=== PATIENT | male | born 1940 | race Caucasian/White ===

== ENCOUNTER → 2017-07-24 10:55 | Outpatient (CLI) | payer MEDICARE, OTHER, SELFPAY ==
[2017-07-24 12:55] LABS: Absolute Lymphocyte Count 1.14 X10^3/ul (0.83-4.51); Absolute Neutrophil Count 4.7 X10^3/uL (2.0-7.7); Basophil# 0.03 X10^3/uL; Basophil% 0.4 % (0-1); Eosinophil# 0.27 X10^3/uL; Hematocrit 46.4 % (40-54); Lymphocyte # 1.14 X10^3/ul (4.0); Lymphocyte % 16.9 % (19-41); Mean Corp Hgb Conc 32.3 g/gl (32-36); Mean Corpuscular Hgb 29.2 pg (27.0-32.0); Mean Corpuscular Volume 90.4 fL (80-94); Mean Platelet Vol. 9.3 fl (6.2-12.0); Monocyte# 0.59 X10^3/uL; Monocyte% 8.7 % (0-10); Neutrophil # 4.71 X10^3/uL (2.7-7.7); Neutrophil % 69.9 % (47-70); Platelet Count 203 K/mm3 (150-450); RBC Distribution Width CV 13.7 % (11.6-14.6); RBC Distribution Width SD 44.7 fl (35.1-43.9); Red Blood Count 5.13 M/mm3 (4.6-6.2); White Blood Count 6.8 K/mm3 (4.4-11.0)
[2017-07-24 12:59] LABS: POSITIVE COUNT NO; POSITIVE DIFFERENTIAL NO; POSITIVE MORPHOLOGY NO
[2017-07-24 13:24] LABS: Anion Gap 6 (5-15); BUN 24 mg/dL (7-18); BUN/Creat Ratio 14.1 RATIO (10-20); Calcium,Total 9.3 mg/dL (8.5-10.1); Chloride 103 mmol/L (98-107); Cholesterol 148 mg/dL (200); EST Glomerular Filtration Rate 42 mL/min (>60); Est Glom Filt Rate - Afr Amer 51 mL/min (>60); Glucose 94 mg/dL (74-106); High Density Lipoprotein 30 mg/dL; Potassium 4.6 mmol/L (3.5-5.1); Sodium Level 139 mmol/L (136-145); T4 Total, Thyroxin 6.7 ug/dL (4.5-12.1); Thyroid Stim Hormone (TSH) 1.24 uIU/mL (0.358-3.74); Triglycerides 276 mg/dL; Very Low Density Lipoprotein 55 mg/dL (5-40)
== END ==
PROVIDERS: Family Provider Family Medicine; PCP Family Medicine; Visit Provider Physician Assistant Medical
DX: E78.5 Hyperlipidemia, unspecified (principal); I10 Essential (primary) hypertension; I25.10 Atherosclerotic heart disease of native coronary artery without angina pectoris; R53.83 Other fatigue
CPT/HCPCS: 80048; 80061; 84436; 84443; 85025

== ENCOUNTER → 2017-12-05 13:51 | Outpatient (CLI) | payer MEDICARE, OTHER, SELFPAY ==
[2017-12-05 15:04] LABS: Anion Gap 6 (5-15); BUN 24 mg/dL (7-18); BUN/Creat Ratio 16.6 RATIO (10-20); Calcium,Total 9.1 mg/dL (8.5-10.1); Chloride 102 mmol/L (98-107); Creatinine, Serum 1.45 mg/dL (0.70-1.30); EST Glomerular Filtration Rate 50 mL/min (>60); Est Glom Filt Rate - Afr Amer 61 mL/min (>60); Glucose 89 mg/dL (74-106); Potassium 4.2 mmol/L (3.5-5.1); Sodium Level 139 mmol/L (136-145)
== END ==
PROVIDERS: Family Provider Family Medicine; PCP Family Medicine; Referring Provider Physician Assistant Medical; Visit Provider Physician Assistant Medical
DX: I10 Essential (primary) hypertension (principal); N28.9 Disorder of kidney and ureter, unspecified
CPT/HCPCS: 36415; 80048

== ENCOUNTER → 2017-12-11 06:12 | Outpatient (CLI) | payer MEDICARE, OTHER, SELFPAY ==
--- NOTE | 2017-12-11 06:14 | CDU_ITS ---
Reason For Study: bruit Rt. Velocities/BP Lt. Velocities/BP Prox CCA 87.4/7.62 cm/sec. Prox CCA 77.0/11.4 cm/sec. Mid CCA 63.3/12.3 cm/sec. Mid CCA 53.8/11.4 cm/sec. Dist CCA 66.3/11.1 cm/sec. Dist CCA 61.7/10.2 cm/sec. Prox ICA 56.3/12.9 cm/sec. Prox ICA 80.9/20.5 cm/sec. Mid ICA 73.3/21.1 cm/sec. Mid ICA 86.8/18.2 cm/sec. Dist ICA 48.7/15.2 cm/sec. Dist ICA 59.7/15.7 cm/sec. Rt. ICA/CCA = 1.2. Lt. ICA/CCA = 1.6. Prox ECA 118/7.62 cm/sec. Prox ECA 206/10.8 cm/sec. Rt. Vert. 37.7/15.3 cm/sec. Lt. Vert. 58.9/15.3 cm/sec. Right Extracranial There is intimal thickening but no significant atherosclerotic plaque noted in the right common carotid artery. There is homogeneous, smooth atherosclerotic plaque noted in the right internal carotid artery. There is intimal thickening but no significant atherosclerotic plaque noted in the right external carotid artery. Antegrade flow is noted in the right vertebral artery. Abnormal waveform morphology noted in the right vertebral artery. Left Extracranial There is homogeneous, smooth atherosclerotic plaque noted in the left common carotid artery. There is heterogeneous, irregular atherosclerotic plaque noted in the left internal carotid artery. The left internal carotid artery is very tortuous. There is heterogeneous, irregular atherosclerotic plaque noted in the left external carotid artery. Antegrade flow is noted in the left vertebral artery. Procedure Carotid Duplex [id number]. The exam was diagnostic. Exam performed in department. Interpretation Summary Mild (<50%) stenosis right extracranial internal carotid. Mild (<50%) stenosis left extracranial internal carotid. Flow within the vertebral arteries is antegrade bilaterally. Ordering Physician: Jemima Maldonado Performed By: Isai Baron RVT
--- NOTE | 2017-12-11 09:55 | STRESSREP ---
Stress Test Report Date: 12/11/2017 Procedure: Exercise tolerance test/imaging study Indications: Chest pain; CAD; PCI; CABG AK: Cardiomyopathy Consent: Per the patient Procedure: The patient exercised on a Daniele protocol for 3 minutes and 45 seconds minutes completing Stage I and 45 seconds of Stage II achieving a peak heart rate of 134 bpm (92 % predicted maximal heart rate) with a peak blood pressure 164/80 mmHg and a peak MET capacity of 6 METs. The baseline ECG demonstrated normal sinus rhythm with nonspecific T wave abnormality. The peak exercise ECG demonstrated approximately 2-[address] segment depression in leads II, III, aVF, and 1 to [address] segment depression in leads V5 and V6 with gradual resolution towards baseline in recovery. There were occasional PVCs pretest, during exercise, and recovery. The functional capacity was considered decreased. There was noted chest discomfort/burning and shortness of breath/dyspnea during exercise continuous resolution in recovery. The examination was discontinued secondary to dyspnea. Impression: 1. Technically adequate (percent predicted maximal heart rate greater than 85%) exercise tolerance test 2. Peak exercise ECG demonstrated approximately 2-[address] segment depression in leads II, III, aVF, and I to II [address] segment depression in leads V5 and V6 with gradual resolution towards baseline in recovery 3. There were occasional PVCs pretest, during exercise, and recovery 4. Nuclear images pending Myocardial perfusion imaging study: Technique: The patient was injected with 14.5 mCi of technetium 99m Cardiolite and subsequently rest SPECT Cardiolite nuclear imaging was obtained in the horizontal long, vertical long, and short axis views. The patient exercised on a Daniele protocol for 3 minutes and 45 seconds completing Stage I and 45 seconds of Stage II achieving a peak heart rate of 134 bpm (92 % predicted maximal heart rate) with a peak blood pressure 164/80 mmHg and a peak MET capacity of 6 METs. The patient was injected with 44.2 mCi of technetium 99m Cardiolite and subsequently stress SPECT Cardiolite nuclear imaging was obtained in the horizontal long, vertical long, and short axis views. A gated Cardiolite study at peak stress was obtained. Interpretation: Rest and stress SPECT Cardiolite nuclear imaging status post realignment, normalization, and attenuation correction, demonstrates the appearance status post stress of diminished tracer uptake in portions of the interventricular septum as well as the distal inferolateral/lateral apical segments as well as notation status post stress of myocardial perfusion/tracer uptake in the right ventricle. There is diminished end systolic thickening and brightening. The gated Cardiolite study demonstrates this myocardial thickening and inward wall motion. The reported LVEF is 45 %. Impression: 1. Rest and stress SPECT Cardiolite nuclear imaging demonstrate demonstrate, status post stress, myocardial perfusion changes concerning for areas of stress-induced myocardial ischemia involving portions of the interventricular septum as well as the distal inferolateral/lateral apical segments and myocardial perfusion/tracer uptake in the right ventricle. 2. The gated Cardiolite study reports an LVEF of 45 %. This note was generated with [employer] software. It may contain incorrect words, spelling, and punctuation that were not noted in checking the note before signing.
--- NOTE | 2017-12-11 10:01 | STRESSREP_ITS ---
Stress Test Report Date: 12/11/2017 Procedure: Exercise tolerance test/imaging study Indications: Chest pain; CAD; PCI; CABG TX: Cardiomyopathy Consent: Per the patient Procedure: The patient exercised on a Daniele protocol for 3 minutes and 45 seconds minutes completing Stage I and 45 seconds of Stage II achieving a peak heart rate of 134 bpm (92 % predicted maximal heart rate) with a peak blood pressure 164/80 mmHg and a peak MET capacity of 6 METs. The baseline ECG demonstrated normal sinus rhythm with nonspecific T wave abnormality. The peak exercise ECG demonstrated approximately 2-[address] segment depression in leads II, III, aVF, and 1 to [address] segment depression in leads V5 and V6 with gradual resolution towards baseline in recovery. There were occasional PVCs pretest, during exercise, and recovery. The functional capacity was considered decreased. There was noted chest discomfort/burning and shortness of breath/dyspnea during exercise continuous resolution in recovery. The examination was discontinued secondary to dyspnea. Impression: 1. Technically adequate (percent predicted maximal heart rate greater than 85%) exercise tolerance test 2. Peak exercise ECG demonstrated approximately 2-[address] segment depression in leads II, III, aVF, and I to II millimeters of horizontal ST segment depression in leads V5 and V6 with gradual resolution towards baseline in recovery 3. There were occasional PVCs pretest, during exercise, and recovery 4. Nuclear images pending Myocardial perfusion imaging study: Technique: The patient was injected with 14.5 mCi of technetium 99m Cardiolite and subsequently rest SPECT Cardiolite nuclear imaging was obtained in the horizont al long, vertical long, and short axis views. The patient exercised on a Daniele protocol for 3 minutes and 45 seconds completing Stage I and 45 seconds of Stage II achieving a peak heart rate of 134 bpm (92 % predicted maximal heart rate) with a peak blood pressure 164/80 mmHg and a peak MET capacity of 6 METs. The patient was injected with 44.2 mCi of technetium 99m Cardiolite and subsequently stress SPECT Cardiolite nuclear imaging was obtained in the horizontal long, vertical long, and short axis views. A gated Cardiolite study at peak stress was obtained. Interpretation: Rest and stress SPECT Cardiolite nuclear imaging status post realignment, normalization, and attenuation correction, demonstrates the appearance status post stress of diminished tracer uptake in portions of the interventricular septum as well as the distal inferolateral/lateral apical segments as well as notation status post stress of myocardial perfusion/tracer uptake in the right ventricle. There is diminished end systolic thickening and brightening. The gated Cardiolite study demonstrates this myocardial thickening and inward wall motion. The reported LVEF is 45 %. Impression: 1. Rest and stress SPECT Cardiolite nuclear imaging demonstrate demonstrate, status post stress, myocardial perfusion changes concerning for areas of stress- induced myocardial ischemia involving portions of the interventricular septum as well as the distal inferolateral/lateral apical segments and myocardial perfusion/tracer uptake in the right ventricle. 2. The gated Cardiolite study reports an LVEF of 45 %. This note was generated with [employer] software. It may contain incorrect words, spelling, and punctuation that were not noted in checking the note before signing.
== END ==
PROVIDERS: Family Provider Family Medicine; PCP Family Medicine; Referring Provider Physician Assistant Medical; Visit Provider Physician Assistant Medical
DX: R07.9 Chest pain, unspecified (principal); I10 Essential (primary) hypertension; R09.89 Other specified symptoms and signs involving the circulatory and respiratory systems
CPT/HCPCS: 78452; 93017; 93880; A9500; A4216

== ENCOUNTER 2017-12-30 07:40 | Day surgery (SDC) | payer MEDICARE, OTHER, SELFPAY ==
--- NOTE | 2017-12-18 08:53 | RAD_ITS ---
STUDY: X-RAY CHEST REASON FOR EXAM: Male, 77 years old. Preprocedure for heart catheterization TECHNIQUE: PA and lateral views of the chest. COMPARISON: 05/16/2015 FINDINGS: Coarsened interstitial lung markings with localized fibrotic changes in the left more than right lung base similar to the prior study. No airspace consolidation. There is no demonstrated pleural abnormality. There is mild cardiac enlargement. Sternal wires and mediastinal surgical clips compatible with prior CABG. Normal visualized pulmonary arteries. There is atherosclerotic calcification of the aortic arch with tortuosity. There are diffuse degenerative changes of the visualized thoracic spine. Normal visualized ribs, clavicles, and shoulders. There is no demonstrated abnormality of the visualized soft tissue structures of the upper abdomen. RAD/Chest PA and Lateral IMPRESSION: No acute cardiopulmonary process. Stable exam. Electronically Signed: Milo Mauro MD at 15:45 EDT , Service support ,
[2017-12-18 09:41] LABS: Hematocrit 47.2 % (40-54); Hemoglobin 15.1 g/dl (13.0-16.5); Mean Corpuscular Hgb 29.7 pg (27.0-32.0); Mean Corpuscular Volume 92.7 fL (80-94); Mean Platelet Vol. 9.4 fl (6.2-12.0); Platelet Count 181 K/mm3 (150-450); RBC Distribution Width CV 14.1 % (11.6-14.6); RBC Distribution Width SD 47.7 fl (35.1-43.9); Red Blood Count 5.09 M/mm3 (4.6-6.2)
[2017-12-18 09:43] LABS: Scan Indicated on CBC? Y/N NO
[2017-12-18 14:43] LABS: Partial Thromboplast Time 28.7 Seconds (24.1-36.2); Prothrombin Time (Protime)PT. 13.5 SECONDS (11.7-14.9)
[2017-12-26 12:41] VITALS: BMI 36.5
--- NOTE | 2017-12-30 10:40 | CL.D_ITS ---
Patient Name: GARCIA HAAS Study Date: 12/30/2017 Performing: Chandu Barrow MD Ht: 68.11 inches 173 cm : 1940 Wt: 240.3 lbs 109 kg Age: 77 Gender: male BSA: 2.21 PROCEDURE(S) PERFORMED CE78-RLW/COR/LV CLINICAL PROFILE AND INDICATIONS Indications: Worsening Angina, Suspected CAD Heart Failure: None Stress/Imaging Stress Test w/SPECT MPI: Yes Result: PositiveStress Test with SPECT MPI: Positive Angina Classification Anginal Classification w/in 2 Weeks: CCS III CAD Presentations: Stable angina. 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 The risks and benefits of the procedure as well as a full d escription of our services here and current unavailability of surgical backup were fully explained to the patient and/or their significant other prior to the catheterization. The Timeout was completed, verifying the correct patient and procedure. The patient's procedural site was prepped and draped in the usual fashion. Local anesthetic was given subcutaneously to right groin region with Lidocaine 2%. Using a modified Seldinger technique, arterial access was obtained via the right femoral artery, a 4 Fr sheath was inserted Left Coronary Artery selective angiography was performed in multiple views us ing a 4 Fr. JL5 catheter. Right Coronary Artery selective angiography was then performed in multiple views using a 4 Fr. 3DRC catheter. Left Ventriculography was performed in FALK projection using a 4 Fr . Pigtail catheter. Simultaneous pressures were then recorded.The arterial sheath was pulled and manu al compression applied until hemostasis is achieved. CORONARY ANGIOGRAPHY DOMINANCE: Co- Dominant LEFT HEART ASSESSMENT Left Ventricular Ejection Fraction: by LV Gram 55 % Normal LV wall motion Elevated Left Ventricular End Diastolic Pressure LVEDP: 26 mmHg LEFT MAIN: Moderate calcification, Distal: 50 % Stenosis LEFT ANTERIOR DECENDING ARTERY: PROX LAD: Moderate calcification, 95 % Stenosis, Long: Diffuse: Irregular: 85 % Stenosis MID LAD: S/P SP and DX1: 85 % Stenosis DIAGONAL 1: Ostial - 95 % Stenosis CIRCUMFLEX ARTERY: OSTIAL CIRC: 50-75 % Stenosis PROX CIRC: Moderate calcification, 50 % Stenosis MID CIRC: Diffuse: 25 % Stenosis OM 1: Proximal - 75 % Stenosis, Mid - 75 % Stenosis, Distal - 95 % Stenosis LT PDA: Left PDA: Proximal - Previously placed stent is patent RIGHT CORONARY ARTERY: PROX RCA: 85 % Stenosis DISTAL RCA: 85 % Stenosis GRAFTS: graft to the Mid LAD previously documented as small, atretic, and nonfunctional and not reevalua unique during this procedure VALVE FINDINGS: Normal Aortic Valve function Normal Mitral Valve function AORTIC ROOT: Angiographically normal COMPLICATIONS No Complications PROCEDURE MEDICATIONS Versed 1 mg IV Oxygen: 2 L/min via nasal cannula SUMMARY OF HEMODYNAMIC DATA Time AIR REST ECG 07:58:44 AO 108/79 (92) SA 09:46:01 LV 121/6, 28 09:54:18 LV 125/1, 23 09:54:24 LV 118/21, 35 09:55:22 LV 122/5, 26 09:55:28 LVp 124/3, 24 09:55:34 AOp 123/67 (92) 09:55:39 Signed By Chandu Barrow MD On 12/30/2017 10:40:14 Chandu Barrow MD
== END 2017-12-30 16:20 | disposition short-term general hospital (02) ==
PROVIDERS: Family Provider Family Medicine; PCP Family Medicine; Referring Provider Internal Medicine Cardiovascular Disease; Visit Provider Internal Medicine Cardiovascular Disease
DX: I25.10 Atherosclerotic heart disease of native coronary artery without angina pectoris (principal); R07.9 Chest pain, unspecified; I10 Essential (primary) hypertension; E78.5 Hyperlipidemia, unspecified; R09.89 Other specified symptoms and signs involving the circulatory and respiratory systems; Z79.02 Long term (current) use of antithrombotics/antiplatelets; Z79.82 Long term (current) use of aspirin; Z79.899 Other long term (current) drug therapy; R94.39 Abnormal result of other cardiovascular function study; Z95.1 Presence of aortocoronary bypass graft; Z95.5 Presence of coronary angioplasty implant and graft
CPT/HCPCS: 36415; 71046; 85027; 85610; 85730; 93458; 99152; 99153; J7040; C1769; C1894; Q9967

== ENCOUNTER → 2018-03-06 10:23 | Outpatient (CLI) | payer MEDICARE, OTHER, SELFPAY ==
[2018-02-13 14:28] VITALS: BMI 32.3
--- NOTE | 2018-03-06 14:42 | STRESSREP ---
Stress Test Report Date: 03/06/2018 Procedure: Exercise tolerance test Indications: CAD; status post redo CABG; precardiac rehabilitation Consent: Per the patient Procedure: The patient exercised on a Daniele protocol for 4 minutes and 15 seconds completing Stage I and 1 minute 15 seconds of Stage II achieving a peak heart rate of 130 bpm (89 % predicted maximal heart rate) with a peak blood pressure 164/86 mmHg and a peak MET capacity of approximately 6 MET's. The baseline ECG demonstrated normal sinus rhythm; poor R wave progression; nonspecific ST/T wave abnormality. The peak exercise ECG demonstrated no obvious ECG changes. There were occasional PVCs pretest, during exercise, and recovery. The functional capacity was considered decreased. The patient had no complaint of chest discomfort during exercise or recovery. The examination was discontinued secondary to leg discomfort. Impression: 1. Technically adequate (percent predicted maximal heart rate greater than 85%) exercise tolerance test 2. Peak exercise ECG with continued nonspecific ST/T wave abnormality with no obvious ECG changes 3. There were occasional PVCs pretest, during exercise, and recovery This note was generated with [employer] software. It may contain incorrect words, spelling, and punctuation that were not noted in checking the note before signing.
== END ==
PROVIDERS: Family Provider Family Medicine; PCP Family Medicine; Referring Provider Internal Medicine Cardiovascular Disease; Visit Provider Internal Medicine Cardiovascular Disease
DX: I25.10 Atherosclerotic heart disease of native coronary artery without angina pectoris (principal); R07.9 Chest pain, unspecified; Z95.5 Presence of coronary angioplasty implant and graft; Z95.1 Presence of aortocoronary bypass graft
CPT/HCPCS: 93017

== ENCOUNTER → 2018-03-19 11:13 | Outpatient (CLI) | payer MEDICARE, OTHER, SELFPAY ==
[2018-02-13 14:28] VITALS: BMI 32.3
--- NOTE | 2018-03-19 12:43 | PCM.CR.HP2 ---
CR - History & Physical - General Arrival date:: 03/19/18 Arrival time:: 12:00 Date of Referral:: 02/13/18 Date of CR Evaluation:: 03/19/18 Referring Physician: DR. CHANDU RUIZ Primary Diagnosis: PCI W/STENT PLACEMENT - History of Present Cardiac Event Onset Date: Enter Onset Date of cardiac illnesses in Comment field below Acute Myocardial Infarction within 12 months:: Yes - IL WAS BACK IN 2004. Coronary Artery Bypass Graft:: Yes - REPEAT CABG 01/06/2018 (5 VESSELS) PTCA or coronary stenting:: Yes - 2010 WHICH CORONARY VESSEL WAS BYPASSED THIS TIME Type of Symptoms:: MAINLY SHORTNESS OF BREATH AND SOME CHEST DISCOMFORT. Interventions with present event:: STRESS TEST, WEEK LATER HAD CT SCAN AND ECHO SENT TO [facility] FOR SURGERY. - Medications Home Medications: Ambulatory Orders Medication Instructions Recorded nitroglycerin 0.4 mg sublingual 0.4 mg SUBLINGUAL Q5M PRN #25 tab 07/24/17 tablet allopurinol 300 mg tablet 1 tab PO QODAY 30 Days #30 tab 12/05/17 aspirin 81 mg tablet,delayed 81 mg PO DAILY 02/13/18 release atorvastatin 80 mg tablet 80 mg PO QHS 02/13/18 indomethacin 50 mg capsule 50 mg PO TID PRN cap 02/13/18 metoprolol tartrate 25 mg tablet 25 mg PO BID 02/13/18 - Allergies Allergies/Adverse Reactions: Allergies rosuvastatin calcium [From Crestor] Allergy (Verified 12/05/17 13:08) Unknown - Sleep Disorder Evaluation Hx of Sleep Apnea: No Do you snore loudly (louder than talking or can be heard through closed doors)?: No Do you often feel tired/ fatigued/ sleepy during daytime?: No Has anyone observed you stop breathing during sleep?: No History of Hypertension (for STOP score): Yes STOP Results: Negative Advanced Directives - Advanced Directives Living Will: Yes Advance Directives Information Provided: No Advance Directives on File: No - Patient is unsure if document is on file or not. 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 Left bundle branch block (Chronic) I44.7 Other snf (current) drug therapy (Chronic) Z79.899 Abnormal nuclear stress test (Chronic) R94.39 HLD (hyperlipidemia) (Chronic) E78.5 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 Shortness of breath R06.02 Gout M10.9 History of prostate cancer Z85.46 - Past Surgical History Surgical History: Past Surgical History (Last Reviewed 02/13/18 @ 14:34 by Jemima Muse) 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) Z95.5, Z95.1 Atherectomy with angioplasty proximal LAD ; LHC with PTCA & stenting of proximal left posterior atrioventricular artery 04/20; Hx of CABG (Resolved) Onset Date: ~01/06/18 Z95.1 -LAD ; Redo CABG x5 GATO to LAD, SVG to PDA, OM1, OM2, D 01/06/18 History of left heart catheterization Z98.890 PTCA & stenting of proximal left posterior atrioventricular artery 04/20 Fraction flow reserve 11/19 - Family History Summary Family History: Family History (Last Reviewed 02/13/18 @ 14:34 by Jemima Muse) Father CAD (coronary artery disease) Myocardial infarction Mother Cancer Social History - Smoking History Smoking Status: Never smoker Hx Tobacco Use: No Hx Smoking Exposure: No - Alcohol Use Alcohol Usage: No - Substance Abuse Hx Substance Use: No - Occupation Occupation (List type of work in comments):: Retired - Hobbies, Recreation, Social Activities Hobbies: Other - cars, old cars and monkeying around on cars. Recreational Activities: I am able to engage in most, but not all activities Social Environment - Status Marital Status: - Current Living Arrangements Living Environment:: Spouse - Children How many children do you have?: 2 - 2-girls own, 2-step sons Do any of your children live nearby?: Yes - Safety Do you feel safe in your surroundings?: Yes - Assistance Do you need any assistance at home?: none Review of Systems - Review of Systems Hints: Right click = Denies ([place]ash). Left click = Reports ([place]) Review of Present Symptoms: Reports: Operative Discomfort - mostly in the legs from the vein extraction., Wound Healing, Appetite - Normal, Appetite - Special Diet - minimized amount of red meats, eats more fruits vegetables, etc., Sleep - Normal. Denies: Shortness of Breath at Rest, Shortness of Breath with Exertion - not since had the repeat CABG done, Dizziness/Lightheadedness, Fatigue, Heart Arrhythmia/Irregularities - Pain Is Patient Pain Free?: Yes Pain Location: none Risk Factor Assessment - Chief Complaint Chief Complaint: Patient is a 77 yr old mael patient of Dr. Chandu Ruiz who presents to cardiac rehab today. He has a history of prior cardiac events ([place], CABG and stent) RANGING BACK TO 2004, 2010 AND RECENTLY EXPERIENCING SHORTNESS OF BREATH. UPON EVALUATION AND TESTING BY DR. RUIZ HE WAS SENT BACK UP TO [facility] FOR REPEAT CABG. - Vital Signs Temperature: 97.8 F Respiratory Rate: 14 Pulse Ox: 93 Blood Pressure: 110/60 Nailbeds:: PINK - Pulse Pulse Rate: 92 - Hypertension How long have you been treated?: 1994 Blood Pressure Sitting - Right Arm: 110/60 - Diabetes Nutrition Referral for Diabetes: No - Obesity Height: 5 ft 8 in Weight:: 213 lb Weight in Pounds: 213.0 lbs Weight Source: Estimated by Patient Body Mass Index (BMI): 32.3 Nutritional Referral for Obesity: Yes - Physical Inactivity Physical Inactivity: None - Risk Stratification Risk Guidelines: Lowest Risk: Risk Factor for Smoking, Risk Factor for Dyslipidemia, Risk Factor for Diabetes, Risk Factor for Hypertension, Risk Factor for Sedentary Lifestyle, Risk Factor for Depression, Highest Risk: Risk Factor for Obesity - For Smoking Smoking Risk Guidelines: Smoking Low Risk: None or quit greater than 6 months ago. Smoking Moderate Risk: Smoker or quit 6 months or less ago. Smoking High Risk: Smoker - For Dyslipidemia Dyslipidemia Risk Guidelines: Low Risk: Moderate Risk: High Risk: 15-25% fat 25.1-29% fat >/= 30% fat. <7% sat fat 7-9% sat fat >9% sat fat. <150 mg chol 150-299 mg chol >/= 300 mg chol. LDL <100 LDL 100-129 LDL >/= 130. Chol/HDL ratio <5.0 Chol/HDL ratio 5.0-6.0 Chol/HDL ratio >6.0. Triglycerides <100 Triglycerides 100-149 Triglycerides >/= 150 - For Diabetes Mellitus Diabetes Risk Guidelines: Diabetes Low Risk: HgA1c <6.5% and/or FBG <120. Diabetes Moderate Risk: HgA1c 6.6-7.9% and/or FBG 120-180. Diabetes High Risk: HgA1c >/= 8% and/or FBG >180 - For Obesity/Overweight Obesity/Overweight Risk Guidelines: Obesity Low Risk: BMI <25.0. Obesity Moderate Risk: BMI 25-29.9. Obesity High Risk: BMI >/= 30.0 - For Hypertension Hypertension Risk Guidelines: Hypertension Low Risk: Systolic <120 and Diastolic <80. Hypertension Moderate Risk: Systolic 120-139 and Diastolic 80-89. Hypertension High Risk: Systolic >/= 140 and Diastolic >/= 90 - For Sedentary Lifestyle Sedentary Lifestyle Risk Guidelines: Sedentary Lifestyle Low Risk: >/= 1,500 kcal/week. Sedentary Lifestyle Moderate Risk: 700-1,499 kcal/week. Sedentary Lifestyle High Risk: < 700 kcal/week - For Depression Depression Risk Guidelines: Depression Low Risk: Not clinically depressed. Depression Moderate Risk: Mildly depressed. Depression High Risk: Clinically depressed - Family History Family History: Family History (Last Reviewed 02/13/18 @ 14:34 by Jemima Muse) Father CAD (coronary artery disease) Myocardial infarction Mother Cancer Motivation - Motivation to Participate On a scale of 1 to 10, how prepared are you to commit to attending program?: 8 What do you see as barriers to successfully being able to complete the program?: NONE What do you see as the benefits of succesfully completing the program? In other words, what do you hope to get out of participating in the program?: INCREASING THE STAMINA, STREGNTH AND ENDURANCE. Are there issues you are dealing with that will interfere with completing the program?: NONE Do you have a spouse or signficant other, family or friends who will help support you to complete the program?: YES
--- NOTE | 2018-03-19 12:49 | CR.HP_ITS ---
CR - History & Physical - General Arrival date:: 03/19/18 Arrival time:: 12:00 Date of Referral:: 02/13/18 Date of CR Evaluation:: 03/19/18 Referring Physician: DR. CHANDU RUIZ Primary Diagnosis: PCI W/STENT PLACEMENT - History of Present Cardiac Event Onset Date: Enter Onset Date of cardiac illnesses in Comment field below Acute Myocardial Infarction within 12 months:: Yes - SD WAS BACK IN 2004. Coronary Artery Bypass Graft:: Yes - REPEAT CABG 01/06/2018 (5 VESSELS) PTCA or coronary stenting:: Yes - 2010 WHICH CORONARY VESSEL WAS BYPASSED THIS TIME Type of Symptoms:: MAINLY SHORTNESS OF BREATH AND SOME CHEST DISCOMFORT. Interventions with present event:: STRESS TEST, WEEK LATER HAD CT SCAN AND ECHO SENT TO [facility] FOR SURGERY. - Medications Home Medications: Ambulatory Orders Medication Instructions Recorded nitroglycerin 0.4 mg sublingual 0.4 mg SUBLINGUAL Q5M PRN #25 tab 07/24/17 tablet allopurinol 300 mg tablet 1 tab PO QODAY 30 Days #30 tab 12/05/17 aspirin 81 mg tablet,delayed 81 mg PO DAILY 02/13/18 release atorvastatin 80 mg tablet 80 mg PO QHS 02/13/18 indomethacin 50 mg capsule 50 mg PO TID PRN cap 02/13/18 metoprolol tartrate 25 mg tablet 25 mg PO BID 02/13/18 - Allergies Allergies/Adverse Reactions: Allergies rosuvastatin calcium [From Crestor] Allergy (Verified 12/05/17 13:08) Unknown - Sleep Disorder Evaluation Hx of Sleep Apnea: No Do you snore loudly (louder than talking or can be heard through closed doors)?: No Do you often feel tired/ fatigued/ sleepy during daytime?: No Has anyone observed you stop breathing during sleep?: No History of Hypertension (for STOP score): Yes STOP Results: Negative Advanced Directives - Advanced Directives Living Will: Yes Advance Directives Information Provided: No Advance Directives on File: No - Patient is unsure if document is on file or not. 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 Left bundle branch block (Chronic) I44.7 Other senior care (current) drug therapy (Chronic) Z79.899 Abnormal nuclear stress test (Chronic) R94.39 HLD (hyperlipidemia) (Chronic) E78.5 Atherosclerotic heart disease of [place] coronary artery without angina pectoris (Chronic) I25.10 Shortness of breath R06.02 Gout M10.9 History of prostate cancer Z85.46 - Past Surgical History Surgical History: Past Surgical History (Last Reviewed 02/13/18 @ 14:34 by Jemima Muse) 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) Z95.5, Z95.1 Atherectomy with angioplasty proximal LAD ; LHC with PTCA & stenting of proximal left posterior atrioventricular artery 04/20; Hx of CABG (Resolved) Onset Date: ~01/06/18 Z95.1 -LAD ; Redo CABG x5 GATO to LAD, SVG to PDA, OM1, OM2, D 01/06/18 History of left heart catheterization Z98.890 PTCA & stenting of proximal left posterior atrioventricular artery 04/20 Fraction flow reserve 11/19 - Family History Summary Family History: Family History (Last Reviewed 02/13/18 @ 14:34 by Jemima Muse) Father CAD (coronary artery disease) Myocardial infarction Mother Cancer Social History - Smoking History Smoking Status: Never smoker Hx Tobacco Use: No Hx Smoking Exposure: No - Alcohol Use Alcohol Usage: No - Substance Abuse Hx Substance Use: No - Occupation Occupation (List type of work in comments):: Retired - Hobbies, Recreation, Social Activities Hobbies: Other - cars, old cars and monkeying around on cars. Recreational Activities: I am able to engage in most, but not all activities Social Environment - Status Marital Status: - Current Living Arrangements Living Environment:: Spouse - Children How many children do you have?: 2 - 2-girls own, 2-step sons Do any of your children live nearby?: Yes - Safety Do you feel safe in your surroundings?: Yes - Assistance Do you need any assistance at home?: none Review of Systems - Review of Systems Hints: Right click = Denies (Slash). Left click = Reports ([place]) Review of Present Symptoms: Reports: Operative Discomfort - mostly in the legs from the vein extraction., Wound Healing, Appetite - Normal, Appetite - Special Diet - minimized amount of red meats, eats more fruits vegetables, etc., Sleep - Normal. Denies: Shortness of Breath at Rest, Shortness of Breath with Exertion - not since had the repeat CABG done, Dizziness/Lightheadedness, Fatigue, Heart Arrhythmia/Irregularities - Pain Is Patient Pain Free?: Yes Pain Location: none Risk Factor Assessment - Chief Complaint Chief Complaint: Patient is a 77 yr old mael patient of Dr. Chandu Ruiz who presents to cardiac rehab today. He has a history of prior cardiac events (SD, CABG and stent) RANGING BACK TO 2004, 2010 AND RECENTLY EXPERIENCING SHORTNESS OF BREATH. UPON EVALUATION AND TESTING BY DR. RUIZ HE WAS SENT BACK UP TO [facility] FOR REPEAT CABG. - Vital Signs Temperature: 97.8 F Respiratory Rate: 14 Pulse Ox: 93 Blood Pressure: 110/60 Nailbeds:: PINK - Pulse Pulse Rate: 92 - Hypertension How long have you been treated?: 1994 Blood Pressure Sitting - Right Arm: 110/60 - Diabetes Nutrition Referral for Diabetes: No - Obesity Height: 5 ft 8 in Weight:: 213 lb Weight in Pounds: 213.0 lbs Weight Source: Estimated by Patient Body Mass Index (BMI): 32.3 Nutritional Referral for Obesity: Yes - Physical Inactivity Physical Inactivity: None - Risk Stratification Risk Guidelines: Lowest Risk: Risk Factor for Smoking, Risk Factor for Dyslipidemia, Risk Factor for Diabetes, Risk Factor for Hypertension, Risk Factor for Sedentary Lifestyle, Risk Factor for Depression, Highest Risk: Risk Factor for Obesity - For Smoking Smoking Risk Guidelines: Smoking Low Risk: None or quit greater than 6 months ago. Smoking Moderate Risk: Smoker or quit 6 months or less ago. Smoking High Risk: Smoker - For Dyslipidemia Dyslipidemia Risk Guidelines: Low Risk: Moderate Risk: High Risk: 15-25% fat 25.1-29% fat >/= 30% fat. <7% sat fat 7-9% sat fat >9% sat fat. <150 mg chol 150-299 mg chol >/= 300 mg chol. LDL <100 LDL 100-129 LDL >/= 130. Chol/HDL ratio <5.0 Chol/HDL ratio 5.0-6.0 Chol/HDL ratio >6.0. Triglycerides <100 Triglycerides 100-149 Triglycerides >/= 150 - For Diabetes Mellitus Diabetes Risk Guidelines: Diabetes Low Risk: HgA1c <6.5% and/or FBG <120. Diabetes Moderate Risk: HgA1c 6.6-7.9% and/or FBG 120-180. Diabetes High Risk: HgA1c >/= 8% and/or FBG >180 - For Obesity/Overweight Obesity/Overweight Risk Guidelines: Obesity Low Risk: BMI <25.0. Obesity Moderate Risk: BMI 25-29.9. Obesity High Risk: BMI >/= 30.0 - For Hypertension Hypertension Risk Guidelines: Hypertension Low Risk: Systolic <120 and Diastolic <80. Hypertension Moderate Risk: Systolic 120-139 and Diastolic 80-89. Hypertension High Risk: Systolic >/= 140 and Diastolic >/= 90 - For Sedentary Lifestyle Sedentary Lifestyle Risk Guidelines: Sedentary Lifestyle Low Risk: >/= 1,500 kcal/week. Sedentary Lifestyle Moderate Risk: 700-1,499 kcal/week. Sedentary Lifestyle High Risk: < 700 kcal/week - For Depression Depression Risk Guidelines: Depression Low Risk: Not clinically depressed. Depression Moderate Risk: Mildly depressed. Depression High Risk: Clinically depressed - Family History Family History: Family History (Last Reviewed 02/13/18 @ 14:34 by Jemima Muse) Father CAD (coronary artery disease) Myocardial infarction Mother Cancer Motivation - Motivation to Participate On a scale of 1 to 10, how prepared are you to commit to attending program?: 8 What do you see as barriers to successfully being able to complete the program?: NONE What do you see as the benefits of succesfully completing the program? In other words, what do you hope to get out of participating in the program?: INCREASING THE STAMINA, STREGNTH AND ENDURANCE. Are there issues you are dealing with that will interfere with completing the program?: NONE Do you have a spouse or signficant other, family or friends who will help support you to complete the program?: YES
[2018-03-19 12:59] VITALS: BP 110/60; PULSE 92; RESP 14; TEMP 36.6; O2SAT 93; BMI 32.3
--- NOTE | 2018-03-19 13:08 | CR.ITP_ITS ---
General Information - General Information Admitting Diagnosis: CABG - Education/Goals Barriers to Learning: None Individual Counseling: Initial Assessment: Abnormal Cholesterol Levels, Overweight/Obesity Cardiac Rehabilitation Goals: 1. Maintain the individual as the primary focus of care. 2. To improve the patient's quality of life. 3. Identification of cardiac risk factors and provide cardiac risk factor management. 4. Enhance the psychosocial status of the patient. 5. Reconditioning enough to allow the patient to resume customary activities. 6. Control symptoms of cardiac disease Scale for measuring improvement of personal goals: Enter appropriate number in Comments. 2 = Unchanged. 3 = Slightly Better. 4 = Moderate Improvement. 5 = Met my Goal Personal Goals: Initial Assessment: Improve energy level, Improve muscle strength and endurance, Improve diet and eating habits (eat healthier), Control risk factors (learn risk factor modification) Exercise - Initial Assessment - Visit Date of Eval: 03/19/18 - START 03/23/2018 - Stages of Change Stages of Change:: Action - Exercise Prescription Mode:: Treadmill, Airdyne, NuStep Angina with exercise?: No Target Heart Rate:: 108-116 - Hypertension Do any of the following apply?: Yes, Medication Resting Blood Pressure:: 104/50 - Intervention Home Exercise/Activity Goal:: Sitting Time <3 hrs/day - Education Goals:: Warm-up, RPE THADDEUS Scale, S/S, Safe Exercise, Self-Monitoring - Exercise Program Goals Exercise Program Goals: Aerobic Activity >30 min Nutrition - Initial Assessment - Program Goals Nutrition Program Goals: LDL <70. Total Cholesterol <200. HDL >45. Triglycerides <150. HgbA1C <7%. BMI <25 - Visit Date of Assessment:: 03/19/18 - Stages of Change Stages of Change:: Action - Diabetes Diabetes:: No - Weight Management Height: 5 ft 8 in Weight:: 213 lb Body Fat %:: 32.3 - Intervention Referral to dietitian:: Yes Referral to Diabetic Clinic:: No Will attend diet classes:: Yes - Education Gave educational materials for:: Healthy eating Tobacco - Initial Assessment - Program Goals Tobacco Program Goals: Complete smoking cessation. Attend education classes. Improve Knowledge Test score - Stage of Change Stages of Change:: Action - Learning Barriers Learning Barriers: Ready to Learn - Family Support Do you have family support?: Yes - Tobacco Use Tobacco Use: Non-smoker Do you use smokeless tobacco?: No - Intervention Smoking Cessation Referral:: No Individual Education/Counseling:: No Education Schedule Given:: Yes - Education Gave educational material for:: Coronary artery disease, Risk factors, Sexuality, Medical compliance, Cardiac A&P, Angina signs & symptoms Psychosocial - Initial Assess - Target Goals Target Goals: Assess presence or absence of depression. Using a valid screening tool, maximizes coping skills. Positive support system - Stages of Change Stages of Change:: Action - Psychosocial Test Tool Used:: HANDS Depression Questionnaire - Intervention PS - Interventions: Yes Attend Stress Management Classes, Yes Uses Stress Key gement Skills, No Referral to Mental Health, No Referral to [facility] Case Management, No Referral to Physician - Education Gave educational materials for:: Coping techniques, Signs & symptoms of depression, Stress management, Relaxation techniques - Patient/Program Goal Preventative Medication(s):: Aspirin, Clopidogrel, Beta pradeep, Statin/lipid - Assistive Devices Assistive Devices:: None Fall Risk Assessed:: Yes Patient Health Questionnaire Initial Assessment 1. Little interest or pleasure in doing things: Not at all 2. Feeling down, depressed, or hopeless: Not at all 3. Trouble falling or staying asleep, or sleeping too much: Several days 4. Feeling tired or having little energy: Several days 5. Poor appetite or overeating: Not at all 6. Feeling bad about yourself -- or that you are a failure or have let yourself or your family down: Not at all 7. Trouble concentrating on things, such as reading the newspaper or watching television: Not at all 8. Moving or speaking so slowly that other people could have noticed. Or the opposite - being so fidgety or restless that you have been moving around a lot more than usual: Not at all 9. Thoughts that you would be better off , or of hurting yourself in some way: Not at all How difficult have these problems made it for you to do your work, take care of things at home, or get along with other people?: Not difficult at all Total Score: 2 ADONIS-Q SV Test - Statements CAD is a disease of the arteries in the heart: I Don't Know Examples of risk factors for heart disease: True Angina is chest pain or discomfort: False The benefits of resistance training include: True Eating more meat and dairy products: False Anti-platelet medications such as aspirin are important: True The only effective way to manage stress: False An exercise warm-up slowly increases heart rate: False Prepared, processed foods usually have high sodium: True Depression is common after a heart attack: False The statin medications lower cholesterol: True To control blood pressure, lower the amount of sodium: True If someone gets chest discomfort during walking: False Transfats are partially hydrogenated vegetable oils: I Don't Know Sleep apnea that is not treated increases the risk: False To control cholesterol, one should become a vegetarian: True Someone knows if he/she is exercising at the right level: I Don't Know Diabetes cannot be prevented with exercise & health eating: False Stress is a large risk for heart attack: True A diet that can help lower blood pressure is rich in: True - Total Score Total Correct Responses: 13 Self-Efficacy Initial Assessment We would like to know how confident you are in doing certain activities. Please select your confidence level for:: Select your confidence level for the following using the scale 1-10 where 1 is not at all confident and 10 is totally confident. Your score is the average of all 6 responses. Fatigue: How confident are you that you can keep the fatigue caused by your disease from interfering with the things you want to do? Select Number: 8 Physical Discomfort or Pain: How confident are you that you can keep the physical discomfort or pain of your disease from interfering with the things you want to do? Select Number: 9 Emotional Distress: How confident are you that you can keep the emotional distress caused by your disease from interfering with the things you want to do? Select Number: 8 Other Symptoms or Health Problems: How confident are you that you can keep other symptoms or health problems from interfering with the things you want to do? Select Number: 10 Different Tasks and Activities: How confident are you that you can do the different tasks and activities needed to manage your health condition so as to reduce your need to see a doctor? Select Number: 8 Medication: How confident are you that you can do things other than just taking medication to reduce how much your illness affects your everyday life? Select Number: 9 Total Score:: 8 Nutrition Survey - Nutrition Survey Instructions Scoring Instructions: Scoring is as follows: Yes = 1 points. No = 0 point. Patient score that is >/=12 is considered to be at potential nutritional risk and could benefit from a referral to a registered dietitian. - Nutrition Survey Initial Have you lost >10 lbs over the past 2 months without trying?: Yes Are you following a special diet at home for diabetes, low fat, or low salt?: Yes Are you interested in meeting with a dietitian for help understanding your diet?: Yes Do you eat less than 3 meals a day?: No Do you eat fatty meats ([place], sausage, ribs, etc), fried foods, desserts, large amounts of salad dressings, margarine, butter, or cheese most days?: No Do you have food allergies? [Enter types in comment field]: No Do you eat in restaurants more than 3 times a week?: No Do you season food with salt, seasoning salt, or garlic salt?: No Do you used canned, boxed, frozen meals, or soups, seasoning packets?: No Total Score:: 3
[2018-03-19 13:11] VITALS: BP 104/50
== END ==
PROVIDERS: Family Provider Family Medicine; PCP Family Medicine; Referring Provider Internal Medicine Cardiovascular Disease; Visit Provider Internal Medicine Cardiovascular Disease
DX: I25.10 Atherosclerotic heart disease of native coronary artery without angina pectoris (principal)

== ENCOUNTER 2018-04-08 06:30 | Outpatient (RCR) | payer MEDICARE, OTHER, SELFPAY ==
[2018-03-19 12:59] VITALS: BMI 32.3
== END 2018-04-09 23:59 ==
LOC: CR 06:30
PROVIDERS: Family Provider Family Medicine; PCP Family Medicine; Referring Provider Internal Medicine Cardiovascular Disease; Visit Provider Internal Medicine Cardiovascular Disease
DX: I25.10 Atherosclerotic heart disease of native coronary artery without angina pectoris (principal); Z95.5 Presence of coronary angioplasty implant and graft; Z95.1 Presence of aortocoronary bypass graft
CPT/HCPCS: 93798

== ENCOUNTER 2018-05-06 06:30 | Outpatient (RCR) | payer MEDICARE, OTHER, SELFPAY ==
[2018-03-19 12:59] VITALS: BMI 32.3
== END 2018-05-07 23:59 ==
LOC: CR 06:30
PROVIDERS: Family Provider Family Medicine; PCP Family Medicine; Referring Provider Internal Medicine Cardiovascular Disease; Visit Provider Internal Medicine Cardiovascular Disease
DX: I25.10 Atherosclerotic heart disease of native coronary artery without angina pectoris (principal); Z95.5 Presence of coronary angioplasty implant and graft; Z95.1 Presence of aortocoronary bypass graft
CPT/HCPCS: 93798

== ENCOUNTER → 2018-05-28 08:10 | Outpatient (CLI) | payer MEDICARE, OTHER, SELFPAY ==
[2018-05-21 10:20] VITALS: BMI 34.4
[2018-05-28 08:58] LABS: AST(SGOT) 22 U/L (15-37); Alanine Aminotransfer ALT/SGPT 22 U/L (16-61); Albumin, Serum 3.6 g/dL (3.2-5.0); Alkaline Phosphatase 128 U/L (45-117); Bilirubin, Direct 0.11 mg/dL (0.00-0.30); Cholesterol 146 mg/dL (200); Globulin 3.8 g/dL (2.2-4.2); High Density Lipoprotein 37 mg/dL; Protein, Total 7.4 g/dL (6.4-8.2); Triglycerides 311 mg/dL; Very Low Density Lipoprotein 62 mg/dL (5-40)
== END ==
PROVIDERS: Internal Medicine Cardiovascular Disease; Family Provider Family Medicine; PCP Family Medicine; Referring Provider Nurse Practitioner Family; Visit Provider Nurse Practitioner Family
DX: E78.5 Hyperlipidemia, unspecified (principal)
CPT/HCPCS: 36415; 80061; 80076

== ENCOUNTER 2018-06-05 06:30 | Outpatient (RCR) | payer MEDICARE, OTHER, SELFPAY ==
[2018-03-19 12:59] VITALS: BMI 32.3
== END 2018-06-07 23:59 ==
LOC: CR 06:30
PROVIDERS: Family Provider Family Medicine; PCP Family Medicine; Referring Provider Internal Medicine Cardiovascular Disease; Visit Provider Internal Medicine Cardiovascular Disease
DX: I25.10 Atherosclerotic heart disease of native coronary artery without angina pectoris (principal); Z95.5 Presence of coronary angioplasty implant and graft; Z95.1 Presence of aortocoronary bypass graft
CPT/HCPCS: 93798

== ENCOUNTER 2018-06-12 06:30 | Outpatient (RCR) | payer MEDICARE, OTHER, SELFPAY ==
[2018-06-08 01:05] VITALS: BMI 32.3
== END 2018-07-07 23:59 ==
LOC: CR 06:30
PROVIDERS: Family Provider Family Medicine; PCP Family Medicine; Referring Provider Internal Medicine Cardiovascular Disease; Visit Provider Internal Medicine Cardiovascular Disease
DX: I25.10 Atherosclerotic heart disease of native coronary artery without angina pectoris (principal); Z95.5 Presence of coronary angioplasty implant and graft; Z95.1 Presence of aortocoronary bypass graft
CPT/HCPCS: 93798

== ENCOUNTER → 2018-10-30 08:40 | Outpatient (CLI) | payer MEDICARE, OTHER, SELFPAY ==
[2018-08-10 13:36] VITALS: BMI 34.7
[2018-10-30 10:27] LABS: AST(SGOT) 21 U/L (15-37); Alanine Aminotransfer ALT/SGPT 26 U/L (16-61); Albumin, Serum 3.5 g/dL (3.2-5.0); Alkaline Phosphatase 114 U/L (45-117); Bilirubin, Direct 0.09 mg/dL (0.00-0.30); Cholesterol 178 mg/dL (200); Globulin 3.8 g/dL (2.2-4.2); High Density Lipoprotein 31 mg/dL; Protein, Total 7.3 g/dL (6.4-8.2); Triglycerides 260 mg/dL; Very Low Density Lipoprotein 52 mg/dL (5-40)
== END ==
PROVIDERS: Family Provider Family Medicine; PCP Family Medicine; Referring Provider Internal Medicine Cardiovascular Disease; Visit Provider Internal Medicine Cardiovascular Disease
DX: I25.10 Atherosclerotic heart disease of native coronary artery without angina pectoris (principal); E78.2 Mixed hyperlipidemia
CPT/HCPCS: 36415; 80061; 80076

== ENCOUNTER 2019-02-27 15:35 | Emergency (ER) | payer MEDICARE, OTHER, SELFPAY ==
[2019-02-15 08:48] VITALS: BMI 35.9
[2019-02-27 15:35] VITALS: BP 126/68; PULSE 94; RESP 16; TEMP 36.2; O2SAT 93; BMI 34.9
[2019-02-27] MEDS: Morphine 4 MG/ML Syringe IV (16:25)
[2019-02-27 16:39] LABS: Absolute Lymphocyte Count 0.68 X10^3/uL (0.83-4.51); Basophil# 0.03 X10^3/uL; Basophil% 0.4 % (0-1); Eosinophil# 0.11 X10^3/uL; Eosinophils% 1.4 % (0-5); Hematocrit 47.6 % (40-54); Hemoglobin 15.6 g/dL (13.0-16.5); Lymphocyte # 0.68 X10^3/ul (4.0); Mean Corp Hgb Conc 32.8 g/dL (32-36); Mean Corpuscular Hgb 29.2 pg (27.0-32.0); Mean Corpuscular Volume 89.1 fL (80-94); Mean Platelet Vol. 9.2 fl (6.2-12.0); Monocyte# 0.72 X10^3/uL; Monocyte% 9.5 % (0-10); NRBC Flagged by Analyzer 0 % (0-5); Neutrophil # 6.03 X10^3/uL (2.7-7.7); Neutrophil % 79.4 % (47-70); Platelet Count 195 K/mm3 (150-450); RBC Distribution Width CV 14.1 % (11.6-14.6); RBC Distribution Width SD 45.5 fl (35.1-43.9); Red Blood Count 5.34 M/mm3 (4.6-6.2); White Blood Count 7.6 K/mm3 (4.4-11.0)
--- NOTE | 2019-02-27 16:45 | RAD_ITS ---
STUDY: X-RAY - RIGHT KNEE REASON FOR EXAM: Male, 78 years old. PT COMPLAINS OF RIGHT KNEE PAIN TECHNIQUE: 4 view(s) of the knee. COMPARISON: None. FINDINGS: Normal visualized distal femur. Normal visualized proximal tibia and fibula. Normal proximal tibiofibular articulation. There is no demonstrated fracture. Normal medial femorotibial compartment. Normal lateral femorotibial compartment. Normal patellofemoral articulation. There is a moderate volume joint effusion. The soft tissue structures are unremarkable. RAD/Knee 4 or More Views IMPRESSION: Moderate effusion. No fracture or dislocation. No significant degenerative changes. Electronically Signed: Jose Juan Gipson MD at 16:59 EST , Service support ,
[2019-02-27 16:46] LABS: Erythrocyte Sedimentation Rate 55 mm/hr (0-20)
[2019-02-27 16:58] LABS: Anion Gap 6 (5-15); BUN 28 mg/dL (7-18); BUN/Creat Ratio 18.5 RATIO (10-20); Calcium,Total 9.2 mg/dL (8.5-10.1); Chloride 99 mmol/L (98-107); Creatinine, Serum 1.51 mg/dL (0.70-1.30); EST Glomerular Filtration Rate 48 mL/min (>60); Est Glom Filt Rate - Afr Amer 58 mL/min (>60); Estimated Creatinine Clearance 40.26 ml/min; Glucose 113 mg/dL (74-106); Sodium Level 135 mmol/L (136-145)
[2019-02-27 17:10] LABS: Pathologist Comment May follow
[2019-02-27 17:21] LABS: Synovial Fld Mononuclear WBC % 5.9 %; Synovial Fld Polynuclear WBC # 12.899 10^3/uL; Synovial Fld Polynuclear WBC % 94.1 %
[2019-02-27 17:34] LABS: AUTO B FLUID DILUENT BKGD CT WBC <0.1 RBC <0.01 (W<.1,R<.01); Color / Synovial Fluid Yellow (Pale Yellow); Source / Synovial Fluid RT KNEE; Source- Body Fluid SYNOVIAL; Viscosity / Synovial Fluid Sl. Viscous (HIGH)
[2019-02-27 17:35] LABS: Appearance /Synovial Fluid Turbid (CLEAR)
[2019-02-27 17:48] LABS: CRYSTALS, BODY FLUID MONOSODIUM URATE
[2019-02-27 18:11] LABS: RBC /Synovial Fluid 223 /mm3 (0)
[2019-02-27 18:13] LABS: Body Fluid QC Type(s) BF2Q,BF3Q
[2019-02-27 18:15] LABS: Lymph 3 %; Monocyte /Synovial Fluid 2 %; Neutrophil 95 % (0-25)
[2019-02-27 19:01] VITALS: BP 127/77; PULSE 83; RESP 16; O2SAT 94
--- NOTE | 2019-02-27 19:05 | ED.DCSUM_ITS ---
- ER Visit Summary Date of Service: 02/27/19 Chief Complaint: Right knee pain History of Present Illness: The patient is a [address] Srinivasa Nava. He reports he has right knee pain that began 4 days ago. Is gradually gotten worse. It is a aching pain that is 10 out of 10 with movement or weightbearing. Is 5 out of 10 at rest. There is no change with Tylenol. He denies any paresthesias or weakness. No recent trauma. No fall, MVA, or change in activity. Does report that he has a history of gout. He denies any constitutional symptoms. No fever, chills, nausea, or vomiting. Physical Examination: Vitals: Stable. Afebrile. General: Well-nourished and well-developed. Head: Normocephalic atraumatic. Neck: Supple, no lymphadenopathy. No JVD. Nontender. Cardiovascular: Regular rate and rhythm. No murmurs. Respiratory: No respiratory distress. Clear to auscultation bilaterally. Abdominal: Soft, nontender, nondistended, normal bowel sounds. No guarding, rebound, or peritoneal signs. Back: Nontender. Extremities: Very limited range of motion of his right knee secondary to pain. He has pain with even short arc movements. There is a moderate joint effusion. There is no overlying erythema or warmth to suggest a septic joint. He is neurovascular intact distal to this. Skin: Normal color, no rash. Neurologic: Alert and oriented ?3. Cranial nerves II through XII are intact. Normal strength and sensation. Psych: Normal affect. Test Results: CBC is marked for segmented for 79 lymphocytes 9. Chem-7 is more for sodium 135, BUN 21, creatinine 1.51, glucose 113. Sed rate is 55. CRP is 179. Synovial fluid shows monosodium urate crystals consistent with gout. The white count is 13,714 with 95% neutrophils. Clinical Impression(s) from Imaging Studies Knee X-Ray 02/27/19 16:45 IMPRESSION: Moderate effusion. No fracture or dislocation. No significant degenerative changes. Electronically Signed: Jose Juan Gipson MD at 16:59 EST , Service support , Emergency Department Course and Treatment: Patient was given a dose of morphine IV. He is resting much more comfortably. He has good range of motion of his knee with mild pain. He was given oxycodone and prednisone p.o. Treatment Plan: Patient be discharged with prednisone and Percocet. Instructed to follow-up with his primary care physician in 3 to 5 days if not improving. He is given the name of Dr. Jeff to follow-up in a week if not improving. Return to the emergency department for any worsening symptoms. Disposition: To home in improved and stable condition. Impression: 1. Gouty arthritis right knee. 2. Arthrocentesis right knee. Procedure note: Right knee was prepped and draped in the typical sterile fashion. On the medial superior portion of his patella the knee was accessed on the first attempt with out difficulty. 60 cc of yellow cloudy fluid were removed. Patient tolerated this well. This note was generated with [employer] dictation software. It may contain incorrect words, spelling, and punctuation that were not noted in review of the chart prior to signing ED Disposition - Plan for ED Patient: Instructions: Gouty Arthritis Prescriptions: Oxycodone HCl/Acetaminophen [Percocet 5/325] 1 tab PO Q6H PRN PRN 5 Days #20 tab PRN Reason: Pain Score 4-10/10 Prescription Printed Prednisone 10 mg PO DAILY #63 tab Prescription Printed Referrals: Neil Jeff MD [STAFF PHYSICIAN] - 1 Week if not improving Srinivasa Nava [Primary Care Provider] - 3-5 Days if not improving
[2019-02-27] MEDS: oxyCODONE 5 MG Tablet PO (19:28)
[2019-02-27] MEDS: predniSONE 20 MG Tablet 60 MG PO (19:28)
[2019-03-01 12:05] LABS: Pathologist Review Reviewed
== END 2019-02-27 19:37 | disposition home or self-care (01) ==
LOC: ED 16:00
PROVIDERS: Emergency Provider Emergency Medicine; Family Provider Family Medicine; PCP Family Medicine
DX: M10.9 Gout, unspecified (principal); I25.10 Atherosclerotic heart disease of native coronary artery without angina pectoris; I10 Essential (primary) hypertension; E78.00 Pure hypercholesterolemia, unspecified; Z95.1 Presence of aortocoronary bypass graft; Z79.82 Long term (current) use of aspirin; Z79.899 Other long term (current) drug therapy
CPT/HCPCS: 20610; 73564; 80048; 85025; 85652; 86140; 87070; 87075; 87205; 89050; 89051; 89060; 96374; 99284; J7040; A4216

== ENCOUNTER 2019-05-15 01:53 | Emergency (ER) | payer MEDICARE, OTHER, SELFPAY ==
[2019-05-15 01:54] VITALS: BP 149/80; PULSE 89; RESP 20; TEMP 36.4; O2SAT 94; BMI 36.1
--- NOTE | 2019-05-15 02:18 | EKG12_ITS ---
Test Reason : CP Blood Pressure : / mmHG Vent. Rate : 074 BPM Atrial Rate : 074 BPM P-R Int : 172 ms QRS Dur : 124 ms QT Int : 396 ms P-R-T Axes : 055 -06 075 degrees QTc Int : 439 ms Normal sinus rhythm Non-specific intra-ventricular conduction delay Nonspecific ST abnormality Abnormal ECG Confirmed by BRENTON CAMPOS, KYLE ([id number]), film editor supervisor MEGHA ARREOLA ([id number]) on 05/17/2019 3:33:04 PM Referred By: BB Confirmed By:KYLE FARRIS MD
--- NOTE | 2019-05-15 02:19 | ED.VIS.CHEST ---
History of Present Illness Chief Complaint: Chest Pain Informant: Patient Onset: Yesterday - see below Timing: Intermittent, Lasts - 3 hrs most recently Quality: Aching Location: - - epigastric Current Severity: Mild Maximum Severity: Moderate Worsened By: Nothing. Not Worsened By: Breathing Relieved By: Nothing. 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 Negative for: Vomiting, Diaphoresis, Dyspnea, Cough, Fever, Lightheadedness, Palpitations Narrative: Patient with a significant history of coronary disease, he has had 2 CABGs and the last one was 2 or 3 years ago, he cannot remember when his last cardiac stress was, states that he had chest discomfort around 24 hours ago that was more on the right side, it went away on its own, this discomfort tonight felt burning and aching more in his epigastrium/lower retrosternal area, and was fairly persistent. It was while he was lying down, he sat up and did not notice any significant changes. He took a couple of aspirin, at least 162 mg, in addition to the 81 mg that he takes daily every morning. He took 1 nitroglycerin but it did not seem to help although on the way to the ER the pain seem to gradually resolved and now he states it is barely there if not gone. He states this was different than the discomfort he experienced with his CA in the past. He is on no anticoagulants or other antiplatelet medications now. He states he had a stent placed remotely but that was removed when he had his second CABG. - Past Medical History (1) Atherosclerotic heart disease of [place] coronary artery without angina pectoris Status: Chronic Comment: -LAD ; stenting to Lt PDA; Redo CABG x5 GATO to LAD, SVG to PDA, OM1, OM2, D 01/06/18 @ [facility]; (2) Essential hypertension Status: Chronic (3) Ischemic cardiomyopathy Status: Chronic (4) Left bundle branch block Status: Chronic (5) Mixed hyperlipidemia Status: Chronic (6) Old myocardial infarction Status: Chronic Past Medical History - Allergies and Home Meds Allergies/Adverse Reactions: Allergies rosuvastatin calcium [From Crestor] Allergy (Verified 05/15/19 01:54) Pain in joints Primary Care Physician: Chandu Barrow MD [STAFF PHYSICIAN] - 1 Week Srinivasa Nava [Primary Care Provider] - Doctors: Dr. Barrow cardiology Surgical History: angioplasty - coronary stent x 1, coronary bypass surgery Lives: Spouse/ Significant Other Smoking Status: Never smoker Review of Systems General: Denies: Chills, Fever, Sweats Eyes: Denies: Visual changes - bilaterally, Diplopia ENT: Denies: Rhinorrhea, Sore throat Cardiovascular: Reports: Chest pain. Denies: Palpitations Respiratory: Denies: Dyspnea, Cough, Dyspnea on exertion Gastrointestinal: Reports: Nausea. Denies: Abdominal pain, Vomiting, Diarrhea, Melena, Hematochezia Genitourinary: Denies: Dysuria, Hematuria, Frequency Musculoskeletal: Denies: Back pain, Extremity Pain Skin: Denies: Rash, Wounds Neurological: Denies: Headache, Weakness, Numbness Physical Exam Vital Signs/Narrative: Vital Signs Temp Pulse Resp BP Pulse Ox 05/15/19 01:54 97.5 F L 89 20 H 149/80 H 94 Inital Vital Signs reviewed: Yes General: Well nourished, Well developed, No Acute Distress Head: Normocephalic, Atraumatic Eyes: Perrl, EOMI ENT: Moist mucous membranes, No rhinorrhea Neck: Supple, Nontender, No JVD Cardiovascular: Regular rate, Regular rhythm, No murmurs Respiratory: No distress, CTA bilaterally, Chest nontender Abdomen: Soft, Nondistended, Normal bowel sounds, Tender - mild, epigastric only. Negative for: Guarding, Rebound tenderness, Pulsatile mass Back: Nontender, Normal Inspection Extremities: Nontender, No edema. Negative for: Calf Tenderness Skin: Normal color, No rash Neurological: Alert, Oriented x3, Cranial nerves II-XII grossly intact, Normal Strength, Normal Sensation Psychological: Normal affect, Normal Mood Diagnostic/Tx/Re-eval Impressions Chest X-Ray 05/15/19 02:20 IMPRESSION: Postoperative changes with borderline cardiomegaly. Possible mild vascular congestion otherwise no acute process seen. Electronically Signed: Maddie Mack MD at 2:45 EST , Service support , 05/15/19 02:20 Chest 1 View (Portable) [RAD] Stat Laboratory Results 05/15/19 05/15/19 05/15/19 02:00 02:00 05:00 WBC 8.7 RBC 5.22 Hgb 15.6 Hct 48.4 MCV 92.7 MCH 29.9 MCHC 32.2 RDW Std Deviation 49.5 H RDW Coeff of William 14.7 H Plt Count 185 MPV 9.8 Immature Gran % (Auto) 0.500 Neut % (Auto) 77.3 H Lymph % (Auto) 12.3 L Hopkins % (Auto) 7.2 Eos % (Auto) 2.4 Baso % (Auto) 0.3 Absolute Neuts (auto) 6.7 Absolute Lymphs (auto) 1.07 Nucleated RBC % 0 Sodium 138 Potassium 4.2 Chloride 105 Carbon Dioxide 29.0 Anion Gap 4 L BUN 17 Creatinine 1.26 Estim Creat Clear Calc 47.50 Est GFR (MDRD) Af Amer 71 Est GFR (MDRD) Non-Af 59 L BUN/Creatinine Ratio 13.5 Glucose 129 H Calcium 9.5 Troponin I 0.016 < 0.015 - Rhythm Strip Rhythm Strip: Sinus Rhythm Rate: 74 Ectopy: None - EKG Initial EKG Interpretation: Sinus Rhythm, No Acute Injury Pattern, LBBB Prior: Unchanged - 2010 Treatment: GI Cocktail Repeat Eval: Pain Free - That seemed to help and I feel better. CARO Risk: Age >/= 65, >/= 3RF, H/O CAD, ASA within 7 days Score: 4 - Medical Decision Making Patient history is not classic for angina and he seemed to feel better after a GI cocktail, and not nitroglycerin. He has a stable left bundle branch block on his EKG and negative enzymes initially. I discussed with the patient that he is high risk but my suspicion is that he is not having acute coronary syndrome. He does not qualify for automatic discharge if following the heart pathway given his risk, so I discussed with Dr. Farley, patient relations liaison for cardiology. Given the scenario and the patient was offered admission and declined and prefers to go home as long as it is safe, he agrees that performing a 3-hour delta troponin if negative would be reasonable to discharge the patient home to follow-up closely as an outpatient after the weekend. This was performed, the second troponin was negative and actually lower than the initial 1, reassuring. The patient developed no recurrent symptoms and was comfortable with discharge home. We discussed reasons to return. With regards to his chest x-ray results, I do not think clinically he has pulmonary vascular congestion or congestive heart failure acutely. ED Disposition - Plan for ED Patient: Disposition: Home or Assisted Living Diagnosis: Epigastric pain Instructions: CHEST PAIN, Uncertain Cause, EPIGASTRIC PAIN (Uncertain cause) Referrals: Srinivasa Nava [Primary Care Provider] - Chandu Barrow MD [STAFF PHYSICIAN] - 1 Week
--- NOTE | 2019-05-15 02:20 | RAD_ITS ---
STUDY: X-RAY CHEST REASON FOR EXAM: Male, 79 years old. CHEST PAIN STARTING YESTERDAY MORNING TECHNIQUE: Single AP portable view of the chest. COMPARISON: 12/18/2017. FINDINGS: The lungs are normally expanded with fullness of the central markings which may indicate mild vascular congestion. There is no demonstrated pleural abnormality. There is borderline- mild cardiac enlargement. Midline sternotomy wires noted with suggestion of previous CABG repair. Normal mediastinum and mark. There is atherosclerotic calcification of the aortic arch with tortuosity. There are diffuse degenerative changes of the visualized thoracic spine. There is degenerative osteoarthritis of the bilateral shoulders. There is no demonstrated abnormality of the visualized soft tissue structures of the upper abdomen. RAD/Chest 1 View (Portable) IMPRESSION: Postoperative changes with borderline cardiomegaly. Possible mild vascular congestion otherwise no acute process seen. Electronically Signed: Maddie Mack MD at 2:45 EST , Service support ,
[2019-05-15 02:24] LABS: Absolute Lymphocyte Count 1.07 X10^3/uL (0.83-4.51); Absolute Neutrophil Count 6.7 X10^3/uL (2.0-7.7); Basophil# 0.03 X10^3/uL; Basophil% 0.3 % (0-1); Eosinophil# 0.21 X10^3/uL; Eosinophils% 2.4 % (0-5); Hematocrit 48.4 % (40-54); Hemoglobin 15.6 g/dL (13.0-16.5); Lymphocyte # 1.07 X10^3/ul (4.0); Lymphocyte % 12.3 % (19-41); Mean Corp Hgb Conc 32.2 g/dL (32-36); Mean Corpuscular Hgb 29.9 pg (27.0-32.0); Mean Corpuscular Volume 92.7 fL (80-94); Mean Platelet Vol. 9.8 fl (6.2-12.0); Monocyte# 0.63 X10^3/uL; Monocyte% 7.2 % (0-10); NRBC Flagged by Analyzer 0 % (0-5); Neutrophil # 6.73 X10^3/uL (2.7-7.7); Neutrophil % 77.3 % (47-70); Platelet Count 185 K/mm3 (150-450); RBC Distribution Width CV 14.7 % (11.6-14.6); RBC Distribution Width SD 49.5 fl (35.1-43.9); Red Blood Count 5.22 M/mm3 (4.6-6.2); White Blood Count 8.7 K/mm3 (4.4-11.0)
[2019-05-15] MEDS: Mag Hydrox/Al Hydrox/Simeth 30 ML UDC PO (02:27)
[2019-05-15] MEDS: 0.9% Normal Saline 1,000 ML 150 ML IV (02:28)
[2019-05-15 02:37] LABS: Anion Gap 4 (5-15); BUN 17 mg/dL (7-18); BUN/Creat Ratio 13.5 RATIO (10-20); Calcium,Total 9.5 mg/dL (8.5-10.1); Chloride 105 mmol/L (98-107); Creatinine, Serum 1.26 mg/dL (0.70-1.30); EST Glomerular Filtration Rate 59 mL/min (>60); Est Glom Filt Rate - Afr Amer 71 mL/min (>60); Glucose 129 mg/dL (74-106); Potassium 4.2 mmol/L (3.5-5.1); Sodium Level 138 mmol/L (136-145)
[2019-05-15 04:26] VITALS: BP 149/92; PULSE 78; RESP 16; O2SAT 100
[2019-05-15 06:00] VITALS: BP 150/80; PULSE 97; RESP 16; O2SAT 98
== END 2019-05-15 06:05 | disposition home or self-care (01) ==
PROVIDERS: Emergency Provider Emergency Medicine; PCP Family Medicine
DX: R10.13 Epigastric pain (principal); R11.0 Nausea; I25.10 Atherosclerotic heart disease of native coronary artery without angina pectoris; I44.7 Left bundle-branch block, unspecified; I25.5 Ischemic cardiomyopathy; I10 Essential (primary) hypertension; E78.2 Mixed hyperlipidemia; Z79.82 Long term (current) use of aspirin; Z79.899 Other long term (current) drug therapy; I25.2 Old myocardial infarction; Z95.1 Presence of aortocoronary bypass graft
CPT/HCPCS: 71045; 80048; 84484; 85025; 93005; 96360; 96361; 99285; J7030; A4216

== ENCOUNTER → 2019-10-14 08:18 | Outpatient (CLI) | payer MEDICARE, OTHER, SELFPAY ==
[2019-10-11 09:01] VITALS: BMI 35.6
[2019-10-14 09:17] LABS: AST(SGOT) 23 U/L (15-37); Alanine Aminotransfer ALT/SGPT 29 U/L (16-61); Albumin, Serum 3.7 g/dL (3.2-5.0); Alkaline Phosphatase 112 U/L (45-117); Bilirubin, Direct 0.24 mg/dL (0.00-0.30); Cholesterol 140 mg/dL (200); Globulin 3.6 g/dL (2.2-4.2); High Density Lipoprotein 34 mg/dL; Protein, Total 7.3 g/dL (6.4-8.2); Triglycerides 166 mg/dL; Very Low Density Lipoprotein 33 mg/dL (5-40)
== END ==
PROVIDERS: PCP Family Medicine; Referring Provider Internal Medicine Cardiovascular Disease; Visit Provider Internal Medicine Cardiovascular Disease
DX: E78.2 Mixed hyperlipidemia (principal); E78.00 Pure hypercholesterolemia, unspecified
CPT/HCPCS: 36415; 80061; 80076

== ENCOUNTER → 2019-11-11 07:18 | Outpatient (CLI) | payer MEDICARE, OTHER, SELFPAY ==
[2019-10-11 09:01] VITALS: BMI 35.6
--- NOTE | 2019-11-11 07:21 | CT_ITS ---
STUDY: CT SOFT TISSUE NECK WITH CONTRAST REASON FOR EXAM: Male, 79 years old. Right perimandibular mass x several weeks (BB marker at site), prior benign neck masses removed. Hx hypertension. RADIATION DOSAGE (If Supplied By Facility): CTDIvol = ( 20.00 ) mGy, DLP = ( 664.53 ) mGycm TECHNIQUE: The patient was scanned in a multi-detector CT scanner. High resolution transaxial imaging was performed following intravenous administration of IV 75mL Isovue-300. Sagittal and coronal images were reconstructed. Individualized dose optimization techniques were used for this CT. COMPARISON: None. FINDINGS: Prior CABG. Atherosclerotic plaque formation of the aortic arch. Normal bilateral parotid glands. Normal bilateral auto dealer spaces. Normal bilateral parapharyngeal spaces. Normal bilateral carotid spaces. Atherosclerotic plaque formation at the carotid bifurcations bilaterally. Normal bilateral sublingual and submandibular glands and spaces. Normal visualized nasopharynx. Normal retropharyngeal space. Normal perivertebral space. Normal visualized bilateral faucial tonsils. The visualized tongue, tongue base and oropharynx are normal. The visualized cervical lymph nodes (levels I-) are within normal size limits, and maintain normal morphology. There is no demonstrated solid or cystic mass lesion. There is no abnormal contrast enhancement. Normal epiglottis, bilateral vallecula and hypopharynx. The pre-epiglottic and paraglottic adipose spaces are normal. Normal visualized bilateral piriform sinuses, aryepiglottic folds, vocal cords, and arytenoid-cricoid articulations. Normal subglottic trachea. Normal bilateral lobes of the thyroid gland. Normal visualized pulmonary apices. Minimal mucosal thickening of the left maxillary sinus. There is multilevel degenerative changes of the cervical spine. CT/Soft Tissue Neck WITH Contrast IMPRESSION: No acute abnormality is seen. No mass lesion is present. Electronically Signed: Giancarlo Stoner, at 8:44 EDT , Service support ,
[2019-11-11 07:41] LABS: CREATININE FINGERSTICK 1.2 mg/dL (0.70-1.30); EGFR FINGERSTICK > 60.0000 mL/min (>60)
== END ==
PROVIDERS: PCP Family Medicine; Referring Provider Otolaryngology; Visit Provider Otolaryngology
DX: R22.0 Localized swelling, mass and lump, head (principal)
CPT/HCPCS: 70491; Q9967

== ENCOUNTER 2020-04-14 06:10 | Emergency (ER) | payer MEDICARE, OTHER, SELFPAY ==
[2019-10-11 09:01] VITALS: BMI 35.6
[2020-04-14 06:11] VITALS: BP 134/80; PULSE 66; RESP 18; TEMP 37.2; O2SAT 94; BMI 34.9
--- NOTE | 2020-04-14 06:23 | ED.DCSUM_ITS ---
History of Present Illness Chief Complaint: Edema Informant: Patient, Family Narrative: 80-year-old male presenting with swelling along the right mandible. This has been present for couple days and worsening. He states he has had to have a gland drained before. He states he believes he has a tooth in the area that is hurting him. No fever. - Past Medical History (1) Presence of stent in coronary artery Status: Chronic Comment: Atherectomy with angioplasty proximal LAD ; PCTCA/stent to prox left posterior atrioventricular artery 05/03/10 (2) Ischemic cardiomyopathy Status: Chronic (3) Mixed hyperlipidemia Status: Chronic (4) Essential hypertension Status: Chronic (5) Left bundle branch block Status: Chronic (6) Hx of CABG Status: Resolved Comment: -LAD ; Redo CABG x5 GATO to LAD, SVG to PDA, OM1, OM2, D 01/06/18 Past Medical History - Allergies and Home Meds Allergies/Adverse Reactions: Allergies rosuvastatin calcium [From Crestor] Allergy (Verified 04/14/20 06:11) Pain in joints Primary Care Physician: Srinivasa Nava MD [Primary Care Provider] - As Needed Surgical History: angioplasty - coronary stent x 1, coronary bypass surgery Lives: Spouse/ Significant Other Smoking Status: Never smoker Drugs: None Review of Systems General: Denies: Chills, Fever, Sweats Eyes: Denies: Visual changes - bilaterally, Diplopia ENT: Reports: - - Mandibular pain and swelling. Denies: Rhinorrhea, Sore throat Cardiovascular: Denies: Chest pain, Palpitations Respiratory: Denies: Dyspnea, Cough, Dyspnea on exertion Gastrointestinal: Denies: Abdominal pain, Nausea, Vomiting, Diarrhea, Melena, Hematochezia Genitourinary: Denies: Dysuria, Hematuria, Frequency Musculoskeletal: Denies: Back pain, Extremity Pain Skin: Denies: Rash, Wounds Neurological: Denies: Headache, Weakness, Numbness Physical Exam Vital Signs/Narrative: Vital Signs Temp Pulse Resp BP Pulse Ox 04/14/20 06:11 98.9 F 66 18 134/80 H 94 Inital Vital Signs reviewed: Yes General: Well nourished, Well developed, No Acute Distress Head: Normocephalic, Atraumatic Eyes: Perrl, EOMI ENT: Moist mucous membranes, No rhinorrhea, - - There is swelling along the right mandible. There is obvious fluctuance and swelling along the gumline. Focal dental decay. No trismus. Floor the mouth is soft. No significant facial erythema Neck: Supple, Nontender Cardiovascular: Regular rate, Regular rhythm, No murmurs Respiratory: No distress, CTA bilaterally, Chest nontender Abdomen: Soft, Nontender, Nondistended, Normal bowel sounds Back: Nontender, Normal Inspection Extremities: Nontender, No edema Skin: Normal color, No rash Neurological: Alert, Oriented x3, Cranial nerves II-XII grossly intact, Normal Strength, Normal Sensation Psychological: Normal affect, Normal Mood Diagnostic/Tx/Re-eval - Medical Decision Making The gumline was locally anesthetized using bupivacaine. A stab incision was made over the fluctuant area. A substantial amount of pus was drained. He is going to be placed on clindamycin. [place] as needed for pain. Return instruct ions were discussed with patient and his . Recommend dental follow-up as soon as possible ED Disposition - Plan for ED Patient: Disposition: Home or Assisted Living Diagnosis: Dental abscess Instructions: ED Tooth Abscess Prescriptions: Clindamycin HCl [Cleocin] 300 mg PO Q6H #40 cap Prescription Printed Hydrocodone Bitart/Apap 5-325 [[place] 5MG-325MG] 1 tab PO Q6H PRN PRN 3 Days #10 tab PRN Reason: Pain Prescription Printed Referrals: Srinivasa Nava MD [Primary Care Provider] - As Needed Additional Instructions: Follow-up with dentistry as soon as possible
[2020-04-14] MEDS: Bupivacaine Mpf 0.5% 30 ML VIAL INFILT (07:01)
[2020-04-14 07:04] VITALS: BP 144/81; PULSE 71; RESP 18; O2SAT 99
== END 2020-04-14 07:05 | disposition home or self-care (01) ==
LOC: ED 06:50
PROVIDERS: Emergency Provider Emergency Medicine; PCP Family Medicine
DX: K04.7 Periapical abscess without sinus (principal); K02.9 Dental caries, unspecified; I25.5 Ischemic cardiomyopathy; I10 Essential (primary) hypertension; E78.2 Mixed hyperlipidemia; Z79.82 Long term (current) use of aspirin; Z79.899 Other long term (current) drug therapy; Z95.1 Presence of aortocoronary bypass graft; Z95.5 Presence of coronary angioplasty implant and graft
CPT/HCPCS: 41800; 64999; 99282

== ENCOUNTER → 2021-12-26 | Outpatient (CLI) | payer MEDICARE, OTHER, SELFPAY ==
[2021-12-26 11:53] LABS: AST(SGOT) 19 U/L (15-37); Alanine Aminotransfer ALT/SGPT 30 U/L (16-61); Albumin, Serum 3.7 g/dL (3.2-5.0); Alkaline Phosphatase 107 U/L (45-117); Bilirubin, Direct 0.18 mg/dL (0.00-0.30); Cholesterol 134 mg/dL (200); Globulin 3.7 g/dL (2.2-4.2); High Density Lipoprotein 41 mg/dL; Protein, Total 7.4 g/dL (6.4-8.2); Triglycerides 187 mg/dL; Very Low Density Lipoprotein 37 mg/dL (5-40)
== END | disposition home or self-care (01) ==
LOC: LAB 10:00
PROVIDERS: PCP Family Medicine; Referring Provider Nurse Practitioner Gerontology; Visit Provider Nurse Practitioner Gerontology
DX: E78.2 Mixed hyperlipidemia (principal)
CPT/HCPCS: 36415; 80061; 80076

== ENCOUNTER → 2023-01-02 | Outpatient (CLI) | payer MEDICARE, OTHER, SELFPAY ==
[2023-01-02 10:01] LABS: AST(SGOT) 17 U/L (15-37); Alanine Aminotransfer ALT/SGPT 28 U/L (16-61); Albumin, Serum 3.6 g/dL (3.2-5.0); Alkaline Phosphatase 107 U/L (45-117); Bilirubin, Direct 0.19 mg/dL (0.00-0.30); Cholesterol 125 mg/dL (200); Globulin 3.8 g/dL (2.2-4.2); High Density Lipoprotein 39 mg/dL; Protein, Total 7.4 g/dL (6.4-8.2); Triglycerides 119 mg/dL; Very Low Density Lipoprotein 24 mg/dL (5-40)
== END | disposition home or self-care (01) ==
LOC: LAB 09:06
PROVIDERS: PCP Family Medicine; Referring Provider Nurse Practitioner Gerontology; Visit Provider Nurse Practitioner Gerontology
DX: E78.2 Mixed hyperlipidemia (principal)
CPT/HCPCS: 36415; 80061; 80076

== ENCOUNTER → 2023-01-09 | Outpatient (CLI) | payer MEDICARE, OTHER, SELFPAY ==
--- NOTE | 2023-01-09 13:55 | STRESSREP_ITS ---
Stress Test Report Date: 01/09/2023 Procedure: Pharmacologic stress nuclear imaging study Indications: CAD Consent: Per the patient Procedure: The patient underwent pharmacologic (Regadenoson) evaluation with a peak heart rate of 92 beats per minute (65%predicted maximal heart rate) and a peak blood pressure of 142/88 mmHg. The baseline ECG demonstrated normal sinus rhythm, nonspecific ST-T changes, occasional PVCs. EKG during lexiscan infusion revealed no significant ischemic changes. EKG post infusion revealed no significant ischemic changes [There were no cardiac dysrhythmias pretest, during pharmacologic infusion, or recovery]. [There was no complaint of chest discomfort during pharmacologic infusion or recovery]. The examination was discontinued secondary to completion of protocol. Impression: 1. Lexiscan stress test test is negative for Lexiscan infusion induced EKG changes of ischemia. 2. Lexiscan stress test test is negative for Lexiscan infusion induced chest pain. 3. Results of the nuclear portion of the test is as below Myocardial perfusion imaging study: Technique: The patient was injected with 14.9 millicuries of technetium 99m Cardiolite and subsequently rest SPECT Cardiolite nuclear imaging was obtained in the horizontal long, vertical long, and short axis views. The patient underwent pharmacologic [Regadenoson 0.4mg] evaluation. Please see above for details. The patient was injected with 42.2 millicuries of technetium 99m Cardiolite and subsequently stress SPECT Cardiolite nuclear imaging was obtained in the horizontal long, vertical long, and short axis views. A gated Cardiolite study at peak stress was obtained. Interpretation: Rest and stress SPECT Cardiolite nuclear imaging status post realignment, normalization, and attenuation correction demonstrate overall normal radioisotope uptake after attenuation correction. Prior to attenuation correction there is mild decrease in the radioisotope uptake in the inferior wall suggestive of diaphragmatic attenuation artifact. Gated images reveal septal hypokinesis. The reported LVEF is 51%. Impression: 1. There is no evidence of significant ischemia or infarction. 2. Estimated ejection fraction is 51%. This note was generated with [employer] software. It may contain incorrect words, spelling, and punctuation that were not noted in checking the note before signing.
== END | disposition home or self-care (01) ==
LOC: CVS 06:06
PROVIDERS: PCP Family Medicine; Referring Provider Nurse Practitioner Gerontology; Visit Provider Nurse Practitioner Gerontology
DX: I25.10 Atherosclerotic heart disease of native coronary artery without angina pectoris (principal)
CPT/HCPCS: 78452; 93017; A9500; A4216; J2785

== ENCOUNTER → 2023-05-09 | Outpatient (CLI) | payer MEDICARE, OTHER, SELFPAY ==
--- OUTSIDE RECORDS SUMMARY | 2023-05-09 10:38 | XMS RPT_ITS | CCD ---
Author Name Unknown Address [facility] [address] [facility] [address] [place] [address] Organization [facility] Care Team Providers Care Hydrate Control Tender Name Role Phone Carlos Dial Unavailable Unavailable CHRISTIANO SALOMON Primary Care Unavailable CHRISTIANO SALOMON Admitting Unavailable CHRISTIANO SALOMON Attending Unavailable SHARON IRIZARRY MD Consulting Unavailable PROVIDER, UNKNOWN Consulting Unavailable PROVIDER, UNKNOWN Consulting Unavailable PROVIDER, UNKNOWN Consulting Unavailable Allergies Allergy Classification Reported Allergen(s) Allergy Type Date of Onset Reaction(s) Facility (1 source) rosuvastatin Drug Allergy 10-21-2011 joint pain [facility] Work Phone: Medications Completed/Discontinued Medications Medication Drug Class(es) Dates Sig (Normalized) Sig (Original) aspirin 325 mg oral tablet (3 sources) Nonsteroidal Anti-inflammatory Drug Start: 07-20-2012 take 1 tablet by mouth once daily ASPIRIN 325 MG TABS One tablet by mouth daily ASPIRIN [id number] Sabrina Simeon RN Problems Active Problems Problem Classification Problem Date Documented Date Episodic/Chronic Conduction disorders (1 source) Left bundle branch block; Translations: [Left bundle-branch block, unspecified] Onset: 10-21-2011 10-21-2011 Chronic Coronary atherosclerosis and other heart disease (2 sources) Atherosclerotic heart disease of [place] coronary artery without angina pectoris; Translations: [Coronary arteriosclerosis] Onset: 10-21-2011 06-24-2016 Chronic Disorders of lipid metabolism (1 source) Hyperlipidemia; Translations: [Hyperlipidemia, unspecified] Onset: 10-21-2011 10-21-2011 Chronic Essential hypertension (1 source) Hypertensive disorder; Translations: [Essential (primary) hypertension] Onset: 10-21-2011 10-21-2011 Chronic Unclassified (1 source) Body mass index (BMI) 37.0-37.9, adult; Translations: [Body mass index (BMI) 37.0-37.9, adult] Onset: 05-16-2015 05-16-2015 Chronic Unclassified (2 sources) Long-term drug therapy; Translations: [Long-term (current) use of other medications] Onset: 08-12-2012 08-12-2012 Unclassified (1 source) Coronary artery bypass graft; 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] Onset: 10-21-2011 10-21-2011 Past or Other Problems Problem Classification Problem Date Documented Da te Episodic/Chronic Coronary atherosclerosis and other heart disease (1 source) History of myocardial infarction; Translations: [Old myocardial infarction] Onset: 10-21-2011 10-21-2011 Episodic Other lower respiratory disease (1 source) Dyspnea; Translations: [Shortness of breath] Onset: 10-30-2011 10-30-2011 Episodic Unclassified (2 sources) Cardiovascular stress test abnormal; Translations: [Abnormal result of other cardiovascular function study] Onset: 11-06-2011 11-06-2011 Episodic Results Test Name Value Interpretation Reference Range Facil ity Vital Signs Date Time Vital Sign Value Performing Clinician Winston valentin 01-17-2017 13:51-0500 BMI (Body Mass Index) 36.94 kg/m2 [facility] Work Phone: 01-17-2017 13:51-0500 BP Diastolic 66 mm[Hg] [facility] Work Phone: 01-17-2017 13:51-0500 BP Systolic 116 mm[Hg] Juliuseddi [facility] Work Phone: 01-17-2017 13:51-0500 Height 172.72 cm Juliuseddi [facility] Work Phone: 01-17-2017 13:51-0500 Pulse (Heart Rate) 60 /min [facility] Work Phone: 01-17-2017 13:51-0500 Respiratory Rate 16 /min [facility] Work Phone: 01-17-2017 13:51-0500 Weight 110.22 kg [facility] Work Phone: 12-22-2015 13:10-4688 BSA (Body Surface Area) 2.23 m2 [facility] Work Phone: Encounters Encounter Date Encounter Type Care Provider Facility Start: 04-27-2018 End: 04-27-2018 Patient encounter procedure [facility] Procedures Date Procedure Procedure Detail Performing Clinician Start: 01-17-2017 End: 01-17-2017 Follow Up Appt 6 months Chandu Barrow MD Start: 01-17-2017 End: 01-17-2017 MMM Chandu Barrow MD Start: 06-24-2016 End: 08-30-2016 *Hepatic Function Panel Jemima karimi PA-C Work Phone: Start: 06-24-2016 End: 06-24-2016 Ecg routine ecg w/least 12 lds w/i&r Jemima Maldonado PA-C Work Phone: Start: 06-24-2016 End: 06-24-2016 Follow Up Appt 6 months Jemima karimi PA-C Work Phone: Start: 06-24-2016 End: 08-30-2016 Lipid 1996 panel - Serum or Plasma Jemima Maldonado PA-C Work Phone: Start: 06-24-2016 End: 06-24-2016 PFM Jemima Maldonado PA-C Work Phone: Start: 12-22-2015 End: 12-28-2015 *Hepatic Function Panel Chandu Barrow MD Start: 12-22-2015 End: 06-14-2016 Follow Up Appt 6 months Chandu Barrow MD Start: 12-22-2015 End: 12-28-2015 Lipid 1996 panel - Serum or Plasma Chandu Barrow MD Start: 12-22-2015 End: 06-14-2016 MMM Chandu Barrow MD Start: 12-08-2015 End: 12-28-2015 *Hepatic Function Panel Chandu Barrow MD Start: 12-08-2015 End: 12-28-2015 Lipid 1996 panel - Serum or Plasma Chandu Barrow MD Start: 07-05-2015 End: 07-06-2015 Referral to senior sql server database developer Chandu medrano MD Start: 06-21-2015 End: 06-21-2015 Follow Up Appt Other Jemima rodgers PA-C Work Phone: Start: 06-21-2015 End: 06-21-2015 PFM Jemima Maldonado PA-C Work Phone: Start: 06-15-2015 End: 06-21-2015 Ecg routine ecg w/least 12 lds w/i&r Chandu Barrow MD Start: 06-15-2015 End: 06-14-2016 Left Heart Cath Chnadu Barrow MD Start: 05-16-2015 End: 06-08-2015 *BMP Chandu Barrow MD Start: 05-16-2015 End: 06-08-2015 *Hepatic Function Panel Chandu Barrow MD Start: 05-16-2015 End: 06-08-2015 CBC W Auto Differential panel - Blood Chandu Barrow MD Start: 05-16-2015 End: 05-17-2015 Chest x-ray Chandu Barrow MD Start: 05-16-2015 End: 06-09-2015 Ecg routine ecg w/least 12 lds w/i&r Chandu Barrow MD Start: 05-16-2015 End: 04-07-2016 Echocardiography Chandu Barrow MD Start: 05-16-2015 End: 05-16-2015 Follow Up Appt 6 months Chandu Barrow MD Start: 05-16-2015 End: 06-08-2015 Lipid 1996 panel - Serum or Plasma Chandu Barrow MD Start: 05-16-2015 End: 06-15-2015 Nuclear stress test -exercise Chandu aguirre MD Start: 05-16-2015 End: 05-16-2015 PFM Chandu Barrow MD Start: 05-16-2015 End: 05-31-2015 Pulmonary Function Test - complete Chandu Barrow MD Start: 05-16-2015 End: 06-08-2015 Thyrotropin [Units/volume] in Serum or Plasma Chandu Barrow MD Start: 05-16-2015 End: 06-08-2015 Thyroxine (T4) [Mass/volume] in Serum or Plasma Chandu Barrow MD Start: 11-08-2013 End: 01-21-2014 *Hepatic Function Panel Chandu Barrow MD Start: 11-08-2013 End: 01-21-2014 Lipid 1996 panel - Serum or Plasma Chandu Barrow MD Start: 01-08-2013 End: 05-19-2013 *Hepatic Function Panel Chandu Barrow MD Start: 01-08-2013 End: 05-19-2013 Lipid 1996 panel - Serum or Plasma Chandu Barrow MD Start: 07-20-2012 End: 07-31-2012 *Hepatic Function Panel Chandu Barrow MD Start: 07-20-2012 End: 07-20-2012 Follow Up Appt 6 months Chandu Barrow MD Start: 07-20-2012 End: 07-31-2012 Lipid 1996 panel - Serum or Plasma Chandu Barrow MD Start: 07-20-2012 End: 07-20-2012 MMM Chandu Barrow MD Start: 12-27-2011 End: 07-20-2012 *Hepatic Function Panel Chandu Barrow MD Start: 12-27-2011 End: 12-27-2011 eRx Transmitted during this visit (Medicare only) Chandu Barrow MD Start: 12-27-2011 End: 12-27-2011 Follow Up Appt 6 months Chandu Barrow MD Start: 12-27-2011 End: 07-20-2012 Lipid 1996 panel - Serum or Plasma Chandu Barrow MD Start: 11-15-2011 End: 12-27-2011 Left Heart Cath W/Grafts Chandu medrano MD Start: 11-07-2011 End: 11-14-2011 *BMP Chandu Barrow MD Start: 11-07-2011 End: 11-14-2011 aPTT in Platelet poor plasma by Coagulation assay Chandu Barrow MD Start: 11-07-2011 End: 11-14-2011 CBC W Auto Differential panel - Blood Chandu Barrow MD Start: 11-07-2011 End: 12-27-2011 Chest x-ray Chandu Barrow MD Start: 11-07-2011 End: 11-07-2011 Nurse Teaching (no charge) Chandu perera MD Start: 11-06-2011 End: 11-14-2011 INR in Platelet poor plasma by Coagulation assay Chandu Barrow MD Start: 10-30-2011 End: 10-30-2011 Ecg routine ecg w/least 12 lds w/i&r Chandu Barrow MD Start: 10-30-2011 End: 11-14-2011 Echocardiography Chandu Barrow MD Start: 10-30-2011 End: 10-30-2011 Follow Up Appt 6 months Chandu Barrow MD Start: 10-30-2011 End: 11-14-2011 Nuclear stress test -adenosine Chandu Barrow MD Plan of Treatment Date Care Activity Detail Author Start: 07-24-2017 End: 07-24-2017 Appointment Appointment [facility] Work Phone: Start: 01-17-2017 End: 01-17-2017 Appointment Appointment [facility] Work Phone: Start: 01-17-2017 End: 01-17-2017 *Hepatic Function Panel *Hepatic Function Panel [facility] Work Phone: Start: 01-17-2017 End: 01-17-2017 Follow Up Appt 6 months Follow Up Appt 6 months [facility] Work Phone: Start: 01-17-2017 End: 01-17-2017 Lipid panel [AGGREGATE] *Lipid Profile CC PCP [facility] Work Phone: Start: 01-17-2017 End: 01-17-2017 MMM MMM [facility] Work Phone: Start: 06-24-2016 End: 08-30-2016 *Hepatic Function Panel *Hepatic Function Panel [facility] Work Phone: Start: 06-24-2016 End: 06-24-2016 Ecg routine ecg w/least 12 lds w/i&r EKG (In office) [facility] Work Phone: Start: 06-24-2016 End: 06-24-2016 Follow Up Appt 6 months Follow Up Appt 6 months [facility] Work Phone: Start: 06-24-2016 End: 08-30-2016 Lipid panel [AGGREGATE] *Lipid Profile CC PCP [facility] Work Phone: Start: 06-24-2016 End: 06-24-2016 PFM PFM [facility] Work Phone: Start: 12-22-2015 End: 12-28-2015 *Hepatic Function Panel *Hepatic Function Panel [email or web address] Work Phone: Start: 12-22-2015 End: 06-14-2016 Follow Up Appt 6 months Follow Up Appt 6 months [facility] Work Phone: Start: 12-22-2015 End: 12-28-2015 Lipid panel [AGGREGATE] *Lipid Profile CC PCP [facility] Work Phone: Start: 12-22-2015 End: 06-14-2016 MMM MMM [facility] Work Phone: Start: 12-08-2015 End: 12-28-2015 *Hepatic Function Panel *Hepatic Function Panel [facility] Work Phone: Start: 12-08-2015 End: 12-28-2015 Lipid panel [AGGREGATE] *Lipid Profile CC PCP [facility] Work Phone: Start: 07-05-2015 End: 07-05-2015 Cardiac Referral Cardiac Referral Dwight Hopper, [address] [place] [address], [id number] [facility] Work Phone: Start: 06-21-2015 End: 06-21-2015 Follow Up Appt Other Follow Up Appt Other [facility] Work Phone: Start: 06-21-2015 End: 06-21-2015 PFM PFM [facility] Work Phone: Start: 06-15-2015 End: 06-21-2015 Ecg routine ecg w/least 12 lds w/i&r EKG (In office) [facility] Work Phone: Start: 06-15-2015 End: 06-21-2015 Left Heart Cath Left Heart Cath [email or web address] Work Phone: Start: 05-16-2015 End: 06-08-2015 *BMP *BMP [facility] Work Phone: Start: 05-16-2015 End: 06-08-2015 *Hepatic Function Panel *Hepatic Function Panel [facility] Work Phone: Start: 05-16-2015 End: 06-08-2015 CBC W Auto Differential panel - Blood *CBC without Diff [facility] Work Phone: Start: 05-16-2015 End: 05-17-2015 Chest x-ray X-Ray, Chest, PA & Lateral [facility] Work Phone: Start: 05-16-2015 End: 06-09-2015 Ecg routine ecg w/least 12 lds w/i&r EKG (In office) [facility] Work Phone: Start: 05-16-2015 End: 05-16-2015 Echocardiography Echocardiogram (complete) [facility] Work Phone: Start: 05-16-2015 End: 05-16-2015 Follow Up Appt 6 months Follow Up Appt 6 months [facility] Work Phone: Start: 05-16-2015 End: 06-08-2015 Lipid panel [AGGREGATE] *Lipid Profile CC PCP [facility] Work Phone: Start: 05-16-2015 End: 05-16-2015 Nuclear stress test -exercise Nuclear stress test -exercise [facility] Work Phone: Start: 05-16-2015 End: 05-16-2015 PFM PFM [facility] Work Phone: Start: 05-16-2015 End: 05-16-2015 Pulmonary Function Test - complete Pulmonary Function Test - complete [facility] Work Phone: Start: 05-16-2015 End: 06-08-2015 Thyroid stimulating hormone (TSH) *TSH [facility] Work Phone: Start: 05-16-2015 End: 06-08-2015 Thyroxine (T4) *T4 (Total) [facility] Work Phone: Start: 11-08-2013 End: 01-21-2014 *Hepatic Function Panel *Hepatic Function Panel [facility] Work Phone: Start: 11-08-2013 End: 01-21-2014 Lipid panel [AGGREGATE] *Lipid Profile CC PCP [facility] Work Phone: Start: 01-08-2013 End: 05-19-2013 *Hepatic Function Panel *Hepatic Function Panel [facility] Work Phone: Start: 01-08-2013 End: 05-19-2013 Lipid panel [AGGREGATE] *Lipid Profile CC PCP [facility] Work Phone: Start: 07-20-2012 End: 07-31-2012 *Hepatic Function Panel *Hepatic Function Panel [facility] Work Phone: Start: 07-20-2012 End: 07-20-2012 Follow Up Appt 6 months Follow Up Appt 6 months [facility] Work Phone: Start: 07-20-2012 End: 07-31-2012 Lipid panel [AGGREGATE] *Lipid Profile [facility] Work Phone: Start: 07-20-2012 End: 07-20-2012 MMM MMM [facility] Work Phone: Start: 12-27-2011 End: 07-20-2012 *Hepatic Function Panel *Hepatic Function Panel [facility] Work Phone: Start: 12-27-2011 End: 12-27-2011 Follow Up Appt 6 months Follow Up Appt 6 months [facility] Work Phone: Start: 12-27-2011 End: 07-20-2012 Lipid panel [AGGREGATE] *Lipid Profile [facility] Work Phone: Start: 11-15-2011 End: 11-06-2011 Left Heart Cath W/Grafts Left Heart Cath W/Grafts [facility] Work Phone: Start: 11-07-2011 End: 11-14-2011 *BMP *BMP [facility] Work Phone: Start: 11-07-2011 End: 11-14-2011 aPTT *PTT-Partial Thromboplastin Time [facility] Work Phone: Start: 11-07-2011 End: 11-14-2011 CBC W Auto Differential panel - Blood *CBC without Diff [facility] Work Phone: Start: 11-07-2011 End: 12-27-2011 Chest x-ray X-Ray, Chest, PA & Lateral [facility] Work Phone: Start: 11-06-2011 End: 11-14-2011 INR Coag RelTime (PPP) *PT/INR [email or web address] Work Phone: Start: 10-30-2011 End: 10-30-2011 Ecg routine ecg w/least 12 lds w/i&r EKG (In office) [facility] Work Phone: Start: 10-30-2011 End: 10-30-2011 Echocardiography Echocardiogram (complete) [email or web address] Work Phone: Start: 10-30-2011 End: 10-30-2011 Follow Up Appt 6 months Follow Up Appt 6 months [email or web address] Work Phone: Start: 10-30-2011 End: 10-30-2011 Nuclear stress test -adenosine Nuclear stress test -adenosine [email or web address] Work Phone: Patient Education HYPERLIPIDEMIA , HYPERTENSION [email or web address] Work Phone: Payers Date Payer Category Payer Unknown [id number] Medicare [id number] Summary Purpose Family History No Family History Records FoundNo Family History Records Found Advance Directives No Advanced Directives Records FoundNo Advanced Directives Records Found Additional Source Comments (unrecognized sect ion and content) No Status Records FoundNo Status Records Found INFORMATION SOURCE (unrecogn ized section and content) DATE CREATED AUTHOR AUTHOR'S ORGANIZ ATION 04/01/2020 [facility] FOR RECORDS PERTAINING TO PATIENTS WHO ARE OR HAVE BEEN ENROLLED IN A CHEMICAL DEPENDENCY/SUBSTANCEABUSE PROGRAM, SOME INFORMATION MAY BE OMITTED. This clinical summary was aggregated from multiple sources. Caution should be exercised in using it in the provision of clinical care. This summary normalizes information from multiple sources, and as a consequence, information in this document may materially change the coding, format and clinical context of patient data. In addition, data may be omitted in some cases. CLINICAL DECISIONS SHOULD BE BASED ON THE PRIMARY CLINICAL RECORDS. [facility] [employer] [facility]. provides no warranty or guarantee of the accuracy or completeness of information in this document.
[2023-05-09 11:00] LABS: Absolute Lymphocyte Count 0.62 X10^3/uL (0.83-4.51); Absolute Neutrophil Count 3.9 X10^3/uL (2.0-7.7); Basophil# 0.03 X10^3/uL; Basophil% 0.6 % (0-1); Eosinophil# 0.16 X10^3/uL; Eosinophils% 3.1 % (0-5); Hematocrit 46.8 % (40-54); Hemoglobin 14.9 g/dL (13.0-16.5); Lymphocyte # 0.62 X10^3/ul (0.83-4.51); Lymphocyte % 12.1 % (19-41); Mean Corp Hgb Conc 31.8 g/dL (32-36); Mean Corpuscular Hgb 29.4 pg (27.0-32.0); Mean Corpuscular Volume 92.5 fL (80-94); Mean Platelet Vol. 9.3 fl (6.2-12.0); Monocyte# 0.41 X10^3/uL; NRBC Flagged by Analyzer 0 % (0-5); Neutrophil # 3.87 X10^3/uL (2.7-7.7); Neutrophil % 75.8 % (47-70); Platelet Count 192 K/mm3 (150-450); RBC Distribution Width CV 13.6 % (11.6-14.6); RBC Distribution Width SD 45.7 fl (35.1-43.9); Red Blood Count 5.06 M/mm3 (4.6-6.2); White Blood Count 5.1 K/mm3 (4.4-11.0)
[2023-05-09 11:23] LABS: BNP,B-Type NATRIURETIC PEPTIDE 147.9 pg/mL (0-100)
[2023-05-09 11:34] LABS: ALB/GLOB Ratio 0.9 RATIO (0.9-2.4); AST(SGOT) 16 U/L (15-37); Alanine Aminotransfer ALT/SGPT 19 U/L (16-61); Albumin, Serum 3.6 g/dL (3.2-5.0); Alkaline Phosphatase 105 U/L (45-117); Anion Gap 3 (5-15); BUN 20 mg/dL (7-18); BUN/Creat Ratio 14.9 RATIO (10-20); Calcium,Total 8.9 mg/dL (8.5-10.1); Chloride 104 mmol/L (98-107); Creatinine, Serum 1.34 mg/dL (0.70-1.30); EST Glomerular Filtration Rate 54 mL/min (>60); Est Glom Filt Rate - Afr Amer 66 mL/min (>60); Free T3 2.5 pg/mL (2.18-3.98); Globulin 3.8 g/dL (2.2-4.2); Glucose 102 mg/dL (74-106); Potassium 4.4 mmol/L (3.5-5.1); Protein, Total 7.4 g/dL (6.4-8.2); Sodium Level 137 mmol/L (136-145); T4 Free Direct 0.88 ng/dL (0.76-1.46); Thyroid Stim Hormone (TSH) 2.88 uIU/mL (0.358-3.74)
== END | disposition home or self-care (01) ==
LOC: LAB 10:16
PROVIDERS: Physician Assistant Medical; PCP Family Medicine; Referring Provider Nurse Practitioner Gerontology; Visit Provider Nurse Practitioner Gerontology
DX: R06.09 Other forms of dyspnea (principal); I25.10 Atherosclerotic heart disease of native coronary artery without angina pectoris; R09.89 Other specified symptoms and signs involving the circulatory and respiratory systems
CPT/HCPCS: 36415; 80053; 83880; 84439; 84443; 84481; 85025

== ENCOUNTER → 2023-05-16 | Outpatient (CLI) | payer MEDICARE, OTHER, SELFPAY ==
--- OUTSIDE RECORDS SUMMARY | 2023-05-16 06:46 | XMS RPT_ITS | CCD ---
Author Name Unknown Address [address] [place] [address] Organization [facility] Care Team Providers Care Wire Walker Name Role Phone Carlos Dial Unavailable Unavailable CHRISTIANO SALOMON Primary Care Unavailable CHRISTIANO SALOMON Admitting Unavailable CHRISTIANO SALOMON Attending Unavailable SHARON IRIZARRY MD Consulting Unavailable PROVIDER, UNKNOWN Consulting Unavailable PROVIDER, UNKNOWN Consulting Unavailable PROVIDER, UNKNOWN Consulting Unavailable Elijah CAMPOS, Srinivasa Kimble Unavailable [facility], . Unavailable [facility] Unavailable Shelli CAMPOS, Dr. Lynn Unavailable Kannan CAMPOS, Dr. Semaj Gomez Unavailable [phone] Michael GARCIAN, Diamond Doe Unavailable Unavailable Mina EXPLOSIVE OPERATOR BOMB, Sadiq Unavailable Unavailable Connor MCDONOUGH, Corina Farmer Unavailable Unavailable Mutersbaugh EXPLOSIVE OPERATOR BOMB, Yenni K Unavailable Unaselvini geneva Swanson EXPLOSIVE OPERATOR BOMB, Saloni Matthew Unavailable Unavailab marily Davalos MD, Kian Gama Unavailable Chente EXPLOSIVE OPERATOR BOMB, Oly Buck Unavailable Unavaila ble Zaugg EXPLOSIVE OPERATOR BOMB, Shiela Unavailable Unavailable Unavailable Unavailable Allergies Allergy Classification Reported Allergen(s) Allergy Type Date of Onset Reaction(s) Facility (1 source) rosuvastatin Drug Allergy 10-21-2011 joint pain [facility] Work Phone: Medications Current Medications Medication Drug Class(es) Dates Sig (Normalized) Sig (Original) allopurinol 300 mg oral tablet (3 sources) Xanthine Oxidase Inhibitor Start: 12-27-2020 take 1 tablet by mouth once daily Allopurinol 300 MG Oral Tablet ; 1 (one) Tablet qd for 0 days Quantity: 30 {Tablet} Refills: 0 Ordered: 27-Dec-2020 MD Srinivasa Nava Start: 27-Dec-2020 24 hr metoprolol succinate 100 mg extended release oral tablet (4 sources) beta-Adrenergic Lisa Start: 02-18-2017 take 1 tablet by mouth once daily Metoprolol Succinate ER 100 MG Oral Tablet Extended Release 24 Hour ; 1 Tablet ER 24HR daily for 0 days Quantity: 90 {Tablet} Refills: 1 Ordered: 18-Feb-2017 MD Srinivasa Nava Start: 18-Feb-2017 Completed/Discontinued Medications Medication Drug Class(es) Dates Sig (Normalized) Sig (Original) aspirin 325 mg oral tablet (6 sources) Nonsteroidal Anti-inflammatory Drug Start: 07-20-2012 take 1 tablet by mouth once daily ASPIRIN 325 MG TABS One tablet by mouth daily ASPIRIN [id number] Sabrina Simeon RN Problems Active Problems Problem Classification Problem Date Documented Da te Episodic/Chronic Cancer of colon (3 sources) Malignant neoplasm of colon, unspecified site Onset: 03-10-2013 08-15-2022 Chronic Past or Other Problems Problem Classification Problem [...] cardiovascular function study] Onset: 11-06-2011 11-06-2011 Episodic Unclassified (3 sources) Toenail problems - Note for Toenail problems : Pt states has fungus under toenail, right foot worse than left. States has been going on for a while . reviewed by [facility] 08-15-2022 Unclassified (3 sources) Fluid on right knee - Fluid on right knee for several months. No known injury. Two weeks ago had fluid removed while in [place]. Started swelling again and is painful. reviewed by [facility] 05-03-2020 Unclassified (3 sources) Jaw swelling - Pt. noted swelling in the inner right cheek area. No c/o pain or fever. Pt. has a h/o several multiple oral growths removed in the past. (30 years ago) 10-13-2019 Unclassified (3 sources) Knee pain - The onset of the knee pain has been sudden following no specific incident and has been occurring in a persistent pattern for 1 week. The course has been constant. The knee pain is in the right knee. The knee pain is characterized as a sharp stabbing. There were no relieving factors. Note for Knee pain : See in [facility] ER on 02/27 and given Prednisone and Oxy- no [id number] of fluid was drained off of knee and pt feels it is back at this time. 03-04-2019 Unclassified (3 sources) Cold Symptoms - Symptoms include sneezing, nasal congestion, runny nose, sore throat, hoarseness and productive cough, but do not include ear pain, ear fullness, fever, chills, general malaise, headache or facial pain. The onset was sudden 5 day(s) ago. The symptoms occur constantly. The patient describes this as moderate in severity and improving. Current treatment includes non-prescription cold medication. Note for Upper respiratory infection : reviewed by [facility] 06-16-2017 Results Test Name Value Interpretation Reference Range Facil ity Vital Signs Date Time Vital Sign Value Performing Clinician Faci litkev 08-15-2022 07:36-0400 Body weight 104.33 kg Sadiq Enriquez LPN [facility], [employer] 08-15-2022 07:36-0400 Diastolic blood pressure 88 mm[Hg] Sadiq Enriquez LPN [facility].; [employer] Encounters Encounter Date Encounter Type Care Provider Facility Start: 08-15-2022 End: 08-15-2022 Office outpatient visit 15 minutes Srinivasa Nava MD Work Phone: [employer]. Start: 05-03-2020 End: 05-03-2020 Office outpatient visit 15 minutes Srinivasa Nava MD Work Phone: [facility] Start: 04-24-2020 End: 04-24-2020 Telephone follow-up Srinivasa Nava MD Work Phone: [facility]. Start: 10-13-2019 End: 10-13-2019 Office outpatient visit 15 minutes Srinivasa Nava MD Work Phone: [employer]. Start: 03-05-2019 End: 03-05-2019 Telephone follow-up Srinivasa Nava MD Work Phone: [employer]. Start: 03-04-2019 End: 03-04-2019 Procedure Srinivasa Nava MD Work Phone: [employer]. Start: 04-27-2018 End: 04-27-2018 Patient encounter procedure CHRISTIANO SALOMON [facility] Start: 02-10-2018 End: 02-10-2018 Medication Srinivasa Nava MD Work Phone: [employer] Start: 01-01-2018 End: 01-01-2018 Telephone follow-up Srinivasa Nava MD Work Phone: [employer]. Start: 09-15-2017 End: 09-15-2017 Office outpatient visit 15 minutes Srinivasa Nava MD Work Phone: [employer] Start: 06-16-2017 End: 06-16-2017 Office outpatient visit 15 minutes Srinivasa Nava MD Work Phone: [employer] Start: 01-29-2017 End: 01-29-2017 Medication Srinivasa Nava MD Work Phone: [employer] Start: 09-20-2016 End: 09-20-2016 Patient encounter procedure Srinivasa Nava MD Work Phone: [employer]. Start: 09-17-2016 End: 09-17-2016 Historical Summary Srinivasa Nava MD Work Phone: [employer] Start: 02-26-2016 End: 02-26-2016 Orders Srinivasa Nava MD Work Phone: [employer] Start: 02-23-2016 End: 02-23-2016 Orders Srinivasa Nava MD Work Phone: [employer] Start: 02-21-2016 End: 02-21-2016 Office outpatient visit 15 minutes [facility] Start: 09-15-2015 End: 09-15-2015 Office outpatient visit 15 minutes [facility]rinivasa Nava MD [facility] Start: 09-04-2015 End: 09-04-2015 Medication Srinivasa Nava MD [facility] Procedures Date Procedure Procedure Detail Performing Clinician Start: 05-03-2020 End: 05-03-2020 Arthrocentesis aspir&/inj interm jt/burs w/o us Srinivasa Nava MD Work Phone: Start: 03-04-2019 End: 03-15-2019 Arthroscopy knee infection lavage & drainage Kian Davalos MD Work Phone: Start: 06-16-2017 End: 06-16-2017 Body mass index documented Srinivasa Nava MD Work Phone: Start: 01-17-2017 End: 01-17-2017 Follow Up Appt 6 months Chandu Barrow MD Start: 01-17-2017 End: 01-17-2017 MMM Chandu Barrow MD Start: 09-20-2016 End: 09-20-2016 Depression screen annual Srinivasa Pollard Work Phone: Start: 09-20-2016 End: 09-20-2016 Falls risk assessment documented Srinivasa Nava MD Work Phone: Start: 08-29-2016 End: 08-29-2016 Lipid panel Saloni Swanson LP N Plan of Treatment Date Care Activity Detail Author Start: 07-24-2017 End: 07-24-2017 Appointment Appointment [facility] Work Phone: Start: 01-17-2017 End: 01-17-2017 Appointment Appointment [facility] Work Phone: Start: 01-17-2017 End: 01-17-2017 *Hepatic Function Panel *Hepatic Function Panel [facility] Work Phone: Start: 01-17-2017 End: 01-17-2017 Follow Up Appt 6 months Follow Up Appt 6 months [facility] Work Phone: Start: 01-17-2017 End: 01-17-2017 Lipid panel [AGGREGATE] *Lipid Profile CC PCP [facility] Work Phone: Start: 01-17-2017 End: 01-17-2017 MMM MMM [facility] Work Phone: Start: 06-24-2016 End: 08-30-2016 *Hepatic Function Panel *Hepatic Function Panel [facility] Work Phone: Start: 06-24-2016 End: 06-24-2016 Ecg routine ecg w/least 12 lds w/i&r EKG (In office) [facility] Work Phone: Start: 06-24-2016 End: 06-24-2016 Follow Up Appt 6 months Follow Up Appt 6 months [facility] Work Phone: Start: 06-24-2016 End: 08-30-2016 Lipid panel [AGGREGATE] *Lipid Profile CC PCP [facility] Work Phone: Start: 06-24-2016 End: 06-24-2016 PFM PFM [facility] [employer] Work Phone: Start: 12-22-2015 End: 12-28-2015 *Hepatic Function Panel *Hepatic Function Panel [facility] [employer] Work Phone: Start: 12-22-2015 End: 06-14-2016 Follow Up Appt 6 months Follow Up Appt 6 months [facility] Work Phone: Start: 12-22-2015 End: 12-28-2015 Lipid panel [AGGREGATE] *Lipid Profile CC PCP [facility] Work Phone: Start: 12-22-2015 End: 06-14-2016 MMM MMM [facility] Work Phone: Start: 12-08-2015 End: 12-28-2015 *Hepatic Function Panel *Hepatic Function Panel [facility] Work Phone: Start: 12-08-2015 End: 12-28-2015 Lipid panel [AGGREGATE] *Lipid Profile CC PCP [facility] [employer] [facility] [employer] Work Phone: Start: 07-05-2015 End: 07-05-2015 Cardiac Referral Cardiac Referral Dwight Hopper, [address] [place], [address] [facility] [employer] [facility] [employer] Work Phone: Start: 06-21-2015 End: 06-21-2015 Follow Up Appt Other Follow Up Appt Other [facility] [employer] Work Phone: Start: 06-21-2015 End: 06-21-2015 PFM PFM [facility] [employer] [facility] Work Phone: Start: 06-15-2015 End: 06-21-2015 Ecg routine ecg w/least 12 lds w/i&r EKG (In office) [facility] [employer] [facility] [employer] Work Phone: Start: 06-15-2015 End: 06-21-2015 Left Heart Cath Left Heart Cath [facility] Work Phone: Start: 05-16-2015 End: 06-08-2015 *BMP *BMP [facility] Work Phone: Start: 05-16-2015 End: 06-08-2015 *Hepatic Function Panel *Hepatic Function Panel [employer] Work Phone: Start: 05-16-2015 End: 06-08-2015 CBC W Auto Differential panel - Blood *CBC without Diff [facility] [employer] [facility] [employer] Work Phone: Start: 05-16-2015 End: 05-17-2015 Chest x-ray X-Ray, Chest, PA & Lateral [facility] [employer] [facility] Work Phone: Start: 05-16-2015 End: 06-09-2015 Ecg routine ecg w/least 12 lds w/i&r EKG (In office) [facility] Work Phone: Start: 05-16-2015 End: 05-16-2015 Echocardiography Echocardiogram (complete) [facility] Work Phone: Start: 05-16-2015 End: 05-16-2015 Follow Up Appt 6 months Follow Up Appt 6 months [facility] Work Phone: Start: 05-16-2015 End: 06-08-2015 Lipid panel [AGGREGATE] *Lipid Profile CC PCP [facility] Work Phone: Start: 05-16-2015 End: 05-16-2015 Nuclear stress test -exercise Nuclear stress test -exercise [facility] Work Phone: Start: 05-16-2015 End: 05-16-2015 PFM PFM [facility] Work Phone: Start: 05-16-2015 End: 05-16-2015 Pulmonary Function Test - complete Pulmonary Function Test - complete [facility] Work Phone: Start: 05-16-2015 End: 06-08-2015 Thyroid stimulating hormone (TSH) *TSH [facility] Work Phone: Start: 05-16-2015 End: 06-08-2015 Thyroxine (T4) *T4 (Total) [facility] Work Phone: Start: 11-08-2013 End: 01-21-2014 *Hepatic Function Panel *Hepatic Function Panel [facility] Work Phone: Start: 11-08-2013 End: 01-21-2014 Lipid panel [AGGREGATE] *Lipid Profile CC PCP [facility] Work Phone: Start: 01-08-2013 End: 05-19-2013 *Hepatic Function Panel *Hepatic Function Panel [facility] Work Phone: Start: 01-08-2013 End: 05-19-2013 Lipid panel [AGGREGATE] *Lipid Profile CC PCP [facility] Work Phone: Start: 07-20-2012 End: 07-31-2012 *Hepatic Function Panel *Hepatic Function Panel [facility] Work Phone: Start: 07-20-2012 End: 07-20-2012 Follow Up Appt 6 months Follow Up Appt 6 months [facility] Work Phone: Start: 07-20-2012 End: 07-31-2012 Lipid panel [AGGREGATE] *Lipid Profile [facility] [employer] Work Phone: Start: 07-20-2012 End: 07-20-2012 MMM MMM [facility] Work Phone: Start: 12-27-2011 End: 07-20-2012 *Hepatic Function Panel *Hepatic Function Panel [facility] Work Phone: Start: 12-27-2011 End: 12-27-2011 Follow Up Appt 6 months Follow Up Appt 6 months [facility] Work Phone: Start: 12-27-2011 End: 07-20-2012 Lipid panel [AGGREGATE] *Lipid Profile [facility] Work Phone: Start: 11-15-2011 End: 11-06-2011 Left Heart Cath W/Grafts Left Heart Cath W/Grafts [facility] Work Phone: Start: 11-07-2011 End: 11-14-2011 *BMP *BMP [facility] Work Phone: Start: 11-07-2011 End: 11-14-2011 aPTT *PTT-Partial Thromboplastin Time [facility] Work Phone: Start: 11-07-2011 End: 11-14-2011 CBC W Auto Differential panel - Blood *CBC without Diff [facility] Work Phone: Start: 11-07-2011 End: 12-27-2011 Chest x-ray X-Ray, Chest, PA & Lateral [facility] Work Phone: Start: 11-06-2011 End: 11-14-2011 INR Coag RelTime (PPP) *PT/INR [facility] Work Phone: Start: 10-30-2011 End: 10-30-2011 Ecg routine ecg w/least 12 lds w/i&r EKG (In office) [facility] Work Phone: Start: 10-30-2011 End: 10-30-2011 Echocardiography Echocardiogram (complete) [facility] Work Phone: Start: 10-30-2011 End: 10-30-2011 Follow Up Appt 6 months Follow Up Appt 6 months [facility] Work Phone: Start: 10-30-2011 End: 10-30-2011 Nuclear stress test -adenosine Nuclear stress test -adenosine [facility] Work Phone: Patient Education HYPERLIPIDEMIA , HYPERTENSION [facility] Work Phone: Payers Date Payer Category Payer Unknown [id number] Medicare [id number] Unknown Social History Date Type Detail Facility Alcohol Use: Alcohol Use: ; None. [facility]; [facility] Caffeine Use Caffeine Use [employer] [facility] Tobacco Use: Tobacco Use: ; Never smoker. [facility]; [employer] Male [employer] Work Phone: Never smoked tobacco [facility]; [employer] Work Phone: Summary Purpose Family History No Family History Records FoundNo Family History Records Found Advance Directives No Advanced Directives Records FoundNo Advanced Directives Records Found Additional Source Comments (unrecognized sect ion and content) No Status Records FoundNo Status Records Found INFORMATION SOURCE (unrecogn ized section and content) DATE CREATED AUTHOR AUTHOR'S SERVANDO ATION 04/01/2020 [facility] FOR RECORDS PERTAINING TO PATIENTS WHO [...] BE BASED ON THE PRIMARY CLINICAL RECORDS. [employer] provides no warranty or guarantee of the accuracy or completeness of information in this document.
== END | disposition home or self-care (01) ==
LOC: PSN 06:44
PROVIDERS: PCP Family Medicine; Referring Provider Physician Assistant Medical; Visit Provider Physician Assistant Medical
DX: R06.09 Other forms of dyspnea (principal)
CPT/HCPCS: 93225; 93226

== ENCOUNTER → 2023-06-05 | Outpatient (CLI) | payer MEDICARE, OTHER, SELFPAY ==
--- NOTE | 2023-06-05 10:36 | ECHOCS_ITS ---
Reason For Study: CAD/ASHD Procedure This was a 2D Doppler, Color Flow transthoracic echocardiogram. The study was technically difficult. Contrast injection was performed. Exam performed in department. Left Ventricle Normal left ventricle. Mild concentric left ventricular hypertrophy. Left ventricular systolic function is lower limits of normal. Septal motion consistent with bundle branch block. The left ventricular ejection fraction is 45 %. There is mild global hypokinesis of the left ventricle. Right Ventricle Normal RV size. Normal systolic function. Atria The left atrium is mildly enlarged. Normal right atrium. Mitral Valve Mitral valve not well visualized. Tricuspid Valve Normal tricuspid valve. Aortic Valve Trisinus/trileaflet aortic valve. Great Vessels Normal aortic root. Pericardium/Pleural No pericardial effusion. Medication 22 gauge I.V. with prn adaptor inserted into right arm. Diluted definity 2ml given slow IV push to enhance endocardial definition. MMode/2D Measurements & Calculations LVIDd: 4.0 cm IVSd: 1.2 cm LAV(MOD-bp): 53.3 ml LVIDs: 3.7 cm LVPWd: 1.7 cm LAV(MOD-bp) Indexed: 25.1 ml/m2 FS: 7.7 % LAV(MOD-sp2): 59.0 ml LAV(MOD-sp4): 44.5 ml SV(MOD-sp4): 51.6 ml SV(sp4-el): 55.6 ml LVAd ap4: 33.4 cm2 LVLd ap4: 7.9 cm EDV(MOD-sp4): 113.4 ml EDV(sp4-el): 120.1 ml LVAs ap4: 23.2 cm2 LVLs ap4: 7.1 cm ESV(MOD-sp4): 61.8 ml ESV(sp4-el): 64.6 ml EF(MOD-sp4): 45.5 % EF(sp4-el): 46.3 % LA A4 area: 18.0 cm2 LA dimension(2D): 4.7 cm RA A4 area: 22.6 cm2 Doppler Measurements & Calculations MV E max steff: 112.7 cm/sec Ao V2 max: 92.6 cm/sec LV V1 max: 81.9 cm/sec Ao max P.6 mmHg LV V1 max P.7 mmHg Ao V2 mean: 64.5 cm/sec LV V1 mean P.6 mmHg Ao mean P.0 mmHg LV V1 mean: 57.7 cm/sec Ao V2 VTI: 17.1 cm LV V1 VTI: 16.7 cm AV (velocity ratio): 0.98 ECHO/Echo Complete W/ Contrast Interpretation Summary Normal left ventricle. Left ventricular systolic function is lower limits of normal. Mild concentric left ventricular hypertrophy. The left ventricular ejection fraction is 45 %. Contrast injection was performed. Ordering Physician: Jemima Maldonado Referring Physician: Jemima Maldonado Performed By: Jami Eller RCS
== END | disposition home or self-care (01) ==
LOC: CVS 10:35
PROVIDERS: PCP Family Medicine; Referring Provider Physician Assistant Medical; Visit Provider Physician Assistant Medical
DX: I25.10 Atherosclerotic heart disease of native coronary artery without angina pectoris (principal)
CPT/HCPCS: 93306; Q9957; A4216; C8929

== ENCOUNTER 2023-07-07 10:07 | Day surgery (SDC) | payer MEDICARE, OTHER, SELFPAY ==
--- NOTE | 2023-07-02 21:00 | HP.PCM_ITS ---
History and Physical Date of Admission: 07/07/23 GARCIA HAAS, is a 83 year old white male with a history of coronary artery disease status post bypass surgery on 01/06/2018 at [facility] GATO to LAD, SVG to diagonal, SVG to OM1/OM 2 (sequential graft) and SVG to PDA.? He has a previous history of bypass surgery with to LAD and previous placed left PDA stent.? He also has a history of left bundle branch block, ischemic cardiomyopathy, hyperlipidemia, and hypertension. He was seen in office on account of worsening shortness of breath. He feels that this is what he had prior to his bypass surgery. He notes that some day he feels like he can not take a deep breath. He does not have any chest pain/heaviness/tightness. He notes that he feels like he is more SOB with activity. He does not have any orthopnea. He does not have any SOB at rest. He does have a cough this is dry. He does not have any palpitations. He does not have any lightheadedness/dizziness. He feels he is more fatigued. He does not have any edema. Intake Vital Signs: See EMR Intake Visit Reasons: [facility] Clinical Abstractor Required: No Is patient in pain?: No Allergies rosuvastatin calcium [From Crestor] Allergy (Verified 05/09/23 09:07) Pain in joints Medications See EMR [facility] Medical History (Updated 05/09/23 @ 10:00 by Jemima MONTOYA, PA) Abnormal nuclear stress test Abnormal stress test Arteriosclerotic heart disease (ASHD) Atherosclerotic heart disease of [place] coronary artery without angina pectoris Cardiomyopathy Chest pain Essential hypertension Gout History of prostate cancer HLD (hyperlipidemia) Ischemic cardiomyopathy Left bundle branch block Mixed hyperlipidemia New onset a-fib Old myocardial infarction Other watermelon harvesting supervisor (current) drug therapy Presence of stent in coronary artery (~05/03/10) Right carotid bruit Shortness of breath Surgical History History of left heart catheterization Hx of CABG (~01/06/18) Presence of coronary artery bypass graft stent Family History Father CAD (coronary artery disease) Myocardial infarctionMother Cancer Social History Smoking Status: Never smoker alcohol intake: never substance use type: does not use caffeine: Yes Type: coffee Number of servings: 1 what type of physical activity do you participate in: none ROS Const Const: Positive for fatigue; Negative for weakness, fever(s) or headache(s) Eyes Eyes: Negative for blind spots, loss of peripheral vision or transient loss of vision ENT ENT: Negative for headache(s), dizziness, tinnitus, Nosebleed/epistaxis or balance problems Cardio Chest Pain: No Palpitations: No Edema: None Muscle aches with walking: None Resp Respiratory: Positive for SOB with activity; Negative for SOB at rest, SOB orthopnea\SOB lying down or Cough GI GI: Negative nausea, vomiting, heartburn or vomiting blood/hematemesis : Negative for hematuria Musc Musc: Negative for muscle aches/ myalgia, muscle weakness, joint pain or balance problems Neuro Neuro: Negative for dizziness, lightheadedness, near syncope, syncope, orthostatic symptoms, headache(s) or weakness Gurmeet Hematologic/Lymphatic: Negative for easy bleeding Endo Endo: Positive for fatigue Cardiology Exam Const Appearance: cooperative and no acute distress Nutritional Appearance: obese Orientation: alert and oriented x3 Head Head: normal to inspection Ears: hearing grossly normal bilaterally Nose: external nose normal Face and Sinus: face symmetric Eyes General: appearance normal, both eyes and all related structures Eyelids: eyelids normal Conjunctivae: conjunctivae normal Pupils: PERRL and pupil size EOM: EOM intact bilaterally Neck Neck: normal visual inspection Carotids: Negative bruit Chest Chest inspection: normal inspection of the chest and normal respiratory effort Auscultation: Bilateral: Clear to Auscultation Cardio Palpation: normal PMI Rate: irregular rate Rhythm: irregularly irregular Heart sounds: S1 normal and S2 normal; Negative rub, gallop or murmur GI GI: normal to inspection, soft and obese Neuro General: patient alert, patient oriented x3 and CN's II-XI intact bilaterally Skin Skin: no rashes or lesions noted Extremities Pulses: Normal: Right Posterior Tibial Pulse, Left Posterior Tibial Pulse, Right Radial Pulse and Left Radial Pulse Lower Extremity Edema: None: Bilateral Psych Psychological: normal affect Supplemental Info Supplemental Information Echocardiogram from 06/05/2023: Interpretation Summary Normal left ventricle. Left ventricular systolic function is lower limits of normal. Mild concentric left ventricular hypertrophy. The left ventricular ejection fraction is 45 %. Contrast injection was performed. Stress Test 01/09/2023: Procedure: Pharmacologic stress nuclear imaging study Indications: CAD Consent: Per the patient Procedure: The patient underwent pharmacologic (Regadenoson) evaluation with a peak heart rate of 92 beats per minute (65%predicted maximal heart rate) and a peak blood pressure of 142/88 mmHg. The baseline ECG demonstrated normal sinus rhythm, nonspecific ST-T changes, occasional PVCs. EKG during lexiscan infusion revealed no significant ischemic changes. EKG post infusion revealed no significant ischemic changes [There were no cardiac dysrhythmias pretest, during pharmacologic infusion, or recovery]. [There was no complaint of chest discomfort during pharmacologic infusion or recovery]. The examination was discontinued secondary to completion of protocol. Impression: 1. Lexiscan stress test test is negative for Lexiscan infusion induced EKG changes of ischemia. 2. Lexiscan stress test test is negative for Lexiscan infusion induced chest pain. 3. Results of the nuclear portion of the test is as below Myocardial perfusion imaging study: Technique: The patient was injected with 14.9 millicuries of technetium 99m Cardiolite and subsequently rest SPECT Cardiolite nuclear imaging was obtained in the horizontal long, vertical long, and short axis views. The patient underwent pharmacologic [Regadenoson 0.4mg] evaluation. Please see above for details. The patient was injected with 42.2 millicuries of technetium 99m Cardiolite and subsequently stress SPECT Cardiolite nuclear imaging was obtained in the horizontal long, vertical long, and short axis views. A gated Cardiolite study at peak stress was obtained. Interpretation: Rest and stress SPECT Cardiolite nuclear imaging status post realignment, normalization, and attenuation correction demonstrate overall normal radioisotope uptake after attenuation correction. Prior to attenuation correction there is mild decrease in the radioisotope uptake in the inferior wall suggestive of diaphragmatic attenuation artifact. Gated images reveal septal hypokinesis. The reported LVEF is 51%. Impression: 1. There is no evidence of significant ischemia or infarction. 2. Estimated ejection fraction is 51%. Cardiac catheterization 12/30/2017: Indications: Worsening Angina, Suspected CAD Heart Failure: None Stress/Imaging Stress Test w/SPECT MPI: Yes Result: PositiveStress Test with SPECT MPI: Positive Angina Classification Anginal Classification w/in 2 Weeks: CCS III CAD Presentations: Stable angina. CONCLUSIONS Elevated Left Ventricular End Diastolic Pressure Normal LV size, wall motion,and systolic function LVEF: by LV gram 55 % [place] Multivessel CAD to LAD: Previously documented as small, atretic, and nonfunctional and not reevaluated during this procedure RECOMMENDATIONS Risk factor modification Medical therapy Surgery consult for coronary revascularization (Redo CABG) CORONARY ANGIOGRAPHY DOMINANCE: Co- Dominant LEFT HEART ASSESSMENT Left Ventricular Ejection Fraction: by LV Gram 55 % Normal LV wall motion Elevated Left Ventricular End Diastolic Pressure LVEDP: 26 mmHg LEFT MAIN: Moderate calcification, Distal: 50 % Stenosis LEFT ANTERIOR DECENDING ARTERY: PROX LAD: Moderate calcification, 95 % Stenosis, Long: Diffuse: Irregular: 85 % Stenosis MID LAD: S/P SP and DX1: 85 % Stenosis DIAGONAL 1: Ostial - 95 % Stenosis CIRCUMFLEX ARTERY: OSTIAL CIRC: 50-75 % Stenosis PROX CIRC: Moderate calcification, 50 % Stenosis MID CIRC: Diffuse: 25 % Stenosis OM 1: Proximal - 75 % Stenosis, Mid - 75 % Stenosis, Distal - 95 % Stenosis LT PDA: Left PDA: Proximal - Previously placed stent is patent RIGHT CORONARY ARTERY: PROX RCA: 85 % Stenosis DISTAL RCA: 85 % Stenosis GRAFTS: graft to the Mid LAD previously documented as small, atretic, and nonfunctional and not reevaluated during this procedure VALVE FINDINGS: Normal Aortic Valve function Normal Mitral Valve function AORTIC ROOT: Angiographically normal Carotid Duplex 12/2017: Interpretation Summary Mild (<50%) stenosis right extracranial internal carotid. Mild (<50%) stenosis left extracranial internal carotid. Flow within the vertebral arteries is antegrade bilaterally. Assessment and Plan Assessment and Plan (1) New onset a-fib: Status: Acute Plan: His Holter monitor showed atrial fibrillation with average rate of 71 bpm. His echocardiogram showed an EF of 45% with mildly enlarged left atrium. Will proceed with cardioversion and follow response, including EF. (2) Hx of CABG: Status: Resolved Comment: -LAD ; Redo CABG x5 GATO to LAD, SVG to PDA, OM1, OM2, D 01/06/18 Plan: Patient has a history of coronary artery disease with CABG in 1994, and redo CABG in 12/2017. He appears stable at this time, and denies any recent symptoms or events. Stress test in 2022 was negative for ischemia. He will continue with his current medical therapy, along with aggressive risk factor and lifestyle modifications. (3) Presence of stent in coronary artery: Status: Chronic Comment: Atherectomy with angioplasty proximal LAD ; PCTCA/stent to prox left posterior atrioventricular artery 05/03/10 (4) Ischemic cardiomyopathy: Status: Chronic Plan: Patient has a history of ischemic cardiomyopathy. His most recent echocardiog skip from 01/07/2018 demonstrated normal left ventricular systolic function. With his new onset of Afib would like to obtain an echocardiogram to reassess LV function. For now he will continue with is current dose of metoprolol. Based on findings this may be adjusted. (5) Mixed hyperlipidemia: Status: Chronic Plan: He will continue atorvastatin 40 mg daily, along with aggressive risk factor and lifestyle modifications. (6) Essential hypertension: Status: Chronic Plan: Patient has a history of hypertension. Will continue to adjust medications to optimize blood pressure.
[2023-07-04 08:13] VITALS: BMI 33.6
--- NOTE | 2023-07-04 09:40 | RAD_ITS ---
STUDY: X-RAY CHEST REASON FOR EXAM: Male, 83 years old. Chest pain/pressure TECHNIQUE: PA and lateral views of the chest. COMPARISON: 05/15/2019 FINDINGS: The lungs are clear and expanded. There is no demonstrated pleural abnormality. Sternal cerclage wires and vascular clips are present from a prior sternotomy and coronary artery bypass graft procedure (CABG). Normal mediastinum and mark. Normal visualized pulmonary arteries. There is atherosclerotic calcification of the aortic arch with tortuosity. There are diffuse degenerative changes of the visualized thoracic spine. Normal visualized ribs, clavicles, and shoulders. There is no demonstrated abnormality of the visualized soft tissue structures of the upper abdomen. RAD/Chest PA and Lateral IMPRESSION: No acute pulmonary process, no interval change Electronically Signed: Sanjiv Lake MD at 15:10 EDT ,
[2023-07-04 10:27] LABS: Absolute Lymphocyte Count 0.58 X10^3/uL (0.83-4.51); Absolute Neutrophil Count 4.3 X10^3/uL (2.0-7.7); Basophil# 0.04 X10^3/uL; Basophil% 0.7 % (0-1); Eosinophil# 0.23 X10^3/uL; Eosinophils% 4.1 % (0-5); Hematocrit 42.3 % (40-54); Hemoglobin 13.1 g/dL (13.0-16.5); Lymphocyte # 0.58 X10^3/ul (0.83-4.51); Lymphocyte % 10.5 % (19-41); Mean Corpuscular Hgb 28.5 pg (27.0-32.0); Mean Platelet Vol. 9.6 fl (6.2-12.0); Monocyte# 0.38 X10^3/uL; Monocyte% 6.8 % (0-10); NRBC Flagged by Analyzer 0 % (0-5); Neutrophil % 77.5 % (47-70); POSITIVE DIFFERENTIAL YES; Platelet Count 177 K/mm3 (150-450); RBC Distribution Width CV 14.8 % (11.6-14.6); RBC Distribution Width SD 49.2 fl (35.1-43.9); White Blood Count 5.6 K/mm3 (4.4-11.0)
[2023-07-04 10:49] LABS: AST(SGOT) 16 U/L (15-37); Alanine Aminotransfer ALT/SGPT 16 U/L (16-61); Albumin, Serum 3.5 g/dL (3.2-5.0); Alkaline Phosphatase 117 U/L (45-117); Anion Gap 3 (5-15); BUN 27 mg/dL (7-18); BUN/Creat Ratio 15.1 RATIO (10-20); Bilirubin, Direct 0.19 mg/dL (0.00-0.30); Calcium,Total 9.5 mg/dL (8.5-10.1); Chloride 103 mmol/L (98-107); Cholesterol 105 mg/dL (200); Creatinine, Serum 1.79 mg/dL (0.70-1.30); EST Glomerular Filtration Rate 39 mL/min (>60); Est Glom Filt Rate - Afr Amer 47 mL/min (>60); Estimated Creatinine Clearance 37.23 ml/min; Globulin 3.9 g/dL (2.2-4.2); Glucose 83 mg/dL (74-106); High Density Lipoprotein 33 mg/dL; Potassium 4.1 mmol/L (3.5-5.1); Protein, Total 7.4 g/dL (6.4-8.2); Sodium Level 139 mmol/L (136-145); Triglycerides 111 mg/dL; Very Low Density Lipoprotein 22 mg/dL (5-40)
[2023-07-07 10:55] LABS: Anion Gap 5 (5-15); BUN 26 mg/dL (7-18); BUN/Creat Ratio 15.8 RATIO (10-20); Calcium,Total 9.4 mg/dL (8.5-10.1); Chloride 104 mmol/L (98-107); Creatinine, Serum 1.65 mg/dL (0.70-1.30); EST Glomerular Filtration Rate 43 mL/min (>60); Est Glom Filt Rate - Afr Amer 52 mL/min (>60); Estimated Creatinine Clearance 40.39 ml/min; Glucose 118 mg/dL (74-106); Potassium 4.4 mmol/L (3.5-5.1); Sodium Level 138 mmol/L (136-145)
--- NOTE | 2023-07-07 11:08 | PCM.OP.PRO ---
Procedure Report Date of Procedure: 07/07/23 DC cardioversion 83-year-old man with a history of atrial flutter which is persistent and has been on anticoagulation. Patient was brought to cardiac catheterization lab in the postabsorptive nonsedated state. Informed consent was obtained. The patient was seen by Dr. Nava of the critical care division. Anterior-posterior pads were applied. The patient was then administered 40 mg of intravenous propofol. 200 J of biphasic DC cardioversion energy were applied with prompt reversal to sinus rhythm. Patient tolerated the procedure well. Conclusion: Successful DC cardioversion from atrial fibrillation to sinus rhythm.
--- NOTE | 2023-07-07 11:41 | PRO.PCM_ITS ---
Procedure Report Date of Procedure: 07/07/23 CONSCIOUS SEDATION REPORT DATE OF SERVICE: July 07, 2023 BRIEF HISTORY OF PRESENT ILLNESS: The patient is an 83-year-old male who presented to [facility] for an elective outpatient cardioversion due to underlying atrial fibrillation. The patient denied any prior anesthetic complications. He denied a history of obstructive sleep apnea, COPD or asthma. The patient is systemically anticoagulated on Eliquis, without any missed doses. His last surface echocardiogram demonstrated an ejection fraction of 45 to 50%. PHYSICAL EXAMINATION: VITAL SIGNS: Reviewed and were acceptable. GENERAL: The patient is a male, in no apparent distress, speaking in full sentences. HEENT: Normocephalic, atraumatic. Mucous membranes are moist and pink. Good mouth opening noted. Trachea is midline. CHEST: S1, S2 irregularly irregular. No murmurs, rubs or gallops were noted. LUNGS: Clear to auscultation bilaterally without appreciable wheezes, rales or rhonchi. ABDOMEN: Soft, nontender, nondistended. Positive bowel sounds. EXTREMITIES: There is no clubbing, cyanosis or edema. ASA Class: II DESCRIPTION OF PROCEDURE: After confirmation of informed consent, the patient's anesthesia plan was reviewed in detail. Propofol was chosen. Risks and benefits were reviewed and the patient agreed to proceed. At 1104, the patient was given 40 mg of propofol. The patient achieved an appropriate level of sedation and was given a 200 joule synchronized cardioversion by Dr. Farley at the bedside. This was successful in achieving normal sinus rhythm. The patient was monitored until 1117, at which time he reached his baseline mental status and function. The patient tolerated the procedure well. COMPLICATIONS: None ESTIMATED BLOOD LOSS: None RECOMMENDATIONS: Okay to recover in usual fashion. Procedures Pulmonary 9xxxx: [id number] Con Sedation
== END 2023-07-07 12:25 | disposition home or self-care (01) ==
LOC: CLSP 10:07
PROVIDERS: Nurse Practitioner Gerontology; PCP Family Medicine; Referring Provider Internal Medicine Cardiovascular Disease; Visit Provider Internal Medicine Cardiovascular Disease
DX: I48.91 Unspecified atrial fibrillation (principal); I25.5 Ischemic cardiomyopathy; I10 Essential (primary) hypertension; I25.118 Atherosclerotic heart disease of native coronary artery with other forms of angina pectoris; E78.2 Mixed hyperlipidemia; Z95.5 Presence of coronary angioplasty implant and graft; Z79.01 Long term (current) use of anticoagulants
CPT/HCPCS: 36415; 71046; 80048; 80061; 80076; 85025; 92960; 93005; J7040

== ENCOUNTER → 2024-05-27 | Outpatient (CLI) | payer MEDICARE, OTHER, SELFPAY ==
[2024-05-27 09:31] LABS: Absolute Lymphocyte Count 0.65 X10^3/uL (0.83-4.51); Absolute Neutrophil Count 4.1 X10^3/uL (2.0-7.7); Basophil# 0.02 X10^3/uL; Basophil% 0.4 % (0-1); Eosinophil# 0.26 X10^3/uL; Eosinophils% 4.8 % (0-5); Hematocrit 42.2 % (40-54); Hemoglobin 14.1 g/dL (13.0-16.5); Lymphocyte # 0.65 X10^3/ul (0.83-4.51); Mean Corp Hgb Conc 33.4 g/dL (32-36); Mean Corpuscular Volume 92.7 fL (80-94); Mean Platelet Vol. 9.5 fl (6.2-12.0); Monocyte# 0.37 X10^3/uL; Monocyte% 6.9 % (0-10); NRBC Flagged by Analyzer 0 % (0-5); Neutrophil # 4.08 X10^3/uL (2.7-7.7); Neutrophil % 75.5 % (47-70); Platelet Count 170 K/mm3 (150-450); RBC Distribution Width CV 14.6 % (11.6-14.6); RBC Distribution Width SD 48.7 fl (35.1-43.9); Red Blood Count 4.55 M/mm3 (4.6-6.2); White Blood Count 5.4 K/mm3 (4.4-11.0)
[2024-05-27 10:26] LABS: Anion Gap 12 (5-15); BUN 28 mg/dL (4-19); BUN/Creat Ratio 19.5 RATIO (10-20); Calcium,Total 9.2 mg/dL (7.6-11.0); Carbon Dioxide 23.2 mmol/L (21.0-32.0); Chloride 101 mmol/L (98-108); Creatinine, Serum 1.44 mg/dL (0.70-1.20); EST Glomerular Filtration Rate 49 (>60); Glucose 111 mg/dL (70-99); Potassium 4.5 mmol/L (3.3-5.1); Pro- Brain NATRIURETIC PEPTIDE 925 pg/mL (<=1800); Sodium Level 136 mmol/L (133-145)
== END | disposition home or self-care (01) ==
LOC: LAB 09:08
PROVIDERS: PCP Family Medicine; Referring Provider Physician Assistant Medical; Visit Provider Physician Assistant Medical
DX: I48.0 Paroxysmal atrial fibrillation (principal); R06.00 Dyspnea, unspecified
CPT/HCPCS: 36415; 80048; 83880; 85025

== ENCOUNTER → 2024-07-13 | Outpatient (CLI) | payer MEDICARE, OTHER, SELFPAY ==
--- NOTE | 2024-07-13 09:30 | ECHOCS_ITS ---
Reason For Study Reason For Study: Dyspnea/SOB Procedure This was a 2D Doppler, Color Flow transthoracic echocardiogram. Contrast injection was performed. Exam performed in department. Left Ventricle Normal LV size. The left ventricular ejection fraction is 45 %. Stage 1 diastolic dysfunction. No regional wall motion abnormalities noted. There is mild global hypokinesis of the left ventricle. Right Ventricle Normal RV size. Normal systolic function. Atria Normal left atrium. Normal right atrium. Mitral Valve There is mild mitral annular calcification. Tricuspid Valve Normal tricuspid valve. Moderate (2+) tricuspid valve insufficiency. Pulmonary artery systolic pressure is 50 mmHg. Aortic Valve Trisinus/trileaflet aortic valve. Mild focal aortic valve calcification. Pulmonic Valve Normal pulmonic valve. Great Vessels Normal aortic root. The pulmonary artery is normal size. Inferior vena cava collapse with respiration. Pericardium/Pleural No pericardial effusion. Medication Diluted definity 1.5ml given slow IV push to enhance endocardial definition. MMode/2D Measurements & Calculations LVIDd: 4.9 cm IVSd: 0.89 cm Ao root diam: 2.9 cm LVIDs: 3.9 cm LVPWd: 1.1 cm RVDd: 4.6 cm FS: 20.0 % LAV(MOD-bp): 50.2 ml LVAd ap4: 35.1 cm2 LVAd ap2: 31.8 cm2 LAV(MOD-bp) Indexed: 23.8 ml/m2 LVLd ap4: 7.9 cm LVLd ap2: 7.4 cm LAV(MOD-sp2): 49.5 ml EDV(MOD-sp4): 125.8 ml EDV(MOD-sp2): 112.3 ml LAV(MOD-sp4): 49.6 ml EDV(sp4-el): 132.5 ml EDV(sp2-el): 116.1 ml LVAs ap4: 26.9 cm2 LVAs ap2: 23.8 cm2 LVLs ap4: 6.9 cm LVLs ap2: 6.5 cm ESV(MOD-sp4): 86.9 ml ESV(MOD-sp2): 72.3 ml ESV(sp4-el): 89.4 ml ESV(sp2-el): 73.9 ml EF(MOD-sp4): 30.9 % EF(MOD-sp2): 35.6 % EF(sp4-el): 32.5 % SV(MOD-sp4): 38.9 ml SV(MOD-sp2): 40.0 ml SV(sp4-el): 43.0 ml SI(MOD-sp4): 18.5 ml/m2 SI(MOD-sp2): 19.0 ml/m2 LA A4 area: 18.8 cm2 LA dimension(2D): 4.7 cm RA A4 area: 20.1 cm2 TAPSE: 1.5 cm Time Measurements MV dec time: 0.21 sec Doppler Measurements & Calculations MV E max sam: 82.4 cm/sec Lat Peak E' Sam: 9.5 cm/sec Med Peak E' Sam: 7.2 cm/sec MV A max sam: 105.2 cm/sec E/E' lat: 8.6 E/E' med: 11.5 MV E/A: 0.78 MV dec slope: 397.9 cm/sec2 Ao V2 max: 124.6 cm/sec LV V1 max: 103.3 cm/sec Ao max P.2 mmHg LV V1 max P.3 mmHg Ao V2 mean: 89.5 cm/sec Ao mean P.6 mmHg Ao V2 VTI: 24.5 cm PA V2 max: 70.2 cm/sec TR max sam: 340.8 cm/sec TR max P.5 mmHg ECHO/Echo Complete W/ Contrast Interpretation Summary Normal LV size. The left ventricular ejection fraction is 45 %. Stage 1 diastolic dysfunction. Moderate (2+) tricuspid valve insufficiency. Contrast injection was performed. Ordering Physician: Jemima Maldonado Referring Physician: Srinivasa Nava Performed By: Charmaine Oro, AME, RVT
== END | disposition home or self-care (01) ==
LOC: PSN 09:27
PROVIDERS: PCP Family Medicine; Referring Provider Physician Assistant Medical; Visit Provider Physician Assistant Medical
DX: R06.09 Other forms of dyspnea (principal); I48.0 Paroxysmal atrial fibrillation
CPT/HCPCS: 93225; 93226; 93306; Q9957; A4216; C8929

== ENCOUNTER → 2024-07-30 | Outpatient (CLI) | payer MEDICARE, OTHER, SELFPAY ==
[2024-07-30 09:50] LABS: Absolute Lymphocyte Count 0.49 X10^3/uL (0.83-4.51); Absolute Neutrophil Count 3.5 X10^3/uL (2.0-7.7); Basophil# 0.01 X10^3/uL; Basophil% 0.2 % (0-1); Eosinophil# 0.24 X10^3/uL; Eosinophils% 5.3 % (0-5); Hematocrit 43.4 % (40-54); Hemoglobin 14.2 g/dL (13.0-16.5); Lymphocyte # 0.49 X10^3/ul (0.83-4.51); Lymphocyte % 10.8 % (19-41); Mean Corp Hgb Conc 32.7 g/dL (32-36); Mean Corpuscular Hgb 30.9 pg (27.0-32.0); Mean Corpuscular Volume 94.3 fL (80-94); Monocyte# 0.24 X10^3/uL; Monocyte% 5.3 % (0-10); NRBC Flagged by Analyzer 0 % (0-5); Neutrophil # 3.54 X10^3/uL (2.7-7.7); POSITIVE DIFFERENTIAL YES; Platelet Count 189 K/mm3 (150-450); RBC Distribution Width SD 47.8 fl (35.1-43.9); White Blood Count 4.5 K/mm3 (4.4-11.0)
[2024-07-30 09:57] LABS: Prothrombin Time (Protime)PT. 23.3 SECONDS (11.7-14.9)
[2024-07-30 10:21] LABS: Anion Gap 12 (5-15); BUN 19 mg/dL (4-19); BUN/Creat Ratio 13.4 RATIO (10-20); Calcium,Total 9.4 mg/dL (7.6-11.0); Chloride 101 mmol/L (98-108); Creatinine, Serum 1.43 mg/dL (0.70-1.20); EST Glomerular Filtration Rate 49 (>60); Glucose 151 mg/dL (70-99); Potassium 4.2 mmol/L (3.3-5.1); Sodium Level 138 mmol/L (133-145)
== END | disposition home or self-care (01) ==
LOC: LAB 08:24
PROVIDERS: PCP Family Medicine; Referring Provider Physician Assistant Medical; Visit Provider Physician Assistant Medical
DX: I48.0 Paroxysmal atrial fibrillation (principal); I25.5 Ischemic cardiomyopathy
CPT/HCPCS: 36415; 80048; 85025; 85610

== ENCOUNTER → 2024-08-20 | Outpatient (CLI) | payer MEDICARE, OTHER, SELFPAY ==
--- OUTSIDE RECORDS SUMMARY | 2024-08-20 13:12 | XMS RPT_ITS | CCD ---
Author Organization [facility] Care Team Providers Care Gate Shear Operator Name Role Phone Carlos Dial Unavailable Unavailable AIME, CHRISTIANO E Primary Care Unavailable AIME, CHRISTIANO E Admitting Unavailable AIME, CHRISTIANO E Attending Unavailable SHARON IRIZARRY MD Consulting Unavailable PROVIDER, UNKNOWN Consulting Unavailable PROVIDER, UNKNOWN Consulting Unavailable PROVIDER, UNKNOWN Consulting Unavailable Dr. Srinivasa Nava Primary Care Provider Dr. Srinivasa Nava Referring Provider Rd EVALUATION ASSISTANT, EVALUATION ASSISTANT-C Sophia Attending Provider Rd EVALUATION ASSISTANT, EVALUATION ASSISTANT-C Sophia Referring Provider Rd BARRIENTOS, EVALUATION ASSISTANT-C Sophia Other Provider Dr. Susan Coles Attending Provider Srinivasa Nava MD Unavailable [facility], . Unavailable [facility] Unavailable Dr. Shane Marques MD Unavailable [phone] Dr. Semaj Brunner MD Unavailable Michael HANDICRAFT OR HOBBY SHOP MANAGER, Diamond E Unavailable Unavailable Mina HANDICRAFT OR HOBBY SHOP MANAGER, Sadiq Unavailable Unavailable Connor RN, Corina Y Unavailable Unavailable Mutersbasravan HANDICRAFT OR HOBBY SHOP MANAGER, Yenni K Unavailable Unavai geneva Swanson LPN, Saloni Matthew Unavailable Unavailab marily Davalos MD, Kian Gama Unavailable Chente HANDICRAFT OR HOBBY SHOP MANAGER, Oly Buck Unavailable Unavaila ble Zaugg HANDICRAFT OR HOBBY SHOP MANAGER, Shiela Unavailable Unavailable Unavailable Unavailable Dr. Srinivasa Nava Primary Care Provider Dr. Srinivasa Nava Referring Provider JAN Allred Attending Provider Dr. Srinivasa Nava Primary Care Provider [phone] Dr. Srinivasa Nava Referring Provider JAN Allred Attending Provider Dr. Layton Farley Attending Provider [phone] Layton Farley Other Provider Rd BARRIENTOS, EVALUATION ASSISTANT-C Sophia Attending Provider Martine, Dr. Traylor Referring Provider [phone] Ankush Nava Attending Provider Andrei STRAUSS, Jacque Gomez Unavailable Aminata Slade MA Unavailable Unavailable Brianne MCDONOUGH, Brittaney Gama Unavailable Unavaila shelley Nava MD, Dr. Bernabe Primary Care Provider Elijah CAMPOS, Dr. Bernabe Referring Provider Jemima Allred M Attending Provider [phone] Jemima Allred M Referring Provider [phone] Martine CAMPOS, Dr. Traylor Attending Provider [phone] Srinivasa Nava Primary Care Unavailable Srinivasa Nava Referring Unavailable Maldonado PA, Jemima M Attending Unavail able Maldonado PA, Jemima M Referring Unavail able Maldonado PA, Jemima M Attending Unavail able Brown, Srinivasa Primary Care Unavailable Brown, Srinivasa Primary Care Unavailable Maldonado PA, Jemima M Referring Unavail able Maldonado PA, Jemima M Attending Unavail able Maldonado PA, Jemima M Referring Unavail able Brown, Srinivasa Primary Care Unavailable Maldonado PA, Jemima M Attending Unavail able Roof Kian BARRIENTOS Attending Unavailable Elijah, Srinivasa Primary Care Unavailable Srinivasa Nava Referring Unavailable Maldonado PA, Jemima M Referring Unavail able Brown, Srinivasa Primary Care Unavailable MartineLayton christopher Attending Unavailable Brown, Srinivasa Primary Care Unavailable MartineBrandie christopherl Attending Unavailable Elijah, Srinivasa Primary Care Unavailable Brown Srinivasa Referring Unavailable Rd BARRIENTOS, Sophia Attending Unavailable Roof EVALUATION ASSISTANT-C, Kian Solano Attending Provider [phone] Allergies Allergy Classification Reported Allergen(s) Allergy Type Date of Onset Reaction(s) Facility (1 source) rosuvastatin Drug Allergy 10-21-2011 joint pain [facility] Work Phone: (1 source) rosuvastatin Drug Allergy 05-27-2024 [facility] Repository Medications Current Medications Medication Drug Class(es) Dates Sig (Normalized) Sig (Original) allopurinol 300 mg oral tablet (20 sources) Xanthine Oxidase Inhibitor Start: 07-14-2023 allopurinoL 300 mg tablet ; 1 (one) Tablet qd for 0 days Quantity: 90 {Tablet} Refills: 3 Ordered: 14-Jul-2023 MD Srinivasa Nava Start: 14-Jul-2023 Start: 12-05-2017 End: 12-26-2021 take 1 tablet by mouth once daily Allopurinol 300 mg tablet Discontinued 300 mg PO DAILY October 11, 2019 9:02am December 26, 2021 9:32am Start: 12-05-2017 End: 10-11-2019 Allopurinol 300 mg tablet Discontinued 1 {tbl} PO DAILY December 05, 2017 12:00am October 11, 2019 9:03am amiodarone hydrochloride 200 mg oral tablet (2 sources) Antiarrhythmic Start: 07-29-2024 take 1 tablet by mouth once daily Amiodarone 200 mg tablet Active 200 mg PO daily July 29, 2024 12:00am aspirin 81 mg delayed release oral tablet (20 sources) Nonsteroidal Anti-inflammatory Drug Start: 02-13-2018 Aspirin (Adult Low Dose Aspirin) 81 mg tablet,delayed release (DR/EC) Active 81 mg PO DAILY February 13, 2018 1:00am Start: 07-20-2012 End: 02-13-2018 take 1 tablet by mouth once daily Aspirin 325 MG tablet Discontinued 325 mg PO DAILY@0800 July 03, 2015 12:00am February 13, 2018 3:29pm Start: 10-21-2011 take 1 tablet by markos th once daily ASPIRIN 81 MG TABS One tablet by mouth daily ASPIRIN [id number] Saloni Cantor RN colchicine 0.6 mg oral table t (20 sources) Start: 11-24-2023 colchicine 0.6 mg tablet ; 1 (one) Tablet two times daily for 0 days Quantity: 30 {Tablet} Refills: 0 Ordered: 24-Nov-2023 RICA Forbes Start: 24-Nov-2023 Start: 08-06-2023 colchicine 0.6 mg tablet ; 1 (one) Tablet two times daily for 0 days Quantity: 30 {Tablet} Refills: 0 Ordered: 06-Aug-2023 RICA Forbes Start: 06-Aug-2023 Start: 03-04-2019 End: 10-13-2019 Colchicine 0.6 MG Oral Table t ; 1 (one) Tablet q 1 hr prn pain max 6/24 hrs for 0 days Quantity: 30 {Tablet} Refills: 5 Ordered: 13-Oct-2019 SHARONDA Ryan Corina Y Start: 04-Mar-2019 End: 13-Oct-2019 Status: Inactive indomethacin 50 mg oral capsule (20 sources) Nonsteroidal Anti-inflammatory Drug Start: 08-06-2023 indomethacin 50 m g capsule ; 1 (one) Capsule three times daily for 7 days Quantity: 21 {Capsule} Refills: 0 Ordered: 06-Aug-2023 RICA Forbes Start: 06-Aug-2023 Status: Inactive Start: 02-10-2018 End: 10-13-2019 take 1 capsule by mouth three times daily as needed Indomethacin 50 mg capsule Discontinued 50 mg PO THREE TIMES A DAY as needed February 13, 2018 1:00am May 21, 2018 10:28am spironolactone 25 mg oral tablet (2 sources) Aldosterone Antagonist Start: 07-29-2024 take 1 tablet by mouth once daily Spironolactone 25 mg tablet Active 25 mg PO DAILY July 29, 2024 12:00am warfarin sodium 4 mg oral tablet (12 sources) Vitamin K Antagonist Start: 07-08-2023 End: 07-08-2023 take 1 tablet by mouth once daily Warfarin 4 mg tablet Active 4 mg PO DAILY July 08, 2023 3:51pm Please contact the information source for Protocol details. Completed/Discontinued Medications Medication Drug Class(es) Dates Sig (Normalized) Sig (Original) acetaminophen 325 mg / HYDROcodone bitartrate 5 mg oral tablet (10 sources) Opioid Agonist Start: 04-14-2020 End: 04-17-2020 Hydrocodone-Acetami nophen 1 TABLET tablet Discontinued 1 {tbl} PO EVERY 6 HOURS NEEDED as needed for Pain 12 10April 14, 2020 April 16, 2020 1:00am April 17, 2020 1:03am Start: 04-14-2020 End: 04-17-2020 take 1 tablet by mouth every six hours as needed Hydrocodone-Acetaminophen Discontinued 1 TABLET PO EVERY 6 HOURS NEEDED 10 April 14, 2020 April 17, 2020 1:03am acetaminophen 325 mg / oxyCODONE hydrochloride 5 mg oral tablet (10 sources) Opioid Agonist Start: 02-27-2019 End: 03-04-2019 Oxycodone-Acetaminophen 1 TABLET tablet Discontinued 1 {tbl} PO EVERY 6 HOURS NEEDED as needed for Pain Score 4-10/10 27 07February 27, 2019 March 03, 2019 1:00am March 04, 2019 1:08am Start: 02-27-2019 End: 03-04-2019 take 1 tablet by mouth every six hours as needed Oxycodone-Acetaminophen Discontinued 1 TABLET PO EVERY 6 HOURS NEEDED 27 07February 27, 2019 March 04, 2019 1:08am apixaban 5 mg oral tablet (8 sources) Factor Xa Inhibitor Start: 05-09-2023 End: 10-10-2023 take 1 tablet by mouth twice daily Apixaban (Eliquis) 5 mg tablet Discontinued 5 mg PO TWICE A DAY 60 May 09, 2023 1:00am October 10, 2023 9:23am atorvastatin 40 mg oral tablet (20 sources) HMG-CoA Reductase Inhibitor Start: 02-15-2019 End: 07-21-2024 take 1 tablet by mouth at bedtime Atorvastatin 40 mg tablet Discontinued 40 mg PO AT BEDTIME 90 July 19, 2024 12:37pm July 21, 2024 8:13am Start: 02-13-2018 End: 02-15-2019 take 1 tablet by mouth at bedtime Atorvastatin 80 mg tablet Discontinued 80 mg PO AT BEDTIME February 13, 2018 1:00am February 15, 2019 9:48am clindamycin 300 mg oral capsule (10 sources) Lincosamide Antibacterial Start: 04-14-2020 End: 12-26-2021 take 1 capsule by mouth every six hours Clindamycin Hcl 300 MG capsule Discontinued 300 mg PO EVERY 6 HOURS 40 April 14, 2020 1:00am December 26, 2021 9:32am clopidogrel 75 mg oral tablet (20 sources) [id number] Platelet Inhibitor Start: 10-21-2011 End: 10-13-2019 take 1 tablet by mouth once daily Plavix 75 MG Oral Tablet ; 1 Tablet daily for 0 days Quantity: 90 {Tablet} Refills: 1 Ordered: 13-Oct-2019 SHARONDA Ryan Start: 18-Feb-2017 End: 13-Oct-2019 Status: Inactive fenofibrate 200 mg oral capsule (20 sources) Peroxisome Proliferator Receptor alpha Agonist Start: 12-28-2015 End: 02-13-2018 take 1 capsule by mouth once daily Fenofibrate Micronized 200 mg capsule Discontinued 200 mg PO daily July 24, 2017 10:37am February 13, 2018 3:33pm furosemide 40 mg oral tablet (14 sources) Loop Diuretic Start: 10-10-2023 End: 05-27-2024 take 1 tablet by mouth twice daily Furosemide (Lasix) 40 mg tablet Discontinued 40 mg PO TWICE A DAY October 10, 2023 9:23am May 27, 2024 8:37am Start: 06-05-2023 End: 10-10-2023 take 1 tablet by mouth once daily Furosemide (Lasix) 40 mg tablet Discontinued 40 mg PO DAILY June 05, 2023 12:00am October 10, 2023 9:23am 24 hr isosorbide mononitrate 30 mg extended release oral tablet (20 sources) Start: 12-11-2017 End: 02-13-2018 Isosorbide Mononitrate 30 MG tablet extended release 24 hr Discontinued 60 mg PO daily December 26, 2017 12:44pm February 13, 2018 3:33pm Start: 07-22-2017 End: 12-11-2017 take 1 tablet by mouth once daily, then take 1 tablet by mouth every twenty-four hours Isosorbide Mononitrate 30 mg tablet extended release 24 hr Discontinued 30 mg PO daily July 24, 2017 10:37am December 11, 2017 5:31pm Start: 07-04-2015 End: 12-22-2015 take 1 tablet by mouth once daily ISOSORBIDE MONONITRA TE ER 30 MG [id number] One tablet by mouth daily (Imdur) ISOSORBIDE MONONITRATE [id number] Chandu Barrow MD levoFLOXacin 500 mg oral tablet (20 sources) Quinolone Antimicrobial Start: 06-16-2017 End: 06-26-2017 take 1 tablet by mouth once daily Levaquin 500 MG Oral Tablet ; 1 (one) Tablet qd for 10 days Quantity: 10 {Tablet} Refills: 0 Ordered: 16-Jun-2017 MD Srinivasa Nava Start: 16-Jun-2017 End: 26-Jun-2017 Status: Inactive lisinopril 10 mg oral tablet (20 sources) Angiotensin Converting Enzyme Inhibitor Start: 10-30-2011 End: 10-13-2019 take 1 tablet by mouth once daily Lisinopril 10 MG Oral Tablet ; 1 (one) Tablet Tablet daily for 0 days Quantity: 30 {Tablet} Refills: 0 Ordered: 13-Oct-2019 SHARONDA Ryan Start: 04-Sep-2015 End: 13-Oct-2019 Status: Inactive Start: 10-21-2011 take 1 tablet by markos th twice daily LISINOPRIL 10 MG TABS One tablet by mouth twice daily LISINOPRIL [id number] Saloni Cantor RN lutein 20 mg oral tablet (20 sources) Start: 12-22-2015 End: 01-17-2017 take 2 tablets by mouth once daily LUTEIN 20 MG TABS Two tablet by mouth daily LUTEIN [id number] Chandu Barrow MD Start: 10-30-2011 End: 05-16-2015 take 1 tablet by mouth once daily LUTEIN 6 MG CAPS One tablet by mouth daily LUTEIN [id number] Chandu Barrow MD metoprolol tartrate 25 mg oral tablet (20 sources) beta-Adrenergic Lisa Start: 10-11-2019 End: 02-17-2024 take 1 tablet by mouth once daily Metoprolol Tartrate 25 mg tablet Discontinued 25 mg PO DAILY January 20, 2023 9:08am February 17, 2024 10:36am Start: 02-13-2018 End: 10-11-2019 take 1 tablet by mouth twice daily Metoprolol Tartrate 25 mg tablet Discontinued 25 mg PO TWICE A DAY February 13, 2018 1:00am October 11, 2019 9:03am Start: 02-18-2017 End: 11-24-2023 metoprolol succinate ER 100 mg tablet,extended release 24 hr ; 1 Tablet ER 24HR daily for 0 days Quantity: 90 {Tablet} Refills: 1 Ordered: 24-Nov-2023 SHARONDA Decker Start: 18-Feb-2017 End: 24-Nov-2023 Status: Inactive Start: 07-03-2015 End: 07-24-2017 take 2 tablets by mouth once daily Metoprolol Succinate 200 mg tablet extended release 24 hr Discontinued 100 mg PO DAILY July 24, 2017 10:37am July 24, 2017 12:43pm Start: 07-03-2015 End: 07-24-2017 take 100 mg by mouth once daily Metoprolol Succinate Discontinued 100 MG PO DAILY July 24, 2017 10:37am July 24, 2017 12:43pm Start: 10-21-2011 take 1 tablet by markos th once daily METOPROLOL SUCCINATE ER 100 MG [id number] One tablet by mouth daily METOPROLOL SUCCINATE [id number] Chandu Barrow MD MULTIPLE VITAMINS-MINERALS (2 sources) Start: 05-16-2015 take 1 tablet by mouth once daily PRESERVISION AREDS 2 CAPS One tablet by mouth daily MULTIPLE VITAMINS-MINERALS [id number] Chandu Barrow MD Start: 05-16-2015 End: 12-22-2015 take 1 tablet by mouth once daily PRESERVISION AREDS 2 CAPS One tablet by mouth daily MULTIPLE VITAMINS-MINERALS [id number] Chandu Barrow MD 24 hr niacin 500 mg extended release oral tablet (12 sources) Nicotinic Acid Start: 07-03-2015 End: 07-24-2017 take 1 tablet by mouth once daily Niacin 500 MG tablet Discontinued 500 mg PO DAILY July 03, 2015 12:00am July 24, 2017 10:35am Start: 10-21-2011 End: 12-28-2015 take 1 tablet by mouth at bedtime NIASPAN 500 MG CR-TABS One tablet by mouth at bedtime. NIACIN (ANTIHYPERLIPIDEMIC) [id number] Chandu Barrow MD nitroglycerin 0.4 mg sublingual tablet (20 sources) Nitrate Vasodilator Start: 06-21-2015 End: 07-24-2017 Nitroglycerin 0.4 MG tablet Discontinued 0.4 mg SL Q5M as needed for Chest Pain July 03, 2015 12:00am July 24, 2017 10:40am predniSONE 20 mg oral tablet (14 sources) Start: 07-14-2023 End: 08-06-2023 predniSONE 20 mg tablet ; 1 (one) Tablet as directed for 0 days Quantity: 20 {Tablet} Refills: 0 Ordered: 06-Aug-2023 CORINNE Slade Start: 14-Jul-2023 End: 06-Aug-2023 Status: Inactive Comments: Take 1 tab tid for 3 days thenTake 1 tab bid for 3 days thenTake 1 tab qd for 3 days thenTake 1/2tab qd for 4 days. Comment on above: Take 1 tab tid for 3 days thenTake 1 tab bid for 3 days thenTake 1 tab qd for 3 days thenTake 1/2tab qd for 4 days. simvastatin 40 mg oral tablet (20 sources) HMG-CoA Reductase Inhibitor Start: 10-21-2011 End: 11-24-2023 simvastatin 40 mg tablet ; 1 Tablet daily for 0 days Quantity: 90 {Tablet} Refills: 1 Ordered: 24-Nov-2023 SHARONDA Decker Start: 18-Feb-2017 End: 24-Nov-2023 Status: Inactive Vitamins A,C,M-Hijm-Ekoptv (6 sources) Start: 07-03-2015 End: 07-24-2017 Vitamins A,C,M-Qmxo-Oztdht Discontinued 2 EACH PO DAILY July 02, 2015 11:00pm July 24, 2017 9:35am Start: 07-03-2015 End: 07-24-2017 Vitamins A,C,U-Uxhm-Xpwvax D iscontinued 2 EACH PO DAILY July 03, 2015 12:00am July 24, 2017 10:35am Vitamins A,C,Q-Byeb-Sfghea 1 EACH capsule (4 sources) Start: 07-03-2015 End: 07-24-2017 take 1 capsule by mouth once daily Vitamins A,C,S-Gvvj-Ekvmig 1 EACH capsule Discontinued 2 NMA PO DAILY July 03, 2015 12:00am July 24, 2017 10:35am Problems Active Problems Problem Classification Problem Date Documented Date Episodic/Chronic Abdominal pain (10 sources) Epigastric pain; Translations: [Epigastric pain] 05-16-2019 Episodic Cancer of colon (20 sources) Malignant neoplasm of colon, unspecified site Onset: 03-10-2013 08-15-2022 Chronic Comment on above: Last treatment 1 yea r ago. Cancer of prostate (20 sources) Malignant tumor of prostate; Translations: [Malignant neoplasm of prostate] 08-15-2022 Chronic Cardiac dysrhythmias (20 sources) Atrial fibrillation; Translations: [Unspecified atrial fibrillation] Onset: 08-06-2024 05-09-2023 Chronic Chronic obstructive pulmonary disease and bronchiectasis (20 sources) Bronchitis; Translations: [Bronchitis, not specified as acute or chronic] 08-15-2022 Episodic Conduction disorders (11 sources) Left bundle branch block; Translations: [Left bundle-branch block, unspecified] Onset: 10-21-2011 10-21-2011 Chronic Congestive heart failure; nonhypertensive (20 sources) Congestive heart failure; Translations: [Heart failure, unspecified] 08-15-2022 Chronic Coronary atherosclerosis and other heart disease (20 sources) Atherosclerotic heart disease of inupiat coronary artery without angina pectoris; Translations: [Coronary arteriosclerosis] Onset: 10-21-2011 06-24-2016 Chronic Comment on above: CABG 1994 -LAD ; mitchell nting to Lt PDA; Redo CABG x5 GATO to LAD, SVG to PDA, OM1, OM2, D 01/06/18 @ [facility]; Coronary atherosclerosis and other heart disease (20 sources) History of myocardial infarction; Translations: [Coronary bypass graft finding] Onset: 04-10-2010 10-21-2011 Episodic Comment on above: Atherectomy with ang ioplasty proximal LAD ; LHC with PTCA & stenting of proximal left posterior atrioventricular artery 04/20; Atherectomy with ang ioplasty proximal LAD ; PCTCA/stent to prox left posterior atrioventricular artery 05/03/10 Disorders of lipid metabolism (20 sources) Hyperlipidemia; Translations: [Hyperlipidemia, unspecified] Onset: 10-21-2011 10-21-2011 Chronic Disorders of teeth and jaw (10 sources) Dental abscess; Translations: [Periapical abscess without sinus] 04-15-2020 Episodic Essential hypertension (20 sources) Hypertensive disorder; Translations: [Essential hypertension] Onset: 10-21-2011 10-21-2011 Chronic Gout and other crystal arthropathies (20 sources) Gout; Translations: [Gout, unspecified] 08-15-2022 Chronic Mycoses (20 sources) Onychomycosis; Translations: [Tinea unguium] 08-15-2022 Episodic Nonspecific chest pain (10 sources) Chest pain; Translations: [Chest pain, unspecified] 02-12-2018 Episodic Other aftercare (11 sources) Long-term current use of drug therapy; Translations: [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] 02-12-2018 Episodic Other aftercare (4 sources) Long-term current use of anticoagulant; Translations: [correction (current) use of anticoagulants] 07-08-2023 Episodic Other circulatory disease (10 sources) Carotid bruit; Translations: [Other specified symptoms and signs involving the circulatory and respiratory systems] 05-15-2019 Episodic Other lower respiratory disease (6 sources) Dyspnea; Translations: [Shortness of breath] Onset: 10-30-2011 10-30-2011 Episodic Other lower respiratory disease (8 sources) Dyspnea on exertion; Translations: [Other forms of dyspnea] 05-09-2023 Episodic Other lower respiratory disease (1 source) Dyspnea, unspecified; Translations: [Dyspnea, unspecified] Onset: 07-22-2024 Episodic Other lower respiratory disease (1 source) Other forms of dyspnea; Translations: [Other forms of dyspnea] Onset: 05-27-2024 Episodic Other non-traumatic joint disorders (20 sources) Pain in unspecified knee; Translations: [Pain in joint, lower leg] 08-15-2022 Episodic Other non-traumatic joint disorders (20 sources) Pain in right knee; Translations: [Pain in joint, lower leg] 08-15-2022 Episodic Other nutritional; endocrine; and metabolic disorders (20 sources) Body mass index 30+ - obesity; Translations: [Body mass index (BMI) 36.0-36.9, adult] 08-15-2022 Chronic Other skin disorders (20 sources) Lump on face; Translations: [Localized swelling, mass and lump, head] 08-15-2022 Episodic Candi-; endo-; and myocarditis; cardiomyopathy (except that caused by tuberculosis or sexually transmitted disease) (10 sources) Cardiomyopathy; Translations: [Cardiomyopathy, unspecified] 08-07-2018 Chronic Unclassified (1 source) Body mass index (BMI) 37.0-37.9, adult; Translations: [Body mass index (BMI) 37.0-37.9, adult] Onset: 05-16-2015 05-16-2015 Chronic Unclassified (20 sources) Cardiovascular stress test abnormal; Translations: [Thallium stress test abnormal] Onset: 11-06-2011 11-06-2011 Episodic Unclassified (2 sources) Long-term drug therapy; Translations: [Long-term (current) use of other medications] Onset: 08-12-2012 08-12-2012 Unclassified (1 source) Coronary artery bypass graft; 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] Onset: 10-21-2011 10-21-2011 Unclassified (8 sources) Transition into care - The patient is transitioning into care from another physician 2 and a summary of care was reviewed. 09-20-2016 Unclassified (8 sources) [ADDITIONAL REASON] Follow Up for Multiple Chronic Conditions - The patient is here for follow-up of hypertension, hyperlipidemia, coronary artery disease and other condition(s) (CHF). The patient always takes the prescribed medications. No side effects noted. The patient has an active lifestyle but no regular exercise program. The patient's out of office blood pressure checks occur rarely and dietary compliance is fair often eating foods not normally recommended. The patient states that there is no recent angina or dyspnea, there are no vision changes or weakness and they do not have headaches. The patient states that the disease has no overall impact (Pt states that overall he is feel well.). Dr. Barrow 06/24/[address] Rouse 05/21/16. Note for Multiple chronic conditions follow-up: Pt had Lipid and Hepatic Panel done 08/29/16 per Cardiology. He had a PSA done on 05/21/[address] Borden. 09-20-2016 Unclassified (20 sources) Follow Up for Multiple Chronic Conditions - The patient is here for follow-up of hypertension, hyperlipidemia, coronary artery disease and other condition(s) (CHF. HAs hx of Colon Cancer.). The patient always takes the prescribed medications. No side effects noted. The patient has an active lifestyle but no regular exercise program. The patient's dietary compliance is fair often eating foods not normally recommended. The patient states that there is no recent angina or dyspnea (Does get some SOB on exertion. PO 97% today.), there are no vision changes or weakness and they do not have headaches. The patient states that the disease has mild emotional impact. Dr. Barrow 3 months ago.. Note for Multiple chronic conditions follow-up: Pt is new to our office. He used [facility] in [place]. Does not check out of office BP'. reviewed by [facility] 09-15-2015 Unclassified (18 sources) Follow Up for Multiple Chronic Conditions - The patient is here for follow-up of hypertension, hyperlipidemia, coronary artery disease and other condition(s) (CHF). The patient always takes the prescribed medications. No side effects noted. The patient has an active lifestyle but no regular exercise program. The patient's out of office blood pressure checks occur rarely and dietary compliance is fair often eating foods not normally recommended. The patient states that there is no recent angina or dyspnea, there are no vision changes or weakness and they do not have headaches. The patient states that the disease has no overall impact (Pt states that overall he is feel well.). Dr. Barrow 06/24/[address] Rouse 05/21/16. Note for Multiple chronic conditions follow-up: Pt had Lipid and Hepatic Panel done 08/29/16 per Cardiology. He had a PSA done on 05/21/[address] Borden. 09-20-2016 Unclassified (18 sources) [ADDITIONAL REASON] Transition into care - The patient is transitioning into care from another physician 2 and a summary of care was reviewed. 09-20-2016 Unclassified (1 source) Other persistent atrial fibrillation; Translations: [Other persistent atrial fibrillation] Onset: 05-27-2024 Past or Other Problems Problem Classification Problem Date Documented Date Episodic/Chronic Residual codes; unclassified (4 sources) History of cardioversion; Translations: [Personal history of other medical treatment] Onset: 07-07-2023 07-18-2023 Episodic Unclassified (20 sources) Toenail problems - Note for Toenail problems: Pt states has fungus under toenail, right foot worse than left. States has been going on for a while. reviewed by [facility] 08-15-2022 Unclassified (20 sources) Fluid on right knee - Fluid on right knee for several months. No known injury. Two weeks ago had fluid removed while in [place]. Started swelling again and is painful. reviewed by [facility] 05-03-2020 Unclassified (20 sources) Jaw swelling - Pt. noted swelling in the inner right cheek area. No c/o pain or fever. Pt. has a h/o several multiple oral growths removed in the past. (30 years ago) 10-13-2019 Unclassified (20 sources) Knee pain - The onset of the knee pain has been sudden following no specific incident and has been occurring in a persistent pattern for 1 week. The course has been constant. The knee pain is in the right knee. The knee pain is characterized as a sharp stabbing. There were no relieving factors. Note for Knee pain: See in [facility] ER on 02/27 and given Prednisone and Oxy- no [id number] of fluid was drained off of knee and pt feels it is back at this time. 03-04-2019 Unclassified (20 sources) Cold Symptoms - Symptoms include sneezing, [...] non-prescription cold medication. Note for Upper respiratory infection: reviewed by B 06-16-2017 Unclassified (14 sources) Finger Pain - The pain is located in the of the right little finger. This occurred 1 week(s) ago. Note for Finger pain: Also complains of right knee pain and left great toe pain for the past week. Has a history of gout. reviewed by B 07-14-2023 Unclassified (1 source) Gout - Symptoms include pain, swelling, warmth and tenderness. Symptoms are located in the left metatarsal phalangeal toe joint (Pt said it is his big toe) and right knee. There is no radiation. The patient describes the pain as aching. Onset was 2 week(s) ago. There is no known event that preceded symptom onset. The symptoms occur constantly. Patient describes symptoms as moderate in severity and worsening. Note for Gout: Pt said [facility] put him on prednisone. Pt just finished the course and is still bothering him 08-06-2023 Unclassified (11 sources) Gout - Symptoms include pain, swelling, warmth and tenderness. Symptoms are located in the left metatarsal phalangeal toe joint (Pt said it is his big toe) and right knee. There is no radiation. The patient describes the pain as aching. Onset was 2 week(s) ago. There is no known event that preceded symptom onset. The symptoms occur constantly. Patient describes symptoms as moderate in severity and worsening. Note for Gout: Pt said [facility] put him on prednisone. Pt just finished the course and is still bothering him. He does report some improvement. He also recently restarted daily allopurinol. 08-06-2023 Unclassified (4 sources) Gout - Symptoms include pain, swelling, erythema, warmth and tenderness. Symptoms are located in the right metatarsal phalangeal toe joint and right midfoot. The patient describes the pain as burning, stinging and throbbing. Onset was sudden 5 day(s) ago. There is no known event that preceded symptom onset. The symptoms occur constantly. Patient describes symptoms as moderate in severity and unchanged. Symptoms are exacerbated by weight bearing and direct pressure. Symptoms are relieved by rest (sleeping) and elevation. Associated symptoms do not include fever. Current treatment includes rest, ice and allopurinol. Past treatment has included indomethacin, colchicine and oral steroids. Note for Gout: Patient last had a flare of gout in July 2023. 11-24-2023 Results Test Name Value Interpretation Reference Range Facility Absolute lymphocyte countOrd ered By: Jemima Maldonado on 07-30-2024 Lymphocytes Auto (Unsp spec) [#/Vol] 0.49 10*3/uL Low 0.83-4.51 [facility] Absolute neutrophil countOrd ered By: Jemima Maldonado on 07-30-2024 Neutrophils (Bld) [#/Vol] 3.5 10*3/uL 2.0-7.7 [facility] Anion gap in Serum or Plasma Ordered By: Jemima Maldonado on 07-30-2024 Anion gap [Moles/Vol] 12 mmol/L 5-15 [facility] Automated lymphocyte count a s percentage of total leukocytesOrdered By: Jemima Maldonado on 07-30-2024 Lymphocytes/100 WBC Auto (Unsp spec) 10.8 % Low 19-41 [facility] BUN/creatinine ratioOrdered By: Jemima Maldonado on 07-30-2024 Urea nitrogen/Creatinine [Mass ratio] 13.4 mg/mg - [facility] Basic Metabolic Profile (BMP )on 07-30-2024 BUN/CRE 13.4 RATIO Normal 10-20 [facility] Comment on above: Order Comment: stand ing Performed By: #### L 300.3900, L100.0100, L500.2500 #### [facility] [address] [place], [address] Calcium [Mass/Vol] 9.4 mg/dL Normal 7.6-11.0 [facility] Comment on above: Order Comment: stand ing Performed By: #### L 300.3900, L100.0100, L500.2500 #### [facility] [address] [place], [address] Chloride [Moles/Vol] 101 mmol/L Normal 98-108 [facility] Comment on above: Order Comment: stand ing Performed By: #### L 300.3900, L100.0100, L500.2500 #### [facility] [address] [place], [address] CO2 [Moles/Vol] 25.0 mmol/L Normal 21.0-32.0 [facility] Comment on above: Order Comment: stand ing Performed By: #### L 300.3900, L100.0100, L500.2500 #### [facility] [address] [place], [address] Creatinine [Mass/Vol] 1.43 mg/dL High 0.70-1.20 [facility] Comment on above: Order Comment: stand ing Performed By: #### L 300.3900, L100.0100, L500.2500 #### [facility] [address] [place], [address] GAP 12 Normal 5-15 [facility] Comment on above: Order Comment: stand ing Performed By: #### L 300.3900, L100.0100, L500.2500 #### [facility] [address] [place], [address] GFR/1.73 sq M.predicted among non-blacks MDRD (S/P/Bld) [Vol rate/Area] 49 mL/min/{1.73_m2} Low >60 [facility] Comment on above: Order Comment: stand ing Result Comment: mL/m in/1.73m2 CKD-EPI Creatinine Equation (2020) Performed By: #### L 300.3900, L100.0100, L500.2500 #### [facility] [address] [place], [address] Glucose [Mass/Vol] 151 mg/dL High 70-99 [facility] Comment on above: Order Comment: stand ing Performed By: #### L 300.3900, L100.0100, L500.2500 #### [facility] [address] [place], [address] Potassium [Moles/Vol] 4.2 mmol/L Normal 3.3-5.1 [facility] Comment on above: Order Comment: stand ing Performed By: #### L 300.3900, L100.0100, L500.2500 #### [facility] [address] [place], [address] Sodium [Moles/Vol] 138 mmol/L Normal 133-145 [facility] Comment on above: Order Comment: stand ing Performed By: #### L 300.3900, L100.0100, L500.2500 #### [facility] [address] [place], [address] Urea nitrogen [Mass/Vol] 19 mg/dL Normal 4-19 [facility] Comment on above: Order Comment: stand ing Performed By: #### L 300.3900, L100.0100, L500.2500 #### [facility] [address] [place], [address] Basophil percentageOrdered B y: Jemima Maldonado on 07-30-2024 Basophils/100 WBC (Bld) 0.2 % 0-1 [facility] CBC W/Diff, Automatedon 05-2 -2024 Absolute Lymph 0.49 X10 3/uL Low 0.83-4.51 [facility] Comment on above: Performed By: #### L 300.3900, L100.0100, L500.2500 #### [facility] [address] [place], [address] Absolute Neut 3.5 X10 3/uL Normal 2.0-7.7 [facility] Comment on above: Performed By: #### L 300.3900, L100.0100, L500.2500 #### [facility] [address] [place], [address] Basophils/100 WBC (Bld) 0.2 % Normal 0-1 [facility] Comment on above: Performed By: #### L 300.3900, L100.0100, L500.2500 #### [facility] [address] [place], [address] Eosinophils/100 WBC (Bld) 5.3 % High 0-5 [facility] Comment on above: Performed By: #### L 300.3900, L100.0100, L500.2500 #### [facility] [address] [place], [address] Erythrocyte distribution width (RBC) [Ratio] 14.0 % Normal 11.6-14.6 [facility] Comment on above: Performed By: #### L 300.3900, L100.0100, L500.2500 #### [facility] [address] [place], [address] Hematocrit (Bld) [Volume fraction] 43.4 % Normal 40-54 [facility] Comment on above: Performed By: #### L 300.3900, L100.0100, L500.2500 #### [facility] [address] [place], [address] Hemoglobin (Bld) [Mass/Vol] 14.2 g/dL Normal 13.0-16.5 [facility] Comment on above: Performed By: #### L 300.3900, L100.0100, L500.2500 #### [facility] [address] [place], [address] IG% 0.400 Normal 0.0-0.9 [facility] Comment on above: Result Comment: IG% - Immature Granulocytes (promyelocytes, myelocytes and metamyelocytes) > 1% indicates that a LEFT SHIFT is Present. Performed By: #### L 300.3900, L100.0100, L500.2500 #### [facility] [address] [place], [address] Lymphocytes/100 WBC (Bld) 10.8 % Low 19-41 [facility] Comment on above: Performed By: #### L 300.3900, L100.0100, L500.2500 #### [facility] [address] [place], [address] MCH (RBC) [Entitic mass] 30.9 pg Normal 27.0-32.0 [facility] Comment on above: Performed By: #### L 300.3900, L100.0100, L500.2500 #### [facility] [address] [place], [address] MCHC (RBC) [Mass/Vol] 32.7 g/dL Normal 32-36 [facility] Comment on above: Performed By: #### L 300.3900, L100.0100, L500.2500 #### [facility] [address] [place], [address] MCV (RBC) [Entitic vol] 94.3 fL High 80-94 [facility] Comment on above: Performed By: #### L 300.3900, L100.0100, L500.2500 #### [facility] [address] [place], [address] Monocytes/100 WBC (Bld) 5.3 % Normal 0-10 [facility] Comment on above: Performed By: #### L 300.3900, L100.0100, L500.2500 #### [facility] [address] [place], [address] Neutrophils/100 WBC (Bld) 78.0 % High 47-70 [facility] Comment on above: Performed By: #### L 300.3900, L100.0100, L500.2500 #### [facility] [address] [place], [address] Nucleated RBC (Bld) [#/Vol] 0 10*3/uL Normal 0-5 [facility] Comment on above: Performed By: #### L 300.3900, L100.0100, L500.2500 #### [facility] [address] [place], [address] Platelet mean volume (Bld) [Entitic vol] 10.0 fL Normal 6.2-12.0 [facility] Comment on above: Performed By: #### L 300.3900, L100.0100, L500.2500 #### [facility] [address] [place], [address] Platelets (Bld) [#/Vol] 189 10*3/uL Normal 150-450 [facility] Comment on above: Performed By: #### L 300.3900, L100.0100, L500.2500 #### [facility] [address] [place], [address] RBC (Bld) [#/Vol] 4.60 10*6/uL Normal 4.6-6.2 [facility] Comment on above: Performed By: #### L 300.3900, L100.0100, L500.2500 #### [facility] [address] [place], [address] RDW SD 47.8 fl High 35.1-43.9 [facility] Comment on above: Performed By: #### L 300.3900, L100.0100, L500.2500 #### [facility] [address] [place], [address] WBC (Bld) [#/Vol] 4.5 10*3/uL Normal 4.4-11.0 [facility] Comment on above: Performed By: #### L 300.3900, L100.0100, L500.2500 #### [facility] [address] [place], [address] Carbon dioxide, total [Moles /volume] in Central venous bloodOrdered By: Jemima Maldonado on 07-30-2024 CO2 [Moles/Vol] 25.0 mmol/L 21.0-32.0 [facility] Chloride assayOrdered By: Yesenia Maldonado on 07-30-2024 Chloride [Moles/Vol] 101 mmol/L 98-108 [facility] Eosinophil percentageOrdered By: Jemima Maldonado on 07-30-2024 Eosinophils/100 WBC (Bld) 5.3 % High 0-5 [facility] Erythrocyte distribution wid th ratioOrdered By: Jemima Maldonado on 07-30-2024 Erythrocyte distribution width (RBC) [Ratio] 14.0 % 11.6-14.6 [facility] Erythrocyte distribution wid th standard deviationOrdered By: Jemima Maldonado on 07-30-2024 Erythrocyte distribution width (RBC) [Ratio] 47.8 fl High 35.1-43.9 [facility] Glomerular filtration rate ( GFR) estimation/1.73 sq m using serum, plasma, or whole bOrdered By: Jemima Maldonado on 07-30-2024 GFR/1.73 sq M.predicted among non-blacks MDRD (S/P/Bld) [Vol rate/Area] 49 mL/min/{1.73_m2} Low >60 [facility] Comment on above: mL/min/1.73m2 CKD-EP I Creatinine Equation (2020) Hematocrit Auto (Bld) [Volum e fraction]Ordered By: Jemima Maldonado on 07-30-2024 Hematocrit (Bld) [Volume fraction] 43.4 % 40-54 [facility] Hemoglobin measurementOrdere d By: Jemima Maldonado on 07-30-2024 Hemoglobin (Bld) [Mass/Vol] 14.2 g/dL 13.0-16.5 [facility] Immature granulocytes/100 WB C Auto (Bld)Ordered By: Jemima Maldonado on 07-30-2024 Immature granulocytes/100 WBC (Bld) 0.400 % 0.0-0.9 [facility] Comment on above: IG% - Immature Granu locytes (promyelocytes, myelocytes and metamyelocytes) > 1% indicates that a LEFT SHIFT is Present. International normalized rat io (INR) calculationOrdered By: Jemima Maldonado on 07-30-2024 INR Coag (Bld) [Relative time] 2.0 {INR} [facility] MCV (mean corpuscular volume ) determinationOrdered By: Jemima Maldonado on 07-30-2024 MCV (RBC) [Entitic vol] 94.3 fL High 80-94 [facility] Mean corpuscular hemoglobin (MCH) determinationOrdered By: Jemima Maldonado on 07-30-2024 MCH (RBC) [Entitic mass] 30.9 pg 27.0-32.0 [facility] Mean corpuscular hemoglobin concentration (MCHC) determinationOrdered By: Jemima Maldonado on 07-30-2024 MCHC (RBC) [Mass/Vol] 32.7 g/dL 32-36 [facility] Mean platelet volume determi nationOrdered By: Jemima Maldonado on 07-30-2024 Platelet mean volume (Bld) [Entitic vol] 10.0 fL 6.2-12.0 [facility] Monocyte percentageOrdered B y: Jemima Maldonado on 07-30-2024 Monocytes/100 WBC (Bld) 5.3 % 0-10 [facility] Neutrophil percentageOrdered By: Jemima Maldonado on 07-30-2024 Neutrophils/100 WBC (Bld) 78.0 % High 47-70 [facility] Nucleated red blood cell per centageOrdered By: Jemima Maldonado on 07-30-2024 Nucleated RBC/100 WBC (Bld) [Ratio] 0 % 0-5 [facility] Platelet countOrdered By: Yesenia Maldonado on 07-30-2024 Platelets (Bld) [#/Vol] 189 10*3/uL 150-450 [facility] Potassium measurement (mass/ volume)Ordered By: Jemima Maldonado on 07-30-2024 Potassium (Unsp spec) [Mass/Vol] 4.2 mmol/L 3.3-5.1 [facility] Prothrombin Time w/INRon INR Coag (PPP) [Relative time] 2.0 {INR} Normal [facility] Comment on above: Order Comment: Comme nts: standing Performed By: #### L 300.3900, L100.0100, L500.2500 #### [facility] [address] [place], [address] PT Coag (PPP) [Time] 23.3 s High 11.7-14.9 [facility] Comment on above: Order Comment: Comme nts: standing Performed By: #### L 300.3900, L100.0100, L500.2500 #### [facility] [address] [place], [address] Prothrombin timeOrdered By: Jemima Maldonado on 07-30-2024 PT Coag (PPP) [Time] 23.3 s High 11.7-14.9 [facility] RBC Auto (Bld) [#/Vol]Ordere d By: Jemima Maldonado on 07-30-2024 RBC (Bld) [#/Vol] 4.60 10*6/uL 4.6-6.2 [facility] Serum creatinine measurement (mass/volume)Ordered By: Jemima Maldonado on 07-30-2024 Creatinine [Mass/Vol] 1.43 mg/dL High 0.70-1.20 [facility] Serum glucose measurement (m ass/volume)Ordered By: Jemima Maldonado on 07-30-2024 Glucose [Mass/Vol] 151 mg/dL High 70-99 [facility] Serum or plasma calcium amanda urement (mass/volume)Ordered By: Jemima Maldonado on 07-30-2024 Calcium [Mass/Vol] 9.4 mg/dL 7.6-11.0 [facility] Serum or plasma urea nitroge n measurement (mass/volume)Ordered By: Jemima Maldonado on 07-30-2024 Urea nitrogen [Mass/Vol] 19 mg/dL 4-19 [facility] Sodium levelOrdered By: Tony Maldonado on 07-30-2024 Sodium [Moles/Vol] 138 mmol/L 133-145 [facility] White blood cell (WBC) count Ordered By: Jemima Maldonado on 07-30-2024 WBC (Bld) [#/Vol] 4.5 10*3/uL 4.4-11.0 [facility] Echo Complete W/ Contraston 07-13-2024 Echo Complete W/ Contrast [facility] [address] [place] [address] Echo Complete W/ Contrast 07/13/24 1009 MR#: [id number] Acct: [id number] Name: GARCIA HAAS Rep #: [id number] : 1940 84 From: Layton Farley MD Attending Dr: JAN Tavera Status: REG CLI Ordering Dr: Jemima Maldonado Date: 09/01 Location: [facility] Sex: M C Admitted: Reason For Study Reason For Study: Dyspnea/SOB Procedure This was a 2D Doppler, Color Flow transthoracic echocardiogram. Contrast injection was performed. Exam performed in department. Left Ventricle Normal LV size. The left ventricular ejection fraction is 45 %. Stage 1 diastolic dysfunction. No regional wall motion abnormalities noted. There is mild global hypokinesis of the left ventricle. Right Ventricle Normal RV size. Normal systolic function. Atria Normal left atrium. Normal right atrium. Mitral Valve There is mild mitral annular calcification. Tricuspid Valve Normal tricuspid valve. Moderate (2+) tricuspid valve insufficiency. Pulmonary artery systolic pressure is 50 mmHg. Aortic Valve Trisinus/trileaflet aortic valve. Mild focal aortic valve calcification. Pulmonic Valve Normal pulmonic valve. Great Vessels Normal aortic root. The pulmonary artery is normal size. Inferior vena cava collapse with respiration. Pericardium/Pleural No pericardial effusion. Medication Diluted definity 1.5ml given slow IV push to enhance endocardial definition. MMode/2D Measurements Calculations LVIDd: 4.9 cm IVSd: 0.89 cm Ao root diam: 2.9 cm LVIDs: 3.9 cm LVPWd: 1.1 cm RVDd: 4.6 cm FS: 20.0 % __ LAV(MOD-bp): 50.2 ml LVAd ap4: 35.1 cm2 LVAd ap2: 31.8 cm2 LAV(MOD-bp) Indexed: 23.8 ml/m2 LVLd ap4: 7.9 cm LVLd ap2: 7.4 cm LAV(MOD-sp2): 49.5 ml EDV(MOD-sp4): 125.8 ml EDV(MOD-sp2): 112.3 ml LAV(MOD-sp4): 49.6 ml EDV(sp4-el): 132.5 ml EDV(sp2-el): 116.1 ml LVAs ap4: 26.9 cm2 LVAs ap2: 23.8 cm2 LVLs ap4: 6.9 cm LVLs ap2: 6.5 cm ESV(MOD-sp4): 86.9 ml ESV(MOD-sp2): 72.3 ml ESV(sp4-el): 89.4 ml ESV(sp2-el): 73.9 ml EF(MOD-sp4): 30.9 % EF(MOD-sp2): 35.6 % EF(sp4-el): 32.5 % __ SV(MOD-sp4): 38.9 ml SV(MOD-sp2): 40.0 ml SV(sp4-el): 43.0 ml SI(MOD-sp4): 18.5 ml/m2 SI(MOD-sp2): 19.0 ml/m2 __ LA A4 area: 18.8 cm2 LA dimension(2D): 4.7 cm RA A4 area: 20.1 cm2 __ TAPSE: 1.5 cm Time Measurements MV dec time: 0.21 sec Doppler Measurements Calculations MV E max steff: 82.4 cm/sec Lat Peak E' Steff: 9.5 cm/sec Med Peak E' Steff: 7.2 cm/sec MV A max steff: 105.2 cm/sec E/E' lat: 8.6 E/E' med: 11.5 MV E/A: 0.78 __ MV dec slope: 397.9 cm/sec2 Ao V2 max: 124.6 cm/sec LV V1 max: 103.3 cm/sec Ao max P.2 mmHg LV V1 max P.3 mmHg Ao V2 mean: 89.5 cm/sec Ao mean P.6 mmHg Ao V2 VTI: 24.5 cm __ PA V2 max: 70.2 cm/sec TR max steff: 340.8 cm/sec TR max P.5 mmHg ECHO/Echo Complete W/ Contrast Interpretation Summary Normal LV size. The left ventricular ejection fraction is 45 %. Stage 1 diastolic dysfunction. Moderate (2+) tricuspid valve insufficiency. Contrast injection was performed. __ Ordering Physician: Jemima Maldonado Referring Physician: Srinivasa Nava Performed By: Charmaine Oro, BLANCACS, RVT 07/13/24 1115 Date Layton Farley MD CC: Dr. Srinivasa Nava MD; JAN Tavera Date Dictated: 07/13/24 1009 Date Transcribed: 07/13/24 1115 Regional Environmental Manager: Signed [facility] Echocardiogram study reportO rdered By: Layton Farley on 07-13-2024 Study report [facility] [place] [address] Echo Complete W/ Contrast 07/13/24 1009 MR#: [id number] Acct: [id number] Name: GARCIA HAAS Rep #:[id number] : 1940 84 From: Layton Pollard Attending Dr: JAN Tavera Status: REG CLI Ordering Dr: Jemima Maldonado Date: 07/13/24 Location: [facility] Sex: M C Admitted: Reason For Study Reason For Study: Dyspnea/SOB Procedure This was a 2D Doppler, Color Flow transthoracic echocardiogram. Contrast injection was performed. Exam performed in department. Left Ventricle Normal LV size. The left ventricular ejection fraction is 45 %. Stage 1 diastolic dysfunction. No regional wall motion abnormalities noted. There is mild global hypokinesis of the left ventricle. Right Ventricle Normal RV size. Normal systolic function. Atria Normal left atrium. Normal right atrium. Mitral Valve There is mild mitral annular calcification. Tricuspid Valve Normal tricuspid valve. Moderate (2+) tricuspid valve insufficiency. Pulmonary artery systolic pressure is 50 mmHg. Aortic Valve Trisinus/trileaflet aortic valve. Mild focal aortic valve calcification. Pulmonic Valve Normal pulmonic valve. Great Vessels Normal aortic root. The pulmonary artery is normal size. Inferior vena cava collapse with respiration. Pericardium/Pleural No pericardial effusion. Medication Diluted definity 1.5ml given slow IV push to enhance endocardial definition. MMode/2D Measurements & Calculations LVIDd: 4.9 cm IVSd: 0.89 cm Ao root diam: 2.9 cm LVIDs: 3.9 cm LVPWd: 1.1 cm RVDd: 4.6 cm FS: 20.0 % ____ LAV(MOD-bp): 50.2 ml LVAd ap4: 35.1 cm2 LVAd ap2: 31.8 cm2 LAV(MOD-bp) Indexed: 23.8 ml/m2 LVLd ap4: 7.9 cm LVLd ap2: 7.4 cm LAV(MOD-sp2): 49.5 ml EDV(MOD-sp4): 125.8 ml EDV(MOD-sp2): 112.3 ml LAV(MOD-sp4): 49.6 ml EDV(sp4-el): 132.5 ml EDV(sp2-el): 116.1 ml LVAs ap4: 26.9 cm2 LVAs ap2: 23.8 cm2 LVLs ap4: 6.9 cm LVLs ap2: 6.5 cm ESV(MOD-sp4): 86.9 ml ESV(MOD-sp2): 72.3 ml ESV(sp4-el): 89.4 ml ESV(sp2-el): 73.9 ml EF(MOD-sp4): 30.9 % EF(MOD-sp2): 35.6 % EF(sp4-el): 32.5 % ____ SV(MOD-sp4): 38.9 ml SV(MOD-sp2): 40.0 ml SV(sp4-el): 43.0 ml SI(MOD-sp4): 18.5 ml/m2 SI(MOD-sp2): 19.0 ml/m2 ____ LA A4 area: 18.8 cm2 LA dimension(2D): 4.7 cm RA A4 area: 20.1 cm2 __ TAPSE: 1.5 cm Time Measurements MV dec time: 0.21 sec Doppler Measurements & Calculations MV E max steff: 82.4 cm/sec Lat Peak E' Steff: 9.5 cm/sec Med Peak E' Steff: 7.2 cm/sec MV A max steff: 105.2 cm/sec E/E' lat: 8.6 E/E' med: 11.5 MV E/A: 0.78 __ MV dec slope: 397.9 cm/sec2 Ao V2 max: 124.6 cm/sec LV V1 max: 103.3 cm/sec Ao max P.2 mmHg LV V1 max P.3 mmHg Ao V2 mean: 89.5 cm/sec Ao mean P.6 mmHg Ao V2 VTI: 24.5 cm ____ PA V2 max: 70.2 cm/sec TR max steff: 340.8 cm/sec TR max P.5 mmHg ECHO/Echo Complete W/ Contrast Interpretation Summary Normal LV size. The left ventricular ejection fraction is 45 %. Stage 1 diastolic dysfunction. Moderate (2+) tricuspid valve insufficiency. Contrast injection was performed. __ Ordering Physician: Jemima Maldonado Referring Physician: Srinivasa Nava Performed By: Charmaine Oro, AME, RVT 07/13/24 1115 Date _ Layton Farley MD CC: Dr. Srinivasa Nava MD; JAN Tavera ~ Date Dictated: 07/13/24 1009 Date Transcribed: 07/13/241114 Regional Environmental Manager: Signed [facility] Work Phone: 12 Lead EKG performed by [facility] on 05-27-2024 12 Lead EKG performed by [facility] [address] [place] [address] 12 Lead EKG performed by [facility] 05/27/24 0839 MR#: [id number] Acct: [id number] Name: GARCIA HAAS Rep #: [id number] : 1940 84 From: Jemima Gama Attending Dr: JAN Tavera Status: DEP AMB Ordering Dr: Jemima Maldonado Date: 05/09 Location: [facility] [facility] Sex: M C Admitted: BMS/12 Lead EKG performed by [facility] ECG Report Interpretation -------Sinus Rhythm - occasional ectopic ventricular beat -Nonspecific QRS widening. -Poor R-wave progression -nonspecific -consider old anterior infarct. - Nonspecific T-abnormality. ABNORMAL Electronically signed on 05/29/2024 at 11:10 by Layton [employer]ley[employer] Software Version [id number] 05/29/24 1113 Date Jemima MONTOYA CC: Dr. Srinivasa Nava MD Date Dictated: 05/27/24838 Date Transcribed: 05/27/24838 Regional Environmental Manager: SALLY Signed Normal [facility] Absolute lymphocyte countOrd ered By: Jemima Maldonado on 05-27-2024 Lymphocytes Auto (Unsp spec) [#/Vol] 0.65 10*3/uL Low 0.83-4.51 [facility] Absolute neutrophil countOrd ered By: Jemima Maldonado on 05-27-2024 Neutrophils (Bld) [#/Vol] 4.1 10*3/uL 2.0-7.7 [facility] Anion gap in Serum or Plasma Ordered By: Jemima Maldonado on 05-27-2024 Anion gap [Moles/Vol] 12 mmol/L 5-15 [facility] Automated lymphocyte count a s percentage of total leukocytesOrdered By: Jemima Maldonado on 05-27-2024 Lymphocytes/100 WBC Auto (Unsp spec) 12.0 % Low - [facility] BUN/creatinine ratioOrdered By: Jemima Maldonado on 05-27-2024 Urea nitrogen/Creatinine [Mass ratio] 19.5 mg/mg 12-27 [facility] Basic Metabolic Profile (BMP )on 05-27-2024 BUN/CRE 19.5 RATIO Normal 12-27 [facility] Comment on above: Performed By: #### L 503.7018, L100.0100, L500.2500 #### [facility] Laboratory [facility] [place], [address] Calcium [Mass/Vol] 9.2 mg/dL Normal 7.6-11.0 [facility] Comment on above: Performed By: #### L 503.7505, L100.0100, L500.2500 #### [facility] Laboratory [address] [place], [address] Chloride [Moles/Vol] 101 mmol/L Normal 98-108 [facility] Comment on above: Performed By: #### L 503.7505, L100.0100, L500.2500 #### [facility] [address] [place], [address] CO2 [Moles/Vol] 23.2 mmol/L Normal 21.0-32.0 [facility] Comment on above: Performed By: #### L 503.7505, L100.0100, L500.2500 #### [facility] [address] [place], [address] Creatinine [Mass/Vol] 1.44 mg/dL High 0.70-1.20 [facility] Comment on above: Performed By: #### L 503.7505, L100.0100, L500.2500 #### [facility] [address] [place], [address] GAP 12 Normal 5-15 [facility] Comment on above: Performed By: #### L 503.7505, L100.0100, L500.2500 #### [facility] [address] [place], [address] GFR/1.73 sq M.predicted among non-blacks MDRD (S/P/Bld) [Vol rate/Area] 49 mL/min/{1.73_m2} Low >60 [facility] Comment on above: Result Comment: mL/m in/1.73m2 CKD-EPI Creatinine Equation (2020) Performed By: #### L 503.7505, L100.0100, L500.2500 #### [facility] [address] [place], [address] Glucose [Mass/Vol] 111 mg/dL High 70-99 [facility] Comment on above: Performed By: #### L 503.7505, L100.0100, L500.2500 #### [facility] [address] [place], [address] Potassium [Moles/Vol] 4.5 mmol/L Normal 3.3-5.1 [facility] Comment on above: Performed By: #### L 503.7505, L100.0100, L500.2500 #### [facility] [address] [place], [address] Sodium [Moles/Vol] 136 mmol/L Normal 133-145 [facility] Comment on above: Performed By: #### L 503.7505, L100.0100, L500.2500 #### [facility] [address] [place], [address] Urea nitrogen [Mass/Vol] 28 mg/dL High 4-19 [facility] Comment on above: Performed By: #### L 503.7505, L100.0100, L500.2500 #### [facility] [address] [place], [address] Basophil percentageOrdered B y: Jemima Maldonado on 05-27-2024 Basophils/100 WBC (Bld) 0.4 % 0-1 [facility] CBC W/Diff, Automatedon 2 Absolute Lymph 0.65 X10 3/uL Low 0.83-4.51 [facility] Comment on above: Performed By: #### L 503.7505, L100.0100, L500.2500 #### [facility] [address] [place], [address] Absolute Neut 4.1 X10 3/uL Normal 2.0-7.7 [facility] Comment on above: Performed By: #### L 503.7505, L100.0100, L500.2500 #### [facility] [address] [place], [address] Basophils/100 WBC (Bld) 0.4 % Normal 0-1 [facility] Comment on above: Performed By: #### L 503.7505, L100.0100, L500.2500 #### [facility] [address] [place], [address] Eosinophils/100 WBC (Bld) 4.8 % Normal 0-5 [facility] Comment on above: Performed By: #### L 503.7505, L100.0100, L500.2500 #### [facility] [address] [place], [address] Erythrocyte distribution width (RBC) [Ratio] 14.6 % Normal 11.6-14.6 [facility] Comment on above: Performed By: #### L 503.7505, L100.0100, L500.2500 #### [facility] [address] [place], [address] Hematocrit (Bld) [Volume fraction] 42.2 % Normal 40-54 [facility] Comment on above: Performed By: #### L 503.7505, L100.0100, L500.2500 #### [facility] [address] [place], [address] Hemoglobin (Bld) [Mass/Vol] 14.1 g/dL Normal 13.0-16.5 [facility] Comment on above: Performed By: #### L 503.7505, L100.0100, L500.2500 #### [facility] [address] [place], [address] IG% 0.400 Normal 0.0-0.9 [facility] Comment on above: Result Comment: IG% - Immature Granulocytes (promyelocytes, myelocytes and metamyelocytes) > 1% indicates that a LEFT SHIFT is Present. Performed By: #### L 503.7505, L100.0100, L500.2500 #### [facility] [address] [place], [address] Lymphocytes/100 WBC (Bld) 12.0 % Low 19-41 [facility] Comment on above: Performed By: #### L 503.7505, L100.0100, L500.2500 #### [facility] [address] [place], [address] MCH (RBC) [Entitic mass] 31.0 pg Normal 27.0-32.0 [facility] Comment on above: Performed By: #### L 503.7505, L100.0100, L500.2500 #### [facility] [address] [place], [address] MCHC (RBC) [Mass/Vol] 33.4 g/dL Normal 32-36 [facility] Comment on above: Performed By: #### L 503.7505, L100.0100, L500.2500 #### [facility] [address] [place], [address] MCV (RBC) [Entitic vol] 92.7 fL Normal 80-94 [facility] Comment on above: Performed By: #### L 503.7505, L100.0100, L500.2500 #### [facility] [address] [place], [address] Monocytes/100 WBC (Bld) 6.9 % Normal 0-10 [facility] Comment on above: Performed By: #### L 503.7505, L100.0100, L500.2500 #### [facility] [address] [place], [address] Neutrophils/100 WBC (Bld) 75.5 % High 47-70 [facility] Comment on above: Performed By: #### L 503.7505, L100.0100, L500.2500 #### [facility] [address] [place], [address] Nucleated RBC (Bld) [#/Vol] 0 10*3/uL Normal 0-5 [facility] Comment on above: Performed By: #### L 503.7505, L100.0100, L500.2500 #### [facility] [address] [place], [address] Platelet mean volume (Bld) [Entitic vol] 9.5 fL Normal 6.2-12.0 [facility] Comment on above: Performed By: #### L 503.7505, L100.0100, L500.2500 #### [facility] [address] [place], [address] Platelets (Bld) [#/Vol] 170 10*3/uL Normal 150-450 [facility] Comment on above: Performed By: #### L 503.7505, L100.0100, L500.2500 #### [facility] [address] [place], [address] RBC (Bld) [#/Vol] 4.55 10*6/uL Low 4.6-6.2 [facility] Comment on above: Performed By: #### L 503.7505, L100.0100, L500.2500 #### [facility] [address] [place], [address] RDW SD 48.7 fl High 35.1-43.9 [facility] Comment on above: Performed By: #### L 503.7505, L100.0100, L500.2500 #### [facility] [address] [place], [address] WBC (Bld) [#/Vol] 5.4 10*3/uL Normal 4.4-11.0 [facility] Comment on above: Performed By: #### L 503.7505, L100.0100, L500.2500 #### [facility] [address] [place], [address] Carbon dioxide, total [Moles /volume] in Central venous bloodOrdered By: Jemima Maldonado on 05-27-2024 CO2 [Moles/Vol] 23.2 mmol/L 21.0-32.0 [facility] Cardiology Visit Reporton Cardiology Visit Report [facility] [address] [place] [address] OFFICE VISIT Date of Service: 05/27/24 MR#: [id number] Acct: [id number] Name: GARCIA HAAS Rep #: [id number] : 1940 Provider: JAN Razo Age/Sex: 84/M Location: [facility] [facility] Status: Signed HPI HPI History of Present Illness Details: GARCIA HAAS, is a 84 year old white male with a history of coronary artery disease status post bypass surgery on 01/06/2018 at [facility] to LAD, SVG to diagonal, SVG to OM1/OM 2 (sequential graft) and SVG to PDA.??? He has a previous history of bypass surgery with to LAD and previous placed left PDA stent.??? He also has a history of left bundle branch block, ischemic cardiomyopathy, hyperlipidemia, and hypertension. He was seen at his last office visit for new onset atrial fibrillation. His 24 hour Holter monitor from 05/2023 demonstrated atrial fibrillation 86%. He echocardiogram demonstrated an ejection fraction of 45%. He underwent a successful cardioversion in June of 2023. Patient is feeling more short of breath over the last month. His is also concerned about this. He does not have any chest pain heaviness or tightness. He is not orthopneic. Shortness of breath is just with exertion. He does not have any palpitations that he is aware of. He does not have any lower extremity edema. EKG today demonstrates sinus rhythm. 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 Is patient in pain?: No Allergies rosuvastatin calcium (From Crestor) Allergy (Verified 05/27/24 08:17) Pain in joints Medications ???Medication ???Instructions ???Recorded ???Confirmed ???Type nitroglycerin 0.4 mg sublingual 0.4 mg sublingual Q5M PRN Chest 05/27/24 Rx tablet Pain #25 tabs aspirin 81 mg tablet,delayed 81 mg PO DAILY 02/13/18 05/27/24 H istory release (Adult Low Dose Aspirin) atorvastatin 40 mg tablet 40 mg PO QHS #90 tabs 05/22/23 Rx warfarin 4 mg tablet 4 mg PO DAILY #90 tabs 07/08/23 Rx allopurinol 300 mg tablet 300 mg PO QDAY 10/10/23 05/27/24 H istory metoprolol tartrate 25 mg tablet 25 mg PO DAILY #90 tabs 02/17/24 0 05/27/24 Rx Ejection fraction %: 45 Have you fallen in the past year?: No PFSH Medical History (Updated 05/27/24 @ 09:49 by Jemima MONTOYA, PA) PAF (paroxysmal atrial fibrillation) Persistent atrial fibrillation History of cardioversion (07/07/23) correction (current) use of anticoagulants New onset a-fib Presence of stent in coronary artery ( 05/03/10) Ischemic cardiomyopathy Mixed hyperlipidemia Gout History of prostate cancer Essential hypertension Cardiomyopathy Abnormal stress test Chest pain Right carotid bruit Arteriosclerotic heart disease (ASHD) Shortness of breath Old myocardial infarction Left bundle branch block Other terminal manager (current) drug therapy Abnormal nuclear stress test HLD (hyperlipidemia) Atherosclerotic heart disease of inupiat coronary artery without angina pectoris Surgical History History of left heart catheterization Presence of coronary artery bypass graft stent Hx of CABG ( 01/06/18) Family History Father CAD (coronary artery disease) Myocardial infarction Mother Cancer Social History Smoking Status: Never smoker alcohol intake: never substance use type: does not use caffeine: Yes Type: coffee Number of servings: 1 what type of physical activity do you participate in: none ROS Const Const: Positive for fatigue; Negative for weakness, headache(s) or frequent falls Eyes Eyes: Negative for blurry vision ENT ENT: Negative for headache(s), dizziness or Nosebleed/epistaxis Cardio Chest Pain: No Palpitations: No Edema: None Muscle aches with walking: None Resp Respiratory: Positive for SOB with activity (over the last month) and SOB at rest; Negative for SOB orthopnea SOB lying down GI GI: Negative nausea, vomiting, heartburn, bright, red blood in stools or black,tarry stools : Negative for hematuria Neuro Neuro: Negative for dizziness, lightheadedness, near syncope, syncope, frequent falls, headache(s), weakness or blurry vision Endo Endo: Positive for fatigue Cardiology Exam Const Appearance: cooperative and (more content not included)... Normal [facility] Chloride assayOrdered By: Yesenia Maldonado on 05-27-2024 Chloride [Moles/Vol] 101 mmol/L 98-108 [facility] Eosinophil percentageOrdered By: Jemima Maldonado on 05-27-2024 Eosinophils/100 WBC (Bld) 4.8 % 0-5 [facility] Erythrocyte distribution wid th ratioOrdered By: Jemima Maldoando on 05-27-2024 Erythrocyte distribution width (RBC) [Ratio] 14.6 % 11.6-14.6 [facility] Erythrocyte distribution wid th standard deviationOrdered By: Jemima Maldonado on 05-27-2024 Erythrocyte distribution width (RBC) [Entitic vol] 48.7 fL High 35.1-43.9 [facility] Erythrocyte distribution width (RBC) [Ratio] 48.7 fl High 35.1-43.9 [facility] GFR/1.73 sq M.predicted flores g non-blacks MDRD (S/P/Bld) [Vol rate/Area]Ordered By: Jemima Maldonado on 05-27-2024 Estimated GFR (MDRD) Non-Af Amer 49 Low >60 [facility] Comment on above: mL/min/1.73m2 CKD-EP I Creatinine Equation (2020) Glomerular filtration rate ( GFR) estimation/1.73 sq m using serum, plasma, or whole bOrdered By: Jemima Maldonado on 05-27-2024 GFR/1.73 sq M.predicted among non-blacks MDRD (S/P/Bld) [Vol rate/Area] 49 mL/min/{1.73_m2} Low >60 [facility] Comment on above: mL/min/1.73m2 CKD-EP I Creatinine Equation (2020) Hematocrit Auto (Bld) [Volum e fraction]Ordered By: Jmeima Maldonado on 05-27-2024 Hematocrit (Bld) [Volume fraction] 42.2 % 40-54 [facility] Hemoglobin measurementOrdere d By: Jemima Maldonado on 05-27-2024 Hemoglobin (Bld) [Mass/Vol] 14.1 g/dL 13.0-16.5 [facility] Immature granulocytes/100 WB C Auto (Bld)Ordered By: Jemima Maldonado on 05-27-2024 Immature granulocytes/100 WBC (Bld) 0.400 % 0.0-0.9 [facility] Comment on above: IG% - Immature Granu locytes (promyelocytes, myelocytes and metamyelocytes) > 1% indicates that a LEFT SHIFT is Present. L503.7505on 05-27-2024 Natriuretic peptide B (Bld) [Mass/Vol] 925 pg/mL Normal <=1800 [facility] Comment on above: Result Comment: Hear t Failure Unlikely: < 300 pg/mL Heart Failure Likely < 50 Years: > 450 pg/mL 50-75 Years: > 900 pg/mL >75 Years: > 1800 pg/mL Performed By: #### L 503.7505, L100.0100, L500.2500 #### [facility] Laboratory [address] [place], [address] Laboratory - Chemistry and C hemistry - challengeOrdered By: Jemima Maldonado on 05-27-2024 Natriuretic peptide B (Bld) [Mass/Vol] 925 pg/mL <1800 [facility] Comment on above: Heart Failure Unlike ly: < 300 pg/mLHeart Failure Likely< 50 Years: > 450 pg/mL50-75 Years: > 900 pg/mL>75 Years: > 1800 pg/mL Lymphocytes Auto (Unsp spec) [#/Vol]Ordered By: Jemima Maldonado on 05-27-2024 Lymphocytes (Bld) [#/Vol] 0.65 10*3/uL Low 0.83-4.51 [facility] Lymphocytes/100 WBC Auto (Un sp spec)Ordered By: Jemima Maldonado on 05-27-2024 Lymphocytes/100 WBC (Bld) 12.0 % Low 19-41 [facility] MCV (mean corpuscular volume ) determinationOrdered By: Jemima Maldonado on 05-27-2024 MCV (RBC) [Entitic vol] 92.7 fL 80-94 [facility] Mean corpuscular hemoglobin (MCH) determinationOrdered By: Jemima Maldonado on 05-27-2024 MCH (RBC) [Entitic mass] 31.0 pg 27.0-32.0 [facility] Mean corpuscular hemoglobin concentration (MCHC) determinationOrdered By: Jemima Maldonado on 05-27-2024 MCHC (RBC) [Mass/Vol] 33.4 g/dL 32-36 [facility] Mean platelet volume determi nationOrdered By: Jemima Maldonado on 05-27-2024 Platelet mean volume (Bld) [Entitic vol] 9.5 fL 6.2-12.0 [facility] Monocyte percentageOrdered B y: Jemima Maldonado on 05-27-2024 Monocytes/100 WBC (Bld) 6.9 % 0-10 [facility] Neutrophil percentageOrdered By: Jemima Maldonado on 05-27-2024 Neutrophils/100 WBC (Bld) 75.5 % High 47-70 [facility] Nucleated red blood cell per centageOrdered By: Jemima Maldonado on 05-27-2024 Nucleated RBC/100 WBC (Bld) [Ratio] 0 % 0-5 [facility] Platelet countOrdered By: Yesenia Maldonado on 05-27-2024 Platelets (Bld) [#/Vol] 170 10*3/uL 150-450 [facility] Potassium (Unsp spec) [Mass/ Vol]Ordered By: Jemima Maldonado on 05-27-2024 Potassium [Moles/Vol] 4.5 mmol/L 3.3-5.1 [facility] Potassium measurement (mass/ volume)Ordered By: Jemima Maldonado on 05-27-2024 Potassium (Unsp spec) [Mass/Vol] 4.5 mmol/L 3.3-5.1 [facility] RBC Auto (Bld) [#/Vol]Ordere d By: Jemima Maldonado on 05-27-2024 RBC (Bld) [#/Vol] 4.55 10*6/uL Low 4.6-6.2 [facility] Serum creatinine measurement (mass/volume)Ordered By: Jemima Maldonado on 05-27-2024 Creatinine [Mass/Vol] 1.44 mg/dL High 0.70-1.20 [facility] Serum glucose measurement (m ass/volume)Ordered By: Jemima Maldonado on 05-27-2024 Glucose [Mass/Vol] 111 mg/dL High 70-99 [facility] Serum or plasma calcium amanda urement (mass/volume)Ordered By: Jemima Maldonado on 05-27-2024 Calcium [Mass/Vol] 9.2 mg/dL 7.6-11.0 [facility] Serum or plasma urea nitroge n measurement (mass/volume)Ordered By: Jemima Maldonado on 05-27-2024 Urea nitrogen [Mass/Vol] 28 mg/dL High 4-19 [facility] Sodium levelOrdered By: Tony Maldonado on 05-27-2024 Sodium [Moles/Vol] 136 mmol/L 133-145 [facility] White blood cell (WBC) count Ordered By: Jemima Maldonado on 05-27-2024 WBC (Bld) [#/Vol] 5.4 10*3/uL 4.4-11.0 [facility] Cardiology Visit Reporton Cardiology Visit Report [facility] [address] [place] [address] OFFICE VISIT Date of Service: 10/10/23 MR#: [id number] Acct: [id number] Name: GARCIA HAAS Rep #: [id number] : 1940 Provider: NERY weiss Age/Sex: 83/M Location: [facility] [place] Status: Signed HPI HPI History of Present Illness Details: GARCIA HAAS, is a 83 year old white male with a history of coronary artery disease status post bypass surgery on 01/06/2018 at [facility] to LAD, SVG to diagonal, SVG to OM1/OM 2 (sequential graft) and SVG to PDA.??? He has a previous history of bypass surgery with to LAD and previous placed left PDA stent.??? He also has a history of left bundle branch block, ischemic cardiomyopathy, hyperlipidemia, and hypertension. He was seen at his last office visit for new onset atrial fibrillation. His 24 hour Holter monitor from 05/2023 demonstrated atrial fibrillation 86%. He echocardiogram demonstrated an ejection fraction of 45%. He underwent a successful cardioversion in June of 2023. From a cardiac standpoint, the patient is doing well. He denies any palpitations, chest pain, pressure or heaviness. He does have occasional SOB with exertion-this is nothing new or worsening. He denies SOB, Orthopnea, and PND. He does not have bleeding issues; no blood in urine, stool or nosebleeds. He denies any decrease in energy level, myalgias, or claudication. He does not have edema, or sudden weight gain. He denies dizziness, lightheadedness, syncopal or near syncopal episodes, and headaches. 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 Accompanied by: Is patient in pain?: No Allergies rosuvastatin calcium (From Crestor) Allergy (Verified 10/10/23 09:39) Pain in joints Medications ???Medication ???Instructions ???Recorded ???Confirmed ???Type nitroglycerin 0.4 mg sublingual 0.4 mg sublingual Q5M PRN Chest 07/24/17 10/10/23 Rx tablet Pain #25 tabs aspirin 81 mg tablet,delayed 81 mg PO DAILY 02/13/18 10/10/23 History release (Adult Low Dose Aspirin) metoprolol tartrate 25 mg tablet 25 mg PO DAILY #90 tabs 01/20/23 10/10/23 Rx atorvastatin 40 mg tablet 40 mg PO QHS #90 tabs 05/22/23 10/10/23 Rx warfarin 4 mg tablet 4 mg PO DAILY #90 tabs 07/08/23 10/10/23 Rx allopurinol 300 mg tablet 300 mg PO QDAY 10/10/23 10/10/23 History furosemide 40 mg tablet (Lasix) 40 mg PO BID 10/10/23 10/10/23 History Have you fallen in the past year?: No PFSH Medical History 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 New onset a-fib Presence of stent in coronary artery ( 05/03/10) Ischemic cardiomyopathy Mixed hyperlipidemia Gout History of prostate cancer Essential hypertension Cardiomyopathy Abnormal stress test Chest pain Right carotid bruit Arteriosclerotic heart disease (ASHD) Shortness of breath Old myocardial infarction Left bundle branch block 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 Abnormal nuclear stress test HLD (hyperlipidemia) Atherosclerotic heart disease of inupiat coronary artery without angina pectoris Surgical History History of left heart catheterization Presence of coronary artery bypass graft stent Hx of CABG ( 01/06/18) Family History Father CAD (coronary artery disease) Myocardial infarction Mother Cancer Social History Smoking Status: Never smoker alcohol intake: never substance use type: does not use caffeine: Yes Type: coffee Number of servings: 1 what type of physical activity do you participate in: none ROS Const Const: Negative for fatigue, weakness, headache(s), daytime sleepiness or difficulty sleeping ENT ENT: Negative for headache(s), dizziness or Nosebleed/epistaxis Cardio Chest Pain: No Palpitations: No Edema: None Resp Respiratory: Positive for SOB with activity (nothing new or worsening); Negative for SOB at rest, SOB orthopnea SOB lying down or Cough GI GI: Negative nausea, vomiting or heartburn Neuro Neuro: Negative for dizziness, lightheadedness, near syncope, headache(s) or weakness Endo Endo: Negative for fatigue Cardiology Exam Const Appearance: cooperative and no acute distress Nutritional Appearance: obese Orientation: alert and oriented x3 Head Head: normal to inspection Ears: hearing grossly normal bilaterally (more content not included)... Normal [facility] Basophil percentageOrdered B y: Layton Farley on 07-07-2023 Chloride [Moles/Vol] 104 mmol/L 98-107 [facility] Glucose [Mass/Vol] 118 mg/dL 74-106 [facility] [place] Comment on above: Fasting Glucose resu lt from 100 to 125 mg/dL suggests IMPAIRED HOMEOSTASIS per A.D.A. criteria. Potassium [Moles/Vol] 4.4 mmol/L 3.5-5.1 [facility] Sodium [Moles/Vol] 138 mmol/L 136-145 [facility] [place] Laboratory - Chemistry and C hemistry - challengeOrdered By: Layton Farley on 07-07-2023 CO2 [Moles/Vol] 29.0 mmol/L 21.0-32.0 [facility] Urea nitrogen/Creatinine [Mass ratio] 15.8 mg/mg 10-20 [facility] No Panel InformationOrdered By: Layton Farley on 07-07-2023 Estimated Creatinine Clearance Calc 40.39 ml/min [facility] Estimated GFR (MDRD) Amer 52 mL/min >60 [facility] Comment on above: GFR Calc Estimated GFR (MDRD) Non-Af Amer 43 mL/min >60 [facility] Comment on above: Non- GFR Calc Serum or plasma calcium amanda urement (mass/volume)Ordered By: Layton Farley on 07-07-2023 Calcium [Mass/Vol] 9.4 mg/dL 8.5-10.1 [facility] Serum or plasma creatinine m easurement (mass/volume)Ordered By: Layton Farley on 07-07-2023 Creatinine [Mass/Vol] 1.65 mg/dL 0.70-1.30 [facility] Comment on above: The validity of the calculated GFR & GFRAA in patients over 70 years has not been determined. Clinical correlation is essential. Serum or plasma urea nitroge n measurement (mass/volume)Ordered By: Layton [facility] on 07-07-2023 Urea nitrogen [Mass/Vol] 26 mg/dL 7-18 [facility] Thin prep Papanicolaou smear with manual screeningOrdered By: Layton [facility] on 07-07-2023 Thin prep Papanicolaou smear with manual screening 5 5-15 [facility] Absolute lymphocyte countOrd ered By: Sophia Sultana on 07-04-2023 Lymphocytes Auto (Unsp spec) [#/Vol] 0.58 10*3/uL 0.83-4.51 [facility] Automated lymphocyte count a s percentage of total leukocytesOrdered By: Sophia Sultana on 07-04-2023 Lymphocytes/100 WBC Auto (Unsp spec) 10.5 % 19-41 [facility] Basophil percentageOrdered B y: Sophia Sultana on 07-04-2023 Basophils/100 WBC (Bld) 0.7 % 0-1 [facility] Bilirubin [Mass/Vol] 0.50 mg/dL 0.20-1.00 [facility] Comment on above: For patients on eltr ombopag therapy, use of Dimension [place] TBIL is not recommended. Cholesterol [Mass/Vol] 105 mg/dL <200 [facility] Comment on above: <200 mg/dL Desirable 200-240 mg/dL Borderline >240 mg/dL High Risk Eosinophils/100 WBC (Bld) 4.1 % 0-5 [facility] Hemoglobin (Bld) [Mass/Vol] 13.1 g/dL 13.0-16.5 [facility] Monocytes/100 WBC (Bld) 6.8 % 0-10 [facility] Neutrophils (Bld) [#/Vol] 4.3 10*3/uL 2.0-7.7 [facility] Neutrophils/100 WBC (Bld) 77.5 % 47-70 [facility] Protein [Mass/Vol] 7.4 g/dL 6.4-8.2 [facility] Triglyceride [Mass/Vol] 111 mg/dL <199 [facility] Comment on above: The drugs N-Acetylcy steine and Metamizole may falsely depress this assay.Serum Triglycerides Reference Interval Normal <150 mg/dL Borderline high 150 - 199 mg/dL High 200 - 499 mg/dL Very High > or = 500 mg/dL WBC (Bld) [#/Vol] 5.6 10*3/uL 4.4-11.0 [facility] Determination of erythrocyte mean corpuscular volume (MCV)Ordered By: Sophia Sultana on 07-04-2023 MCV (RBC) [Entitic vol] 92.0 fL 80-94 [facility] Direct bilirubinOrdered By: Sophia Sultana on 07-04-2023 Bilirubin.direct [Mass/Vol] 0.19 mg/dL 0.00-0.30 [facility] Erythrocyte distribution wid th ratioOrdered By: Sophia Sultana on 07-04-2023 Erythrocyte distribution width (RBC) [Ratio] 14.8 % 11.6-14.6 [facility] Erythrocyte distribution wid th standard deviationOrdered By: Sophia Sultana on 07-04-2023 Erythrocyte distribution width (RBC) [Entitic vol] 49.2 fL 35.1-43.9 [facility] Hematocrit Auto (Bld) [Volum e fraction]Ordered By: Sophia Sultana on 07-04-2023 Hematocrit (Bld) [Volume fraction] 42.3 % 40-54 [facility] Immature granulocytes/100 WB C Auto (Bld)Ordered By: Sophia Sultana on 07-04-2023 Immature granulocytes/100 WBC (Bld) 0.400 % 0.0-0.9 [facility] Comment on above: IG% - Immature Granu locytes (promyelocytes, myelocytes and metamyelocytes) > 1% indicates that a LEFT SHIFT is Present. Laboratory - Chemistry and C hemistry - challengeOrdered By: Sophia Sultana on 07-04-2023 ALP [Catalytic activity/Vol] 117 U/L 45-117 [facility] ALT [Catalytic activity/Vol] 16 U/L 16-61 [facility] Cholesterol in HDL [Mass/Vol] 33 mg/dL >40 [facility] Comment on above: The drugs N-Acetylcy steine and Metamizole may falsely depress this assay. Reference Range HDL <40 mg/dL Low HDL Cholesterol HDL >or= 60 mg/dL High HDL Cholesterol Cholesterol in LDL [Mass/Vol] 50 mg/dL 0-130 [facility] Globulin (S) [Mass/Vol] 3.9 g/dL 2.2-4.2 [facility] Laboratory - Hematology and Cell countsOrdered By: Sophia Sultana on 07-04-2023 MCH (RBC) [Entitic mass] 28.5 pg 27.0-32.0 [facility] MCHC (RBC) [Mass/Vol] 31.0 g/dL 32-36 [facility] Nucleated RBC/100 WBC (Bld) [Ratio] 0 % 0-5 [facility] Platelet mean volume (Bld) [Entitic vol] 9.6 fL 6.2-12.0 [facility] Platelets (Bld) [#/Vol] 177 10*3/uL 150-450 [facility] No Panel InformationOrdered By: Sophia Sultana on 07-04-2023 VLDL Cholesterol 22 mg/dL 5-40 [facility] RBC Auto (Bld) [#/Vol]Ordere d By: Sophia Sultana on 07-04-2023 RBC (Bld) [#/Vol] 4.60 10*6/uL 4.6-6.2 [facility] Thin prep Papanicolaou smear with manual screeningOrdered By: Sophia Sultana on 07-04-2023 Thin prep Papanicolaou smear with manual screening 3.5 g/dL 3.2-5.0 [facility] Thin prep Papanicolaou smear with manual screening 16 U/L 15-37 [facility] Absolute lymphocyte countOrd ered By: Jemima Maldonado on 05-09-2023 Lymphocytes Auto (Unsp spec) [#/Vol] 0.62 10*3/uL 0.83-4.51 [facility] Automated lymphocyte count a s percentage of total leukocytesOrdered By: Jemima Maldonado on 05-09-2023 Lymphocytes/100 WBC Auto (Unsp spec) 12.1 % 19-41 [facility] Basophil percentageOrdered B y: Jemima Maldonado on 05-09-2023 Basophils/100 WBC (Bld) 0.6 % 0-1 [facility] Bilirubin [Mass/Vol] 1.00 mg/dL 0.20-1.00 [facility] Comment on above: For patients on eltr ombopag therapy, use of Dimension [place] TBIL is not recommended. Chloride [Moles/Vol] 104 mmol/L 98-107 [facility] Eosinophils/100 WBC (Bld) 3.1 % 0-5 [facility] Glucose [Mass/Vol] 102 mg/dL 74-106 [facility] [place] Comment on above: Fasting Glucose resu lt from 100 to 125 mg/dL suggests IMPAIRED HOMEOSTASIS per A.D.A. criteria. Hemoglobin (Bld) [Mass/Vol] 14.9 g/dL 13.0-16.5 [facility] Monocytes/100 WBC (Bld) 8.0 % 0-10 [facility] Neutrophils (Bld) [#/Vol] 3.9 10*3/uL 2.0-7.7 [facility] Neutrophils/100 WBC (Bld) 75.8 % 47-70 [facility] Potassium [Moles/Vol] 4.4 mmol/L 3.5-5.1 [facility] Protein [Mass/Vol] 7.4 g/dL 6.4-8.2 [facility] Sodium [Moles/Vol] 137 mmol/L 136-145 [facility] WBC (Bld) [#/Vol] 5.1 10*3/uL 4.4-11.0 [facility] Determination of erythrocyte mean corpuscular volume (MCV)Ordered By: Jemima Maldonado on 05-09-2023 MCV (RBC) [Entitic vol] 92.5 fL 80-94 [facility] Erythrocyte distribution wid th ratioOrdered By: Jemima Maldonado on 05-09-2023 Erythrocyte distribution width (RBC) [Ratio] 13.6 % 11.6-14.6 [facility] Erythrocyte distribution wid th standard deviationOrdered By: Jemima Maldonado on 05-09-2023 Erythrocyte distribution width (RBC) [Entitic vol] 45.7 fL 35.1-43.9 [facility] Hematocrit Auto (Bld) [Volum e fraction]Ordered By: Jemima Maldonado on 05-09-2023 Hematocrit (Bld) [Volume fraction] 46.8 % 40-54 [facility] Immature granulocytes/100 WB C Auto (Bld)Ordered By: Jemima Maldonado on 05-09-2023 Immature granulocytes/100 WBC (Bld) 0.400 % 0.0-0.9 [facility] Comment on above: IG% - Immature Granu locytes (promyelocytes, myelocytes and metamyelocytes) > 1% indicates that a LEFT SHIFT is Present. Laboratory - Chemistry and C hemistry - challengeOrdered By: Jemima Maldonado on 05-09-2023 Albumin/Globulin [Mass ratio] 0.9 {ratio} 0.9-2.4 [facility] ALP [Catalytic activity/Vol] 105 U/L 45-117 [facility] ALT [Catalytic activity/Vol] 19 U/L 16-61 [facility] CO2 [Moles/Vol] 30.0 mmol/L 21.0-32.0 [facility] Globulin (S) [Mass/Vol] 3.8 g/dL 2.2-4.2 [facility] Natriuretic peptide B (Bld) [Mass/Vol] 147.9 pg/mL 0-100 [facility] Urea nitrogen/Creatinine [Mass ratio] 14.9 mg/mg 10-20 [facility] Laboratory - Hematology and Cell countsOrdered By: Jemima Maldonado on 05-09-2023 MCH (RBC) [Entitic mass] 29.4 pg 27.0-32.0 [facility] MCHC (RBC) [Mass/Vol] 31.8 g/dL 32-36 [facility] Nucleated RBC/100 WBC (Bld) [Ratio] 0 % 0-5 [facility] Platelet mean volume (Bld) [Entitic vol] 9.3 fL 6.2-12.0 [facility] Platelets (Bld) [#/Vol] 192 10*3/uL 150-450 [facility] No Panel InformationOrdered By: Jemima Maldonado on 05-09-2023 Estimated GFR (MDRD) Amer 66 mL/min >60 [facility] Comment on above: GFR Calc Estimated GFR (MDRD) Non-Af Amer 54 mL/min >60 [facility] Comment on above: Non- GFR Calc Free Triiodothyronine (T3) pg/dL 2.5 pg/mL 2.18-3.98 [facility] RBC Auto (Bld) [#/Vol]Ordere d By: Jemima Maldonado on 05-09-2023 RBC (Bld) [#/Vol] 5.06 10*6/uL 4.6-6.2 [facility] Serum or plasma calcium amanda urement (mass/volume)Ordered By: Jemima Maldondao on 05-09-2023 Calcium [Mass/Vol] 8.9 mg/dL 8.5-10.1 [facility] Serum or plasma creatinine m easurement (mass/volume)Ordered By: Jemima Maldonado on 05-09-2023 Creatinine [Mass/Vol] 1.34 mg/dL 0.70-1.30 [facility] Comment on above: The validity of the calculated GFR & GFRAA in patients over 70 years has not been determined. Clinical correlation is essential. Serum or plasma thyroid stim ulating hormone (TSH) measurement (units/volume)Ordered By: Jemima Maldonado on 05-09-2023 TSH Qn 2.88 uIU/mL 0.358-3.74 [facility] Serum or plasma urea nitroge n measurement (mass/volume)Ordered By: Jemima Maldonado on 05-09-2023 Urea nitrogen [Mass/Vol] 20 mg/dL 7-18 [facility] Thin prep Papanicolaou smear with manual screeningOrdered By: Jemima Maldonado on 05-09-2023 Thin prep Papanicolaou smear with manual screening 3.6 g/dL 3.2-5.0 [facility] Thin prep Papanicolaou smear with manual screening 16 U/L 15-37 [facility] Thin prep Papanicolaou smear with manual screening 3 5-15 [facility] Thin prep Papanicolaou smear with manual screening 0.88 ng/dL 0.76-1.46 [facility] Basophil percentageOrdered B y: Sophia Sultana on 01-02-2023 Bilirubin [Mass/Vol] 0.60 mg/dL 0.20-1.00 [facility] Comment on above: For patients on eltr ombopag therapy, use of Dimension [place] TBIL is not recommended. Cholesterol [Mass/Vol] 125 mg/dL <200 [facility] Comment on above: <200 mg/dL Desirable 200-240 mg/dL Borderline >240 mg/dL High Risk Protein [Mass/Vol] 7.4 g/dL 6.4-8.2 [facility] Triglyceride [Mass/Vol] 119 mg/dL <199 [facility] Comment on above: The drugs N-Acetylcy steine and Metamizole may falsely depress this assay.Serum Triglycerides Reference Interval Normal <150 mg/dL Borderline high 150 - 199 mg/dL High 200 - 499 mg/dL Very High > or = 500 mg/dL Direct bilirubinOrdered By: Sophia Sultana on 01-02-2023 Bilirubin.direct [Mass/Vol] 0.19 mg/dL 0.00-0.30 [facility] Laboratory - Chemistry and C hemistry - challengeOrdered By: Sophia Sultana on 01-02-2023 ALP [Catalytic activity/Vol] 107 U/L 45-117 [facility] ALT [Catalytic activity/Vol] 28 U/L 16-61 [facility] Globulin (S) [Mass/Vol] 3.8 g/dL 2.2-4.2 [facility] Serum or plasma albumin amanda urement (mass/volume)Ordered By: Sophia Sultana on 01-02-2023 Albumin [Mass/Vol] 3.6 g/dL 3.2-5.0 [facility] Serum or plasma cholesterol in HDL measurement (mass/volume)Ordered By: Sophia Sultana on 01-02-2023 Cholesterol in HDL [Mass/Vol] 39 mg/dL >40 [facility] Comment on above: The drugs N-Acetylcy steine and Metamizole may falsely depress this assay. Reference Range HDL <40 mg/dL Low HDL Cholesterol HDL >or= 60 mg/dL High HDL Cholesterol Serum or plasma cholesterol in VLDL measurement (mass/volume)Ordered By: Sophia Sultana on 01-02-2023 Cholesterol in VLDL [Mass/Vol] 24 mg/dL 5-40 [facility] Serum or plasma low density lipoprotein (LDL) cholesterol measurement (mass/volume)Ordered By: Sophia Sultana on 01-02-2023 Cholesterol in LDL [Mass/Vol] 62 mg/dL 0-130 [facility] Thin prep Papanicolaou smear with manual screeningOrdered By: Sophia Sultana on 01-02-2023 Thin prep Papanicolaou smear with manual screening 17 U/L 15-37 [facility] OBSOLETEon 03-04-2019 OBSOLETE Refill ([facility]) ---- GARCIA HAAS ([id number]) 1940 M Date Time Provider Department 03/04/19 ISABELLA BURLESON [facility] During your visit today, we recorded the following information about you: Chastity Brennan Coord 03/04/2019 8:05 AM Signed March 04, 2019 [id number] Patient Name: Garcia Haas Contact Information: [phone] (home) Reason For Call: Refill - Retail (local) Pharmacy:Name of Pharmacy [facility] Physician:Isabella Burleson MD Pending Prescriptions Disp Refills METOPROLOL TARTRATE 25 MG TABLET 60 tablet 0 Sig: Take 1 tablet by mouth every 12 hours. HERB: No Patients last appointment was on 02/20/18 Chastity Brennan Coord Allergies As of Date: 03/04/2019 (No Known Allergies) Date Reviewed: 02/20/2018 Reviewed by: Roxana Gil - Fully Assessed Reason for Visit: Refill Request [94] Order(s):metoprolol tartrate, short acting, (LOPRESSOR) 25 mg tabletTake 1 tablet by mouth every 12 hours.Disp: 60 tabletRfl: 3 Prescriptions as of 03/04/2019 Sig: METOPROLOL TARTRATE 25 MG TAB* Take 1 tablet by mouth every * ACETAMINOPHEN 325 MG TABLET Take 2 tablets by mouth every* ATORVASTATIN 80 MG TABLET Take 1 tablet by mouth daily * ALLOPURINOL 300 MG TABLET Take 300 mg by mouth once jorge* * ADULT LOW DOSE ASPIRIN 81 MG * Take one(1) tablet daily. Problem List As Of Date 03/04/2019 Noted Resolved ELEVATED PROSTATE SPECIFIC ANTIGEN [R97.20] 04/07/2007 UNILAT INGUINAL HERNIA [K40.90] 11/05/2007 BPH W URINARY OBS/LUTS [N40.1] 11/05/2007 Essential hypertension [I10] More... Unstable angina (HCC) [I20.0] 12/30/2017 More... Obesity, Class II, BMI 35-39.9 [E66.9] 01/06/2018 More... Mixed hyperlipidemia [E78.2] 01/06/2018 More... Postoperative pain [G89.18] 01/06/2018 More... Difficult airway for intubation [T88.4XXA] 01/06/2018 More... Cardiac insufficiency following cardiac surgery*01/06/2018 01/09/2018 More... Postoperative hypotension [I95.89] 01/06/2018 01/09/2018 More... Coagulopathy (HCC) [D68.9] 01/06/2018 01/07/2018 More... Bilateral atelectasis [J98.11] 01/07/2018 More... On mechanically assisted ventilation (HCC) [Z99*01/06/2018 01/08/2018 Transition of care performed with sharing of cl*01/09/2018 More... Discharge planning issues [Z02.9] 01/09/2018 More... Prescriptions ordered this encounter Disp Refills Start End METOPROLOL TARTRATE 25 MG TABLET 60 t* 3 03/04/2019 06/02/2019 Cmt: Needs follow-up with Digital Content Marketing Manager before providing more refills after this prescription Route: ORAL Sig: Take 1 tablet by mouth every 12 hours. Medications Discontinued During This Encounter metoprolol tartrate, short acting, (* 60 t* 5 02/22/2018 03/04/2019 Route: ORAL Sig: Take 1 tablet by mouth every 12 hours. Disc: Reason for discontinue is not on file. Encounter Status:Closed by KALPANA EPSTEIN CNP on 03/04/19 Normal [facility] Office Visiton 01-17-2017 Dietary management education, guidance, and counseling (procedure) yes Invalid Interpretation Code [employer] Phone: Documentation of current medications (procedure) Done Invalid Interpretation Code [employer] Work Phone: Fall risk assessment No Invalid Interpretation Code [employer] Phone: [phone] Tobacco use CPHS Never smoker Invalid Interpretation Code [employer] Phone: [phone] Lab Report: Lipid Profileon 08-29-2016 Cholesterol 158 mg/dL Invalid Interpretation Code 200 [employer] Phone: [phone] HDL Cholesterol 27 mg/dL Low [employer] Phone: [phone] LDL Cholesterol 103 mg/dL Invalid Interpretation Code 0-130 [employer] Phone: [phone] Triglyceride 140 mg/dL Invalid Interpretation Code [employer] Phone: [phone] very low density lipoproteins 28 mg/dL Invalid Interpretation Code 5-40 [employer] Phone: [phone] Lab Report: Liver Profileon 08-29-2016 Alanine aminotransferase (ALT) 34 U/L Invalid Interpretation Code 12-78 [employer] Phone: [phone] Albumin 3.6 g/dL Invalid Interpretation Code 3.4-5.0 [employer] Phone: [phone] Alkaline phosphatase (ALP) 54 U/L Invalid Interpretation Code 45-117 [employer] Phone: [phone] Aspartate aminotransferase (AST) 30 U/L Invalid Interpretation Code 15-37 [employer] Phone: [phone] Bilirubin (direct) 0.13 mg/dL Invalid Interpretation Code 0.00-0.30 [employer] Phone: [phone] Bilirubin (total) 0.60 mg/dL Invalid Interpretation Code 0.20-1.00 [employer] Phone: [phone] Globulin 3.8 g/dL High 2.3-3.5 [employer] Phone: [phone] Protein 7.4 g/dL Invalid Interpretation Code 6.4-8.2 [employer] Phone: [phone] Replaced Document: Navneet Clineon 06-24-2016 EKG QRS axis 2 deg Invalid Interpretation Code [employer] Phone: [phone] Interpretation Sinus Rhythm Low voltage in limb leads. -Poor R-wave progression -may be secondary to pulmonary disease consider old anterior infarct. ABNORMAL Invalid Interpretation Code [employer] Phone: [phone] P [place] 37 deg Invalid Interpretation Code [employer] Work Phone: [phone] VA Interval 160 ms Invalid Interpretation Code [employer] Phone: [phone] Pulse (Heart Rate) 75 /min Invalid Interpretation Code [employer] Phone: [phone] QRS Duration 122 ms Invalid Interpretation Code [employer] Work Phone: [phone] QT Interval new path ms Invalid Interpretation Code [employer] Phone: [phone] QTc [place] 396 ms Invalid Interpretation Code [employer] Phone: [phone] T [place] 38 deg Invalid Interpretation Code [employer] Phone: [phone] Clinical Lists Update: Prelo flute grinder 06-13-2015 Left ventricular Ejection fraction 55 % Invalid Interpretation Code [employer] Phone: [phone] Lab Report: Basic Metabolic Profile (BMP)on 06-08-2015 Anion gap 8 mmol/L Invalid Interpretation Code 5-15 [employer] Phone: [phone] BUN/Creatinine Ratio 19.2 RATIO Invalid Interpretation Code 10-20 [employer] Phone: [phone] Calcium 9.1 mg/dL Invalid Interpretation Code 8.5-10.1 [employer] Phone: [phone] Chloride 104 mmol/L Invalid Interpretation Code 98-107 [employer] Phone: [phone] CO2 28.0 mmol/L Invalid Interpretation Code 21.0-32.0 [employer] Phone: [phone] Creatinine 1.20 mg/dL Invalid Interpretation Code 0.70-1.30 [employer] Phone: [phone] eGFR (non-black) 76 mL/min/{1.73_m2} Invalid Interpretation Code >60 [employer] Phone: [phone] eGFR (non-black) 63 mL/min/{1.73_m2} Invalid Interpretation Code >60 [employer] Phone: [phone] Glucose mass conc 105 mg/dL Invalid Interpretation Code 70-110 [place] Work Phone: [phone] Potassium molar conc 4.5 mmol/L Invalid Interpretation Code 3.5-5.1 [facility] Work Phone: [phone] Sodium 140 mmol/L Invalid Interpretation Code 136-145 [facility] Work Phone: [phone] Urea nitrogen 23 mg/dL High 7-18 [place] Work Phone: [phone] Lab Report: CBC-Complete Blo od Cnt No Diffon 06-08-2015 Erythrocyte distribution width Auto Ratio (RBC) 13.5 % Invalid Interpretation Code 11.6-14.6 [place] Work Phone: [phone] Erythrocytes (RBC) 4.49 10*6/uL Low 4.6-6.2 [facility] [employer] Work Phone: [phone] Hematocrit (HCT) 40.0 % Invalid Interpretation Code 40-54 [place] Work Phone: [phone] Hemoglobin mass conc (Bld) 13.5 g/dL Invalid Interpretation Code 13.0-16.5 [facility] Work Phone: [phone] MCH 30.1 pg Invalid Interpretation Code 27.0-32.0 [place] Work Phone: [phone] MCHC mass conc (RBC) 33.8 G/GL Invalid Interpretation Code 32-36 [facility] [employer] Phone: [phone] MCV 89.1 fL Invalid Interpretation Code 80-94 [place] Work Phone: [phone] Platelets 170 10*3/mm3 Invalid Interpretation Code 150-450 [facility] Work Phone: [phone] PMV by Tere 8.5 fL Invalid Interpretation Code 6.2-12.0 [facility] Work Phone: [phone] RDW SD 43.3 fL Invalid Interpretation Code 35.1-43.9 [facility] Work Phone: [phone] WBC (Leukocytes) 4.5 10*3/uL Invalid Interpretation Code 4.4-11.0 [place] Work Phone: [phone] Lab Report: T4 Total, Thyrox inon 03-31-2016 Thyroxine (T4) 7.6 ug/dL Invalid Interpretation Code 4.5-12.1 [facility] Work Phone: [phone] Lab Report: Thyroid Stim Hor kadeem (TSH)on 06-08-2015 Thyroid stimulating hormone (TSH) 1.48 u[iU]/mL Invalid Interpretation Code 0.358-3.74 [facility] Work Phone: [phone] Office Visiton 05-16-2015 cardiac risk group C Invalid Interpretation Code [employer] Work Phone: [phone] General cardiovascular disease 10Y risk [#] [place].D'Agostino N/A Invalid Interpretation Code [facility] Work Phone: [phone] Lab Report: CMPon 01-21-2014 Albumin/Globulin Ratio 1.1 {ratio} Normal 0.9-2.4 [facility] Work Phone: [phone] Lab Report: MIACREon 014 Urine, creatinine 113.8 mg/dL Normal NO RANGE EST. [facility] Work Phone: [phone] Urine, microalbumin 1.45 mg/dL Normal Units converted. See lab report for original value. [facility] [employer] Work Phone: [phone] Lab Report: URICon 4 Urate 6.1 mg/dL Normal 3.5-7.2 [facility] Work Phone: [phone] Lab Report: PTon 11-07-2011 INR Coag RelTime (PPP) 1.0 {INR} Normal Wo janny [facility] Work Phone: [phone] PTP 12.2 SECONDS Normal 11.9-14.4 [place] Work Phone: [phone] Lab Report: PTTon 11-07-2011 aPTT 28.6 s Normal 24.1-36.2 [facility] Work Phone: [phone] Replaced Document: Navneet Doe CG Observationson 10-30-2011 Pulse (Heart Rate) 384 ms Invalid Interpretation Code [facility] [employer] Work Phone: [phone] Vital Signs Date Time Vital Sign Value Performing Clinician Facility 08-19-2024 09:04-0400 Body height [address] Srinivasa Nava MD Work Phone: 9(432)675-870747 [address] 08-19-2024 09:04-0400 Body mass index (BMI) [Ratio] 34.2 kg/m2 Dr. Srinivasa Nava MD Work Phone: 0(911)700-620247 [address] 08-19-2024 09:04-0400 Body weight 102.[address] Srinivasa Nava MD Work Phone: 9(505)367-826420 [place] [address] 08-19-2024 09:04-0400 Diastolic blood pressure 74 mm[Hg] Dr. Srinivasa Nava MD Work Phone: 3(074)619-727120 [place] [address] 08-19-2024 09:04-0400 Heart rate 83 /min Dr. Srinivasa Nava MD Work Phone: 8(471)239-589720 [place] [address] 08-19-2024 09:04-0400 Respiratory rate 18 /min Dr. Srinivasa Nava MD Work Phone: 3(242)116-739220 [place] [address] 08-19-2024 09:04-0400 Systolic blood pressure 123 mm[Hg] Dr. Srinivasa Nava MD Work Phone: 4(175)703-572120 [place] [address] 05-27-2024 07:22-0400 Body height [address] Srinivasa Nava MD Work Phone: 6(538)116-718120 [place] [address] 05-27-2024 07:22-0400 Body mass index (BMI) [Ratio] 34.7 kg/m2 Dr. Srinivasa Nava MD Work Phone: 2(839)610-073720 [place] [address] 05-27-2024 07:22-0400 Body weight 103.[address] Srinivasa Nava MD Work Phone: 3(288)942-917620 [place] [address] 05-27-2024 07:22-0400 Diastolic blood pressure 78 mm[Hg] Dr. Srinivasa Nava MD Work Phone: 4(623)109-086420 [place] [address] 05-27-2024 07:22-0400 Heart rate 84 /min Dr. Srinivasa Nava MD Work Phone: 4(018)690-304920 [place] [address] 05-27-2024 07:22-0400 Respiratory rate 18 /min Dr. Srinivasa Nava MD Work Phone: 0(489)159-714920 [place] [address] 05-27-2024 07:22-0400 SaO2% (BldA) [Mass fraction] 92 % Dr. Srinivasa Nava MD Work Phone: [facility] 05-27-2024 07:22-0400 Systolic blood pressure 112 mm[Hg] Dr. Srinivasa Nava MD Work Phone: [facility] 11-24-2023 13:24-0400 Body height 172.72 cm Brittaney Decker RN [facility] [facility] [employer]. 11-24-2023 13:24-0400 Body mass index (BMI) [Ratio] 33.91 kg/m2 Brittaney Decker RN [employer].; [employer]. 11-24-2023 13:24-040 Body surface area Derived from formula 2.14 m2 Brittaney Decker RN [employer].; [employer]. 11-24-2023 13:24-040 Body temperature 98.9 [degF] Brittaney Decker RN [employer].; [employer]. Comment on above: Method: Tympanic 11-24-2023 13:24-040 Body weight 101.15 kg Brittaney Decker RN [employer].; [employer] 11-24-2023 13:24-0400 Diastolic blood pressure 69 mm[Hg] Brittaney Decker RN [employer].; [employer]. Comment on above: Patient Position: Sitting; Cuff Location : Right Arm; Cuff Size: Large 11-24-2023 13:24-0400 Heart rate 82 /min Brittaney Decker RN [employer] Comment on above: Pattern: Regular 11-24-2023 13:24-0400 Systolic blood pressure 118 mm[Hg] Brittaney Decker RN [employer]. Comment on above: Patient Position: Sitting; Cuff Location : Right Arm; Cuff Size: Large 08-06-2023 08:58-0400 Body height 172.72 cm Jacque J Forbes PA-C Work Phone: [employer].; [employer] 08-06-2023 08:58-0400 Body mass index (BMI) [Ratio] 33.3 kg/m2 Jacque J Forbes PA-C Work Phone: [employer].; [employer] 08-06-2023 08:58-0400 Body surface area Derived from formula 2.12 m2 Jacque J Forbes PA-C Work Phone: [employer].; [employer] 08-06-2023 08:58-0400 Body weight 99.34 kg Jacque J Forbes PA-C Work Phone: [employer].; [employer] 08-06-2023 08:58-0400 Diastolic blood pressure 68 mm[Hg] Jacque J Forbes PA-C Work Phone: [employer]; [employer]. Comment on above: Patient Position: Sitting; Cuff Location : Left Arm; Cuff Size: Standard 08-06-2023 08:58-0400 Heart rate 39 /min Srinivasa Nava MD Work Phone: [employer]; [employer]. Comment on above: Pattern: Regular 08-06-2023 08:58-0400 Heart rate 101 /min Jacque J Forbes PA-C Work Phone: [employer]; [employer]. Comment on above: Pattern: Regular 08-06-2023 08:58-0400 Inhaled oxygen concentration 21 % Jacque J Forbes PA-C Work Phone: [employer]; [employer]. Comment on above: Room air 08-06-2023 08:58-0400 Respiratory rate 97 /min Srinivasa Nava MD Work Phone: [employer]; [employer]. Comment on above: Pattern: Unlabored 08-06-2023 08:58-0400 SaO2% (BldA) [Mass fraction] 97 % Jacque Forbes PA-C Work Phone: [facility] 08-06-2023 08:58-0400 Systolic blood pressure 131 mm[Hg] Jacque Forbes PA-C Work Phone: [facility] [employer] [facility] Comment on above: Patient Position: Sitting; Cuff Location : Left Arm; Cuff Size: Standard 07-14-2023 10:14-0400 Body height 172.72 cm [facility] 07-14-2023 10:14-0400 Body mass index (BMI) [Ratio] 32.99 kg/m2 [facility] 07-14-2023 10:14-0400 Body surface area Derived from formula 2.12 m2 [facility].; [employer] [facility] 07-14-2023 10:14-0400 Body weight 98.43 kg [facility].; [facility], [email or web address] 07-14-2023 10:14-0400 Diastolic blood pressure 72 mm[Hg] [facility].; [employer] [facility] Comment on above: Patient Position: Sitting; Cuff Location : Left Arm; Cuff Size: Large 07-14-2023 10:14-0400 Heart rate 120 /min [facility].; [employer] [facility] Comment on above: Pattern: Regular 07-14-2023 10:14-0400 Systolic blood pressure 108 mm[Hg] [facility].; [employer] [facility] Comment on above: Patient Position: Sitting; Cuff Location : Left Arm; Cuff Size: Large 07-07-2023 10:48-0400 Body height [address] Srinivasa Nava Work Phone: 3(023)311-075917 [place] [address] 07-07-2023 10:48-0400 Body weight 100.[address] Srinivasa Nava Work Phone: 0(710)262-438647 [address] 07-04-2023 08:14-0400 Body mass index (BMI) [Ratio] 33.3 kg/m2 Dr. Srinivasa Nava Work Phone: 7(212)858-604147 [address] 07-04-2023 08:14-0400 Body weight 99.[address] Srinivasa Nava Work Phone: 8(173)719-276947 [address] 07-04-2023 08:14-0400 Diastolic blood pressure 71 mm[Hg] Dr. Srinivasa Nava Work Phone: 2(997)709-984720 [place] [address] 07-04-2023 08:14-0400 Heart rate 75 /min Dr. Srinivasa Nava Work Phone: 0(414)079-590820 [place] [address] 07-04-2023 08:14-0400 Respiratory rate 18 /min Dr. Srinivasa Nava Work Phone: 1(316)694-097520 [place] [address] 07-04-2023 08:14-0400 SaO2% (BldA) [Mass fraction] 96 % Dr. Srinivasa Naav Work Phone: 9(159)712-540320 [place] [address] 07-04-2023 08:14-0400 Systolic blood pressure 136 mm[Hg] Dr. Srinivasa Nava Work Phone: 4(540)911-417220 [place] [address] 07-04-2023 08:13-0400 Body mass index (BMI) [Ratio] 33.6 kg/m2 Dr. Srinivasa Nava Work Phone: 3(802)670-713117 [place] [address] 05-09-2023 09:09-0500 Body height 172.[address] Srinivasa Nava Work Phone: 9(839)702-016647 [address] 05-09-2023 09:04-0500 Body mass index (BMI) [Ratio] 33.7 kg/m2 Dr. Srinivasa Nava Work Phone: 5(359)348-236347 [address] 05-09-2023 09:04-0500 Body weight 100.[address] Srinivasa Nava Work Phone: 6(855)108-896717 [place] [address] 05-09-2023 09:04-0500 Diastolic blood pressure 80 mm[Hg] Dr. Srinivasa Nava Work Phone: 6(869)340-108447 [address] 05-09-2023 09:04-0500 Heart rate 69 /min Dr. Srinivasa Nava Work Phone: 3(451)389-139620 [place] [address] 05-09-2023 09:04-0500 Respiratory rate 22 /min Dr. Srinivasa Nava Work Phone: 2(893)292-054420 [place] [address] 05-09-2023 09:04-0500 SaO2% (BldA) [Mass fraction] 93 % Dr. Srinivasa Nava Work Phone: 4(528)219-681420 [place] [address] 05-09-2023 09:04-0500 Systolic blood pressure 163 mm[Hg] Dr. Srinivasa Nava Work Phone: 4(690)371-527020 [place] [address] 01-02-2023 08:41-0400 Body height 172.[address] Srinivasa Nava Work Phone: 8(914)133-583120 [place] [address] 01-02-2023 08:41-0400 Diastolic blood pressure 74 mm[Hg] Dr. Srinivasa Nava Work Phone: 6(055)497-203020 [place] [address] 01-02-2023 08:41-0400 Systolic blood pressure 140 mm[Hg] Dr. Srinivasa Nava Work Phone: 7(328)526-683120 [place] [address] 01-02-2023 08:39-0400 Body mass index (BMI) [Ratio] 34.7 kg/m2 Dr. Srinivasa Nava Work Phone: 8(806)140-035620 [place] [address] 01-02-2023 08:39-0400 Body weight 103.[address] Srinivasa Nava Work Phone: 4(201)231-622520 [place] [address] 01-02-2023 08:39-0400 Heart rate 82 /min Dr. Srinivasa Nava Work Phone: 8(339)338-903120 [place] [address] 01-02-2023 08:39-0400 Respiratory rate 18 /min Dr. Srinivasa Nava Work Phone: 7(280)213-507020 [place] [address] 01-02-2023 08:39-0400 SaO2% (BldA) [Mass fraction] 93 % Dr. Srinivasa Nava Work Phone: 7(608)641-489920 [place] [address] 08-15-2022 07:36-0400 Body weight 104.33 kg Sadiqjenna Enriquez DANIELLE [facility], [facility] [employer] [facility] 08-15-2022 07:36-0400 Diastolic blood pressure 88 mm[Hg] Sadiq Enriquez DANIELLE [facility] [employer] Comment on above: Patient Position: Sitting; Cuff Location : Left Arm; Cuff Size: Standard 08-15-2022 07:36-0400 Heart rate 74 /min Sadiqjenna Enriquez DANIELLE [facility] [employer] 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 Comment on above: Patient Position: Sitting; Cuff Location : Left Arm; Cuff Size: Standard 05-03-2020 13:46-0500 Body height 172.72 cm Saloni Matthew [place] DANIELLE [facility] [employer] 05-03-2020 13:46-0500 Body mass index (BMI) [Ratio] 34.36 kg/m2 Saloni Swanson [facility] [employer] 05-03-2020 13:46-0500 Body surface area Derived from formula 2.15 m2 Sera Stuckey [employer]ICRAFT [employer] MANAGER [facility] [employer] 05-03-2020 13:46-0500 Body weight 102.51 kg Sera [place] HANDICRAFT OR HOBBY [employer]OP MANAGER [facility] [employer] 05-03-2020 13:46-0500 Diastolic blood pressure 72 mm[Hg] Saloni Swanson HANDICRAFT [employer]OBBY [employer] MANAGER [facility] [employer] Comment on above: Patient Position: Sitting; Cuff Location : Left Arm; Cuff Size: Large 05-03-2020 13:46-0500 Heart rate 87 /min Saloni Newmanuckey DANIELLE [facility] [employer] Comment on above: Pattern: Regular 05-03-2020 13:46-0500 Systolic blood pressure 133 mm[Hg] Saloni Swanson DANIELLE [employer]. Comment on above: Patient Position: Sitting; Cuff Location : Left Arm; Cuff Size: Large 10-13-2019 13:08-0400 Body height 172.72 cm Corina Ryan RN [employer] [facility] [employer]. 10-13-2019 13:08-0400 Body mass index (BMI) [Ratio] 36.13 kg/m2 Corina Ryan RN [employer] [facility] [employer]. 10-13-2019 13:08-0400 Body surface area Derived from formula 2.2 m2 Corina Ryan RN [employer]. 10-13-2019 13:08-0400 Body temperature 97.8 [degF] Corina Ryan RN [employer]. Comment on above: Method: Tympanic 10-13-2019 13:08-0400 Body weight 107.78 kg Corina Ryan RN [employer]. 10-13-2019 13:08-0400 Diastolic blood pressure 87 mm[Hg] Corina Ryan RN [employer]. Comment on above: Patient Position: Sitting; Cuff Location : Left Arm; Cuff Size: Standard 10-13-2019 13:08-0400 Heart rate 81 /min Corina Ryan RN [employer]. Comment on above: Pattern: Regular 10-13-2019 13:08-0400 Systolic blood pressure 145 mm[Hg] Corina Ryan RN [employer]. Comment on above: Patient Position: Sitting; Cuff Location : Left Arm; Cuff Size: Standard 03-04-2019 14:59-0500 Body height 172.72 cm Shiela Canela LPN [employer] [facility] [employer]. 03-04-2019 14:59-0500 Body mass index (BMI) [Ratio] 35.28 kg/m2 Shiela Canela LPN [employer] 03-04-2019 14:59-0500 Body surface area Derived from formula 2.18 m2 [facility]a [facility] [employer] 03-04-2019 14:59-0500 Body temperature 98.2 [degF] Shiela Canela [facility] [employer], [email or web address]. Comment on above: Method: Tympanic 03-04-2019 14:59-0500 Body weight 105.24 kg Shiela Canela [facility] [employer], [email or web address]. 03-04-2019 14:59-0500 Diastolic blood pressure 75 mm[Hg] Shiela Canela [facility] [employer], [email or web address]. Comment on above: Patient Position: Sitting; Cuff Location : Left Arm; Cuff Size: Standard 03-04-2019 14:59-0500 Heart rate 82 /min Shiela Canela [facility] [employer], [email or web address]. Comment on above: Pattern: Regular 03-04-2019 14:59-0500 Systolic blood pressure 142 mm[Hg] Shiela Canela [facility] [employer], [email or web address]. Comment on above: Patient Position: Sitting; Cuff Location : Left Arm; Cuff Size: Standard 06-16-2017 14:52-0400 Body height 172.72 cm Saloni Swanson [facility] [employer], [email or web address] 06-16-2017 14:52-0400 Body mass index (BMI) [Ratio] 36.95 kg/m2 Saloni Swanson [facility] [employer], [email or web address]. 06-16-2017 14:52-0400 Body surface area Derived from formula 2.22 m2 Saloni Swanson [facility] [employer], [email or web address] 06-16-2017 14:52-0400 Body temperature 99.5 [degF] Saloni Swanson [facility] [employer]. Comment on above: Method: Tympanic 06-16-2017 14:52-0400 Body weight 110.22 kg Saloni Swanson [facility], [email or web address]. 06-16-2017 14:52-0400 Diastolic blood pressure 76 mm[Hg] Saloni Swanson [facility], [email or web address]. Comment on above: Patient Position: Sitting; Cuff Location : Left Arm; Cuff Size: Large 06-16-2017 14:52-0400 Heart rate 103 /min SeraTiff Swasnon [facility], [facility].; [employer] [facility], [email or web address]. Comment on above: Pattern: Regular 06-16-2017 14:52-0400 Inhaled oxygen concentration 20 % SeraTiff Swanson [facility], [facility], [email or web address]. Comment on above: Room air 06-16-2017 14:52-0400 Inhaled oxygen concentration 21 % [facility] [employer] [facility], [email or web address]. Comment on above: Room air 06-16-2017 14:52-0400 SaO2% (BldA) [Mass fraction] 93 % [facility] [employer] [facility], [email or web address]. 06-16-2017 14:52-0400 Systolic blood pressure 156 mm[Hg] Saloni Swanson [facility] [employer] [facility], [email or web address]. Comment on above: Patient Position: Sitting; Cuff Location : Left Arm; Cuff Size: Large 01-17-2017 13:51-0500 BMI (Body Mass Index) 36.94 kg/m2 Carlos [facility] [employer] Work Phone: 01-17-2017 13:51-0500 BP Diastolic 66 mm[Hg] [facility] Work Phone: 01-17-2017 13:51-0500 BP Systolic 116 mm[Hg] [facility] Work Phone: 01-17-2017 13:51-0500 Height 172.72 cm Carlos [facility] Work Phone: 01-17-2017 13:51-0500 Pulse (Heart Rate) 60 /min [facility] Work Phone: 01-17-2017 13:51-0500 Respiratory Rate 16 /min [facility] Work Phone: 01-17-2017 13:51-0500 Weight 110.22 kg Carlos Del [facility] Work Phone: 09-20-2016 07:33-0400 Body weight 112.04 kg Diamond Rodriguez LPN [employer], [email or web address]. 09-20-2016 07:33-0400 Diastolic blood pressure 64 mm[Hg] Diamond Rodriguez LPN [employer].; [employer]. Comment on above: Patient Position: Sitting; Cuff Location : Left Arm; Cuff Size: Standard 09-20-2016 07:33-0400 Systolic blood pressure 114 mm[Hg] Diamond Rodriguez LPN [employer].; [employer]. Comment on above: Patient Position: Sitting; Cuff Location : Left Arm; Cuff Size: Standard 12-22-2015 13:10-0400 BSA (Body Surface Area) 2.23 m2 Carlos Carbajal [employer] Work Phone: 09-15-2015 08:08-0400 Diastolic blood pressure 76 mm[Hg] Srinivasa Nava MD Work Phone: [employer] Comment on above: Patient Position: Sitting; Cuff Location : Left Arm; Cuff Size: Standard 09-15-2015 08:08-0400 Heart rate 72 /min Srinivasa Nava MD Work Phone: [employer] Comment on above: Pattern: Regular 09-15-2015 08:08-0400 Systolic blood pressure 132 mm[Hg] Srinivasa Nava MD Work Phone: [employer] Comment on above: Patient Position: Sitting; Cuff Location : Left Arm; Cuff Size: Standard Encounters Encounter Date Encounter Type Care Provider Facility Start: 08-19-2024 End: 08-19-2024 Historical Summary Srinivasa Nava MD Work Phone: [facility] Start: 08-19-2024 End: 08-19-[address] Srinivasa Nava MD Work Phone: [facility] Work Phone: Start: 08-19-2024 End: 08-19-2024 Patient encounter procedure Kian GABRIEL -[facility] Work Phone: Start: 07-30-2024 End: 07-30-[address] Srinivasa Nava MD Work Phone: [facility] Work Phone: Start: 07-30-2024 End: 07-30-2024 Patient encounter procedure Jemima MONTOYA -Laboratory Work Phone: Start: 07-30-2024 End: 07-30-2024 ambulatory Jemima MONTOYA Facility:[facility] Start: 07-13-2024 ambulatory Jemima MONTOYA [facility] Start: 07-13-2024 Non-patient / Non-visit Dr. Traylor Of candi CAMPOS -[facility] Work Phone: Start: 07-13-2024 Non-patient / Non-visit Dr. Traylor Of candi [facility]OS -[facility] Start: 07-13-2024 End: 07-13-[address] Srinivasa Nava MD Work Phone: [facility] Work Phone: Start: 07-13-2024 End: 07-13-2024 Patient encounter procedure Jemima MONTOYA -Pulmonary Services/Neurology Work Phone: Start: 07-13-2024 End: 07-13-2024 ambulatory Jemima MONTOYA Facility:[facility] Start: 05-27-2024 End: 05-27-2024 Patient encounter procedure Jemima MONTOYA -[facility] Work Phone: Start: 05-27-2024 End: 05-27-[address] Srinivasa Nava MD Work Phone: [facility] Work Phone: Start: 05-27-2024 End: 05-27-2024 ambulatory Srinivasa Nava Facility:[facility] Start: 04-22-2024 ambulatory Kian Oro Facility :[facility] [place] Start: 11-24-2023 End: 11-24-2023 Office outpatient visit 15 minutes Srinivasa Nava MD Work Phone: [employer]. Start: 11-24-2023 Review Srinivasa Nava MD Work Phone: [employer]. Start: 10-10-2023 End: 10-10-2023 ambulatory Srinivasa Nava Facility:[facility] [place] [facility] Start: 08-13-2023 End: 08-13-2023 Orders Srinivasa Nava MD Work Phone: [employer]. Start: 08-06-2023 End: 08-06-2023 Office outpatient visit 15 minutes Srinivasa Nava MD Work Phone: [employer]. Start: 08-06-2023 Review Srinivasa Nava MD Work Phone: [employer]. Start: 07-14-2023 End: 07-14-2023 Office outpatient visit 15 minutes Srinivasa Nava MD Work Phone: [employer]. Start: 07-07-2023 Non-patient / Non-visit Dr. Rohan Nava Work Phone: [facility] Start: 07-07-2023 End: 07-07-2023 Admission to same day surgery center Dr. Srinivasa Nava Work Phone: [facility]-Architecture Internship/Special Procedures Work Phone: Start: 07-07-2023 End: 07-07-[address] Srinivasa Nava Work Phone: [facility] Work Phone: Start: 07-04-2023 End: 07-04-[address] Srinivasa Nava Work Phone: [facility] Work Phone: Start: 07-02-2023 Non-patient / Non-visit Dr. Rohan Nava Work Phone: [facility] Start: 06-05-2023 Non-patient / Non-visit Dr. Rohan Nava Work Phone: [facility] Start: 06-05-2023 End: 06-05-[address] Srinivasa Nava Work Phone: [facility] Work Phone: Start: 06-05-2023 End: 06-05-[address] [facility] Start: 05-16-2023 End: 05-16-[address] Srinivasa Nava Work Phone: [facility] Work Phone: Start: 05-16-2023 End: 05-16-[address] Srinivasa Nava Work Phone: [facility]-Pulmonary Services/Neurology Work Phone: Start: 05-09-2023 End: 05-09-[address] Srinivasa Nava Work Phone: [facility] Work Phone: Start: 05-09-2023 End: 05-09-[address] Srinivasa Nava Work Phone: [facility]-Laboratory Work Phone: Start: 05-09-2023 End: 05-09-[address] Srinivasa Nava Work Phone: [facility] Work Phone: Start: 01-10-2023 Non-patient / Non-visit Dr. Rohan Nava Work Phone: [facility] Work Phone: Start: 01-09-2023 Non-patient / Non-visit Dr. Rohan Nava Work Phone: [facility] Start: 01-09-2023 End: 01-09-[address] Srinivasa Nava Work Phone: [facility] Work Phone: Start: 01-09-2023 End: 01-09-[address] [facility]ivasa [facility]ava [facility] Work [facility]: Start: 01-02-2023 End: 01-02-[address] Srinivasa Nava Work Phone: [facility] Work Phone: Start: 01-02-2023 End: 01-02-[address] Srinivasa Nava Work Phone: [facility] Work Phone: Start: 08-15-2022 End: 08-15-2022 Office outpatient visit 15 minutes Srinivasa Nava MD Work Phone: [employer] Start: 05-03-2020 End: 05-03-2020 Office outpatient visit 15 minutes Srinivasa Nava MD Work Phone: [employer]. Start: 04-24-2020 End: 04-24-2020 Telephone follow-up Srinivasa Nava MD Work Phone: [employer]. Start: 10-13-2019 End: 10-13-2019 Office outpatient visit 15 minutes Srinivasa Nava MD Work Phone: [employer]. Start: 03-05-2019 End: 03-05-2019 Telephone follow-up Srinivasa Nava MD Work Phone: [employer]. Start: 03-04-2019 End: 03-04-2019 Procedure Srinivasa Nava MD Work Phone: [employer]. Start: 04-27-2018 End: 04-27-2018 Patient encounter procedure CHRISTIANO SALOMON [facility] Start: 02-10-2018 End: 02-10-2018 Medication Srinivasa Nava MD Work Phone: [employer]. Start: 01-01-2018 End: 01-01-2018 Telephone follow-up Srinivasa Nava MD Work Phone: [employer]. Start: 09-15-2017 End: 09-15-2017 Office outpatient visit 15 minutes Srinivasa Nava MD Work Phone: [employer]. Start: 06-16-2017 End: 06-16-2017 Office outpatient visit 15 minutes Srinivasa Nava MD Work Phone: [employer] Start: 01-29-2017 End: 01-29-2017 Medication Srinivasa Nava MD Work Phone: [employer]. Start: 09-20-2016 End: 09-20-2016 Patient encounter procedure Srinivasa Nava MD Work Phone: [employer] Start: 09-17-2016 End: 09-17-2016 Historical Summary Srinivasa Nava MD Work Phone: [employer]. Start: 02-26-2016 End: 02-26-2016 Orders Srinivasa Nava MD Work Phone: [employer]. Start: 02-23-2016 End: 02-23-2016 Orders Srinivasa Nava MD Work Phone: [employer]. Start: 02-21-2016 End: 02-21-2016 Office outpatient visit 15 minutes Srinivasa Nava MD Work Phone: [employer]. Start: 09-15-2015 End: 09-15-2015 Office outpatient visit 15 minutes Srinivasa Nava MD Work Phone: [employer]. Start: 09-04-2015 End: 09-04-2015 Medication Srinivasa Nava MD Work Phone: [employer] Procedures Date Procedure Procedure Detail Performing Clinician Start: 08-19-2024 End: 08-19-2024 Most Recent Cardio Report Srinivasa Nava MD Work Phone: Start: 05-27-2024 Evaluation of diagno stic study results Dr. Srinivasa Nava MD Work Phone: Start: 07-04-2023 Plain chest X-ray Dr. Gerardo Nava Work Phone: Start: 01-09-2023 Cardiovascular stres s test using pharmacologic stress agent Dr. Srinivasa Nava Work Phone: Start: 05-03-2020 End: 05-03-2020 Arthrocentesis aspir&/inj interm jt/burs w/o us Srinivasa Nava MD Work Phone: Start: 03-04-2019 End: 03-15-2019 Arthroscopy knee infection lavage & drainage Kian Davalos MD Work Phone: Start: 12-08-2017 History of coronary artery bypass grafting Hx of CABG Jemima MONTOYA Comment on above: -LAD ; Red o CABG x5 GATO to LAD, SVG to PDA, OM1, OM2, D 01/06/18 Start: 06-16-2017 End: 06-16-2017 Body mass index [...] Start: 08-29-2016 End: 08-29-2016 Lipid panel Saloni Buck Comment on above: per cardiology Start: 06-24-2016 End: 08-30-2016 *Hepatic Function Panel GALO [facility] Work Phone: Start: 06-24-2016 End: 06-24-2016 Ecg routine ecg w/least 12 lds w/i&r Jemima Maldonado PA-C Work Phone: Start: 06-24-2016 End: 06-24-2016 Follow Up Appt 6 months Jemima karimi PA-C Work Phone: Start: 06-24-2016 End: 08-30-2016 Lipid 1996 panel - Serum or Plasma Jemima Maldonado PA-C Work Phone: Start: 06-24-2016 End: 06-24-2016 PFM Jemima Maldonado PA-C Work Phone: Start: 05-21-2016 End: 05-21-2016 Prostate specific antigen measurement Saloni Escobarjoann SANTOS Comment on above: 0.31. done per Dr[address] Izzy phillip Start: 12-22-2015 End: 12-28-2015 *Hepatic Function Panel [...] MD Start: 07-05-2015 End: 07-06-2015 Referral to solid waste management engineer Chandu medrano MD Start: 06-21-2015 End: 06-21-2015 Follow Up Appt Other Jemima rodgers PA-C Work Phone: Start: 06-21-2015 End: 06-21-2015 PFM Jemima Maldonado PA-C Work Phone: Start: 06-15-2015 End: 06-21-2015 Ecg routine ecg w/least 12 lds w/i&r Chandu Barrow MD Start: 06-15-2015 End: 06-14-2016 Left Heart Cath Chandu Barrow MD Start: 05-16-2015 End: 06-08-2015 *BMP Chandu Barrow MD Start: 05-16-2015 End: 06-08-2015 *Hepatic Function Panel Chandu Barrow MD Start: 05-16-2015 End: 06-08-2015 CBC W Auto Differential panel - Blood Chandu Barrow MD Start: 05-16-2015 End: 05-17-2015 Chest x-ray Chandu Barrow MD Start: 05-16-2015 End: 06-09-2015 Ecg routine ecg w/least 12 lds w/i&r Chandu Barrow MD Start: 05-16-2015 End: 06-15-2015 Echocardiography Chandu Barrow MD Start: 05-16-2015 End: 05-16-2015 Follow Up Appt 6 months Chandu Barrow MD Start: 05-16-2015 End: 06-08-2015 Lipid 1996 panel - Serum or Plasma Chandu Barrow MD Start: 05-16-2015 End: 06-15-2015 Nuclear stress test -exercise Chandu Barrow MD Start: 05-16-2015 End: 05-16-2015 PFM Chandu [...] End: 11-14-2011 Nuclear stress test -adenosine Chandu Barorw MD Start: 03-10-2003 End: 03-10-2003 stent Shiela Canela LPN Start: 03-10-1994 End: 03-10-1994 open heart surgery Shiela Zaugg [employer]CRAFT OR [employer] MANA[employer] Plan of Treatment Date Care Activity Detail Author Start: 10-23-2023 Patient encounter procedure Medical; PHYSICAL - [facility] [employer]. Start: 23-Oct-2023 13:10-04:00 MD Srinivasa Nava Appointment Request [facility] Start: 09-26-2023 Assay of prostate specific antigen total PSA TOTAL (PROSTATE SPECIFIC ANTIGEN) (65250) Start: 26-Sep-2023 Request [employer]; [employer]. Start: 09-26-2023 Comprehensive metabolic panel CMP w/ GFR* ([id number]) Start: 26-Sep-2023 Request [employer] [employer] Start: 09-26-2023 Lipid panel LIPID PANEL ([id number]) Start: 26-Sep-2023 Request [employer]; [employer]. Start: 09-26-2023 Nursing evaluation of patient and report Medical; Nurse visit - AWV fasting labs SFB [employer]. Start: 26-Sep-2023 09:20-04:00 NURSERONY Appointment Request [facility] Start: 07-07-2023 Patient discharge [facility] Start: 07-24-2017 End: 07-24-2017 Appointment Appointment [facility] Phone: Start: 01-17-2017 End: 01-17-2017 Appointment Appointment [facility] Phone: Start: 01-17-2017 End: 01-17-2017 *Hepatic Function Panel *Hepatic Function Panel [facility] Work Phone: Start: 01-17-2017 End: 01-17-2017 Follow Up Appt 6 months Follow Up Appt 6 months [facility] Work Phone: Start: 01-17-2017 End: 01-17-2017 Lipid panel [AGGREGATE] *Lipid Profile CC PCP [facility] Work Phone: Start: 01-17-2017 End: 01-17-2017 MMM MMM [facility] Phone: Start: 06-24-2016 End: 08-30-2016 *Hepatic Function Panel *Hepatic Function Panel [facility] Work Phone: Start: 06-24-2016 End: 06-24-2016 Ecg routine ecg w/least 12 lds w/i&r EKG (In office) [facility] Work Phone: Start: 06-24-2016 End: 06-24-2016 Follow Up Appt 6 months Follow Up Appt 6 months [facility] Work Phone: Start: 06-24-2016 End: 08-30-2016 Lipid panel [AGGREGATE] *Lipid Profile CC PCP [facility] Work Phone: Start: 06-24-2016 End: 06-24-2016 PFM PFM [facility] Work Phone: Start: 12-22-2015 End: 12-28-2015 *Hepatic Function Panel *Hepatic Function Panel [facility] Work Phone: Start: 12-22-2015 End: 06-14-2016 Follow Up Appt 6 months Follow Up Appt 6 months [facility] Work Phone: Start: 12-22-2015 End: 12-28-2015 Lipid panel [AGGREGATE] *Lipid Profile CC PCP [facility] Work Phone: Start: 12-22-2015 End: 06-14-2016 MMM MMM [facility] Work Phone: Start: 12-08-2015 End: 12-28-2015 *Hepatic Function Panel *Hepatic Function Panel [facility] Work Phone: Start: 12-08-2015 End: 12-28-2015 Lipid panel [AGGREGATE] *Lipid Profile CC PCP [facility] Work Phone: Start: 07-05-2015 End: 07-05-2015 Cardiac Referral Cardiac Referral Dwight Hopper, [address] [place] [address], [id number] [facility] Work Phone: Start: 06-21-2015 End: 06-21-2015 Follow Up Appt Other Follow Up Appt Other [facility] Work Phone: Start: 06-21-2015 End: 06-21-2015 PFM PFM [email or web address] Work Phone: Start: 06-15-2015 End: 06-21-2015 Ecg routine ecg w/least 12 lds w/i&r EKG (In office) [facility] Work Phone: Start: 06-15-2015 End: 06-21-2015 Left Heart Cath Left Heart Cath [facility] Work Phone: Start: 05-16-2015 End: 06-08-2015 *BMP *BMP [email or web address] Work Phone: Start: 05-16-2015 End: 06-08-2015 *Hepatic Function Panel *Hepatic Function Panel [email or web address] Work Phone: Start: 05-16-2015 End: 06-08-2015 CBC W Auto Differential panel - Blood *CBC without Diff [facility] Work Phone: Start: 05-16-2015 End: 05-17-2015 Chest x-ray X-Ray, Chest, PA & Lateral [email or web address] Work Phone: Start: 05-16-2015 End: 06-09-2015 Ecg routine ecg w/least 12 lds w/i&r EKG (In office) [email or web address] Work Phone: Start: 05-16-2015 End: 05-16-2015 Echocardiography Echocardiogram (complete) [email or web address] Work Phone: Start: 05-16-2015 End: 05-16-2015 Follow Up Appt 6 months Follow Up Appt 6 months [email or web address] Work Phone: Start: 05-16-2015 End: 06-08-2015 Lipid panel [AGGREGATE] *Lipid Profile CC PCP [email or web address] Work Phone: Start: 05-16-2015 End: 05-16-2015 Nuclear stress test -exercise Nuclear stress test -exercise [email or web address] Work Phone: Start: 05-16-2015 End: 05-16-2015 PFM PFM [facility] Work Phone: Start: 05-16-2015 End: 05-16-2015 Pulmonary Function Test - complete Pulmonary Function Test - complete [facility] Work Phone: Start: 05-16-2015 End: 06-08-2015 Thyroid stimulating hormone (TSH) *TSH [facility] Work Phone: Start: 05-16-2015 End: 06-08-2015 Thyroxine (T4) *T4 (Total) [facility] Work Phone: Start: 11-08-2013 End: 01-21-2014 *Hepatic Function Panel *Hepatic Function Panel [facility] Work Phone: Start: 11-08-2013 End: 01-21-2014 Lipid panel [AGGREGATE] *Lipid Profile CC PCP [facility] Work Phone: Start: 01-08-2013 End: 05-19-2013 *Hepatic Function Panel *Hepatic Function Panel [facility] Work Phone: Start: 01-08-2013 [...] Lipid panel [AGGREGATE] *Lipid Profile [facility] Work Phone: Start: 07-20-2012 End: 07-20-2012 MMM MMM [facility] Work Phone: Start: 12-27-2011 End: 07-20-2012 *Hepatic Function Panel *Hepatic Function Panel [facility] Work Phone: Start: 12-27-2011 End: 12-27-2011 Follow Up Appt 6 months Follow Up Appt 6 months [facility] Work Phone: Start: 12-27-2011 End: 07-20-2012 Lipid panel [AGGREGATE] *Lipid Profile [facility] Work Phone: Start: 11-15-2011 End: 11-06-2011 Left Heart Cath W/Grafts Left Heart Cath W/Grafts [facility] Work Phone: Start: 11-07-2011 End: 11-14-2011 *BMP *BMP [facility] Work Phone: Start: 11-07-2011 End: 11-14-2011 aPTT *PTT-Partial Thromboplastin Time [facility] Work Phone: Start: 11-07-2011 End: 11-14-2011 CBC W Auto Differential panel - Blood *CBC without Diff [facility] Work Phone: Start: 11-07-2011 End: 12-27-2011 Chest x-ray X-Ray, Chest, PA & Lateral [facility] Work Phone: Start: 11-06-2011 End: 11-14-2011 INR Coag RelTime (PPP) *PT/INR [facility] Work Phone: Start: 10-30-2011 End: 10-30-2011 Ecg routine ecg w/least 12 lds w/i&r EKG (In office) [facility] Work Phone: Start: 10-30-2011 End: 10-30-2011 Echocardiography Echocardiogram (complete) [facility] Work Phone: Start: 10-30-2011 End: 10-30-2011 Follow Up Appt 6 months Follow Up Appt 6 months [facility] Work Phone: Start: 10-30-2011 End: 10-30-2011 Nuclear stress test -adenosine Nuclear stress test -adenosine [facility] Work Phone: 24 Hour ECG [facility] Ambulatory ECG [facility] Cardioversion [facility] Comprehensive metabo lic 2000 panel - Serum or Plasma [facility] Patient Education HYPERLIPIDEMIA , HYPERTENSION [facility] Work Phone: Patient referral [facility] Work Phone: Radionuclide imaging of perfusion of myocardium under exercise stress [facility] T4 free measurement [facility] Thyroid stimulating hormone measurement [facility] P[place] Date Payer Category Payer Self-pay [id number] 2015 Medicare [id number] 2007 Medicare [id number] 16d [id number] 1940 Unknown [id number] [id number] Unknown Unknown [id number] [id number] [id number] Unknown [id number] 2.16.8 [id number] Unknown [id number] 2.16.8 [id number] Unknown [id number] 2.16.8 [id number] Unknown [id number] 2.16.8 [id number] Unknown [id number] 2.16.8 [id number] Unknown [id number] 2.16.8 [id number] Unknown [id number] 2.16.8 [id number] Social History Date Type Detail Facility Start: 01-02-2023 End: 07-07-2023 Tobacco smoking status NHIS Unknown if ever smoked [facility] Start: 04-14-2020 None [facility] Start: 04-14-2020 Spouse/ Signif icant Other [facility] Start: 12-30-2017 Non-smoker [facility] Start: 1940 Sex Assigned At Male W [facility] Alcohol Use: Alcohol Use: ; None. [facility] Caffeine Use Caffeine Use [facility] Tobacco Use: Tobacco Use: ; N ever smoker. [facility], [facility], [facility]. 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, chronic May 27, 2024 8:13am Hx of CABG December, resolved May 27, 2024 8:13am Shortness of breath noneactive May 27, 2024 8:13am [facility] Work Phone: Evaluation note 05-27-2024 Note Date & Type Note Facility 05-27-2024 Evaluation note Diagnosis Onset Date Resolution PAF (paroxysmal atrial fibrillation) acute May 27, 2024 8:13am Essential hypertension chronic May 27, 2024 8:13am Ischemic cardiomyopathy chronic May 27, 2024 8:13am Mixed hyperlipidemia chronic Kian h 2024 8:13am 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, chronic May 27, 2024 8:13am Hx of CABG December, resolved May 27, 2024 8:13am Shortness of breath noneactive May 27, 2024 8:13am PAF (paroxysmal atrial fibrillation) acute August 19, 2024 8:36am Essential hypertension chronic August 19, 2024 8:36am Ischemic cardiomyopathy chronic August 19, 2024 8:36am Mixed hyperlipidemia chronic August 19, 2024 8:36am 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 chronic August 19, 2024 8:36am 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 Work Phone: Procedure note 07-07-2023 Note Date & Type Note Facility 07-07-2023 Procedure note [facility] Procedure note 07-07-2023 Note Date & Type Note Facility 07-07-2023 Procedure note [facility] History and physical note 07-03-2023 Note Date & Type Note Facility 07-03-2023 History and physi lexi note Note Date/Time July 02, 2023 9:09pm [facility] Medical Records Department [address] [place] [address] History & Physical Exam 07/02/23 2100 MR#: [id number] Acct: [id number] Name: GARCIA HAAS Rep #:[id number] : 1940 83 From: Layton Farley MD PCP: Dr. Srinivasa Nava MD Status:PRE SD C Location: [facility] History and Physical Date of Admission: 07/07/23 GARCIA HAAS, is a 83 year old white male with a history of coronary artery diseasestatus post bypass surgery on 01/06/2018 [facility] to LAD, SVG to diagonal, SVG to OM1/OM 2 (sequential graft) and SVG to PDA.? He has a previous history ofbypass surgery with to LAD and previous placed left PDA stent.? He also hasa history of left bundle branch block, ischemic cardiomyopathy, hyperlipidemia, and hypertension. He was seen in office on account of worsening shortness of breath. He feels thatthis is what he had prior to his bypass surgery. He notes that some day he feels like he can not take a deep breath. He does not have any chest pain/heaviness/tightness. He notes that he feels like he is more SOB with activity. He does not have any orthopnea. He does not have any SOB at rest. He does have a cough this is dry. He does not have any palpitations. He does not have any lightheadedness/dizziness. He feels he is more fatigued. He does not have any edema. Intake Vital Signs: See EMR Intake Visit Reasons: [facility] [employer] Worker Required: No Is patient in pain?: No Allergies rosuvastatin calcium [From Crestor] Allergy (Verified 05/09/23 09:07) Pain in joints Medications See EMR [facility] Medical History (Updated 05/09/23 @ 10:00 by Jemima MONTOYA, PA) Abnormal nuclear stress test Abnormal stress test Arteriosclerotic heart disease (ASHD) Atherosclerotic heart disease of inupiat coronary artery without angina pectoris Cardiomyopathy Chest pain Essential hypertension Gout History of prostate cancer HLD (hyperlipidemia) Ischemic cardiomyopathy Left bundle branch block Mixed hyperlipidemia New onset a-fib Old myocardial infarction 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 Presence of stent in coronary artery (~05/03/10) Right carotid bruit Shortness of breath Surgical History History of left heart catheterization Hx of CABG (~01/06/18) Presence of coronary artery bypass graft stent Family History Father CAD (coronary artery disease) Myocardial infarctionMother Cancer Social History Smoking Status: Never smoker alcohol intake: never substance use type: does not use caffeine: Yes Type: coffee Number of servings: 1 what type of physical activity do you participate in: none ROS Const Const: Positive for fatigue; Negative for weakness, fever(s) or headache(s) Eyes Eyes: Negative for blind spots, loss of peripheral vision or transient loss of vision ENT ENT: Negative for headache(s), dizziness, tinnitus, Nosebleed/epistaxis or balance problems Cardio Chest Pain: No Palpitations: No Edema: None Muscle aches with walking: None Resp Respiratory: Positive for SOB with activity; Negative for SOB at rest, SOB orthopnea\SOB lying down or Cough GI GI: Negative nausea, vomiting, heartburn or vomiting blood/hematemesis : Negative for hematuria Musc Musc: Negative for muscle aches/ myalgia, muscle weakness, joint pain or balanceproblems Neuro Neuro: Negative for dizziness, lightheadedness, near syncope, syncope, orthostatic symptoms, headache(s) or weakness Gur[facility] Hematologic/Lymphatic: Negative for easy bleeding Endo Endo: Positive for fatigue Cardiology Exam Const Appearance: cooperative and no acute distress Nutritional Appearance: obese Orientation: alert and oriented x3 Head Head: normal to inspection Ears: hearing grossly normal bilaterally Nose: external nose normal Face and Sinus: face symmetric Eyes General: appearance normal, both eyes and all related structures Eyelids: eyelids normal Conjunctivae: conjunctivae normal Pupils: PERRL and pupil size EOM: EOM intact bilaterally Neck Neck: normal visual inspection Carotids: Negative bruit Chest Chest inspection: normal inspection of the chest and normal respiratory effort Auscultation: Bilateral: Clear to Auscultation Cardio Palpation: normal PMI Rate: irregular rate Rhythm: irregularly irregular Heart sounds: S1 normal and S2 normal; Negative rub, gallop or murmur GI GI: normal to inspection, soft and obese Neuro General: patient alert, patient oriented x3 and CN's II-XI intact bilaterally Skin Skin: no rashes or lesions noted Extremities Pulses: Normal: Right Posterior Tibial Pulse, Left Posterior Tibial Pulse, RightRadial Pulse and Left Radial Pulse Lower Extremity Edema: None: Bilateral Psych Psychological: normal affect Supplemental Info Supplemental Information Echocardiogram from 06/05/2023: Interpretation Summary Normal left ventricle. Left ventricular systolic function is lower limits of normal. Mild concentric left ventricular hypertrophy. The left ventricular ejection fraction is 45 %. Contrast injection was performed. Stress Test 01/09/2023: Procedure: Pharmacologic stress nuclear imaging study Indications: CAD Consent: Per the patient Procedure: The patient underwent pharmacologic (Regadenoson) evaluation with a peak heart rate of 92 beats per minute (65%predicted maximal heart rate) and a peak blood pressure of 142/88 mmHg. The baseline ECG demonstrated normal sinus rhythm, nonspecific ST-T changes, occasional PVCs. EKG during lexiscan infusion revealed no significant ischemic changes. EKG post infusion revealed no significant ischemic changes [There were no cardiac dysrhythmias pretest, during pharmacologic infusion, or recovery]. [There was no complaint of chest discomfort during pharmacologic infusion or recovery]. The examination was discontinued secondary to completion of protocol. Impression: 1. Lexiscan stress test test is negative for Lexiscan infusion induced EKG changes of ischemia. 2. Lexiscan stress test test is negative for Lexiscan infusion induced chest pain. 3. Results of the nuclear portion of the test is as below Myocardial perfusion imaging study: Technique: The patient was injected with 14.9 millicuries of technetium 99m Cardiolite and subsequently rest SPECT Cardiolite nuclear imaging was obtained in the horizontal long, vertical long, and short axis views. The patient underwent pharmacologic [Regadenoson 0.4mg] evaluation. Please see above for details. Thepatient was injected with 42.2 millicuries of technetium 99m Cardiolite and subsequently stress SPECT Cardiolite nuclear imaging was obtained in the horizontal long, vertical long, and short axis views. A gated Cardiolite study at peak stress was obtained. Interpretation: Rest and stress SPECT Cardiolite nuclear imaging status post realignment, normalization, and attenuation correction demonstrate overall normal radioisotope uptake after attenuation correction. Prior to attenuation correction there is mild decrease in the radioisotope uptake in the inferior wall suggestive of diaphragmatic attenuation artifact. Gated images reveal septal hypokinesis. The reported LVEF is 51%. Impression: 1. There is no evidence of significant ischemia or infarction. 2. Estimated ejection fraction is 51%. Cardiac catheterization 12/30/2017: Indications: Worsening Angina, Suspected CAD Heart Failure: None Stress/Imaging Stress Test w/SPECT MPI: Yes Result: PositiveStress Test withSPECT MPI: Positive Angina Classification Anginal Classification w/in 2 Weeks: CCS III CAD Presentations: Stable angina. CONCLUSIONS Elevated Left Ventricular End Diastolic Pressure Normal LV size, wall motion,and systolic function LVEF: by LV gram 55 % [place] Multivessel CAD to LAD: Previously documented as small, atretic, and nonfunctional and not reevaluated during this procedure RECOMMENDATIONS Risk factor modification Medical therapy Surgery consult for coronary revascularization (Redo CABG) CORONARY ANGIOGRAPHY DOMINANCE: Co- Dominant LEFT HEART ASSESSMENT Left Ventricular Ejection Fraction: by LV Gram 55 % Normal LV wall motion Elevated Left Ventricular End Diastolic Pressure LVEDP: 26 mmHg LEFT MAIN: Moderate calcification, Distal: 50 % Stenosis LEFT ANTERIOR DECENDING ARTERY: PROX LAD: Moderate calcification, 95 % Stenosis, Long: Diffuse: Irregular: 85 % Stenosis MID LAD: S/P SP and DX1: 85 % Stenosis DIAGONAL 1: Ostial - 95 % Stenosis CIRCUMFLEX ARTERY: OSTIAL CIRC: 50-75 % Stenosis PROX CIRC: Moderate calcification, 50 % Stenosis MID CIRC: Diffuse: 25 % Stenosis OM 1: Proximal - 75 % Stenosis, Mid - 75 % Stenosis, Distal - 95 % Stenosis LT PDA: Left PDA: Proximal - Previously placed stent is patent RIGHT CORONARY ARTERY: PROX RCA: 85 % Stenosis DISTAL RCA: 85 % Stenosis GRAFTS: graft to the Mid LAD previously documented as small, atretic, and nonfunctional and not reevaluated during this procedure VALVE FINDINGS: Normal Aortic Valve function Normal Mitral Valve function AORTIC ROOT: Angiographically normal Carotid Duplex 12/2017: Interpretation Summary Mild (<50%) stenosis right extracranial internal carotid. Mild (<50%) stenosis left extracranial internal carotid. Flow within the vertebral arteries is antegrade bilaterally. Assessment and Plan Assessment and Plan (1) New onset a-fib: Status: Acute Plan: His Holter monitor showed atrial fibrillation with average rate of 71 bpm. His echocardiogram showed an EF of 45% with mildly enlarged left atrium. Will proceed with cardioversion and follow response, including EF. (2) Hx of CABG: Status: Resolved Comment: -LAD ; Redo CABG x5 GATO to LAD, SVG to PDA, OM1, OM2, D 01/06/18 Plan: Patient has a history of coronary artery disease with CABG in 1994, and redo CABG in 12/2017. He appears stable at this time, and denies any recent symptoms or events. Stress test in 2022 was negative for ischemia. He will continue with his current medical therapy, along with aggressive risk factor and lifestyle modifications. (3) Presence of stent in coronary artery: Status: Chronic Comment: Atherectomy with angioplasty proximal LAD ; PCTCA/stent to prox left posterior atrioventricular artery 05/03/10 (4) Ischemic cardiomyopathy: Status: Chronic Plan: Patient has a history of ischemic cardiomyopathy. His most recent echocardiogram from 01/07/2018 demonstrated normal left ventricular systolic function. With his new onset of Afib would like to obtain an echocardiogram to reassess LV function. For now he will continue with is current dose of metoprolol. Based on findings this may be adjusted. (5) Mixed hyperlipidemia: Status: Chronic Plan: He will continue atorvastatin 40 mg daily, along with aggressive risk factor andlifestyle modifications. (6) Essential hypertension: Status: Chronic Plan: Patient has a history of hypertension. Will continue to adjust medications to optimize blood pressure. 07/03/23 [id number] <Electronically signed by Layton Farley MD> Cosigner Signature (if applicable): 07/02/23 [id number] <Electronically signed by Kian GABRIEL> CC: NERY Oro; Dr. Layton Farley MD; Dr. Srinivasa Nava MD~ Signed [facility] Work Phone: Evaluation note 12-08-2017 Note Date & Type Note Facility 12-08-2017 Evaluation note Diagnosis Onset Date Essential hypertension chron ic Ischemic cardiomyopathy upsetter setter [place] Mixed hyperlipidemia chronic Hx of CABG December, resolved [facility] Work Phone: Evaluation note 04-10-2010 Note Date & Type Note Facility 04-10-2010 Evaluation note Diagnosis Onset Date New onset a-fib acute Essential hypertension chron ic Ischemic cardiomyopathy upsetter set[place] Mixed hyperlipidemia chronic Presence of stent in coronar y artery April, chronic Hx of CABG December, resolved [facility] Work Phone: Evaluation note 04-10-2010 Note Date & Type Note Facility 04-10-2010 Evaluation note Diagnosis Onset Date New onset a-fib acute Essential hypertension chron ic Ischemic cardiomyopathy upsetter [place] Mixed hyperlipidemia chronic Presence of stent in coronar y artery April, chronic Hx of CABG December, resolved New onset a-fib acute Essential hypertension chron ic Ischemic cardiomyopathy upsetter [place] Mixed hyperlipidemia chronic Presence of stent in coronar y artery April, chronic Hx of CABG December, resolved [facility] Work Phone: Reason for referral (narrative) Note Date & Type Note Facility Reason for referral (narrative) No reason for referral information available [facility] Work Phone: Summary Purpose Family History Relationship Condition Age at Onset Recorded Date/T humza father Coronary artery disease Unknown Myocardial infarction Unknown mother Malignant neoplasm Unknown Advance Directives Advance Directive Response Recorded Date/ Time Advance Directives Yes December 30, 2017 7:55am Living Will Yes April 14 7:15am Power of Telephoner No April 14, 2020 7:15am Advance Directive Response Recorded Date/ Time Advance Directives Yes December 30, 2017 6:55am Living Will Yes April 14 6:15am Power of Telephoner No April 14, 2020 6:15am Advance Directive Response Recorded Date/ Time Advance Directives on File No July 07, 2023 10:48am Name of Medical Power of Telephoner Tamara mendez July 07, 2023 10:48am Advance Directives Yes July 06, 10:48am Living Will Yes July 07, 2023 10:48am Power of Telephoner Yes July 06 24 10:48am Advance Directive Response Recorded Date/ Time Advance Directives Yes July 06 024 10:48am Chief Complaint and Reason for Visit Chief Complaint 6 M FU INT LABS Reason for Visit Essential hypertensi on Ischemic cardiomyopathy Mixed hyperlipidemia Hx of CABG Chief Complaint 6 M FU INT LABS I25.10 I25.10 Amb Documentation Reason for Visit Essential hypertensi on Ischemic cardiomyopathy Mixed hyperlipidemia Hx of CABG Chief Complaint INCREASED SOB E-ORDER Reason for Visit New onset a-fib Essential hypertension Ischemic cardiomyopathy Mixed hyperlipidemia Presence of stent in coronary artery Hx of CABG Chief Complaint INCREASED SOB E-ORDER Atherosclerotic heart disease of inupiat coronary a Reason for Visit New onset a-fib Essential hypertension Ischemic cardiomyopathy Mixed hyperlipidemia Presence of stent in coronary artery Hx of CABG Chief Complaint INCREASED SOB E-ORDER Atherosclerotic heart disease of inupiat coronary a Atherosclerotic heart disease of inupiat coronary a Reason for Visit New onset a-fib Essential hypertension Ischemic cardiomyopathy Mixed hyperlipidemia Presence of stent in coronary artery Hx of CABG Chief Complaint INCREASED SOB E-ORDER Atherosclerotic heart disease of inupiat coronary a Atherosclerotic heart disease of inupiat coronary a Atrial fibrillation 6 M FU AFIB Atrial fibrillation Atrial fibrillation Reason for Visit New onset a-fib Essential hypertension Ischemic cardiomyopathy Mixed hyperlipidemia Presence of stent in coronary artery Hx of CABG New onset a-fib Essential hypertension Ischemic cardiomyopathy Mixed hyperlipidemia Presence of stent in coronary artery Hx of CABG Chief Complaint Admit Date Shortness of breath May 27, 2024 8:1 3am E-ORDER May 27, 2024 9:0 5am Reason for Visit Admit Date PAF (paroxysmal atrial fibrillation) [facility] 2024 8:13am Essential hypertension May 27, 2024 8:13am Ischemic cardiomyopathy May 27, 2024 8:13am Mixed hyperlipidemia May 27, 2024 8: 13am Presence of stent in coronary artery [facility] 2024 8:13am Hx of CABG May 27, 2024 8:1 3am Shortness of breath May 27, 2024 8:1 3am Chief Complaint Admit Date Shortness of breath May 27, 2024 8:1 3am E-ORDER May 27, 2024 9:0 5am PAF, DYSPNEA July 13, 2024 9:26am Chief Complaint Admit Date Shortness of breath May 27, 2024 8:1 3am E-ORDER May 27, 2024 9:0 5am PAF, DYSPNEA July 13, 2024 9:26am PAF, DYSPNEA July 13, 2024 11:10a m INT LABS July 30, 2024 8:23a m Chief Complaint Admit Date Shortness of breath May 27, 2024 8:1 3am E-ORDER May 27, 2024 9:0 5am PAF, DYSPNEA July 13, 2024 9:26am PAF, DYSPNEA July 13, 2024 11:10a m INT LABS July 30, 2024 8:23a m 10 M FU August 19, 2024 8:36 am Reason for Visit Admit Date PAF (paroxysmal atrial fibrillation) [facility] 2024 8:13am Essential hypertension May 27, 2024 8:13am Ischemic cardiomyopathy May 27, 2024 8:13am Mixed hyperlipidemia May 27, 2024 8: 13am Presence of stent in coronary artery [facility] 2024 8:13am Hx of CABG May 27, 2024 8:1 3am Shortness of breath May 27, 2024 8:1 3am PAF (paroxysmal atrial fibrillation) Aug 8:36am Essential hypertension August 19, 2024 8 :36am Ischemic cardiomyopathy August 19, 2024 8:36am Mixed hyperlipidemia August 19, 2024 8:3 6am 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 [facility] 2024 8:36am Presence of stent in coronary artery Aug 8:36am Hx of CABG August 19, 2024 8:36 am Shortness of breath August 19, 2024 8:36 am Additional Source Comments (unrecognized sect ion and content) No Status Records FoundNo Status Records FoundNo Status Records Found INFORMATION SOURCE (unrecogn ized section and content) DATE CREATED AUTHOR 03/04/2019 [facility] DATE CREATED AUTHOR AUTHOR'S ORGANIZ ATION 04/01/2020 [facility] DATE CREATED AUTHOR AUTHOR'S ORGANIZ ATION 08/08/2024 [facility] Care Teams (unrecognized sec tion and content) Team Status: Active Member Role Status Dates Dr. Srinivasa Nava MD Family Provider Active Dr. Srinivasa Nava MD Primary Care Provider Active Team Status: Inactive Member Role Status Dates Dr. Srinivasa Nava MD Primary Care Provider, Referring Provider Active Sophia Sultana EVALUATION ASSISTANT, EVALUATION ASSISTANT-C Attending Provider Active Team Status: Inactive Member Role Status Dates Dr. Srinivasa Nava MD Primary Care Provider Active Sophia Sultana EVALUATION ASSISTANT, EVALUATION ASSISTANT-C Attending Provider, Referring P romackder Active Team Status: Active Member Role Status Dates Dr. Srinivasa Nava MD Primary Care Provider Active Sophia Sultana EVALUATION ASSISTANT, EVALUATION ASSISTANT-C Referring Provider, Other Provi reggie Active Dr. Susan Coles MD Attending Provider Activ e Team Status: Active Member Role Status Dates Dr. Srinivasa Nava MD Primary Care Provider Active Sophia Sultana EVALUATION ASSISTANT, EVALUATION ASSISTANT-C Attending Provider Active Team Status: Inactive Member Role Status Dates Dr. Srinivasa Nava MD Primary Care Provider, Referring Provider Active Jemima Maldonado PA, PA Attending Provider Active Team Status: Inactive Member Role Status Dates Dr. Srinivasa Nava MD Primary Care Provider Active Jemima Maldonado PA, PA Attending Provider, Referr ing Provider Active Team Status: Active Member Role Status Dates Dr. Srinivasa Nava MD Primary Care Provider Active Dr. Layton Farley MD Attending Provider Active Team Status: Active Member Role Status Dates Dr. Srinivasa Nava MD Primary Care Provider Active Dr. Layton Farley MD Attending Provider, Other Provide r Active Team Status: Active Member Role Status Dates Dr. Srinivasa Nava MD Primary Care Provider Active Dr. Layton Farley MD Attending Provider, Referring Provider, Other Provider Active Team Status: Active Member Role Status Dates Dr. Srinivasa Nava MD Primary Care Provider Active Dr. Layton Farley MD Referring Provider, Other Provide r Active Dr. Ankush Nava DO Attending Provider Active Team Status: Inactive Member Role Status Dates Dr. Srinivasa Nava MD Primary Care Provider Active Dr. Layton Farley MD Attending Provider, Referring Pro vider Active Team Status: Inactive Member Role Status Dates Dr. Srinivasa Nava MD Primary Care Provider Active Start: May 27, 2024 End: May 27, 2024 Dr. Srinivasa Nava MD Referring Provider Active S tart: May 27, 2024 End: May 27, 2024 Jemima Maldonado PA, PA Attending Provider Active Start: May 27, 2024 End: May 27, 2024 Team Status: Inactive Member Role Status Dates Dr. Srinivasa Nava MD Primary Care Provider Active Start: May 27, 2024 End: May 27, 2024 Jemima Maldonado PA, PA Attending Provider Active Start: May 27, 2024 End: May 27, 2024 Jemima Maldonado PA, PA Referring Provider Active Start: May 27, 2024 End: May 27, 2024 Team Status: Active Member Role Status Dates Dr. Srinivasa Nava MD Primary Care Provider Active Team Status: Inactive Member Role Status Dates Dr. Srinivasa Nava MD Primary Care Provider Active Start: July 13, 2024 End: July 13, 2024 Jemima MONTOYA PA Attending Provider Active Start: July 13, 2024 End: July 13, 2024 Jemima MONTOYA PA Referring Provider Active Start: July 13, 2024 End: July 13, 2024 Team Status: Active Member Role Status Dates Dr. Srinivasa Nava MD Primary Care Provider Active Start: July 13, 2024 Dr. Layton Farley MD Attending Provider Active S tart: July 13, 2024 Team Status: Active Member Role Status Dates Dr. Srinivasa Nava MD Primary Care Provider Active Start: July 13, 2024 Dr. Layton Farley MD Attending Provider Active S tart: July 13, 2024 Jemima MONTOYA PA Referring Provider Active Start: July 13, 2024 Team Status: Inactive Member Role Status Dates Dr. Srinivasa Nava MD Primary Care Provider Active Start: July 30, 2024 End: July 30, 2024 Jemima MONTOYA PA Attending Provider Active Start: July 30, 2024 End: July 30, 2024 Jemima MONTOYA PA Referring Provider Active Start: July 30, 2024 End: July 30, 2024 Team Status: Inactive Member Role Status Dates Dr. Srinivasa Nava MD Primary Care Provider Active Start: August 19, 2024 End: August 19, 2024 Dr. Srinivasa Nava MD Referring Provider Active S tart: August 19, 2024 End: August 19, 2024 Kian Oro EVALUATION ASSISTANT, EVALUATION ASSISTANT-C Attending Provider Active S tart: August 19, 2024 End: August 19, 2024 Goals (unrecognized section and content) Goals may be documented in a n alternate sectionGoals may be documented in an alternate sectionGoals may be documented in an alternate sectionGoals may be documented in an alternate sectionGoals may be documented in an alternate sectionGoals may be documented in an alternate sectionGoals may be documented in an alternate sectionGoals may be documented in an alternate sectionGoals may be documented in an alternate sectionGoals may be documented in an alternate section FOR RECORDS PERTAINING TO PATIENTS WHO ARE [...] BE BASED ON THE PRIMARY CLINICAL RECORDS. [facility]. provides no warranty or guarantee of the accuracy or completeness of information in this document.
[2024-08-20 14:45] LABS: ALB/GLOB Ratio 1.3 RATIO (0.9-2.4); AST(SGOT) 25 U/L (<=37); Alanine Aminotransfer ALT/SGPT 19 U/L (<=46); Albumin, Serum 4.2 g/dL (3.4-4.8); Alkaline Phosphatase 114 U/L (40-129); Anion Gap 13 (5-15); BUN 32 mg/dL (4-19); BUN/Creat Ratio 18.7 RATIO (10-20); Calcium,Total 9.7 mg/dL (7.6-11.0); Carbon Dioxide 23.6 mmol/L (21.0-32.0); Chloride 101 mmol/L (98-108); Creatinine, Serum 1.73 mg/dL (0.70-1.20); EST Glomerular Filtration Rate 39 (>60); Globulin 3.1 g/dL (2.2-4.2); Glucose 110 mg/dL (70-99); Potassium 4.8 mmol/L (3.3-5.1); Protein, Total 7.3 g/dL (5.9-8.4); Sodium Level 137 mmol/L (133-145); Total Bilirubin 0.57 mg/dL (0.00-1.30)
== END | disposition home or self-care (01) ==
LOC: LAB 09:13
PROVIDERS: PCP Family Medicine; Referring Provider Nurse Practitioner Family; Visit Provider Nurse Practitioner Family
DX: I48.0 Paroxysmal atrial fibrillation (principal); I25.5 Ischemic cardiomyopathy; E78.2 Mixed hyperlipidemia; I10 Essential (primary) hypertension; Z95.1 Presence of aortocoronary bypass graft; Z79.899 Other long term (current) drug therapy
CPT/HCPCS: 36415; 80053; 84439; 84443

== ENCOUNTER → 2024-08-26 | Outpatient (CLI) | payer MEDICARE, OTHER, SELFPAY | END | disposition home or self-care (01) | LOC: LAB 08:23 | PROVIDERS: PCP Family Medicine; Referring Provider Nurse Practitioner Family; Visit Provider Nurse Practitioner Family | DX: I48.0 Paroxysmal atrial fibrillation (principal); I25.5 Ischemic cardiomyopathy; E78.2 Mixed hyperlipidemia; I10 Essential (primary) hypertension; Z79.899 Other long term (current) drug therapy; Z95.1 Presence of aortocoronary bypass graft; Z95.5 Presence of coronary angioplasty implant and graft | CPT/HCPCS: 36415; 84439; 84443 ==

== ENCOUNTER → 2024-08-27 | Outpatient (CLI) | payer MEDICARE, OTHER, SELFPAY ==
--- OUTSIDE RECORDS SUMMARY | 2024-08-27 08:12 | XMS RPT_ITS | CCD ---
Author Organization [facility] CliniSymd Care Team Providers Care Automotive Painter Name Role Phone Carlos Dial Unavailable Unavailable AIME, CHRISTIANO E Primary Care Unavailable AIME, CHRISTIANO E Admitting Unavailable AIME, CHRISTIANO E Attending Unavailable SHARON IRIZARRY MD Consulting Unavailable PROVIDER, UNKNOWN Consulting Unavailable PROVIDER, UNKNOWN Consulting Unavailable PROVIDER, UNKNOWN Consulting Unavailable Dr. Srinivasa Nava Primary Care Provider Dr. Srinivasa Nava Referring Provider Rd OCEANOGRAPHER ASSISTANT, OCEANOGRAPHER ASSISTANT-C Sophia Attending Provider Rd OCEANOGRAPHER ASSISTANT, OCEANOGRAPHER ASSISTANT-C Sophia Referring Provider Rd BARRIENTOS, OCEANOGRAPHER ASSISTANT-C Sophia Other Provider Dr. Susan Coles Attending Provider Srinivasa Nava MD Unavailable [facility], . Unavailable [facility] Unavailable Shelli CAMPOS, Dr. Lynn Unavailable [phone] Dr. Semaj Brunner MD Unavailable Michael GARCIAN, Diamond E Unavailable Unavailable Mina FUNERAL ATTENDANT, Sadiq Unavailable Unavailable Connor MCDONOUGH, Corina Farmer Unavailable Unavailable [place]baugh FUNERAL ATTENDANT, Yenni K Unavailable Unavai geneva Swanson FUNERAL ATTENDANT, Saloni Matthew Unavailable Unavailab marily Davalos MD, Kian Gama Unavailable Chente GARCIAN, Oly Buck Unavailable Unavaila ble Zadeja FUNERAL ATTENDANT, Shiela Unavailable Unavailable Unavailable Unavailable Dr. Srinivasa Nava Primary Care Provider Dr. Srinivasa Nava Referring Provider [phone] Erica MONTOYA, JAN Tinsley Attending Provider Dr. Srinivasa Nava Primary Care Provider Dr. Srinivasa Nava Referring Provider JAN Allred Attending Provider Dr. Layton Farley Attending Provider Dr. Layton Farley Other Provider Rd BARRIENTOS, OCEANOGRAPHER ASSISTANT-C Sophia Attending Provider Dr. Layton Farley Referring Provider Dr. Ankush Nava Attending Provider Andrei STRAUSS, Jacque Gomez Unavailable Aminata Slade MA Unavailable Unavailable Brianne MCDONOUGH, Brittaney Gama Unavailable Unavaila shelley Nava MD, Dr. Bernabe Primary Care Provider Dr. Srinivasa Nava MD Referring Provider Jemima Allred Attending Provider [phone] Jemima Allred Referring Provider [phone] Martine CAMPOS, Dr. Traylor Attending Provider [phone] Shorty BARRIENTOS-Kian Tony Attending Provider Layton Farley Attending Unavailable Brown, Srinivasa Primary Care Unavailable Jemima Allred Referring Unavail able Layton Farley Attending Unavailable Brown, Srinivasa Primary Care Unavailable Brown, Srinivasa Referring Unavailable Brown, Srinivasa Primary Care Unavailable Shorty OCEANOGRAPHER ASSISTANTKian Attending Unavailable Brown, Srinivasa Referring Unavailable Brown, Srinivasa Primary Care Unavailable MaldonadoJemima Curiel Attending Unavail able Brown, Srinivasa Primary Care Unavailable Sophia Sultana NP Attending Unavailable Brown, Srinivasa Referring Unavailable Brown, Srinivasa Referring Unavailable Roof OCEANOGRAPHER ASSISTANT, Kian Solano Attending Unavailable Brown, Srinivasa Primary Care Unavailable Jemima Allred Attending Unavail able Brown, Srinivasa Primary Care Unavailable Jemima Allred Referring Unavail able Jemima Allred Attending Unavail able Brown, Srinivasa Primary Care Unavailable Jemima Allred Referring Unavail able Shorty OCEANOGRAPHER ASSISTANT, Kian Solano Referring Unavailable Shorty OCEANOGRAPHER ASSISTANT, Kian Soalno Attending Unavailable Brown, Srinivasa Primary Care Unavailable Brown, Srinivasa Primary Care Unavailable Jemima Allred Attending Unavail able Maldonado PA, Jemima M Referring Unavail able Kian Pate Referring Provider Allergies Allergy Classification Reported Allergen(s) Allergy Type Date of Onset Reaction(s) Facility (1 source) rosuvastatin Drug Allergy 10-21-2011 joint pain [facility] Work Phone: (1 source) rosuvastatin Drug Allergy 08-19-2024 [facility] Repository Medications Current Medications Medication Drug Class(es) Dates Sig (Normalized) Sig (Original) allopurinol 300 mg oral tablet (20 sources) Xanthine Oxidase Inhibitor Start: 07-14-2023 take 1 tablet by mouth once daily Allopurinol 300 mg tablet Active 300 mg PO daily October 10, 2023 12:00am Start: 12-05-2017 End: 12-26-2021 take 1 tablet by mouth once daily Allopurinol 300 mg tablet Discontinued 300 mg PO DAILY October 11, 2019 9:02am December 26, 2021 9:32am Start: 12-05-2017 End: 10-11-2019 Allopurinol 300 mg tablet Discontinued 1 {tbl} PO DAILY December 05, 2017 12:00am October 11, 2019 9:03am amiodarone hydrochloride 200 mg oral tablet (3 sources) Antiarrhythmic Start: 07-29-2024 take 1 tablet [...] 325 MG tablet Discontinued 325 mg PO DAILY@00 July 03, 2015 12:00am February 13, 2018 3:29pm Start: 10-21-2011 take 1 tablet by markos th once daily ASPIRIN 81 MG TABS One tablet by mouth daily ASPIRIN [id number] Saloni Cantor RN colchicine 0.6 mg oral [...] {Tablet} Refills: 5 Ordered: 13-Oct-2019 SHARONDA Ryan Start: 04-Mar-2019 End: 13-Oct-2019 Status: Inactive indomethacin [...] 2018 10:28am spironolactone 25 mg oral tablet (3 sources) Aldosterone Antagonist Start: 07-29-2024 take 1 tablet by mouth once daily Spironolactone 25 mg tablet Active 25 mg PO DAILY July 29, 2024 12:00am warfarin sodium 4 mg oral tablet (15 sources) Vitamin K Antagonist Start: 07-08-2023 End: 07-08-2023 take 1 tablet by mouth once daily Warfarin 4 mg tablet Active 4 mg PO DAILY July 08, 2023 3:51pm Please contact the information source for Protocol details. Completed/Discontinued Medications Medication Drug Class(es) Dates Sig (Normalized) Sig (Original) acetaminophen 325 mg / HYDROcodone bitartrate 5 mg oral tablet (11 sources) Opioid Agonist Start: 04-14-2020 End: 04-17-2020 Hydrocodone-Acetami nophen 1 TABLET tablet Discontinued 1 {tbl} PO EVERY 6 HOURS NEEDED as needed for Pain 10 3 April 14, 2020 April 16, 2020 1:00am April 17, 2020 1:03am Start: 04-14-2020 End: 04-17-2020 take 1 tablet by mouth every six hours as needed Hydrocodone-Acetaminophen Discontinued 1 TABLET PO EVERY 6 HOURS NEEDED 10 April 14, 2020 April 17, 2020 1:03am acetaminophen 325 mg / oxyCODONE hydrochloride 5 mg oral tablet (11 sources) Opioid Agonist Start: 02-27-2019 End: 03-04-2019 [...] 2019 1:08am apixaban 5 mg oral tablet (9 sources) Factor Xa Inhibitor Start: 05-09-2023 End: 10-10-2023 take 1 tablet by mouth twice daily Apixaban (Eliquis) 5 mg tablet Discontinued 5 mg PO TWICE A DAY May 09, 2023 1:00am October 10, 2023 9:23am atorvastatin 40 mg oral tablet (20 sources) HMG-CoA Reductase Inhibitor Start: 02-15-2019 End: 07-21-2024 take 1 tablet by mouth at bedtime Atorvastatin 40 mg tablet Discontinued 40 mg PO AT BEDTIME July 19, 2024 12:37pm July 21, 2024 8:13am Start: 02-13-2018 End: 02-15-2019 take 1 tablet by mouth at bedtime Atorvastatin 80 mg tablet Discontinued 80 mg PO AT BEDTIME February 13, 2018 1:00am February 15, 2019 9:48am clindamycin 300 mg oral capsule (11 sources) Lincosamide Antibacterial Start: 04-14-2020 End: 12-26-2021 take 1 capsule by mouth every six hours Clindamycin Hcl 300 MG capsule Discontinued 300 mg PO EVERY 6 HOURS 40 April 14, 2020 1:00am October 19th, 2022 9:32am clopidogrel 75 mg oral tablet (20 sources) [id number] Platelet Inhibitor Start: 10-21-2011 End: 10-13-2019 take 1 tablet by mouth once daily Clopidogrel 75 MG tablet Discontinued 75 mg PO DAILY July 03, 2015 12:00am July 24, 2017 10:40am fenofibrate 200 mg oral capsule (20 sources) Peroxisome Proliferator Receptor alpha Agonist Start: 12-28-2015 End: 02-13-2018 take 1 capsule by mouth once daily Fenofibrate Micronized 200 mg capsule Discontinued 200 mg PO daily July 24, 2017 10:37am February 13, 2018 3:33pm furosemide 40 mg oral tablet (17 sources) Loop Diuretic Start: 10-10-2023 End: 05-27-2024 [...] daily ISOSORBIDE MONONITRA TE ER 30 MG [id number] One tablet by mouth daily (Imdur) ISOSORBIDE MONONITRATE [id number] Chandu Barrow MD levoFLOXacin 500 mg oral [...] by mouth once daily Lisinopril 10 MG tablet Discontinued 10 mg PO DAILY July 03, 2015 12:00am July 24, 2017 10:40am Start: 10-21-2011 take 1 tablet by markos th twice daily LISINOPRIL 10 MG TABS One tablet by mouth twice daily LISINOPRIL [id number] Saloni Cantor RN lutein 20 mg oral tablet (20 sources) Start: 12-22-2015 End: 01-17-2017 take 2 tablets by mouth once daily LUTEIN 20 MG TABS Two tablet by mouth daily LUTEIN [id number] Chandu Barrow MD Start: 10-30-2011 End: 05-16-2015 take 1 tablet by mouth once daily LUTEIN 6 MG CAPS One tablet by mouth daily LUTEIN [id number] Chandu Barrow MD metoprolol tartrate 25 mg [...] 11, 2019 9:03am Start: 02-18-2017 End: 11-24-2023 take 1 tablet by mouth once daily Metoprolol Succinate 100 mg tablet extended release 24 hr Discontinued 100 mg PO daily July 24, 2017 12:00am February 13, 2018 3:29pm Start: 07-03-2015 End: 07-24-2017 take 2 tablets [...] once daily METOPROLOL SUCCINATE ER 100 MG [id number] One tablet by mouth daily METOPROLOL SUCCINATE [id number] Chandu Barrow MD MULTIPLE VITAMINS-MINERALS (2 sources) Start: 05-16-2015 take 1 tablet by mouth once daily PRESERVISION AREDS 2 CAPS One tablet by mouth daily MULTIPLE VITAMINS-MINERALS [id number] Chandu Barrow MD Start: 05-16-2015 End: 12-22-2015 take 1 tablet by mouth once daily PRESERVISION AREDS 2 CAPS One tablet by mouth daily MULTIPLE VITAMINS-MINERALS [id number] Chandu Barrow MD 24 hr niacin 500 mg extended release oral tablet (13 sources) Nicotinic Acid Start: 07-03-2015 End: 07-24-2017 take 1 tablet by mouth once daily Niacin 500 MG tablet Discontinued 500 mg PO DAILY July 03, 2015 12:00am July 24, 2017 10:35am Start: 10-21-2011 End: 12-28-2015 take 1 tablet by mouth at bedtime NIASPAN 500 MG CR-TABS One tablet by mouth at bedtime. NIACIN (ANTIHYPERLIPIDEMIC) [id number] Chandu Barrow MD nitroglycerin 0.4 mg sublingual tablet (20 sources) Nitrate Vasodilator Start: 06-21-2015 End: 07-24-2017 Nitroglycerin 0.4 MG tablet Discontinued 0.4 mg SL Q5M as needed for Chest Pain July 03, 2015 12:00am July 24, 2017 10:40am predniSONE 20 mg oral tablet (15 sources) Start: 07-14-2023 End: 08-06-2023 predniSONE 20 [...] HMG-CoA Reductase Inhibitor Start: 10-21-2011 End: 11-24-2023 take 1 tablet by mouth at bedtime Simvastatin 40 MG tablet Discontinued 40 mg PO AT BEDTIME July 03, 2015 12:00am July 24, 2017 10:40am Vitamins A,C,L-Huqf-Grrntf (6 sources) Start: 07-03-2015 End: 07-24-2017 Vitamins A,C,Z-Lxqw-Srdqkl Discontinued 2 EACH PO DAILY July 02, 2015 11:00pm July 24, 2017 9:35am Start: 07-03-2015 End: 07-24-2017 Vitamins A,C,N-Shxh-Pznkoc D iscontinued 2 EACH PO DAILY July 03, 2015 12:00am July 24, 2017 10:35am Vitamins A,C,F-Dpvo-Dvkliv 1 EACH capsule (5 sources) Start: 07-03-2015 End: 07-24-2017 take 1 capsule by mouth once daily Vitamins A,C,V-Unvz-Btrobl 1 EACH capsule Discontinued 2 NMA PO DAILY July 03, 2015 12:00am July 24, 2017 10:35am Problems Active Problems Problem Classification Problem Date Documented Date Episodic/Chronic Abdominal pain (11 sources) Epigastric pain; Translations: [Epigastric pain] 05-16-2019 Episodic Cancer of colon (20 sources) Malignant neoplasm of colon, unspecified site Onset: 03-10-2013 08-15-2022 Chronic Comment on above: Last treatment 1 yea r ago. Cancer of prostate (20 sources) Malignant tumor of prostate; Translations: [Malignant neoplasm of prostate] 08-15-2022 Chronic Cardiac dysrhythmias (20 sources) Atrial fibrillation; Translations: [Unspecified atrial fibrillation] Onset: 08-19-2024 05-09-2023 Chronic Chronic obstructive pulmonary disease and bronchiectasis (20 sources) Bronchitis; Translations: [Bronchitis, not specified as acute or chronic] 08-15-2022 Episodic Conduction disorders (12 sources) Left bundle branch block; Translations: [Left bundle-branch block, unspecified] Onset: 10-21-2011 10-21-2011 Chronic Congestive heart failure; nonhypertensive (20 sources) Congestive heart failure; Translations: [Heart failure, unspecified] 08-15-2022 Chronic Coronary atherosclerosis and other heart disease (20 sources) Atherosclerotic heart disease of [place] coronary artery without angina pectoris; Translations: [Coronary arteriosclerosis] Onset: 10-21-2011 06-24-2016 Chronic Comment on above: CABG 1995 -LAD ; mitchell nting to Lt PDA; Redo CABG x5 GATO to LAD, SVG to PDA, OM1, OM2, D 01/06/18 @ [facility]; Coronary atherosclerosis and other heart [...] 10-21-2011 Chronic Disorders of teeth and jaw (11 sources) Dental abscess; Translations: [Periapical abscess without sinus] 04-15-2020 Episodic Essential hypertension (20 sources) Hypertensive disorder; Translations: [Essential hypertension] Onset: 10-21-2011 10-21-2011 Chronic Gout and other crystal arthropathies (20 sources) Gout; Translations: [Gout, unspecified] 08-15-2022 Chronic Mycoses (20 sources) Onychomycosis; Translations: [Tinea unguium] 08-15-2022 Episodic Nonspecific chest pain (11 sources) Chest pain; Translations: [Chest pain, unspecified] 02-12-2018 Episodic Other aftercare (13 sources) Long-term current use of drug therapy; Translations: [Other yoga teacher (current) drug therapy] 02-12-2018 Episodic Other aftercare (5 sources) Long-term current use of anticoagulant; Translations: [workforce development vice president (current) use of anticoagulants] 07-08-2023 Episodic Other aftercare (1 source) Other detention (current) drug therapy; Translations: [Other detention (current) drug therapy] Onset: 08-19-2024 Episodic Other circulatory disease (11 sources) Carotid bruit; Translations: [Other specified symptoms and signs involving the circulatory and respiratory systems] 05-15-2019 Episodic Other lower respiratory disease (8 sources) Dyspnea; Translations: [Shortness of breath] Onset: 10-30-2011 10-30-2011 Episodic Other lower respiratory disease (9 sources) Dyspnea on exertion; Translations: [Other forms [...] caused by tuberculosis or sexually transmitted disease) (11 sources) Cardiomyopathy; Translations: [Cardiomyopathy, unspecified] 08-07-2018 Chronic [...] is new to our office. He used tosee Dr. Kong in [place]. Does not check out of office BP'. reviewed by [facility] 09-15-2015 Unclassified (19 sources) Follow Up for Multiple Chronic Conditions [...] on 05/21/[address] Borden. 09-20-2016 Unclassified (19 sources) [ADDITIONAL REASON] Transition into care - The patient is transitioning into care from another physician 2 and a summary of care was reviewed. 09-20-2016 Unclassified (1 source) Other persistent atrial fibrillation; Translations: [Other persistent atrial fibrillation] Onset: 05-27-2024 Past or Other Problems Problem Classification Problem Date Documented Date Episodic/Chronic Residual codes; unclassified (5 sources) History of cardioversion; Translations: [Personal history [...] weeks ago had fluid removed while in [place]. Started swelling again and is painful. reviewed [...] factors. Note for Knee pain: See in [facility] ER on 02/27 and given Prednisone and Oxy- no [id number] of fluid was drained off of knee [...] Note for Upper respiratory infection: reviewed by [facility] 06-16-2017 Unclassified (15 sources) Finger Pain - The pain is located in the of the right little finger. This occurred 1 week(s) ago. Note for Finger pain: Also complains of right knee pain and left great toe pain for the past week. Has a history of gout. reviewed by [facility] 07-14-2023 Unclassified (1 source) Gout - Symptoms [...] and is still bothering him 08-06-2023 Unclassified (12 sources) Gout - Symptoms include pain, swelling, [...] also recently restarted daily allopurinol. 08-06-2023 Unclassified (5 sources) Gout - Symptoms include pain, swelling, [...] Test Name Value Interpretation Reference Range Facility Anion gap in Serum or Plasma Ordered By: Kian Oro on 08-20-2024 Anion gap [Moles/Vol] 13 mmol/L 5-15 [facility] BUN/creatinine ratioOrdered By: Kian Oro on 08-20-2024 Urea nitrogen/Creatinine [Mass ratio] 18.7 mg/mg 10- [facility] Bilirubin, totalOrdered By: Kian Oro on 08-20-2024 Bilirubin [Mass/Vol] 0.57 mg/dL 0.00-1.30 [facility] Carbon dioxide, total [Moles /volume] in Central venous bloodOrdered By: Kian Oro on 08-20-2024 CO2 [Moles/Vol] 23.6 mmol/L 21.0-32.0 [facility] Chloride assayOrdered By: Eboni Oro on 08-20-2024 Chloride [Moles/Vol] 101 mmol/L 98-108 [facility] Comprehensive Metabolic Prof ilon 08-20-2024 Albumin [Mass/Vol] 4.2 g/dL Normal 3.4-4.8 [facility] Comment on above: Performed By: #### L 506.0400, L500.4050, L501.9520 #### [facility] [place], [address] Albumin/Globulin [Mass ratio] 1.3 {ratio} Normal 0.9-2.4 [facility] Comment on above: Performed By: #### L 506.0400, L500.4050, L501.9520 #### [facility] [address] [place], [address] ALK PHOS 114 U/L Normal 40-129 [facility] Comment on above: Performed By: #### L 506.0400, [id number], [id number] #### [facility] [address] [place], [address] ALT [Catalytic activity/Vol] 19 U/L Normal <=46 [facility] Comment on above: Performed By: #### L 506.0400, [id number], [id number] #### [facility] [address] [place], [address] AST [Catalytic activity/Vol] 25 U/L Normal <=37 [facility] Comment on above: Performed By: #### L 506.0400, [id number], L501.9520 #### [facility] [address] [place], [address] Bilirubin [Mass/Vol] 0.57 mg/dL Normal 0.00-1.30 [facility] Comment on above: Performed By: #### L 506.0400, [id number], L501.9520 #### [facility] [address] [place], [address] BUN/CRE 18.7 RATIO Normal 10-20 [facility] Comment on above: Performed By: #### L 506.0400, [id number], L501.9520 #### [facility] [address] [place], [address] Calcium [Mass/Vol] 9.7 mg/dL Normal 7.6-11.0 [facility] Comment on above: Performed By: #### L 506.0400, [id number], L501.9520 #### [facility] [address] [place], [address] Chloride [Moles/Vol] 101 mmol/L Normal 98-108 [facility] Comment on above: Performed By: #### L 506.0400, [id number], [id number] #### [facility] [address] [place], [address] CO2 [Moles/Vol] 23.6 mmol/L Normal 21.0-32.0 [facility] Comment on above: Performed By: #### L 506.0400, [id number], L501.9520 #### [facility] [address] [place], [address] Creatinine [Mass/Vol] 1.73 mg/dL High 0.70-1.20 [facility] Comment on above: Performed By: #### L 506.0400, [id number], [id number] #### [facility] [address] [place], [address] GAP 13 Normal 5-15 [facility] Comment on above: Performed By: #### L 506.0400, [id number], L501.9520 #### [facility] [address] [place], [address] GFR/1.73 sq M.predicted among non-blacks MDRD (S/P/Bld) [Vol rate/Area] 39 mL/min/{1.73_m2} Low >60 [facility] Comment on above: Result Comment: mL/m in/1.73m2 CKD-EPI Creatinine Equation (2020) Performed By: #### L 506.0400, [id number], L501.9520 #### [facility] [address] [place], [address] Globulin (S) [Mass/Vol] 3.1 g/dL Normal 2.2-4.2 [facility] Comment on above: Performed By: #### L 506.0400, [id number], L501.9520 #### [facility] [address] [place], [address] Glucose [Mass/Vol] 110 mg/dL High 70-99 [facility] Comment on above: Performed By: #### L 506.0400, [id number], [id number] #### [facility] [address] [place], [address] Potassium [Moles/Vol] 4.8 mmol/L Normal 3.3-5.1 [facility] Comment on above: Performed By: #### L 506.0400, [id number], [id number] #### [facility] [address] [place], [address] Sodium [Moles/Vol] 137 mmol/L Normal 133-145 [facility] Comment on above: Performed By: #### L 506.0400, [id number], [id number] #### [facility] [address] [place], [address] T PROT 7.3 g/dL Normal 5.9-8.4 [facility] Comment on above: Performed By: #### L 506.0400, [id number], [id number] #### [facility] [address] [place], [address] Urea nitrogen [Mass/Vol] 32 mg/dL High 4-19 [facility] Comment on above: Performed By: #### L 506.0400, [id number], [id number] #### [facility] [address] [place], [address] Glomerular filtration rate ( GFR) estimation/1.73 sq m using serum, plasma, or whole bOrdered By: Kian Oro on 08-20-2024 GFR/1.73 sq M.predicted among non-blacks MDRD (S/P/Bld) [Vol rate/Area] 39 mL/min/{1.73_m2} Low >60 [facility] Comment on above: mL/min/1.73m2 CKD-EP I Creatinine Equation (2020) Laboratory - Chemistry and C hemistry - challengeOrdered By: Kian Oro on 08-20-2024 AST [Catalytic activity/Vol] 25 U/L <38 [facility] Potassium measurement (mass/ volume)Ordered By: Kian Oro on 08-20-2024 Potassium (Unsp spec) [Mass/Vol] 4.8 mmol/L 3.3-5.1 [facility] Serum creatinine measurement (mass/volume)Ordered By: Kian Oro on 08-20-2024 Creatinine [Mass/Vol] 1.73 mg/dL High 0.70-1.20 [facility] Serum globulin measurementOr dered By: Kian Oro on 08-20-2024 Globulin (S) [Mass/Vol] 3.1 g/dL 2.2-4.2 [facility] Serum glucose measurement (m ass/volume)Ordered By: Kian Oro on 08-20-2024 Glucose [Mass/Vol] 110 mg/dL High 70-99 [facility] Serum or plasma alanine calvillo otransferase (ALT) measurementOrdered By: Kian Oro on 08-20-2024 ALT [Catalytic activity/Vol] 19 U/L <47 [facility] Serum or plasma albumin amanda urement (mass/volume)Ordered By: Kian Oro on 08-20-2024 Albumin [Mass/Vol] 4.2 g/dL 3.4-4.8 [facility] Serum or plasma albumin/glob ulin mass ratioOrdered By: Kian Oro on 08-20-2024 Albumin/Globulin [Mass ratio] 1.3 {ratio} 0.9-2.4 [facility] Serum or plasma alkaline cheko sphatase measurementOrdered By: Kian Oro on 08-20-2024 ALP [Catalytic activity/Vol] 114 U/L 40-129 [facility] Serum or plasma calcium amanda urement (mass/volume)Ordered By: Kian Oro on 08-20-2024 Calcium [Mass/Vol] 9.7 mg/dL 7.6-11.0 [facility] Serum or plasma urea nitroge n measurement (mass/volume)Ordered By: Kian Oro on 08-20-2024 Urea nitrogen [Mass/Vol] 32 mg/dL High 4-19 [facility] Sodium levelOrdered By: Kian Oro on 08-20-2024 Sodium [Moles/Vol] 137 mmol/L 133-145 [facility] T4 Free Directon 08-20-2024 T4 FREE DIRECT 0.90 ng/dL Normal 0.76-1.46 [facility] Comment on above: Performed By: #### L 506.0400, L500.4050, L501.9520 #### [facility] [address] [place], [place], [address] T4 freeOrdered By: Kian Oro on 08-20-2024 Free T4 [Mass/Vol] 0.90 ng/dL 0.76-1.46 [facility] TSH DL <= 0.005 mIU/L QnOrde red By: Kian Oro on 08-20-2024 TSH Qn 4.180 uIU/mL 0.300-4.200 [facility] Thyroid Stim Hormone (TSH)on 08-20-2024 TSH 4.180 uIU/mL Normal 0.300-4.200 [facility] Comment on above: Performed By: #### L 506.0400, L500.4050, L501.9520 #### [facility] [address] [place], [place], [address] Total proteinOrdered By: Cali Oro on 08-20-2024 Protein [Mass/Vol] 7.3 g/dL 5.9-8.4 [facility] Cardiology Visit Reporton Cardiology Visit Report [facility] [address] [address] [place], [place] [address] OFFICE VISIT Date of Service: 08/19/24 MR#: [id number] Acct: [id number] Name: GARCIA HAAS Rep #: [id number] : 1940 Provider: NERY hernandez Age/Sex: 84/M Location: [facility] Status: Signed HPI HPI History of Present Illness Details: GARCIA HAAS, is a 84 year old white male with a history of coronary artery disease status post bypass surgery on 01/06/2018 at [facility] [...] a successful cardioversion in June of 2023. He denies chest, arm, jaw, or neck discomfort. He denies palpitations. He denies bilateral lower extremity edema. He denies claudication. He states shortness of breath with activity such as washing his car. He denies it with ADLs. He denies shortness of breath at rest, orthopnea, or PND. He denies chronic cough. He denies significant, sudden weight gain. He denies lightheadedness, dizziness, near-syncope, or syncope. He denies blood in urine, blood in stool, or epistaxis. He denies fever with chills. He denies myalgia. He states fatigue. His exercise level has remained stable. Intake Vital Signs 10/10/23 09:19 05/27/24 07:22 08/19/24 09:04 Height 5 ft 8.11 in 5 ft 8.11 in 5 ft 8.11 in Weight: 226 lb BMI 34.2 BP 123/74 H Blood Pressure Location Lt brachial Position Sitting Respiration 18 Pulse 83 Pulse Source Monitor Intake Visit Reasons: 10 M FU Computer Programming Manager Required: No Accompanied by: Self Is patient in pain?: No Allergies rosuvastatin calcium (From Crestor) Allergy (Verified 08/19/24 09:06) Pain in joints Medications ???Medication ???Instructions ???Recorded ???Confirmed ???Type nitroglycerin 0.4 mg sublingual 0.4 mg sublingual Q5M PRN Chest 08/19/24 Rx tablet Pain #25 tabs aspirin 81 mg tablet,delayed 81 mg PO DAILY 02/13/18 08/19/24 H istory release (Adult Low Dose Aspirin) warfarin 4 mg tablet 4 mg PO DAILY #90 tabs 07/08/23 Rx allopurinol 300 mg tablet 300 mg PO QDAY 10/10/23 08/19/24 H istory metoprolol tartrate 25 mg tablet 25 mg PO DAILY #90 tabs 02/17/24 0 08/19/24 Rx atorvastatin 40 mg tablet 40 mg PO QHS #90 tabs 07/21/2403/03 Rx amiodarone 200 mg tablet 200 mg PO QDAY #30 tabs 07/29/24 0 08/19/24 Rx spironolactone 25 mg tablet 25 mg PO DAILY #30 tabs 07/29/24 0 08/19/24 Rx Have you fallen in the past year?: No PFSH Medical History PAF (paroxysmal atrial fibrillation) Persistent atrial fibrillation History of cardioversion (07/07/23) assisted (current) use of anticoagulants New onset a-fib Presence of stent in coronary artery ( 05/03/10) Ischemic cardiomyopathy Mixed hyperlipidemia Gout History of prostate cancer Essential hypertension Cardiomyopathy Abnormal stress test Chest pain Right carotid bruit Arteriosclerotic heart disease (ASHD) Shortness of breath Old myocardial infarction Left bundle branch block Other detention (current) drug therapy Abnormal nuclear stress test HLD (hyperlipidemia) Atherosclerotic heart disease of [place] coronary artery without angina pectoris Surgical History [...] Const Const: Positive for fatigue; Negative for weakness Eyes Eyes: Negative for change in vision ENT ENT: Negative for dizziness or balance problems Cardio Chest Pain: No Palpitations: No Edema: None Muscle aches with walking: None Resp Respiratory: Positive for SOB with activity; Negative for SOB at rest or SOB orthopnea SOB lying down GI GI: Negative nausea or heartburn : Negative for hematuria or frequent nighttime urination/ nocturia Musc Musc: Negative (more content not included)... Normal [facility] Absolute lymphocyte countOrd ered By: Jemima Maldonado on 07-30-2024 Lymphocytes Auto (Unsp spec) [#/Vol] 0.49 10*3/uL Low 0.83-4.51 [facility] Absolute neutrophil countOrd ered By: Jemima Maldonado on 07-30-2024 Neutrophils (Bld) [#/Vol] 3.5 10*3/uL 2.0-7.7 [facility] Anion gap in Serum or Plasma Ordered By: Jemima Maldonado on 07-30-2024 Anion gap [Moles/Vol] 12 mmol/L 5- [facility] Automated lymphocyte count a s percentage of total leukocytesOrdered By: Jemima Maldonado on 07-30-2024 Lymphocytes/100 WBC Auto (Unsp spec) 10.8 % Low - [facility] BUN/creatinine ratioOrdered By: Jemima Maldonado on 07-30-2024 Urea nitrogen/Creatinine [Mass ratio] 13.4 mg/mg 12-27 [facility] Basic Metabolic Profile (BMP )on 07-30-2024 BUN/CRE 13.4 RATIO Normal 12-27 [facility] Comment on above: Order Comment: stand ing Performed By: #### L 300.3900, L100.0100, L500.2500 ####[facility] [address] [place], [place], [id number] Calcium [Mass/Vol] 9.4 mg/dL Normal 7.6-11.0 [facility] Comment on above: Order Comment: stand ing Performed By: #### L 300.3900, L100.0100, L500.2500 ####[facility] [address] [place], [address] Chloride [Moles/Vol] 101 mmol/L Normal 98-108 [facility] Comment on above: Order Comment: stand ing Performed By: #### L 300.3900, L100.0100, L500.2500 ####[facility] [address] [place], [address] CO2 [Moles/Vol] 25.0 mmol/L Normal 21.0-32.0 [facility] Comment on above: Order Comment: stand ing Performed By: #### L 300.3900, L100.0100, L500.2500 ####[facility] [address] [place], [address] Creatinine [Mass/Vol] 1.43 mg/dL High 0.70-1.20 [facility] Comment on above: Order Comment: stand ing Performed By: #### L 300.3900, L100.0100, L500.2500 ####[facility] [address] [place], [address] GAP 12 Normal 5-15 [facility] Comment on above: Order Comment: stand ing Performed By: #### L 300.3900, L100.0100, L500.2500 ####[facility] [address] [place], [address] GFR/1.73 sq M.predicted among non-blacks MDRD (S/P/Bld) [Vol rate/Area] 49 mL/min/{1.73_m2} Low >60 [facility] Comment on above: Order Comment: stand ing Result Comment: mL/m in/1.73m2 CKD-EPI Creatinine Equation (2020) Performed By: #### L 300.3900, L100.0100, L500.2500 ####[facility] [address] [place], [address] Glucose [Mass/Vol] 151 mg/dL High 70-99 [facility] Comment on above: Order Comment: stand ing Performed By: #### L 300.3900, L100.0100, L500.2500 ####[facility] [address] [place], [address] Potassium [Moles/Vol] 4.2 mmol/L Normal 3.3-5.1 [facility] Comment on above: Order Comment: stand ing Performed By: #### L 300.3900, L100.0100, L500.2500 ####[facility] [address] [place], [address] Sodium [Moles/Vol] 138 mmol/L Normal 133-145 [facility] Comment on above: Order Comment: stand ing Performed By: #### L 300.3900, L100.0100, L500.2500 ####[facility] [address] [place], [address] Urea nitrogen [Mass/Vol] 19 mg/dL Normal 4-19 [facility] Comment on above: Order Comment: stand ing Performed By: #### L 300.3900, L100.0100, L500.2500 ####[facility] [address] [place], [address] Basophil percentageOrdered B y: Jemima Maldonado on 07-30-2024 Basophils/100 WBC (Bld) 0.2 % 0-1 [facility] CBC W/Diff, Automatedon - Absolute Lymph 0.49 X10 3/uL Low 0.83-4.51 [facility] Comment on above: Performed By: #### L 300.3900, L100.0100, L500.2500 ####[facility] [address] [place], [address] Absolute Neut 3.5 X10 3/uL Normal 2.0-7.7 [facility] Comment on above: Performed By: #### L 300.3900, L100.0100, L500.2500 ####[facility] [address] [place], [address] Basophils/100 WBC (Bld) 0.2 % Normal 0-1 [facility] Comment on above: Performed By: #### L 300.3900, L100.0100, L500.2500 ####[facility] [address] [place], [address] Eosinophils/100 WBC (Bld) 5.3 % High 0-5 [facility] Comment on above: Performed By: #### L 300.3900, L100.0100, L500.2500 ####[facility] [address] [place], [address] Erythrocyte distribution width (RBC) [Ratio] 14.0 % Normal 11.6-14.6 [facility] Comment on above: Performed By: #### L 300.3900, L100.0100, L500.2500 ####[facility] [address] [place], [address] Hematocrit (Bld) [Volume fraction] 43.4 % Normal 40-54 [facility] Comment on above: Performed By: #### L 300.3900, L100.0100, L500.2500 ####[facility] [address] [place], [address] Hemoglobin (Bld) [Mass/Vol] 14.2 g/dL Normal 13.0-16.5 [facility] Comment on above: Performed By: #### L 300.3900, L100.0100, L500.2500 ####[facility] [address] [place], [address] IG% 0.400 Normal 0.0-0.9 [facility] Comment on above: Result Comment: IG% - Immature Granulocytes (promyelocytes, myelocytes and metamyelocytes) > 1% indicates that a LEFT SHIFT is Present. Performed By: #### L 300.3900, L100.0100, L500.2500 ####[facility] [address] [place], [address] Lymphocytes/100 WBC (Bld) 10.8 % Low 19-41 [facility] Comment on above: Performed By: #### L 300.3900, L100.0100, L500.2500 ####[facility] [address] [place], [address] MCH (RBC) [Entitic mass] 30.9 pg Normal 27.0-32.0 [facility] Comment on above: Performed By: #### L 300.3900, L100.0100, L500.2500 ####[facility] [address] [place], [address] MCHC (RBC) [Mass/Vol] 32.7 g/dL Normal 32-36 [facility] Comment on above: Performed By: #### L 300.3900, L100.0100, L500.2500 ####[facility] [address] [place], [address] MCV (RBC) [Entitic vol] 94.3 fL High 80-94 [facility] Comment on above: Performed By: #### L 300.3900, L100.0100, L500.2500 ####[facility] [address] [place], [address] Monocytes/100 WBC (Bld) 5.3 % Normal 0-10 [facility] Comment on above: Performed By: #### L 300.3900, L100.0100, L500.2500 ####[facility] [address] [place], [address] Neutrophils/100 WBC (Bld) 78.0 % High 47-70 [facility] Comment on above: Performed By: #### L 300.3900, L100.0100, L500.2500 ####[facility] [address] [place], [address] Nucleated RBC (Bld) [#/Vol] 0 10*3/uL Normal 0-5 [facility] Comment on above: Performed By: #### L 300.3900, L100.0100, L500.2500 ####[facility] [address] [place], [address] Platelet mean volume (Bld) [Entitic vol] 10.0 fL Normal 6.2-12.0 [facility] Comment on above: Performed By: #### L 300.3900, L100.0100, L500.2500 ####[facility] [address] [place], [address] Platelets (Bld) [#/Vol] 189 10*3/uL Normal 150-450 [facility] Comment on above: Performed By: #### L 300.3900, L100.0100, L500.2500 ####[facility] [address] [place], [address] RBC (Bld) [#/Vol] 4.60 10*6/uL Normal 4.6-6.2 [facility] Comment on above: Performed By: #### L 300.3900, L100.0100, L500.2500 ####[facility] [address] [place], [address] RDW SD 47.8 fl High 35.1-43.9 [facility] Comment on above: Performed By: #### L 300.3900, L100.0100, L500.2500 ####[facility] [address] [place], [address] WBC (Bld) [#/Vol] 4.5 10*3/uL Normal 4.4-11.0 [facility] Comment on above: Performed By: #### L 300.3900, L100.0100, L500.2500 ####[facility] [address] [place], [address] Carbon dioxide, total [Moles /volume] in Central venous bloodOrdered By: Jemima Maldonado on 07-30-2024 CO2 [Moles/Vol] 25.0 mmol/L 21.0-32.0 [facility] Chloride assayOrdered By: Yesenia Maldonado on 07-30-2024 Chloride [Moles/Vol] 101 mmol/L 98-108 [facility] Eosinophil percentageOrdered By: Jemima Maldonado on 07-30-2024 Eosinophils/100 WBC (Bld) 5.3 % High 0-5 [facility] Erythrocyte distribution wid th ratioOrdered By: Jemima Maldonado on 07-30-2024 Erythrocyte distribution width (RBC) [Ratio] 14.0 % 11.6-14.6 [facility] Erythrocyte distribution wid th standard deviationOrdered By: Jemima Maldonado on 07-30-2024 Erythrocyte distribution width (RBC) [Ratio] 47.8 fl High 35.1-43.9 [facility] Glomerular filtration rate ( GFR) estimation/1.73 sq m using serum, plasma, or whole bOrdered By: Jemima Maldonado on 07-30-2024 GFR/1.73 sq M.predicted among non-blacks MDRD (S/P/Bld) [Vol rate/Area] 49 mL/min/{1.73_m2} Low >60 [facility] Comment on above: mL/min/1.73m2 CKD-EP I Creatinine Equation (2020) Hematocrit Auto (Bld) [Volum e fraction]Ordered By: Jemima Maldonado on 07-30-2024 Hematocrit (Bld) [Volume fraction] 43.4 % 40-54 [facility] Hemoglobin measurementOrdere d By: Jemima Maldonado on 07-30-2024 Hemoglobin (Bld) [Mass/Vol] 14.2 g/dL 13.0-16.5 [facility] Immature granulocytes/100 WB C Auto (Bld)Ordered By: Jemima Maldonado on 07-30-2024 Immature granulocytes/100 WBC (Bld) 0.400 % 0.0-0.9 [facility] Comment on above: IG% - Immature Granu locytes (promyelocytes, myelocytes and metamyelocytes) > 1% indicates that a LEFT SHIFT is Present. International normalized rat io (INR) calculationOrdered By: Jemima Maldonado on 07-30-2024 INR Coag (Bld) [Relative time] 2.0 {INR} [facility] MCV (mean corpuscular volume ) determinationOrdered By: Jemima Maldonado on 07-30-2024 MCV (RBC) [Entitic vol] 94.3 fL High 80-94 [facility] Mean corpuscular hemoglobin (MCH) determinationOrdered By: Jemima Maldonado on 07-30-2024 MCH (RBC) [Entitic mass] 30.9 pg 27.0-32.0 [facility] Mean corpuscular hemoglobin concentration (MCHC) determinationOrdered By: Jemima Maldonado on 07-30-2024 MCHC (RBC) [Mass/Vol] 32.7 g/dL 32-36 [facility] Mean platelet volume determi nationOrdered By: Jemima Maldonado on 07-30-2024 Platelet mean volume (Bld) [Entitic vol] 10.0 fL 6.2-12.0 [facility] Monocyte percentageOrdered B y: Jemima Maldonado on 07-30-2024 Monocytes/100 WBC (Bld) 5.3 % 0-10 [facility] Neutrophil percentageOrdered By: Jemima Maldonado on 07-30-2024 Neutrophils/100 WBC (Bld) 78.0 % High 47-70 [facility] Nucleated red blood cell per centageOrdered By: Jemima Maldonado on 07-30-2024 Nucleated RBC/100 WBC (Bld) [Ratio] 0 % 0-5 [facility] Platelet countOrdered By: Yesenia Maldonado on 07-30-2024 Platelets (Bld) [#/Vol] 189 10*3/uL 150-450 [facility] Potassium measurement (mass/ volume)Ordered By: Jemima Maldonado on 07-30-2024 Potassium (Unsp spec) [Mass/Vol] 4.2 mmol/L 3.3-5.1 [facility] Prothrombin Time w/INRon INR Coag (PPP) [Relative time] 2.0 {INR} Normal [facility] Comment on above: Order Comment: Comme nts: standing Performed By: #### L 300.3900, L100.0100, L500.2500 ####[facility] [address] [place], [address] PT Coag (PPP) [Time] 23.3 s High 11.7-14.9 [facility] Comment on above: Order Comment: Comme nts: standing Performed By: #### L 300.3900, L100.0100, L500.2500 ####[facility] [address] [place], [address] Prothrombin timeOrdered By: Jemima Maldonado on 07-30-2024 PT Coag (PPP) [Time] 23.3 s High 11.7-14.9 [facility] RBC Auto (Bld) [#/Vol]Ordere d By: Jemima Maldonado on 07-30-2024 RBC (Bld) [#/Vol] 4.60 10*6/uL 4.6-6.2 [facility] Serum creatinine measurement (mass/volume)Ordered By: Jemima Maldonado on 07-30-2024 Creatinine [Mass/Vol] 1.43 mg/dL High 0.70-1.20 [facility] Serum glucose measurement (m ass/volume)Ordered By: Jemima Maldonado on 07-30-2024 Glucose [Mass/Vol] 151 mg/dL High 70-99 [facility] Serum or plasma calcium amanda urement (mass/volume)Ordered By: Jemima Maldonado on 07-30-2024 Calcium [Mass/Vol] 9.4 mg/dL 7.6-11.0 [facility] Serum or plasma urea nitroge n measurement (mass/volume)Ordered By: Jemima Maldonado on 07-30-2024 Urea nitrogen [Mass/Vol] 19 mg/dL 4-19 [facility] Sodium levelOrdered By: Tony Maldonado on 07-30-2024 Sodium [Moles/Vol] 138 mmol/L 133-145 [facility] White blood cell (WBC) count Ordered By: Jemima Maldonado on 07-30-2024 WBC (Bld) [#/Vol] 4.5 10*3/uL 4.4-11.0 [facility] Echo Complete W/ Contraston 07-13-2024 Echo Complete W/ Contrast [facility] [address] [place] [address] Echo Complete W/ Contrast 07/13/24 1009 MR#: [id number] Acct: [id number] Name: GARCIA HAAS Rep #: [id number] : 1940 84 From: Layton Farley MD Attending Dr: JAN Tavera Status: REG CLI Ordering Dr: Jemima Maldonado Date: 09/01 Location: PSN Sex: M C Admitted: Reason [...] Referring Physician: Srinivasa Nava Performed By: Charmaine Oro RDCS, RVT 07/13/24 1115 Date Layton Farley MD CC: Dr. Srinivasa Nava MD; JAN Tavera Date Dictated: 07/13/24 1009 Date Transcribed: 07/13/24 111 Game Warden: Signed Normal [facility] Echocardiogram study reportO rdered By: Layton Farley on 07-13-2024 Study report [facility] [address] [place] [address] Echo Complete W/ Contrast 07/13/24 1009 MR#: [id number] Acct: [id number] Name: GARCIA HAAS Rep #:[id number] : 1940 84 From: Layton Pollard Attending Dr: JAN Tavera Status: REG CLI Ordering Dr: Jemima Maldonado Date: 07/13/24 Location: [facility] Sex: M C Admitted: Reason For [...] Referring Physician: Srinivasa Nava Performed By: Charmaine Oro RDCS, RVT 07/13/24 1115 Date _ Layton Farley MD CC: Dr. Srinivasa Nava MD; JAN Tavera ~ Date Dictated: 07/13/24 1009 Date Transcribed: 07/13/24 111 Game Warden: Signed [facility] Work Phone: 12 Lead EKG performed by [facility] on 05-27-2024 12 Lead EKG performed by [address] [address] 12 Lead EKG performed by [facility] 05/27/24 0839 MR#: [id number] Acct: [id number] Name: GARCIA HAAS Rep #: [id number] : 1940 84 From: Jemima Gama Attending Dr: JAN Tavera Status: DEP AMB Ordering Dr: Jemima Maldonado Date: 05/09 Location: [facility] Sex: M C Admitted: [facility]/12 Lead EKG performed by [facility] ECG Report Interpretation -------Sinus Rhythm - occasional ectopic ventricular beat -Nonspecific QRS widening. -Poor R-wave progression -nonspecific -consider old anterior infarct. - Nonspecific T-abnormality. ABNORMAL Electronically signed on 05/29/2024 at 11:10 by Layton Farley Software Version [id number] 05/29/24 1113 Date Jemima MONTOYA PA CC: Dr. Srinivasa Nava MD Date Dictated: 05/27/24838 Date Transcribed: 05/27/24838 Game Warden: SALLY Signed Normal [facility] Absolute lymphocyte countOrd ered By: Jemima Maldonado on 05-27-2024 Lymphocytes Auto (Unsp spec) [#/Vol] 0.65 10*3/uL Low 0.83-4.51 [facility] Absolute neutrophil countOrd ered By: Jemima Maldoando on 05-27-2024 Neutrophils (Bld) [#/Vol] 4.1 10*3/uL 2.0-7.7 [facility] Anion gap in Serum or Plasma Ordered By: Jemima Maldonado on 05-27-2024 Anion gap [Moles/Vol] 12 mmol/L 07-22 [facility] Automated lymphocyte count a s percentage of total leukocytesOrdered By: Jemima Maldonado on 05-27-2024 Lymphocytes/100 WBC Auto (Unsp spec) 12.0 % Low - [facility] BUN/creatinine ratioOrdered By: Jemima Maldonado on 05-27-2024 Urea nitrogen/Creatinine [Mass ratio] 19.5 mg/mg 12-27 [facility] Basic Metabolic Profile (BMP )on 05-27-2024 BUN/CRE 19.5 RATIO Normal 12-27 [facility] Comment on above: Performed By: #### L 500.2500, L503.7505, L100.0100 #### [facility] [address] [place], [address] Calcium [Mass/Vol] 9.2 mg/dL Normal 7.6-11.0 [facility] Comment on above: Performed By: #### L 500.2500, L503.7505, L100.0100 #### [facility] [address] [place], [address] Chloride [Moles/Vol] 101 mmol/L Normal 98-108 [facility] Comment on above: Performed By: #### L 500.2500, L503.7505, L100.0100 #### [facility] [address] [place], [address] CO2 [Moles/Vol] 23.2 mmol/L Normal 21.0-32.0 [facility] Comment on above: Performed By: #### L 500.2500, L503.7505, L100.0100 #### [facility] [address] [place], [address] Creatinine [Mass/Vol] 1.44 mg/dL High 0.70-1.20 [facility] Comment on above: Performed By: #### L 500.2500, L503.7505, L100.0100 #### [facility] [address] [place] [address] [place], [place], [address] GAP 12 Normal 5-15 [facility] Comment on above: Performed By: #### L 500.2500, L503.7505, L100.0100 #### [facility] [address] [place], [address] GFR/1.73 sq M.predicted among non-blacks MDRD (S/P/Bld) [Vol rate/Area] 49 mL/min/{1.73_m2} Low >60 [facility] Comment on above: Result Comment: mL/m in/1.73m2 CKD-EPI Creatinine Equation (2020) Performed By: #### L 500.2500, L503.7505, L100.0100 #### [facility] [address] [place], [address] Glucose [Mass/Vol] 111 mg/dL High 70-99 [facility] Comment on above: Performed By: #### L 500.2500, L503.7505, L100.0100 #### [facility] [address] [place], [address] Potassium [Moles/Vol] 4.5 mmol/L Normal 3.3-5.1 [facility] Comment on above: Performed By: #### L 500.2500, L503.7505, L100.0100 #### [facility] [address] [place], [address] Sodium [Moles/Vol] 136 mmol/L Normal 133-145 [facility] Comment on above: Performed By: #### L 500.2500, L503.7505, L100.0100 #### [facility] [address] [place], [address] Urea nitrogen [Mass/Vol] 28 mg/dL High 4-19 [facility] Comment on above: Performed By: #### L 500.2500, L503.7505, L100.0100 #### [facility] [address] [place], [address] Basophil percentageOrdered B y: Jemima Maldonado on 05-27-2024 Basophils/100 WBC (Bld) 0.4 % 0-1 [facility] CBC W/Diff, Automatedon 05-09 0-2024 Absolute Lymph 0.65 X10 3/uL Low 0.83-4.51 [facility] Comment on above: Performed By: #### L 500.2500, L503.7505, L100.0100 #### [facility] [address] [place], [address] Absolute Neut 4.1 X10 3/uL Normal 2.0-7.7 [facility] Comment on above: Performed By: #### L 500.2500, L503.7505, L100.0100 #### [facility] [address] [place], [address] Basophils/100 WBC (Bld) 0.4 % Normal 0-1 [facility] Comment on above: Performed By: #### L 500.2500, L503.7505, L100.0100 #### [facility] [address] [place], [address] Eosinophils/100 WBC (Bld) 4.8 % Normal 0-5 [facility] Comment on above: Performed By: #### L 500.2500, L503.7505, L100.0100 #### [facility] [address] [place], [address] Erythrocyte distribution width (RBC) [Ratio] 14.6 % Normal 11.6-14.6 [facility] Comment on above: Performed By: #### L 500.2500, L503.7505, L100.0100 #### [facility] [address] [place], [address] Hematocrit (Bld) [Volume fraction] 42.2 % Normal 40-54 [facility] Comment on above: Performed By: #### L 500.2500, L503.7505, L100.0100 #### [facility] [address] [place], [address] Hemoglobin (Bld) [Mass/Vol] 14.1 g/dL Normal 13.0-16.5 [facility] Comment on above: Performed By: #### L 500.2500, L503.7505, L100.0100 #### [facility] [address] [place], [address] IG% 0.400 Normal 0.0-0.9 [facility] Comment on above: Result Comment: IG% - Immature Granulocytes (promyelocytes, myelocytes and metamyelocytes) > 1% indicates that a LEFT SHIFT is Present. Performed By: #### L 500.2500, L503.7505, L100.0100 #### [facility] [address] [place], [address] Lymphocytes/100 WBC (Bld) 12.0 % Low 19-41 [facility] Comment on above: Performed By: #### L 500.2500, L503.7505, L100.0100 #### [facility] [address] [place], [address] MCH (RBC) [Entitic mass] 31.0 pg Normal 27.0-32.0 [facility] Comment on above: Performed By: #### L 500.2500, L503.7505, L100.0100 #### [facility] [address] [place], [address] MCHC (RBC) [Mass/Vol] 33.4 g/dL Normal 32-36 [facility] Comment on above: Performed By: #### L 500.2500, L503.7505, L100.0100 #### [facility] [address] [place], [address] MCV (RBC) [Entitic vol] 92.7 fL Normal 80-94 [facility] Comment on above: Performed By: #### L 500.2500, L503.7505, L100.0100 #### [facility] [address] [place], [address] Monocytes/100 WBC (Bld) 6.9 % Normal 0-10 [facility] Comment on above: Performed By: #### L 500.2500, L503.7505, L100.0100 #### [facility] [address] [place], [address] Neutrophils/100 WBC (Bld) 75.5 % High 47-70 [facility] Comment on above: Performed By: #### L 500.2500, L503.7505, L100.0100 #### [facility] [address] [place], [address] Nucleated RBC (Bld) [#/Vol] 0 10*3/uL Normal 0-5 [facility] Comment on above: Performed By: #### L 500.2500, L503.7505, L100.0100 #### [facility] [address] [place], [address] Platelet mean volume (Bld) [Entitic vol] 9.5 fL Normal 6.2-12.0 [facility] Comment on above: Performed By: #### L 500.2500, L503.7505, L100.0100 #### [facility] [address] [place], [address] Platelets (Bld) [#/Vol] 170 10*3/uL Normal 150-450 [facility] Comment on above: Performed By: #### L 500.2500, L503.7505, L100.0100 #### [facility] [address] [place], [address] RBC (Bld) [#/Vol] 4.55 10*6/uL Low 4.6-6.2 [facility] Comment on above: Performed By: #### L 500.2500, L503.7505, L100.0100 #### [facility] [address] [place], [address] RDW SD 48.7 fl High 35.1-43.9 [facility] Comment on above: Performed By: #### L 500.2500, L503.7505, L100.0100 #### [facility] [address] [place], [address] WBC (Bld) [#/Vol] 5.4 10*3/uL Normal 4.4-11.0 [facility] Comment on above: Performed By: #### L 500.2500, L503.7505, L100.0100 #### [facility] [address] [place], [address] Carbon dioxide, total [Moles /volume] in Central venous bloodOrdered By: Jemima Maldonado on 05-27-2024 CO2 [Moles/Vol] 23.2 mmol/L 21.0-32.0 [facility] Cardiology Visit Reporton Cardiology Visit Report [facility] 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 Is patient in pain?: No [...] Persistent atrial fibrillation History of cardioversion (07/07/23) assisted (current) use of anticoagulants New onset a-fib 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 Normal [facility] Chloride assayOrdered By: Yesenia Maldonado on 05-27-2024 Chloride [Moles/Vol] 101 mmol/L 98-108 [facility] Eosinophil percentageOrdered By: Jemima Maldonado on 05-27-2024 Eosinophils/100 WBC (Bld) 4.8 % 0-5 [facility] Erythrocyte distribution wid th ratioOrdered By: Jemima Maldonado on 05-27-2024 Erythrocyte distribution width (RBC) [Ratio] 14.6 % 11.6-14.6 [facility] Erythrocyte distribution wid th standard deviationOrdered By: Jemiam Maldonado on 05-27-2024 Erythrocyte distribution width (RBC) [Entitic vol] 48.7 fL High 35.1-43.9 [facility] Erythrocyte distribution width (RBC) [Ratio] 48.7 fl High 35.1-43.9 [facility] GFR/1.73 sq M.predicted flores g non-blacks MDRD (S/P/Bld) [Vol rate/Area]Ordered By: Jemima Maldonado on 05-27-2024 Estimated GFR (MDRD) Non-Af Amer 49 Low >60 [facility] Comment on above: mL/min/1.73m2 CKD-EP I Creatinine Equation (2020) Glomerular filtration rate ( GFR) estimation/1.73 sq m using serum, plasma, or whole bOrdered By: Jemima Maldonado on 05-27-2024 GFR/1.73 sq M.predicted among non-blacks MDRD (S/P/Bld) [Vol rate/Area] 49 mL/min/{1.73_m2} Low >60 [facility] Comment on above: mL/min/1.73m2 CKD-EP I Creatinine Equation (2020) Hematocrit Auto (Bld) [Volum e fraction]Ordered By: Jemima Maldonado on 05-27-2024 Hematocrit (Bld) [Volume fraction] 42.2 % 40-54 [facility] Hemoglobin measurementOrdere d By: Jemima Maldonado on 05-27-2024 Hemoglobin (Bld) [Mass/Vol] 14.1 g/dL 13.0-16.5 [facility] Immature granulocytes/100 WB C Auto (Bld)Ordered By: Jemima Maldonado on 05-27-2024 Immature granulocytes/100 WBC (Bld) 0.400 % 0.0-0.9 [facility] Comment on above: IG% - Immature Granu locytes (promyelocytes, myelocytes and metamyelocytes) > 1% indicates that a LEFT SHIFT is Present. L503.7505on 05-27-2024 Natriuretic peptide B (Bld) [Mass/Vol] 925 pg/mL Normal <=1800 [facility] Comment on above: Result Comment: Hear t Failure Unlikely: < 300 pg/mL Heart Failure Likely < 50 Years: > 450 pg/mL 50-75 Years: > 900 pg/mL >75 Years: > 1800 pg/mL Performed By: #### L 500.2500, L503.7505, L100.0100 ####[facility] [id number] [place], [place], [id number] Laboratory - Chemistry and C hemistry - challengeOrdered By: Jemima Maldonado on 05-27-2024 Natriuretic peptide B (Bld) [Mass/Vol] 925 pg/mL <1800 [facility] Comment on above: Heart Failure Unlike ly: < 300 pg/mLHeart Failure Likely< 50 Years: > 450 pg/mL50-75 Years: > 900 pg/mL>75 Years: > 1800 pg/mL Lymphocytes Auto (Unsp spec) [#/Vol]Ordered By: Jemima Maldonado on 05-27-2024 Lymphocytes (Bld) [#/Vol] 0.65 10*3/uL Low 0.83-4.51 [facility] Lymphocytes/100 WBC Auto (Un sp spec)Ordered By: Jemima Maldonado on 05-27-2024 Lymphocytes/100 WBC (Bld) 12.0 % Low 19-41 [facility] MCV (mean corpuscular volume ) determinationOrdered By: Jemima Maldonado on 05-27-2024 MCV (RBC) [Entitic vol] 92.7 fL 80-94 [facility] Mean corpuscular hemoglobin (MCH) determinationOrdered By: Jemima Maldonado on 05-27-2024 MCH (RBC) [Entitic mass] 31.0 pg 27.0-32.0 [facility] Mean corpuscular hemoglobin concentration (MCHC) determinationOrdered By: Jemima Maldonado on 05-27-2024 MCHC (RBC) [Mass/Vol] 33.4 g/dL 32-36 [facility] Mean platelet volume determi nationOrdered By: Jemima Maldonado on 05-27-2024 Platelet mean volume (Bld) [Entitic vol] 9.5 fL 6.2-12.0 [facility] Monocyte percentageOrdered B y: Jemima Maldonado on 05-27-2024 Monocytes/100 WBC (Bld) 6.9 % 0-10 [facility] Neutrophil percentageOrdered By: Jemima Maldonado on 05-27-2024 Neutrophils/100 WBC (Bld) 75.5 % High 47-70 [facility] Nucleated red blood cell per centageOrdered By: Jemima Maldonado on 05-27-2024 Nucleated RBC/100 WBC (Bld) [Ratio] 0 % 0-5 [facility] Platelet countOrdered By: Yesenia Maldonado on 05-27-2024 Platelets (Bld) [#/Vol] 170 10*3/uL 150-450 [facility] Potassium (Unsp spec) [Mass/ Vol]Ordered By: Jemima Maldonado on 05-27-2024 Potassium [Moles/Vol] 4.5 mmol/L 3.3-5.1 [facility] Potassium measurement (mass/ volume)Ordered By: Jemima Maldonado on 05-27-2024 Potassium (Unsp spec) [Mass/Vol] 4.5 mmol/L 3.3-5.1 [facility] RBC Auto (Bld) [#/Vol]Ordere d By: Jemima Maldonado on 05-27-2024 RBC (Bld) [#/Vol] 4.55 10*6/uL Low 4.6-6.2 [facility] Serum creatinine measurement (mass/volume)Ordered By: Jemima Maldonado on 05-27-2024 Creatinine [Mass/Vol] 1.44 mg/dL High 0.70-1.20 [facility] Serum glucose measurement (m ass/volume)Ordered By: Jemima Maldonado on 05-27-2024 Glucose [Mass/Vol] 111 mg/dL High 70-99 [facility] Serum or plasma calcium amanda urement (mass/volume)Ordered By: Jemima Maldonado on 05-27-2024 Calcium [Mass/Vol] 9.2 mg/dL 7.6-11.0 [facility] Serum or plasma urea nitroge n measurement (mass/volume)Ordered By: Jemima Maldonado on 05-27-2024 Urea nitrogen [Mass/Vol] 28 mg/dL High 4-19 [facility] Sodium levelOrdered By: Tony Maldonado on 05-27-2024 Sodium [Moles/Vol] 136 mmol/L 133-145 [facility] White blood cell (WBC) count Ordered By: Jemima Maldonado on 05-27-2024 WBC (Bld) [#/Vol] 5.4 10*3/uL 4.4-11.0 [facility] Cardiology Visit Reporton Cardiology Visit Report [facility] 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 Accompanied by: Is patient in [...] the past year?: No PFSH Medical History (Reviewed 10/10/23 @ 10:01 by Sophia Sultana OCEANOGRAPHER ASSISTANT, OCEANOGRAPHER ASSISTANT-C) History of cardioversion (07/07/23) assisted (current) use of anticoagulants New onset a-fib Presence of stent in coronary artery ( 05/03/10) Ischemic cardiomyopathy Mixed hyperlipidemia Gout History of prostate cancer Essential hypertension Cardiomyopathy Abnormal stress test Chest pain Right carotid bruit Arteriosclerotic heart disease (ASHD) Shortness of breath Old myocardial infarction Left bundle branch block Other detention (current) drug therapy Abnormal nuclear stress test HLD (hyperlipidemia) Atherosclerotic heart disease of [place] coronary artery without angina pectoris Surgical History [...] normal bilaterally (more content not included)... Normal [facility] Basophil percentageOrdered B y: Layton Farley on 07-07-2023 Chloride [Moles/Vol] 104 mmol/L 98-107 [facility] Glucose [Mass/Vol] 118 mg/dL 74-106 [facility] Comment on above: Fasting Glucose resu lt from 100 to 125 mg/dL suggests IMPAIRED HOMEOSTASIS per A.D.A. criteria. Potassium [Moles/Vol] 4.4 mmol/L 3.5-5.1 [facility] Sodium [Moles/Vol] 138 mmol/L 136-145 [facility] Laboratory - Chemistry and C hemistry - challengeOrdered By: Layton Farley on 07-07-2023 CO2 [Moles/Vol] 29.0 mmol/L 21.0-32.0 [facility] Urea nitrogen/Creatinine [Mass ratio] 15.8 mg/mg 10-20 [facility] No Panel InformationOrdered By: Layton Farley on 07-07-2023 Estimated Creatinine Clearance Calc 40.39 ml/min [facility] Estimated GFR (MDRD) Amer 52 mL/min >60 [facility] Comment on above: GFR Calc Estimated GFR (MDRD) Non-Af Amer 43 mL/min >60 [facility] Comment on above: Non- GFR Calc Serum or plasma calcium amanda urement (mass/volume)Ordered By: Layton Farley on 07-07-2023 Calcium [Mass/Vol] 9.4 mg/dL 8.5-10.1 [facility] Serum or plasma creatinine m easurement (mass/volume)Ordered By: Layton Farley on 07-07-2023 Creatinine [Mass/Vol] 1.65 mg/dL 0.70-1.30 [facility] Comment on above: The validity of the calculated GFR & GFRAA in patients over 70 years has not been determined. Clinical correlation is essential. Serum or plasma urea nitroge n measurement (mass/volume)Ordered By: Layton Farley on 07-07-2023 Urea nitrogen [Mass/Vol] 26 mg/dL 7-18 [facility] Thin prep Papanicolaou smear with manual screeningOrdered By: Layton Farley on 07-07-2023 Thin prep Papanicolaou smear with manual screening 5 5-15 [facility] Absolute lymphocyte countOrd ered By: Sophia Sultana on 07-04-2023 Lymphocytes Auto (Unsp spec) [#/Vol] 0.58 10*3/uL 0.83-4.51 [facility] Automated lymphocyte count a s percentage of total leukocytesOrdered By: Sophia Sultana on 07-04-2023 Lymphocytes/100 WBC Auto (Unsp spec) 10.5 % 19-41 [facility] Basophil percentageOrdered B y: Sophia Sultana on 07-04-2023 Basophils/100 WBC (Bld) 0.7 % 0-1 [facility] Bilirubin [Mass/Vol] 0.50 mg/dL 0.20-1.00 [facility] Comment on above: For patients on eltr ombopag therapy, use of Dimension Roberts TBIL is not recommended. Cholesterol [Mass/Vol] 105 mg/dL <200 [facility] Comment on above: <200 mg/dL Desirable 200-240 mg/dL Borderline >240 mg/dL High Risk Eosinophils/100 WBC (Bld) 4.1 % 0-5 [facility] Hemoglobin (Bld) [Mass/Vol] 13.1 g/dL 13.0-16.5 [facility] Monocytes/100 WBC (Bld) 6.8 % 0-10 [facility] Neutrophils (Bld) [#/Vol] 4.3 10*3/uL 2.0-7.7 [facility] Neutrophils/100 WBC (Bld) 77.5 % 47-70 [facility] Protein [Mass/Vol] 7.4 g/dL 6.4-8.2 [facility] Triglyceride [Mass/Vol] 111 mg/dL <199 [facility] Comment on above: The drugs N-Acetylcy steine and Metamizole may falsely depress this assay.Serum Triglycerides Reference Interval Normal <150 mg/dL Borderline high 150 - 199 mg/dL High 200 - 499 mg/dL Very High > or = 500 mg/dL WBC (Bld) [#/Vol] 5.6 10*3/uL 4.4-11.0 [facility] Determination of erythrocyte mean corpuscular volume (MCV)Ordered By: Sophia Sultana on 07-04-2023 MCV (RBC) [Entitic vol] 92.0 fL 80-94 [facility] Direct bilirubinOrdered By: Sophia Sultana on 07-04-2023 Bilirubin.direct [Mass/Vol] 0.19 mg/dL 0.00-0.30 [facility] Erythrocyte distribution wid th ratioOrdered By: Sophia Sultana on 07-04-2023 Erythrocyte distribution width (RBC) [Ratio] 14.8 % 11.6-14.6 [facility] Erythrocyte distribution wid th standard deviationOrdered By: Sophia Sultana on 07-04-2023 Erythrocyte distribution width (RBC) [Entitic vol] 49.2 fL 35.1-43.9 [facility] Hematocrit Auto (Bld) [Volum e fraction]Ordered By: Sophia Sultana on 07-04-2023 Hematocrit (Bld) [Volume fraction] 42.3 % 40-54 [facility] Immature granulocytes/100 WB C Auto (Bld)Ordered By: Sophia Sultana on 07-04-2023 Immature granulocytes/100 WBC (Bld) 0.400 % 0.0-0.9 [facility] Comment on above: IG% - Immature Granu locytes (promyelocytes, myelocytes and metamyelocytes) > 1% indicates that a LEFT SHIFT is Present. Laboratory - Chemistry and C hemistry - challengeOrdered By: Sophia Sultana on 07-04-2023 ALP [Catalytic activity/Vol] 117 U/L 45-117 [facility] ALT [Catalytic activity/Vol] 16 U/L 16-61 [facility] Cholesterol in HDL [Mass/Vol] 33 mg/dL >40 [facility] Comment on above: The drugs N-Acetylcy steine and Metamizole may falsely depress this assay. Reference Range HDL <40 mg/dL Low HDL Cholesterol HDL >or= 60 mg/dL High HDL Cholesterol Cholesterol in LDL [Mass/Vol] 50 mg/dL 0-130 [facility] Globulin (S) [Mass/Vol] 3.9 g/dL 2.2-4.2 [facility] Laboratory - Hematology and Cell countsOrdered By: Sophia Sultana on 07-04-2023 MCH (RBC) [Entitic mass] 28.5 pg 27.0-32.0 [facility] MCHC (RBC) [Mass/Vol] 31.0 g/dL 32-36 [facility] Nucleated RBC/100 WBC (Bld) [Ratio] 0 % 0-5 [facility] Platelet mean volume (Bld) [Entitic vol] 9.6 fL 6.2-12.0 [facility] Platelets (Bld) [#/Vol] 177 10*3/uL 150-450 [facility] No Panel InformationOrdered By: Sophia Sultana on 07-04-2023 VLDL Cholesterol 22 mg/dL 5-40 [facility] RBC Auto (Bld) [#/Vol]Ordere d By: Sophia Sultana on 07-04-2023 RBC (Bld) [#/Vol] 4.60 10*6/uL 4.6-6.2 [facility] Thin prep Papanicolaou smear with manual screeningOrdered By: Sophia Sultana on 07-04-2023 Thin prep Papanicolaou smear with manual screening 3.5 g/dL 3.2-5.0 [facility] Thin prep Papanicolaou smear with manual screening 16 U/L 15-37 [facility] Absolute lymphocyte countOrd ered By: Jemima Maldonado on 05-09-2023 Lymphocytes Auto (Unsp spec) [#/Vol] 0.62 10*3/uL 0.83-4.51 [facility] Automated lymphocyte count a s percentage of total leukocytesOrdered By: Jemima Maldonado on 05-09-2023 Lymphocytes/100 WBC Auto (Unsp spec) 12.1 % 19-41 [facility] Basophil percentageOrdered B y: Jemima Maldonado on 05-09-2023 Basophils/100 WBC (Bld) 0.6 % 0-1 [facility] Bilirubin [Mass/Vol] 1.00 mg/dL 0.20-1.00 [facility] Comment on above: For patients on eltr ombopag therapy, use of Dimension [place] TBIL is not recommended. Chloride [Moles/Vol] 104 mmol/L 98-107 [facility] Eosinophils/100 WBC (Bld) 3.1 % 0-5 [facility] Glucose [Mass/Vol] 102 mg/dL 74-106 [facility] Comment on above: Fasting Glucose resu lt from 100 to 125 mg/dL suggests IMPAIRED HOMEOSTASIS per A.D.A. criteria. Hemoglobin (Bld) [Mass/Vol] 14.9 g/dL 13.0-16.5 [facility] Monocytes/100 WBC (Bld) 8.0 % 0-10 [facility] Neutrophils (Bld) [#/Vol] 3.9 10*3/uL 2.0-7.7 [facility] Neutrophils/100 WBC (Bld) 75.8 % 47-70 [facility] Potassium [Moles/Vol] 4.4 mmol/L 3.5-5.1 [facility] Protein [Mass/Vol] 7.4 g/dL 6.4-8.2 [facility] Sodium [Moles/Vol] 137 mmol/L 136-145 [facility] WBC (Bld) [#/Vol] 5.1 10*3/uL 4.4-11.0 [facility] Determination of erythrocyte mean corpuscular volume (MCV)Ordered By: Jemima Maldonado on 05-09-2023 MCV (RBC) [Entitic vol] 92.5 fL 80-94 [facility] Erythrocyte distribution wid th ratioOrdered By: Jemima Maldonado on 05-09-2023 Erythrocyte distribution width (RBC) [Ratio] 13.6 % 11.6-14.6 [facility] Erythrocyte distribution wid th standard deviationOrdered By: Jemima Maldonado on 05-09-2023 Erythrocyte distribution width (RBC) [Entitic vol] 45.7 fL 35.1-43.9 [facility] Hematocrit Auto (Bld) [Volum e fraction]Ordered By: Jemima Maldonado on 05-09-2023 Hematocrit (Bld) [Volume fraction] 46.8 % 40-54 [facility] Immature granulocytes/100 WB C Auto (Bld)Ordered By: Jemima Maldonado on 05-09-2023 Immature granulocytes/100 WBC (Bld) 0.400 % 0.0-0.9 [facility] Comment on above: IG% - Immature Granu locytes (promyelocytes, myelocytes and metamyelocytes) > 1% indicates that a LEFT SHIFT is Present. Laboratory - Chemistry and C hemistry - challengeOrdered By: Jemima Maldonado on 03-01-2024 Albumin/Globulin [Mass ratio] 0.9 {ratio} 0.9-2.4 [facility] ALP [Catalytic activity/Vol] 105 U/L 45-117 [facility] ALT [Catalytic activity/Vol] 19 U/L 16-61 [facility] CO2 [Moles/Vol] 30.0 mmol/L 21.0-32.0 [facility] Globulin (S) [Mass/Vol] 3.8 g/dL 2.2-4.2 [facility] Natriuretic peptide B (Bld) [Mass/Vol] 147.9 pg/mL 0-100 [facility] Urea nitrogen/Creatinine [Mass ratio] 14.9 mg/mg 10-20 [facility] Laboratory - Hematology and Cell countsOrdered By: Jemima Maldonado on 05-09-2023 MCH (RBC) [Entitic mass] 29.4 pg 27.0-32.0 [facility] MCHC (RBC) [Mass/Vol] 31.8 g/dL 32-36 [facility] Nucleated RBC/100 WBC (Bld) [Ratio] 0 % 0-5 [facility] Platelet mean volume (Bld) [Entitic vol] 9.3 fL 6.2-12.0 [facility] Platelets (Bld) [#/Vol] 192 10*3/uL 150-450 [facility] No Panel InformationOrdered By: Jemima Maldonado on 05-09-2023 Estimated GFR (MDRD) Amer 66 mL/min >60 [facility] Comment on above: GFR Calc Estimated GFR (MDRD) Non-Af Amer 54 mL/min >60 [facility] Comment on above: Non- GFR Calc Free Triiodothyronine (T3) pg/dL 2.5 pg/mL 2.18-3.98 [facility] RBC Auto (Bld) [#/Vol]Ordere d By: Jemima Maldonado on 05-09-2023 RBC (Bld) [#/Vol] 5.06 10*6/uL 4.6-6.2 [facility] Serum or plasma calcium amanda urement (mass/volume)Ordered By: Jemima Maldonado on 05-09-2023 Calcium [Mass/Vol] 8.9 mg/dL 8.5-10.1 [facility] Serum or plasma creatinine m easurement (mass/volume)Ordered By: Jemima Maldonado on 05-09-2023 Creatinine [Mass/Vol] 1.34 mg/dL 0.70-1.30 [facility] Comment on above: The validity of the calculated GFR & GFRAA in patients over 70 years has not been determined. Clinical correlation is essential. Serum or plasma thyroid stim ulating hormone (TSH) measurement (units/volume)Ordered By: Jemima Maldonado on 05-09-2023 TSH Qn 2.88 uIU/mL 0.358-3.74 [facility] Serum or plasma urea nitroge n measurement (mass/volume)Ordered By: Jemima Maldonado on 05-09-2023 Urea nitrogen [Mass/Vol] 20 mg/dL 7-18 [facility] Thin prep Papanicolaou smear with manual screeningOrdered By: Jemima Maldonado on 05-09-2023 Thin prep Papanicolaou smear with manual screening 3.6 g/dL 3.2-5.0 [facility] Thin prep Papanicolaou smear with manual screening 16 U/L 15-37 [facility] Thin prep Papanicolaou smear with manual screening 3 5-15 [facility] Thin prep Papanicolaou smear with manual screening 0.88 ng/dL 0.76-1.46 [facility] Basophil percentageOrdered B y: Sophia Sultana on 01-02-2023 Bilirubin [Mass/Vol] 0.60 mg/dL 0.20-1.00 [facility] Comment on above: For patients on eltr ombopag therapy, use of Dimension Roberts TBIL is not recommended. Cholesterol [Mass/Vol] 125 mg/dL <200 [facility] Comment on above: <200 mg/dL Desirable 200-240 mg/dL Borderline >240 mg/dL High Risk Protein [Mass/Vol] 7.4 g/dL 6.4-8.2 [facility] Triglyceride [Mass/Vol] 119 mg/dL <199 [facility] Comment on above: The drugs N-Acetylcy steine and Metamizole may falsely depress this assay.Serum Triglycerides Reference Interval Normal <150 mg/dL Borderline high 150 - 199 mg/dL High 200 - 499 mg/dL Very High > or = 500 mg/dL Direct bilirubinOrdered By: Sophia Sultana on 01-02-2023 Bilirubin.direct [Mass/Vol] 0.19 mg/dL 0.00-0.30 [facility] Laboratory - Chemistry and C hemistry - challengeOrdered By: Sophia Sultana on 01-02-2023 ALP [Catalytic activity/Vol] 107 U/L 45-117 [facility] ALT [Catalytic activity/Vol] 28 U/L 16-61 [facility] Globulin (S) [Mass/Vol] 3.8 g/dL 2.2-4.2 [facility] Serum or plasma albumin amanda urement (mass/volume)Ordered By: Sophia Sultana on 01-02-2023 Albumin [Mass/Vol] 3.6 g/dL 3.2-5.0 [facility] Serum or plasma cholesterol in HDL measurement (mass/volume)Ordered By: Sophia Sultana on 01-02-2023 Cholesterol in HDL [Mass/Vol] 39 mg/dL >40 [facility] Comment on above: The drugs N-Acetylcy steine and Metamizole may falsely depress this assay. Reference Range HDL <40 mg/dL Low HDL Cholesterol HDL >or= 60 mg/dL High HDL Cholesterol Serum or plasma cholesterol in VLDL measurement (mass/volume)Ordered By: Sophia Sultana on 01-02-2023 Cholesterol in VLDL [Mass/Vol] 24 mg/dL 5-40 [facility] Serum or plasma low density lipoprotein (LDL) cholesterol measurement (mass/volume)Ordered By: Sophia Sultana on 01-02-2023 Cholesterol in LDL [Mass/Vol] 62 mg/dL 0-130 [facility] Thin prep Papanicolaou smear with manual screeningOrdered By: Sophia Sultana on 01-02-2023 Thin prep Papanicolaou smear with manual screening 17 U/L 15-37 [facility] OBSOLETEon 03-04-2019 OBSOLETE Refill (CARCMN) ---- HAAS,GARCIA A ([id number]) 1940 M Date Time Provider Department 03/04/19 ISABELLA BURLESON During your visit today, we recorded the following information about you: Chastity Anu Coord 03/04/2019 8:05 AM Signed March 04, 2019 [id number] Patient Name: Garcia Haas Contact Information: [phone] (home) Reason For Call: Refill - Retail (local) Pharmacy:Name of Pharmacy [facility] Physician:Isabella Burleson MD Pending Prescriptions Disp Refills [...] 3 03/04/2019 06/02/2019 Cmt: Needs follow-up with Head Of Housekeeping before providing more refills after this prescription Route: ORAL Sig: Take 1 tablet by mouth every 12 hours. Medications Discontinued During This Encounter metoprolol tartrate, short acting, (* 60 t* 5 02/22/2018 03/04/2019 Route: ORAL Sig: Take 1 tablet by mouth every 12 hours. Disc: Reason for discontinue is not on file. Encounter Status:Closed by KALPANA EPSTEIN CNP on 03/04/19 Normal [facility] Office Visiton 01-17-2017 Dietary management education, guidance, and counseling (procedure) yes Invalid Interpretation Code [facility] [employer] Phone: [phone] Documentation of current medications (procedure) Done Invalid Interpretation Code [facility] Work Phone: [phone] Fall risk assessment No Invalid Interpretation Code [facility] Work Phone: [phone] Tobacco use CPHS Never smoker Invalid Interpretation Code [facility] Work Phone: [phone] Lab Report: Lipid Profileon 08-29-2016 Cholesterol 158 mg/dL Invalid Interpretation Code 200 [facility] Work Phone: [phone] HDL Cholesterol 27 mg/dL Low [facility] [employer] Phone: [phone] LDL Cholesterol 103 mg/dL Invalid Interpretation Code 0-130 [facility] [employer] Phone: [phone] Triglyceride 140 mg/dL Invalid Interpretation Code [facility] Work Phone: [phone] very low density lipoproteins 28 mg/dL Invalid Interpretation Code 5-40 [facility] [employer] Phone: [phone] Lab Report: Liver Profileon 08-29-2016 Alanine aminotransferase (ALT) 34 U/L Invalid Interpretation Code 12-78 [facility] Phone: [phone] Albumin 3.6 g/dL Invalid Interpretation Code 3.4-5.0 [facility] Phone: [phone] Alkaline phosphatase (ALP) 54 U/L Invalid Interpretation Code 45-117 [facility] [employer] Phone: [phone] Aspartate aminotransferase (AST) 30 U/L Invalid Interpretation Code 15-37 [facility] Phone: [phone] Bilirubin (direct) 0.13 mg/dL Invalid Interpretation Code 0.00-0.30 [facility] Phone: [phone] Bilirubin (total) 0.60 mg/dL Invalid Interpretation Code 0.20-1.00 [facility] Phone: [phone] Globulin 3.8 g/dL High 2.3-3.5 [facility] [employer] Phone: [phone] Protein 7.4 g/dL Invalid Interpretation Code 6.4-8.2 [facility] Phone: [phone] Replaced Document: Navneet Clineon 06-24-2016 EKG QRS axis 2 deg Invalid Interpretation Code [facility] Work Phone: [phone] Interpretation Sinus Rhythm Low voltage in limb leads. -Poor R-wave progression -may be secondary to pulmonary disease consider old anterior infarct. ABNORMAL Invalid Interpretation Code [facility] Work Phone: [phone] P [place] 37 deg Invalid Interpretation Code [facility] Work Phone: [phone] WV Interval 160 ms Invalid Interpretation Code [facility] Work Phone: [phone] Pulse (Heart Rate) 75 /min Invalid Interpretation Code [facility] Work Phone: [phone] QRS Duration 122 ms Invalid Interpretation Code [facility] Work Phone: [phone] QT Interval new path ms Invalid Interpretation Code [facility] Work Phone: [phone] QTc Math[place] 396 ms Invalid Interpretation Code [facility] Work Phone: [phone] T [place] 38 deg Invalid Interpretation Code [facility] Work Phone: [phone] Clinical Lists Update: Prelo post anesthesia nurse 06-13-2015 Left ventricular Ejection fraction 55 % Invalid Interpretation Code [facility] Work Phone: [phone] Lab Report: Basic Metabolic Profile (BMP)on 06-08-2015 Anion gap 8 mmol/L Invalid Interpretation Code 5-15 [facility] [employer] Phone: [phone] BUN/Creatinine Ratio 19.2 RATIO Invalid Interpretation Code 10-20 [facility] [employer] Phone: [phone] Calcium 9.1 mg/dL Invalid Interpretation Code 8.5-10.1 [facility] Phone: [phone] Chloride 104 mmol/L Invalid Interpretation Code 98-107 [facility] [employer] Phone: [phone] CO2 28.0 mmol/L Invalid Interpretation Code 21.0-32.0 [facility] [employer] Phone: [phone] Creatinine 1.20 mg/dL Invalid Interpretation Code 0.70-1.30 [facility] Phone: [phone] eGFR (non-black) 76 mL/min/{1.73_m2} Invalid Interpretation Code >60 [facility] Phone: [phone] eGFR (non-black) 63 mL/min/{1.73_m2} Invalid Interpretation Code >60 [facility] [employer] Phone: [phone] Glucose mass conc 105 mg/dL Invalid Interpretation Code 70-110 [facility] [employer] Phone: [phone] Potassium molar conc 4.5 mmol/L Invalid Interpretation Code 3.5-5.1 [facility] [employer] Phone: [phone] Sodium 140 mmol/L Invalid Interpretation Code 136-145 [facility] [employer] Phone: [phone] Urea nitrogen 23 mg/dL High 7-18 [facility] [employer] Phone: [phone] Lab Report: CBC-Complete Blo od Cnt No Diffon 06-08-2015 Erythrocyte distribution width Auto Ratio (RBC) 13.5 % Invalid Interpretation Code 11.6-14.6 [place] [facility] Phone: [phone] Erythrocytes (RBC) 4.49 10*6/uL Low 4.6-6.2 [facility] [employer] Work Phone: [phone] Hematocrit (HCT) 40.0 % Invalid Interpretation Code 40-54 [place] [facility] Phone: [phone] Hemoglobin mass conc (Bld) 13.5 g/dL Invalid Interpretation Code 13.0-16.5 [place] [facility] [employer] Phone: [phone] MCH 30.1 pg Invalid Interpretation Code 27.0-32.0 [place] [facility] [employer] Phone: [phone] MCHC mass conc (RBC) 33.8 G/GL Invalid Interpretation Code 32-36 [place] [facility] Phone: [phone] MCV 89.1 fL Invalid Interpretation Code 80-94 [place] [facility] [employer] Phone: [phone] Platelets 170 10*3/mm3 Invalid Interpretation Code 150-450 [place] [facility] [employer] Phone: [phone] PMV by Tere 8.5 fL Invalid Interpretation Code 6.2-12.0 [place] [facility] Phone: [phone] RDW SD 43.3 fL Invalid Interpretation Code 35.1-43.9 [place] [facility] Phone: [phone] WBC (Leukocytes) 4.5 10*3/uL Invalid Interpretation Code 4.4-11.0 [place] [facility] [employer] Phone: [phone] Lab Report: T4 Total, Thyrox inon 06-08-2015 Thyroxine (T4) 7.6 ug/dL Invalid Interpretation Code 4.5-12.1 [place] [facility] Phone: [phone] Lab Report: Thyroid Stim Hor kadeem (TSH)on 06-08-2015 Thyroid stimulating hormone (TSH) 1.48 u[iU]/mL Invalid Interpretation Code 0.358-3.74 [place] [facility] Phone: [phone] Office Visiton 05-16-2015 cardiac risk group C Invalid Interpretation Code [place] [facility] Phone: [phone] General cardiovascular disease 10Y risk [#] Holcomb.D'Agostino N/A Invalid Interpretation Code [place] [facility] Phone: [phone] Lab Report: CMPon 01-21-2014 Albumin/Globulin Ratio 1.1 {ratio} Normal 0.9-2.4 [facility] [employer] Work Phone: [phone] Lab Report: MIACREon 014 Urine, creatinine 113.8 mg/dL Normal NO RANGE EST. [facility] Work Phone: [phone] Urine, microalbumin 1.45 mg/dL Normal Units converted. See lab report for original value. [place] [facility] Work Phone: [phone] Lab Report: URICon 4 Urate 6.1 mg/dL Normal 3.5-7.2 [facility] Work Phone: [phone] Lab Report: PTon 11-07-2011 INR Coag RelTime (PPP) 1.0 {INR} Normal [facility] Work Phone: [phone] PTP 12.2 SECONDS Normal 11.9-14.4 [facility] Work Phone: [phone] Lab Report: PTTon 11-07-2011 aPTT 28.6 s Normal 24.1-36.2 [place] [facility] Work Phone: [phone] Replaced Document: Navneet E CG Observationson 10-30-2011 Pulse (Heart Rate) 384 ms Invalid Interpretation Code [place] [facility] Work Phone: [phone] Vital Signs Date Time Vital Sign Value Performing Clinician Facility 08-19-2024 09:04-0400 Body height [address] Srinivasa Nava MD Work Phone: [facility] 08-19-2024 09:04-0400 Body mass index (BMI) [Ratio] 34.2 kg/m2 Dr. Srinivasa Nava MD Work Phone: [facility] 08-19-2024 09:04-0400 Body weight 102.[address] Srinivasa Nava MD Work Phone: [facility] 08-19-2024 09:04-0400 Diastolic blood pressure 74 mm[Hg] Dr. Srinivasa Nava MD Work Phone: [facility] 08-19-2024 09:04-0400 Heart rate 83 /min Dr. Srinivasa Nava MD Work Phone: 1(378)852-011424 [place] [address] 08-19-2024 09:04-0400 Respiratory rate 18 /min Dr. Srinivasa Nava MD Work Phone: 4(059)663-537768 [address] 08-19-2024 09:04-0400 Systolic blood pressure 123 mm[Hg] Dr. Srinivasa Nava MD Work Phone: 9(708)562-484968 [address] 05-27-2024 07:22-0400 Body height [address] Srinivasa Nava MD Work Phone: 5(705)824-330553 [place] [address] 05-27-2024 07:22-0400 Body mass index (BMI) [Ratio] 34.7 kg/m2 Dr. Srinivasa Nava MD Work Phone: 1(802)853-961368 [address] 05-27-2024 07:22-0400 Body weight 103.[address] Srinivasa Nava MD Work Phone: 7(130)223-295024 [place] [address] 05-27-2024 07:22-0400 Diastolic blood pressure 78 mm[Hg] Dr. Srinivasa Nava MD Work Phone: 6(010)013-529668 [address] 05-27-2024 07:22-0400 Heart rate 84 /min Dr. Srinivasa Nava MD Work Phone: 1(216)550-596324 [place] [address] 05-27-2024 07:22-0400 Respiratory rate 18 /min Dr. Srinivasa Nava MD Work Phone: 2(658)231-842568 [address] 05-27-2024 07:22-0400 SaO2% (BldA) [Mass fraction] 92 % Dr. Srinivasa Nava MD Work Phone: 4(823)969-276368 [address] 05-27-2024 07:22-0400 Systolic blood pressure 112 mm[Hg] Dr. Srinivasa Nava MD Work Phone: 6(963)632-141968 [address] 11-24-2023 13:24-0400 Body height 172.72 cm Brittaney Decker RN [facility], [facility].; [facility]. 11-24-2023 13:24-0400 Body mass index (BMI) [Ratio] 33.91 kg/m2 Brittaney Decker RN [facility] [place] [facility] [facility]. 11-24-2023 13:24-0400 Body surface area Derived from formula 2.14 m2 Brittaney Decker RN [facility] [place] [employer]. 11-24-2023 13:24-040 Body temperature 98.9 [degF] Brittaney Decker RN [facility] [facility] [employer]. Comment on above: Method: Tympanic 11-24-2023 13:24040 Body weight 101.15 kg Brittaney Decker RN [facility] [facility] [place] [employer] [facility]. 11-24-2023 13:24-0400 Diastolic blood pressure 69 mm[Hg] Brittaney Decker RN [facility] [place] [employer]. Comment on above: Patient Position: Sitting; Cuff Location : Right Arm; Cuff Size: Large 11-24-2023 13:24-0400 Heart rate 82 /min Brittaney Decker RN [facility] [facility] [place] [employer] [facility]. Comment on above: Pattern: Regular 11-24-2023 13:24-0400 Systolic blood pressure 118 mm[Hg] Brittaney Decker RN [place] [employer] [facility] [place] [employer]. Comment on above: Patient Position: Sitting; Cuff Location : Right Arm; Cuff Size: Large 08-06-2023 08:58-0400 Body height 172.72 cm Jacque Forbes PA-C Work Phone: [facility] [place] [employer].; [facility]. 08-06-2023 08:58-0400 Body mass index (BMI) [Ratio] 33.3 kg/m2 Jacque Forbes PA-C Work Phone: [place] [employer].; [employer]. 08-06-2023 08:58-0400 Body surface area Derived from formula 2.12 m2 Jacque Forbes PA-C Work Phone: [facility]; [place] [employer] [facility] 08-06-2023 08:58-0400 Body weight 99.34 kg Jacque J Forbes PA-C Work Phone: [facility] [employer]; [employer] 08-06-2023 08:58-0400 Diastolic blood pressure 68 mm[Hg] Jacque J Forbes PA-C Work Phone: [facility] [employer]; [employer]. Comment on above: Patient Position: Sitting; Cuff Location : Left Arm; Cuff Size: Standard 08-06-2023 08:58-0400 Heart rate 39 /min Srinivasa Nava MD Work Phone: [facility]; [employer]. Comment on above: Pattern: Regular 08-06-2023 08:58-0400 Heart rate 101 /min Jacque J Forbes PA-C Work Phone: [facility] [employer]; [employer]. Comment on above: Pattern: Regular 08-06-2023 08:58-0400 Inhaled oxygen concentration 21 % Jacque J Forbes PA-C Work Phone: [facility]; [employer]. Comment on above: Room air 08-06-2023 08:58-0400 Respiratory rate 97 /min Srinivasa Nava MD Work Phone: [facility] [employer]; [employer]. Comment on above: Pattern: Unlabored 08-06-2023 08:58-0400 SaO2% (BldA) [Mass fraction] 97 % Jacque J Forbes PA-C Work Phone: [place] [employer]; [employer] 08-06-2023 08:58-0400 Systolic blood pressure 131 mm[Hg] Jacque J Forbes PA-C Work Phone: [place] [employer]; [employer] Comment on above: Patient Position: Sitting; Cuff Location : Left Arm; Cuff Size: Standard 07-14-2023 10:140400 Body height 172.72 cm Saloni Swanson [facility], [facility].; [facility]. 07-14-2023 10:14-0400 Body mass index (BMI) [Ratio] 32.99 kg/m2 Saloni Swanson [facility], [facility].; [facility], [facility]. 07-14-2023 10:14-0400 Body surface area Derived from formula 2.12 m2 [facility] [employer] [facility], [facility].; [facility]. 07-14-2023 10:140400 Body weight 98.43 kg Saloni Swanson [facility].; [facility], [facility]. 07-14-2023 10:14-0400 Diastolic blood pressure 72 mm[Hg] SeraTiff Swanson [facility].; [facility], [facility]. Comment on above: Patient Position: Sitting; Cuff Location : Left Arm; Cuff Size: Large 07-14-2023 10:14-0400 Heart rate 120 /min SeraTiff Swanson [facility], [facility].; [facility], [facility]. Comment on above: Pattern: Regular 07-14-2023 10:14-0400 Systolic blood pressure 108 mm[Hg] Saloni Swanson [facility], [facility].; [facility], [facility]. Comment on above: Patient Position: Sitting; Cuff Location : Left Arm; Cuff Size: Large 07-07-2023 10:48-0400 Body height [address] Srinivasa Nava Work Phone: [facility] 07-07-2023 10:48-0400 Body weight 100.[address] Srinivasa Nava Work Phone: [facility] 07-04-2023 08:14-0400 Body mass index (BMI) [Ratio] 33.3 kg/m2 Dr. Srinivasa Nava Work Phone: [facility] 07-04-2023 08:14-0400 Body weight 99.[address] Srinivasa Nava Work Phone: 4(288)763-786468 [address] 07-04-2023 08:14-0400 Diastolic blood pressure 71 mm[Hg] Dr. Srinivasa Nava Work Phone: 4(662)858-746824 [place] [address] 07-04-2023 08:14-0400 Heart rate 75 /min Dr. Srinivasa Nava Work Phone: 6(032)497-356953 [place] [address] 07-04-2023 08:14-0400 Respiratory rate 18 /min Dr. Srinivasa Nava Work Phone: 0(498)587-874253 [place] [address] 07-04-2023 08:14-0400 SaO2% (BldA) [Mass fraction] 96 % Dr. Srinivasa Nava Work Phone: 6(009)260-286453 [place] [address] 07-04-2023 08:14-0400 Systolic blood pressure 136 mm[Hg] Dr. Srinivasa Nava Work Phone: 1(847)759-561768 [address] 07-04-2023 08:13-0400 Body mass index (BMI) [Ratio] 33.6 kg/m2 Dr. Srinivasa Nava Work Phone: 4(492)643-974253 [place] [address] 05-09-2023 09:09-0500 Body height 172.[address] Srinivasa Nava Work Phone: 7(300)438-211853 [place] [address] 05-09-2023 09:04-0500 Body mass index (BMI) [Ratio] 33.7 kg/m2 Dr. Srinivasa Nava Work Phone: 5(234)274-548153 [place] [address] 05-09-2023 09:04-0500 Body weight 100.[address] Srinivasa Nava Work Phone: 5(358)753-819068 [address] 05-09-2023 09:04-0500 Diastolic blood pressure 80 mm[Hg] Dr. Srinivasa Nava Work Phone: 8(501)505-596068 [address] 05-09-2023 09:04-0500 Heart rate 69 /min Dr. Srinivasa Nava Work Phone: 8(127)942-302353 [place] [address] 05-09-2023 09:04-0500 Respiratory rate 22 /min Dr. Srinivasa Nava Work Phone: 5(305)315-830824 [place] [address] 05-09-2023 09:04-0500 SaO2% (BldA) [Mass fraction] 93 % Dr. Srinivasa Nava Work Phone: 8(663)503-621624 [place] [address] 05-09-2023 09:04-0500 Systolic blood pressure 163 mm[Hg] Dr. Srinivasa Nava Work Phone: 6(943)651-394468 [address] 01-02-2023 08:41-0400 Body height 172.[address] Srinivasa Nava Work Phone: 3(624)047-619468 [address] 01-02-2023 08:41-0400 Diastolic blood pressure 74 mm[Hg] Dr. Srinivasa Nava Work Phone: 4(119)140-257968 [address] 01-02-2023 08:41-0400 Systolic blood pressure 140 mm[Hg] Dr. Srinivasa Nava Work Phone: 3(938)219-488253 [place] [address] 01-02-2023 08:39-0400 Body mass index (BMI) [Ratio] 34.7 kg/m2 Dr. Srinivasa Nava Work Phone: 7(931)285-123553 [place] [address] 01-02-2023 08:39-0400 Body weight 103.[address] Srinivasa Nava Work Phone: 0(160)648-369568 [address] 01-02-2023 08:39-0400 Heart rate 82 /min Dr. Srinivasa Nava Work Phone: 8(914)148-095453 [place] [address] 01-02-2023 08:39-0400 Respiratory rate 18 /min Dr. Srinivasa Nava Work Phone: 2(101)998-903253 [place] [address] 01-02-2023 08:39-0400 SaO2% (BldA) [Mass fraction] 93 % Dr. Srinivasa Nava Work Phone: 9(965)612-047268 [address] 08-15-2022 07:36-0400 Body weight 104.33 kg Sadiq Enriquez LPN [facility], [facility]. 08-15-2022 07:36-0400 Diastolic blood pressure 88 mm[Hg] Sadiq Enriquez LPN [facility] Comment on above: Patient Position: Sitting; Cuff Location : Left Arm; Cuff Size: Standard 08-15-2022 07:36-0400 Heart rate 74 /min Sadiq Enriquez LPN [facility] [employer]. Comment on above: Pattern: Regular 08-15-2022 07:36-0400 Systolic blood pressure 152 mm[Hg] Sadiq Enriquez DANIELLE [facility], [facility].; [employer]. Comment on above: Patient Position: Sitting; Cuff Location : Left Arm; Cuff Size: Standard 05-03-2020 13:46-0500 Body height 172.72 cm Saloni Swanson [facility], [facility].; [facility] [facility]. 05-03-2020 13:46-0500 Body mass index (BMI) [Ratio] 34.36 kg/m2 [employer] [facility], [facility].; [facility], [employer]. 05-03-2020 13:46-0500 Body surface area Derived from formula 2.15 m2 Saloni Swanson [employer] [facility], [facility].; [place] [employer], [employer]. 05-03-2020 13:46-0500 Body weight 102.51 kg Saloni Swanson [facility], [facility].; [employer], [employer]. 05-03-2020 13:46-0500 Diastolic blood pressure 72 mm[Hg] Saloni Swanson [facility], [facility].; [employer]. Comment on above: Patient Position: Sitting; Cuff Location : Left Arm; Cuff Size: Large 05-03-2020 13:46-0500 Heart rate 87 /min Saloni Swanson [facility], [facility].; [employer]. Comment on above: Pattern: Regular 05-03-2020 13:46-0500 Systolic blood pressure 133 mm[Hg] Saloni Swanson FUNERAL ATTENDANT [facility], [facility].; [employer]. Comment on above: Patient Position: Sitting; Cuff Location : Left Arm; Cuff Size: Large 10-13-2019 13:08-0400 Body height 172.72 cm Corina Ryan RN [facility], [employer]. 10-13-2019 13:08-0400 Body mass index (BMI) [Ratio] 36.13 kg/m2 Corina Ryan RN [facility] [employer]. 10-13-2019 13:08-0400 Body surface area Derived from formula 2.2 m2 Corina Ryan RN [place] [employer]. 10-13-2019 13:08-0400 Body temperature 97.8 [degF] Corina Ryan RN [place] [employer]. Comment on above: Method: Tympanic 10-13-2019 13:08-0400 Body weight 107.78 kg Corina Ryan RN [employer]. 10-13-2019 13:08-0400 Diastolic blood pressure 87 mm[Hg] Corina Ryan RN [employer].; [employer]. Comment on above: Patient Position: Sitting; Cuff Location : Left Arm; Cuff Size: Standard 10-13-2019 13:08-0400 Heart rate 81 /min Corina Ryan RN [employer].; [employer]. Comment on above: Pattern: Regular 10-13-2019 13:08-0400 Systolic blood pressure 145 mm[Hg] Corina Ryan RN [employer].; [employer]. Comment on above: Patient Position: Sitting; Cuff Location : Left Arm; Cuff Size: Standard 03-04-2019 14:59-0500 Body height 172.72 cm Shiela Canela LPN [employer]. 03-04-2019 14:59-0500 Body mass index (BMI) [Ratio] 35.28 kg/m2 Shiela Canela LPN [employer].; [employer]. 03-04-2019 14:59-0500 Body surface area Derived from formula 2.18 m2 Shiela Canela LPN [employer].; [employer]. 03-04-2019 14:59-0500 Body temperature 98.2 [degF] Shiela Canela LPN [employer].; [employer]. Comment on above: Method: Tympanic 03-04-2019 14:59-0500 Body weight 105.24 kg Shiela Canela LPN [employer] 03-04-2019 14:59-0500 Diastolic blood pressure 75 mm[Hg] Shiela Canela FUNERAL ATTENDANT [place] [employer] Comment on above: Patient Position: Sitting; Cuff Location : Left Arm; Cuff Size: Standard 03-04-2019 14:59-0500 Heart rate 82 /min Shiela Canela FUNERAL ATTENDANT [place] [facility] [facility] [employer], Inc. Comment on above: Pattern: Regular 03-04-2019 14:59-0500 Systolic blood pressure 142 mm[Hg] Shiela Canela FUNERAL ATTENDANT [place] [employer] Comment on above: Patient Position: Sitting; Cuff Location : Left Arm; Cuff Size: Standard 06-16-2017 14:52-0400 Body height 172.72 cm Salnoi Swanson FUNERAL ATTENDANT [facility] [employer] 06-16-2017 14:52-0400 Body mass index (BMI) [Ratio] 36.95 kg/m2 Saloni Swanson [facility] [employer] 06-16-2017 14:52-0400 Body surface area Derived from formula 2.22 m2 Saloni Swanson [facility] [employer] 06-16-2017 14:52-0400 Body temperature 99.5 [degF] SeraTiff Swanson [facility] [employer] Comment on above: Method: Tympanic 06-16-2017 14:52-0400 Body weight 110.22 kg Saloni Swanson FUNERAL ATTENDANT [place] [employer] 06-16-2017 14:52-0400 Diastolic blood pressure 76 mm[Hg] Saloni Swanson [facility] [employer] Comment on above: Patient Position: Sitting; Cuff Location : Left Arm; Cuff Size: Large 06-16-2017 14:52-0400 Heart rate 103 /min Saloni Swanson [facility] [employer] Comment on above: Pattern: Regular 06-16-2017 14:52-0400 Inhaled oxygen concentration 20 % Saloni Swanson [facility], [facility] [place] [facility] [facility]. Comment on above: Room air 06-16-2017 14:52-0400 Inhaled oxygen concentration 21 % Saloni Swanson [facility], [facility] [place] [employer]. Comment on above: Room air 06-16-2017 14:52-0400 SaO2% (BldA) [Mass fraction] 93 % Saloni Swanson [facility], [facility] 06-16-2017 14:52-0400 Systolic blood pressure 156 mm[Hg] Saloni Swanson [facility] [place] [facility], [employer]. Comment on above: Patient Position: Sitting; Cuff Location : Left Arm; Cuff Size: Large 01-17-2017 13:51-0500 BMI (Body Mass Index) 36.94 kg/m2 Juliusjianmarily [employer] Work Phone: 01-17-2017 [...] kg Carlos [facility] Work Phone: 09-20-2016 07:33-0400 Body weight 112.04 kg Diamond E Michael [facility] Inc[employer]. 09-20-2016 07:33-0400 Diastolic blood pressure 64 mm[Hg] Diamond Rodriguez LPN [employer]. Comment on above: Patient Position: Sitting; Cuff Location : Left Arm; Cuff Size: Standard 09-20-2016 07:33-0400 Systolic blood pressure 114 mm[Hg] Diamond Rodriguez LPN [employer]. Comment on above: Patient Position: Sitting; Cuff Location : Left Arm; Cuff Size: Standard 12-22-2015 13:10-0400 BSA (Body Surface Area) 2.23 m2 Juliuseddi Adlerz [facility] Work Phone: 09-15-2015 08:08-0400 Diastolic blood pressure 76 mm[Hg] Srinivasa Nava MD Work Phone: [employer]. Comment on above: Patient Position: Sitting; Cuff Location : Left Arm; Cuff Size: Standard 09-15-2015 08:08-0400 Heart rate 72 /min Srinivasa Nava MD Work Phone: [employer] Comment on above: Pattern: Regular 09-15-2015 08:08-0400 Systolic blood pressure 132 mm[Hg] Srinivasa Nava MD Work Phone: [employer] Comment on above: Patient Position: Sitting; Cuff Location : Left Arm; Cuff Size: Standard Encounters Encounter Date Encounter Type Care Provider Facility Start: 08-26-2024 Patient encounter procedure Kian Oro OCEANOGRAPHER ASSISTANT-C -Laboratory Work Phone: Start: 08-20-2024 End: 08-20-2024 Patient encounter procedure Kian Oro OCEANOGRAPHER ASSISTANT-C -Laboratory Work Phone: Start: 08-20-2024 End: 08-20-2024 ambulatory Kian Oro OCEANOGRAPHER ASSISTANT Facility:[facility] Start: 08-19-2024 End: 08-19-2024 Historical Summary Srinivasa Nava MD Work Phone: [facility] Start: 08-19-2024 End: 08-19-2024 Patient encounter procedure Kian GABRIEL -[facility] Work Phone: Start: 08-19-2024 End: 08-19-[address] Srinivasa Nava MD Work Phone: [facility] Work Phone: Start: 07-30-2024 End: 07-30-[address] Srinivasa Nava MD Work Phone: [facility] Work Phone: Start: 07-30-2024 End: 07-30-2024 Patient encounter procedure Jemima MONTOYA -Laboratory Work Phone: Start: 07-30-2024 End: 07-30-2024 ambulatory Srinivasa Nava Facility:[facility] Start: 07-13-2024 ambulatory Layton Farley Facility:[facility] Start: 07-13-2024 Non-patient / Non-visit Dr. Traylor Of candi CAMPOS -[facility] Work Phone: Start: 07-13-2024 Non-patient / Non-visit Dr. Traylor Of candi CAMPOS -[facility] Start: 07-13-2024 End: 07-13-[address] Srinivasa Nava MD Work Phone: [facility] Work Phone: Start: 07-13-2024 End: 07-13-2024 Patient encounter procedure Jemima MONTOYA -Pulmonary Services/Neurology Work Phone: Start: 07-13-2024 End: 07-13-2024 ambulatory Jemima MONTOYA Facility:[facility] Start: 05-27-2024 End: 05-27-2024 Patient encounter procedure Jemima MONTOYA -[facility] Work Phone: Start: 05-27-2024 End: 05-27-[address] Srinivasa Nava MD Work Phone: [facility] Work Phone: Start: 05-27-2024 End: 05-27-2024 ambulatory Jemima MONTOYA Facility:[facility] Start: 04-22-2024 ambulatory Srinivasa [facility] Facility:[facility] Start: 11-24-2023 End: 11-24-2023 Office outpatient visit 15 minutes Srinivasa Nava MD Work Phone: [employer] Start: 11-24-2023 Review Srinivasa Nava MD Work Phone: [employer] Start: 10-10-2023 End: 10-10-2023 ambulatory Srinivasa Nava Facility:[facility] Start: 08-13-2023 End: 08-13-2023 Orders Srinivasa Nava MD Work Phone: [employer] Start: 08-06-2023 End: 08-06-2023 Office outpatient visit 15 minutes Srinivasa Nava MD Work Phone: [employer] Start: 08-06-2023 Review Srinivasa Nava MD Work Phone: [employer] Start: 07-14-2023 End: 07-14-2023 Office outpatient visit 15 minutes Srinivasa Nava MD Work Phone: [employer] Start: 07-07-2023 Non-patient / Non-visit Dr. Rohan Nava Work Phone: [facility] Start: 07-07-2023 End: 07-07-2023 Admission to same day surgery center Dr. Srinivasa Nava Work Phone: [facility]-Cardboard Cutter/Special Procedures Work Phone: Start: 07-07-2023 End: 07-07-[address] Srinivasa Nava Work Phone: [facility] Work Phone: Start: 07-04-2023 End: 07-04-[address] Srinivasa Nava Work Phone: [facility] Work Phone: Start: 07-02-2023 Non-patient / Non-visit Dr. Rohan Nava Work Phone: [facility] [place] [facility] Start: 06-05-2023 Non-patient / Non-visit Dr. Rohan Nava Work Phone: [facility] [place] [facility] Start: 06-05-2023 End: 06-05-[address] Srinivasa Nava Work Phone: [facility] Work Phone: Start: 06-05-2023 End: 06-05-[address] Srinivasa Nava Work Phone: [facility]-Cardiovascular Services Work Phone: Start: 05-16-2023 End: 05-16-[address] Srinivasa Nava Work Phone: [facility] Work Phone: Start: 05-16-2023 End: 05-16-[address] Srinivasa Nava Work Phone: [facility]-Pulmonary Services/Neurology Work Phone: Start: 05-09-2023 End: 05-09-[address] Srinivasa Nava Work Phone: [facility] Work Phone: Start: 05-09-2023 End: 05-09-[address] Srinivasa Nava Work Phone: [facility]-Laboratory Work Phone: Start: 05-09-2023 End: 05-09-[address] Srinivasa Nava Work Phone: [facility] Work Phone: Start: 01-10-2023 Non-patient / Non-visit Dr. Rohan Nava Work Phone: [facility] Work Phone: Start: 01-09-2023 Non-patient / Non-visit Dr. Rohan Nava Work Phone: [facility] Start: 01-09-2023 End: 01-09-[address] Srinivasa Nava Work Phone: [facility] Work Phone: Start: 01-09-2023 End: 01-09-[address] [facility] Start: 01-02-2023 End: 01-02-[address] Srinivasa Nava Work Phone: [facility] Work Phone: Start: 01-02-2023 End: 01-02-[address] Srinivasa Nava Work Phone: [facility] Work Phone: Start: 08-15-2022 End: 08-15-2022 Office outpatient visit 15 minutes Srinivasa Nava MD Work Phone: [employer] Start: 05-03-2020 End: 05-03-2020 Office outpatient visit 15 minutes Srinivasa Nava MD Work Phone: [employer] Start: 04-24-2020 End: 04-24-2020 Telephone follow-up Srinivasa Nava MD Work Phone: [employer] Start: 10-13-2019 End: 10-13-2019 Office outpatient visit 15 minutes Srinivasa Nava MD Work Phone: [employer]. Start: 03-05-2019 End: 03-05-2019 Telephone follow-up Srinivasa Nava MD Work Phone: [employer]. Start: 03-04-2019 End: 03-04-2019 Procedure Srinivasa Nava MD Work Phone: [employer] Start: 04-27-2018 End: 04-27-2018 Patient encounter procedure CHRISTIANO SALOMON [facility] Start: 02-10-2018 End: 02-10-2018 Medication Srinivasa aNva MD Work Phone: [employer]. Start: 01-01-2018 End: 01-01-2018 Telephone follow-up Srinivasa Nava MD Work Phone: [employer] Start: 09-15-2017 End: 09-15-2017 Office outpatient visit 15 minutes Srinivasa Nava MD Work Phone: [employer]. Start: 06-16-2017 End: 06-16-2017 Office outpatient visit 15 minutes Srinivasa Nava MD Work Phone: [employer] Start: 01-29-2017 End: 01-29-2017 Medication Srinivasa Nava MD Work Phone: [employer]. Start: 09-20-2016 End: 09-20-2016 Patient encounter procedure Srinivasa Nava MD Work Phone: [employer] Start: 09-17-2016 End: 09-17-2016 Historical Summary Srinivasa Nava MD Work Phone: [employer] Start: 02-26-2016 End: 02-26-2016 Orders Srinivasa Nava MD Work Phone: [employer]. Start: 02-23-2016 End: 02-23-2016 Orders Srinivasa Nava MD Work Phone: [employer] Start: 02-21-2016 End: 02-21-2016 Office outpatient visit 15 minutes Srinivasa Nava MD Work Phone: [employer]. Start: 09-15-2015 End: 09-15-2015 Office outpatient visit 15 minutes Srinivasa Nava MD Work Phone: [employer]. Start: 09-04-2015 End: 09-04-2015 Medication Srinivasa Nava MD Work Phone: [employer] Procedures Date Procedure Procedure Detail Performing Clinician [...] Phone: Start: 08-29-2016 End: 08-29-2016 Lipid panel aSloni Swanson LP N Comment on above: per cardiology Start: 06-24-2016 [...] End: 05-21-2016 Prostate specific antigen measurement Saloni Swanson DANIELLE Comment on above: 0.31. done per Dr[address] [...] MD Start: 07-05-2015 End: 07-06-2015 Referral to immigration lawyer Chandu medrano MD Start: 06-21-2015 End: 06-21-2015 [...] 05-16-2015 End: 06-15-2015 Nuclear stress test -exercise Chanud Barrow MD Start: 05-16-2015 End: 05-16-2015 PFM Chandu Barrow MD Start: 05-16-2015 End: 05-31-2015 Pulmonary Function Test - complete Chandu Barrow MD Start: 05-16-2015 End: 06-08-2015 Thyrotropin [Units/volume] in Serum or Plasma Chandu Barrow MD Start: 05-16-2015 End: 06-08-2015 Thyroxine (T4) [Mass/volume] in Serum or Plasma Chandu Barrow MD Start: 11-08-2013 End: 01-21-2014 *Hepatic Function Panel Chnadu Barrow MD Start: 11-08-2013 End: 01-21-2014 Lipid [...] Nuclear stress test -adenosine Chandu Barrow MD Start: 03-10-2003 End: 03-10-2003 stent Shiela Canela LPN Start: 03-10-1994 End: 03-10-1994 open heart surgery Shiela Canela LPN Plan of Treatment Date Care Activity Detail Author Start: 08-26-2024 T4 free measurement [facility] Start: 08-26-2024 Thyroid stimulating hormone measurement [facility] Start: 10-23-2023 Patient encounter procedure Medical; PHYSICAL - [facility] [employer]. Start: 23-Oct-2023 13:10-04:00 MD Srinivasa Nava Appointment Request [employer] Start: 09-26-2023 Assay of prostate specific antigen total PSA TOTAL (PROSTATE SPECIFIC ANTIGEN) (46522) Start: 26-Sep-2023 Request [employer] Start: 09-26-2023 Comprehensive metabolic panel CMP w/ GFR* (38462) Start: 26-Sep-2023 Request [employer] Start: 09-26-2023 Lipid panel LIPID PANEL ([id number]) Start: 26-Sep-2023 Request [employer]; [employer] Start: 09-26-2023 Nursing evaluation of patient and report Medical; Nurse visit - AWV fasting labs [facility] [employer]. Start: 26-Sep-2023 09:20-04:00 NURSERONY Appointment Request [employer] Start: 07-07-2023 Patient discharge [facility] Start: 07-24-2017 End: 07-24-2017 Appointment Appointment [facility] Work Phone: Start: 01-17-2017 End: 01-17-2017 Appointment Appointment [place] [facility] Work Phone: Start: 01-17-2017 End: 01-17-2017 *Hepatic Function Panel *Hepatic Function Panel [place] [facility] Work Phone: Start: 01-17-2017 End: 01-17-2017 Follow Up Appt 6 months Follow Up Appt 6 months [facility] Work Phone: Start: 01-17-2017 End: 01-17-2017 Lipid panel [AGGREGATE] *Lipid Profile CC PCP [place] [facility] Work Phone: Start: 01-17-2017 End: 01-17-2017 MMM MMM [facility] Work Phone: Start: 06-24-2016 End: 08-30-2016 *Hepatic Function Panel *Hepatic Function Panel [facility] Work Phone: Start: 06-24-2016 End: 06-24-2016 Ecg routine ecg w/least 12 lds w/i&r EKG (In office) [facility] Work Phone: Start: 06-24-2016 End: 06-24-2016 Follow Up Appt 6 months Follow Up Appt 6 months [facility] Work Phone: Start: 06-24-2016 End: 08-30-2016 Lipid panel [AGGREGATE] *Lipid Profile CC PCP [facility] Work Phone: Start: 06-24-2016 End: 06-24-2016 PFM PFM [facility] Work Phone: Start: 12-22-2015 End: 12-28-2015 *Hepatic Function Panel *Hepatic Function Panel [facility] Work Phone: Start: 12-22-2015 End: 06-14-2016 Follow Up Appt 6 months Follow Up Appt 6 months [facility] Work Phone: Start: 12-22-2015 End: 12-28-2015 Lipid panel [AGGREGATE] *Lipid Profile CC PCP [facility] Work Phone: Start: 12-22-2015 End: 06-14-2016 MMM MMM [facility] Work Phone: Start: 12-08-2015 End: 12-28-2015 *Hepatic Function Panel *Hepatic Function Panel [facility] [place] [facility] Work Phone: Start: 12-08-2015 End: 12-28-2015 Lipid panel [AGGREGATE] *Lipid Profile CC PCP [facility] Work Phone: Start: 07-05-2015 End: 07-05-2015 Cardiac Referral Cardiac Referral Dwight Hopper, [address] [place], [address] [facility] Work Phone: Start: 06-21-2015 End: 06-21-2015 Follow Up Appt Other Follow Up Appt Other [facility] Work Phone: Start: 06-21-2015 End: 06-21-2015 PFM PFM [employer] [facility] Work Phone: Start: 06-15-2015 End: 06-21-2015 Ecg routine ecg w/least 12 lds w/i&r EKG (In office) [facility] Work Phone: Start: 06-15-2015 End: 06-21-2015 Left Heart Cath Left Heart Cath [facility] [place] [facility] Work Phone: Start: 05-16-2015 End: 06-08-2015 *BMP *BMP [facility] Work Phone: Start: 05-16-2015 End: 06-08-2015 *Hepatic Function Panel *Hepatic Function Panel [address] Work Phone: Start: 05-16-2015 End: 06-08-2015 CBC W Auto Differential panel - Blood *CBC without Diff [employer] [facility] Work Phone: Start: 05-16-2015 End: 05-17-2015 Chest x-ray X-Ray, Chest, PA & Lateral [facility] Work Phone: Start: 05-16-2015 End: 06-09-2015 Ecg routine ecg w/least 12 lds w/i&r EKG (In office) [facility] Work Phone: Start: 05-16-2015 End: 05-16-2015 Echocardiography Echocardiogram (complete) [facility] Work Phone: Start: 05-16-2015 End: 05-16-2015 Follow Up Appt 6 months Follow Up Appt [address] Work Phone: Start: 05-16-2015 End: 06-08-2015 Lipid panel [AGGREGATE] *Lipid Profile CC PCP [employer] [facility] Work Phone: Start: 05-16-2015 End: 05-16-2015 Nuclear stress test -exercise Nuclear stress test -exercise [facility] Work Phone: Start: 05-16-2015 End: 05-16-2015 PFM PFM [facility] Work Phone: Start: 05-16-2015 End: 05-16-2015 Pulmonary Function Test - complete Pulmonary Function Test - complete [facility] Work Phone: Start: 05-16-2015 End: 06-08-2015 Thyroid stimulating hormone (TSH) *TSH [facility] Work Phone: Start: 05-16-2015 End: 06-08-2015 Thyroxine (T4) *T4 (Total) [facility] Work Phone: Start: 11-08-2013 End: 01-21-2014 *Hepatic Function Panel *Hepatic Function Panel [facility] Work Phone: Start: 11-08-2013 End: 01-21-2014 Lipid panel [AGGREGATE] *Lipid Profile CC PCP [facility] Work Phone: Start: 01-08-2013 End: 05-19-2013 *Hepatic Function Panel *Hepatic Function Panel [facility] Work Phone: Start: 01-08-2013 End: 05-19-2013 Lipid panel [AGGREGATE] *Lipid Profile CC PCP [facility] Work Phone: Start: 07-20-2012 End: 07-31-2012 *Hepatic Function Panel *Hepatic Function Panel [facility] Work Phone: Start: 07-20-2012 End: 07-20-2012 Follow Up Appt 6 months Follow Up Appt 6 months [facility] Work Phone: Start: 07-20-2012 End: 07-31-2012 Lipid panel [AGGREGATE] *Lipid Profile [facility] Work Phone: Start: 07-20-2012 End: 07-20-2012 MMM MMM [facility] Work Phone: Start: 12-27-2011 End: 07-20-2012 *Hepatic Function Panel *Hepatic Function Panel [facility] Work Phone: Start: 12-27-2011 End: 12-27-2011 Follow Up Appt 6 months Follow Up Appt 6 months [facility] Work Phone: Start: 12-27-2011 End: 07-20-2012 Lipid panel [AGGREGATE] *Lipid Profile [facility] Work Phone: Start: 11-15-2011 End: 11-06-2011 Left Heart Cath W/Grafts Left Heart Cath W/Grafts [facility] Work Phone: Start: 11-07-2011 End: 11-14-2011 *BMP *BMP [facility] Work Phone: Start: 11-07-2011 End: [...] Start: 10-30-2011 End: 10-30-2011 Echocardiography Echocardiogram (complete) [facility] Work Phone: Start: 10-30-2011 End: 10-30-2011 Follow Up Appt 6 months Follow Up Appt 6 months [facility] Work Phone: Start: 10-30-2011 End: 10-30-2011 Nuclear stress test -adenosine Nuclear stress test -adenosine [facility] Work Phone: 24 Hour ECG [facility] Alanine aminotransfe rase [Enzymatic activity/volume] in Serum or Plasma [facility] Albumin [Mass/volume ] in Serum or Plasma [facility] Alkaline phosphatase [Enzymatic activity/volume] in Serum or Plasma [facility] Ambulatory ECG [facility] Anion gap in Serum o r Plasma [facility] Bilirubin, total measurement [facility] BUN/Creatinine ratio [facility] Calcium [Mass/volume ] in Serum or Plasma [facility] Carbon dioxide, tota l [Moles/volume] in Central venous blood [facility] Cardioversion [facility] Comprehensive metabo lic 2000 panel - Serum or Plasma [facility] Creatinine [Mass/vol ume] in Serum or Plasma [facility] Glucose [Mass/volume ] in Serum or Plasma [facility] Measurement of renal function [facility] Patient Education HYPERLIPIDEMIA , HYPERTENSION [facility] Work Phone: Patient referral [facility] Work Phone: Potassium measurement [facility] Radionuclide imaging of perfusion of myocardium under exercise stress [facility] Serum chloride measurement [facility] Sodium measurement [facility] T4 free measurement [facility] Thyroid stimulating hormone measurement [facility] Total protein measurement [facility] Urea nitrogen [Mass/ volume] in Serum or Plasma [facility] Payers Date Payer Category Payer Self-pay [id number] 2015 Medicare [id number] 2007 Medicare [id number] 16d [id number] 1940 Unknown [id number] [id number] Unknown Unknown [id number] 2.16.8 [id number] Unknown [id number] 2.16.8 [id number] Unknown [id number] 2.16.8 [id number] Unknown [id number] 2.16.8 [id number] Unknown [id number] 2.16.8 [id number] Unknown [id number] 2.16.8 [id number] Unknown [id number] 2.16.8 [id number] Unknown [id number] 2.16.8 [id number] Unknown [id number] 2.16.8 [id number] Unknown [id number] 2.16.8 [id number] Social History Date Type Detail Facility Start: 01-02-2023 End: 07-07-2023 Tobacco smoking status NHIS Unknown if ever smoked [facility] Start: 04-14-2020 None [facility] Start: 04-14-2020 Spouse/ Signif icant Other [facility] Start: 12-30-2017 Non-smoker [facility] Start: 1940 Sex Assigned At Male [facility] Alcohol Use: Alcohol Use: ; None. [facility], [facility] Caffeine Use Caffeine Use [facility], [facility] [place] [employer] Tobacco Use: Tobacco Use: ; N ever smoker. [facility], [facility] [place] [facility] [facility], [facility]. 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, chronic May 27, 2024 8:13am Hx of CABG December, resolved May 27, 2024 8:13am Shortness of breath noneactive May 27, 2024 8:13[facility] Work Phone: Evaluation note 05-27-2024 Note Date & Type Note Facility 05-27-2024 Evaluation note Diagnosis Onset Date Resolution PAF (paroxysmal atrial fibrillation) acute May 27, 2024 8:13am Essential hypertension chronic May 27, 2024 8:13am Ischemic cardiomyopathy chronic May 27, 2024 8:13am Mixed hyperlipidemia chronic 2024 8:13am 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, chronic May 27, 2024 8:13am Hx of CABG December, resolved May 27, 2024 8:13am Shortness of breath noneactive May 27, 2024 8:13am PAF (paroxysmal atrial fibrillation) acute August 19, 2024 8:36am Essential hypertension chronic August 19, 2024 8:36am Ischemic cardiomyopathy chronic August 19, 2024 8:36am Mixed hyperlipidemia chronic August 19, 2024 8:36am Other detention (current) drug therapy chronic August 19, 2024 8:36am 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, chronic August 19, 2024 8:36am Hx of CABG December, resolved August 19, 2024 8:36am Shortness of breath noneactive August 19, 2024 8:36am [facility] Work Phone: Procedure note 07-07-2023 Note Date & Type Note Facility 07-07-2023 Procedure note [facility] Procedure note 07-07-2023 Note Date & Type Note Facility 07-07-2023 Procedure note [facility] History and physical note 07-03-2023 Note Date & Type Note Facility 07-03-2023 History and physi lexi note Note Date/Time July 02, 2023 9:09pm [facility] Medical Records Department [address] [place] [address] History & Physical Exam 07/02/23 2100 MR#: [id number] Acct: [id number] Name: GARCIA HAAS Rep #:[id number] : [id number] From: Layton Farley MD PCP: Dr. 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 at [facility] [place] to LAD, SVG to diagonal, SVG [...] Vital Signs: See EMR Intake Visit Reasons: [facility] Computer Programming Manager Required: No Is patient in pain?: No Allergies rosuvastatin calcium [From Crestor] Allergy (Verified 05/09/23 09:07) Pain in joints Medications See EMR [facility] Medical History (Updated 05/09/23 @ 10:00 by Jemima MONTOYA, PA) Abnormal nuclear stress test Abnormal stress test Arteriosclerotic heart disease (ASHD) Atherosclerotic heart disease of [place] coronary artery without angina pectoris Cardiomyopathy Chest pain Essential hypertension Gout History of prostate cancer HLD (hyperlipidemia) Ischemic cardiomyopathy Left bundle branch block Mixed hyperlipidemia New onset a-fib Old myocardial infarction Other yoga teacher (current) drug therapy Presence of stent in [...] function LVEF: by LV gram 55 % [place] 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 07/03/23 1605 <Electronically signed by Layton Farley MD> Cosigner Signature (if applicable): 07/02/232108 <Electronically signed by Kian GABRIEL> CC: OCEANOGRAPHER ASSISTANT-Chavo Oro; Dr. Layton Farley MD; Dr. Srinivasa Nava MD~ Signed [facility] Work Phone: Evaluation note 12-08-2017 Note Date & Type Note Facility 12-08-2017 Evaluation note Diagnosis Onset Date Essential hypertension chron ic Ischemic cardiomyopathy [employer] [place] Mixed hyperlipidemia chronic Hx of CABG December, resolved [facility] Work Phone: Evaluation note 04-10-2010 Note Date & Type Note Facility 04-10-2010 Evaluation note Diagnosis Onset Date New onset a-fib acute Essential hypertension chron ic Ischemic cardiomyopathy [employer] [place] Mixed hyperlipidemia chronic Presence of stent in coronar y artery April, chronic Hx of CABG December, resolved [facility] Work Phone: Evaluation note 04-10-2010 Note Date & Type Note Facility 04-10-2010 Evaluation note Diagnosis Onset Date New onset a-fib acute Essential hypertension chron ic Ischemic cardiomyopathy [employer] [place] Mixed hyperlipidemia chronic Presence of stent in coronar y artery April, chronic Hx of CABG December, resolved New onset a-fib acute Essential hypertension chron ic Ischemic cardiomyopathy [employer] [place] Mixed hyperlipidemia chronic Presence of stent in coronar y artery April, chronic Hx of CABG December, resolved [facility] Work Phone: Reason for referral (narrative) Note Date & Type Note Facility Reason for referral (narrative) No reason for referral information available [facility] Work Phone: Summary Purpose Family History Relationship Condition Age at Onset Recorded Date/T humza father Coronary artery disease Unknown Myocardial infarction Unknown mother Malignant neoplasm Unknown Advance Directives Advance Directive Response Recorded Date/ Time Advance Directives Yes December 30, 2017 7:55am Living Will Yes April 14 7:15am Power of Professor Of Rhetoric No April 14, 2020 7:15am Advance Directive Response Recorded Date/ Time Advance Directives Yes December 30, 2017 6:55am Living Will Yes April 14 6:15am Power of Professor Of Rhetoric No April 14, 2020 6:15am Advance Directive Response Recorded Date/ Time Advance Directives on File No July 07, 2023 10:48am Name of Medical Power of Professor Of Rhetoric Tamara mendez July 07, 2023 10:48am Advance Directives Yes July 06 10:48am Living Will Yes July 07, 2023 10:48am Power of Professor Of Rhetoric Yes July 06 10:48am Advance Directive Response Recorded Date/ Time Advance Directives Yes July 06 10:48am Chief Complaint and Reason for Visit [...] INCREASED SOB E-ORDER Atherosclerotic heart disease of [place] coronary a Reason for Visit New onset a-fib Essential hypertension Ischemic cardiomyopathy Mixed hyperlipidemia Presence of stent in coronary artery Hx of CABG Chief Complaint INCREASED SOB E-ORDER Atherosclerotic heart disease of [place] coronary a Atherosclerotic heart disease of [place] coronary a Reason for Visit New onset a-fib Essential hypertension Ischemic cardiomyopathy Mixed hyperlipidemia Presence of stent in coronary artery Hx of CABG Chief Complaint INCREASED SOB E-ORDER Atherosclerotic heart disease of [place] coronary a Atherosclerotic heart disease of [place] coronary a Atrial fibrillation 6 M FU [...] Visit Admit Date PAF (paroxysmal atrial fibrillation) [facility] 2024 8:13am Essential hypertension May 27, 2024 8:13am Ischemic cardiomyopathy May 27, 2024 8:13am Mixed hyperlipidemia May 27, 2024 8: 13am Presence of stent in coronary artery [facility] 2024 8:13am Hx of CABG May [...] Visit Admit Date PAF (paroxysmal atrial fibrillation) [facility] 2024 8:13am Essential hypertension May 27, 2024 8:13am Ischemic cardiomyopathy May 27, 2024 8:13am Mixed hyperlipidemia May 27, 2024 8: 13am Presence of stent in coronary artery [facility] 2024 8:13am Hx of CABG May 27, 2024 8:1 3am Shortness of breath May 27, 2024 8:1 3am PAF (paroxysmal atrial fibrillation) [facility] 2024 8:36am Essential hypertension August 19, 2024 8 :36am Ischemic cardiomyopathy August 19, 2024 8:36am Mixed hyperlipidemia August 19, 2024 8:3 6am Other detention (current) drug therapy J une 2024 8:36am Presence of stent in coronary artery J[facility] 2024 8:36am Hx of CABG August 19, 2024 8:36 am Shortness of breath August 19, 2024 8:36 am Additional Source Comments (unrecognized sect ion and content) No Status Records FoundNo Status Records FoundNo Status Records Found INFORMATION SOURCE (unrecogn ized section and content) DATE CREATED AUTHOR 03/04/2019 [facility] DATE CREATED AUTHOR AUTHOR'S ORGANIZ ATION 04/01/2020 [place] DATE CREATED AUTHOR AUTHOR'S ORGANIZ ATION 08/21/2024 [facility] Care Teams (unrecognized sec tion and content) Team Status: Active Member Role Status Dates Dr. Srinivasa Nava MD Family Provider Active Dr. Srinivasa Nava MD Primary Care Provider Active Team Status: Inactive Member Role Status Dates Dr. Srinivasa Nava MD Primary Care Provider, Referring Provider Active Sophia Sultana OCEANOGRAPHER ASSISTANT, OCEANOGRAPHER ASSISTANT-C Attending Provider Active Team Status: Inactive Member Role Status Dates Dr. Srinivasa Nava MD Primary Care Provider Active Sophia Sultana OCEANOGRAPHER ASSISTANT, OCEANOGRAPHER ASSISTANT-C Attending Provider, Referring P dimitrios Active Team Status: Active Member Role Status Dates Dr. Srinivasa Nava MD Primary Care Provider Active Sophia Sultana OCEANOGRAPHER ASSISTANT, OCEANOGRAPHER ASSISTANT-C Referring Provider, Other Provi reggie Active Dr. Susan Coles MD Attending Provider Activ e Team Status: Active Member Role Status Dates Dr. Srinivasa Nava MD Primary Care Provider Active Sophia Sultana OCEANOGRAPHER ASSISTANT, OCEANOGRAPHER ASSISTANT-C Attending Provider Active Team Status: Inactive [...] 13, 2024 End: July 13, 2024 Jemima Maldonado PA, PA Attending Provider Active Start: July 13, 2024 End: July 13, 2024 Jemima Maldonado PA, PA Referring Provider Active Start: July 13, [...] Active S tart: July 13, 2024 Jemima Maldonado PA, PA Referring Provider Active Start: July 13, 2024 Team Status: Inactive Member Role Status Dates Dr. Srinivasa Nava MD Primary Care Provider Active Start: July 30, 2024 End: July 30, 2024 JAN Rangel Attending Provider Active Start: July 30, 2024 End: July 30, 2024 JAN Rangel Referring Provider Active Start: July 30, 2024 End: July 30, 2024 Team Status: Inactive Member Role Status Dates Dr. Srinivasa Nava MD Primary Care Provider Active Start: August 19, 2024 End: August 19, 2024 Dr. Srinivasa Nava MD Referring Provider Active S tart: August 19, 2024 End: August 19, 2024 Kian Oro OCEANOGRAPHER ASSISTANT, OCEANOGRAPHER ASSISTANT-C Attending Provider Active S tart: August 19, 2024 End: August 19, 2024 Team Status: Inactive Member Role Status Dates Dr. Srinivasa Nava MD Primary Care Provider Active Start: August 20, 2024 End: August 20, 2024 Kian Oro OCEANOGRAPHER ASSISTANT, OCEANOGRAPHER ASSISTANT-C Attending Provider Active S tart: August 20, 2024 End: August 20, 2024 Kian Oro OCEANOGRAPHER ASSISTANT, OCEANOGRAPHER ASSISTANT-C Referring Provider Active S tart: August 20, 2024 End: August 20, 2024 Team Status: Active Member Role Status Dates Dr. Srinivasa Nava MD Primary Care Provider Active Start: August 26, 2024 Kian Oro OCEANOGRAPHER ASSISTANT, OCEANOGRAPHER ASSISTANT-C Attending Provider Active S tart: August 26, 2024 Kian Oro OCEANOGRAPHER ASSISTANT, OCEANOGRAPHER ASSISTANT-C Referring Provider Active S tart: August 26, 2024 Goals (unrecognized section and content) Goals [...] BE BASED ON THE PRIMARY CLINICAL RECORDS. [facility] provides no warranty or guarantee of the accuracy or completeness of information in this document.
[2024-08-27 09:00] LABS: ALB/GLOB Ratio 1.4 RATIO (0.9-2.4); AST(SGOT) 29 U/L (<=37); Alanine Aminotransfer ALT/SGPT 22 U/L (<=46); Albumin, Serum 4.2 g/dL (3.4-4.8); Alkaline Phosphatase 113 U/L (40-129); Anion Gap 10 (5-15); BUN 28 mg/dL (4-19); Calcium,Total 9.2 mg/dL (7.6-11.0); Carbon Dioxide 26.3 mmol/L (21.0-32.0); Chloride 102 mmol/L (98-108); Creatinine, Serum 1.77 mg/dL (0.70-1.20); EST Glomerular Filtration Rate 38 (>60); Glucose 119 mg/dL (70-99); Potassium 4.9 mmol/L (3.3-5.1); Protein, Total 7.2 g/dL (5.9-8.4); Sodium Level 138 mmol/L (133-145); Total Bilirubin 0.52 mg/dL (0.00-1.30)
== END | disposition home or self-care (01) ==
LOC: LAB 07:51
PROVIDERS: PCP Family Medicine; Referring Provider Nurse Practitioner Family; Visit Provider Nurse Practitioner Family
DX: I48.0 Paroxysmal atrial fibrillation (principal); I25.5 Ischemic cardiomyopathy; E78.2 Mixed hyperlipidemia; I10 Essential (primary) hypertension; Z95.1 Presence of aortocoronary bypass graft; Z95.5 Presence of coronary angioplasty implant and graft; Z79.899 Other long term (current) drug therapy
CPT/HCPCS: 80053

== ENCOUNTER → 2025-02-24 | Outpatient (CLI) | payer MEDICARE, OTHER, SELFPAY ==
[2025-02-24 12:04] LABS: AST(SGOT) 24 U/L (<=37); Alanine Aminotransfer ALT/SGPT 19 U/L (<=46); Albumin, Serum 4.0 g/dL (3.4-4.8); Alkaline Phosphatase 108 U/L (40-129); Anion Gap 10 (5-15); BUN 26 mg/dL (4-19); BUN/Creat Ratio 14.5 RATIO (10-20); Bilirubin, Direct 0.30 mg/dL (0.00-0.30); Calcium,Total 9.4 mg/dL (7.6-11.0); Carbon Dioxide 26.2 mmol/L (21.0-32.0); Chloride 103 mmol/L (98-108); Cholesterol 128 mg/dL (<=200); Globulin 3.1 g/dL (2.2-4.2); Glucose 116 mg/dL (70-99); Low Density Lipoprotein Calc. 67 mg/dL; Potassium 4.8 mmol/L (3.3-5.1); Pro- Brain NATRIURETIC PEPTIDE 1027 pg/mL (<=1800); Triglycerides 139 mg/dL; Very Low Density Lipoprotein 28 mg/dL (5-40); cholesterol:hdl ratio screen 3.53
== END | disposition home or self-care (01) ==
LOC: LAB 10:43
PROVIDERS: PCP Family Medicine; Referring Provider Internal Medicine Cardiovascular Disease; Visit Provider Internal Medicine Cardiovascular Disease
DX: R06.09 Other forms of dyspnea (principal); E78.2 Mixed hyperlipidemia; R06.02 Shortness of breath
CPT/HCPCS: 36415; 80048; 80061; 80076; 83880; 84443